=== PATIENT | male | born 1970 | race Caucasian/White ===

== ENCOUNTER → 2016-07-29 | Outpatient (CLI) | payer BC | LOC: M WUC 12:14 | PROVIDERS: ATTEND Nurse Practitioner Family | DX: E29.1 Testicular hypofunction (principal) ==

== ENCOUNTER → 2016-08-14 | Outpatient (REF) | payer BC ==
[2016-08-14 18:16] LABS: BASO % 0.5 % (0.0-1.0); EOS # 0.3 K/mm3 (0.0-0.50); EOS % 2.7 % (0.0-3.0); LARGE UNSTAINED CELL # 0.2 K/mm3 (0.0-0.4); LARGE UNSTAINED CELL % 2.5 % (0.0-4.0); LYMPH # 3.9 K/mm3 (1.5-4.5); LYMPH % 38.2 % (24.0-44.0); MEAN CORPUSCULAR HEMOGLOBIN 27.2 pg (27.0-33.0); MEAN CORPUSCULAR HGB CONC 32.1 g/dl (32.0-36.5); MEAN CORPUSCULAR VOLUME 84.8 fl (80.0-96.0); MONO # 0.8 K/mm3 (0.0-0.8); MONO % 8.1 % (0.0-5.0); NEUTROPHILS # 4.6 K/mm3 (1.8-7.7); PLATELET COUNT, AUTOMATED 218 k/mm3 (150-450); RED CELL DISTRIBUTION WIDTH 14.6 % (11.5-14.5); WHITE BLOOD COUNT 9.5 K/mm3 (4.0-10.0)
[2016-08-14 19:06] LABS: ALBUMIN 3.7 GM/DL (3.2-5.2); ALBUMIN/GLOBULIN RATIO 1.12 (1.00-1.93); ALKALINE PHOSPHATASE 46 U/L (45-117); ALT/SGPT 42 U/L (12-78); ANION GAP 11 MEQ/L (8-16); AST/SGOT 23 U/L (15-37); BILIRUBIN,TOTAL 0.6 MG/DL (0.2-1.0); BLOOD UREA NITROGEN 15 MG/DL (7-18); CALCIUM LEVEL 8.8 MG/DL (8.5-10.1); CARBON DIOXIDE LEVEL 25 MEQ/L (21-32); CHLORIDE LEVEL 105 MEQ/L (98-107); CHOLESTEROL LEVEL 134 MG/DL (<200); CREATININE FOR GFR 1.21 MG/DL (0.70-1.30); GLOMERULAR FILTRATION RATE > 60.0 (>60); GLUCOSE, FASTING 88 MG/DL (70-105); POTASSIUM SERUM 4.1 MEQ/L (3.5-5.1); SODIUM LEVEL 141 MEQ/L (136-145); TRIGLYCERIDES LEVEL 133 MG/DL (<150)
== END ==
LOC: M LABDRAW1 15:41
PROVIDERS: ATTEND Nurse Practitioner Family
DX: I10 Essential (primary) hypertension (principal); K21.9 Gastro-esophageal reflux disease without esophagitis; E55.9 Vitamin D deficiency, unspecified; E78.5 Hyperlipidemia, unspecified

== ENCOUNTER → 2016-08-26 | Outpatient (CLI) | payer BC ==
[2016-08-26 12:44] LABS: ANION GAP 6 MEQ/L (8-16); BLOOD UREA NITROGEN 12 MG/DL (7-18); CALCIUM LEVEL 8.7 MG/DL (8.5-10.1); CARBON DIOXIDE LEVEL 31 MEQ/L (21-32); CHLORIDE LEVEL 100 MEQ/L (98-107); CREATININE FOR GFR 1.35 MG/DL (0.70-1.30); GLOMERULAR FILTRATION RATE > 60.0 (>60); GLUCOSE, FASTING 94 MG/DL (70-105); POTASSIUM SERUM 4.2 MEQ/L (3.5-5.1); SODIUM LEVEL 137 MEQ/L (136-145)
== END ==
LOC: M LAB 11:25
PROVIDERS: ATTEND Nurse Practitioner Family
DX: R31.29 Other microscopic hematuria (principal); E29.1 Testicular hypofunction

== ENCOUNTER → 2017-01-27 | Outpatient (CLI) | payer BC ==
[~2017-01-27] MED LIST: ASPI1TAB PO; ASPI81CH PO; ATOR1TAB19 PO; CITA40TA4 PO; FISH100049 PO; LANS30CA PO; LISI-538 PO; MULT1TAB18 PO; TEST200I14 IM; VITA1CAP40 PO; VITMTA PO
== END ==
LOC: M ADAMS 14:48
PROVIDERS: ATTEND Nurse Practitioner Family
DX: E29.1 Testicular hypofunction (principal); N39.0 Urinary tract infection, site not specified

== ENCOUNTER → 2017-01-29 | Outpatient (REF) | payer BC | LOC: M LABDRWAD 20:26 | PROVIDERS: ATTEND Nurse Practitioner Family | DX: E29.1 Testicular hypofunction (principal) ==

== ENCOUNTER → 2017-02-17 | Outpatient (CLI) | payer BC | LOC: M ADAMS 15:09 | PROVIDERS: ATTEND Nurse Practitioner Family | DX: E29.1 Testicular hypofunction (principal); N39.0 Urinary tract infection, site not specified ==

== ENCOUNTER 2017-03-19 17:34 | Emergency (ER) | payer BC ==
[~2017-03-19] VITALS: Ht 198.1 cm; Wt 130.4 kg
[2017-03-19] MEDS ORDERED: FISH100049 PO (17:49)
[2017-03-19] MEDS ORDERED: MULT1TAB18 PO (17:49)
[2017-03-19] MEDS ORDERED: VITA1CAP40 PO (17:49)
[2017-03-19] MEDS ORDERED: ASPI81CH PO (17:49)
[2017-03-19] MEDS ORDERED: LANS30CA PO (17:49)
[2017-03-19] MEDS ORDERED: LISI-538 PO (17:49)
[2017-03-19] MEDS ORDERED: CITA40TA4 PO (17:49)
[2017-03-19] MEDS ORDERED: ATOR1TAB19 PO (17:49)
[2017-03-19] MEDS ORDERED: TEST200I14 IM (17:49)
[2017-03-19] MEDS ORDERED: NS 1,000 ML IV SCH (18:17)
[2017-03-19] MEDS ORDERED: ASPIRIN 325 MG TAB PO ONE (18:30)
[2017-03-19 18:49] LABS: BASO # 0.1 10^3/uL (0.0-0.2); BASO % 0.6 % (0.0-1.0); EOS # 0.2 10^3/uL (0.0-0.50); IMMATURE GRANULOCYTE % 0.6 % (0-0); LYMPH % 28.4 % (24.0-44.0); MEAN CORPUSCULAR HEMOGLOBIN 26.2 pg (27.0-33.0); MEAN CORPUSCULAR HGB CONC 32.4 g/dl (32.0-36.5); MEAN CORPUSCULAR VOLUME 80.8 fl (80.0-96.0); MONO # 1.2 10^3/uL (0.0-0.8); MONO % 11.1 % (0.0-5.0); NEUTROPHILS # 6.1 10^3/uL (1.8-7.7); NEUTROPHILS % 57.3 % (36.0-66.0); PLATELET COUNT, AUTOMATED 234 10^3/uL (150-450); RED CELL DISTRIBUTION WIDTH 16.8 % (11.5-14.5); WHITE BLOOD COUNT 10.7 10^3/uL (4.0-10.0)
--- NOTE | 2017-03-19 19:00 | REPUSA ---
CT of the head Clinical history: altered mental status. Comparison: 10/02/2005. Technique: Multiple axial CT images were obtained through the head without administration of contrast . Findings: The ventricles and sulci are symmetric bilaterally. There is no evidence of acute hemorrhag e or infarct. There is no midline shift, mass effect, or extra-axial fluid collection. The osseous st ructures are unremarkable. The visualized paranasal sinuses and mastoid air cells are clear. Impression: Negative study.
--- NOTE | 2017-03-19 19:12 | REP ---
CHEST, PA AND LATERAL: 03/19/2017. Clinical history: Altered mental status. Comparison: 12/20/2015, 07/06/2014. Findings: Two views show the lung jefferson well inflated and without infiltrate, effusion, atelectasis or mass. Heart, mediastinal and hilar contours are stable dating back to 2006. The aorta and airway intact. Bony thorax without acute finding. No free air. Impression: 1. No acute cardiopulmonary disease, stable chest. Signed by Deni Prescott MD 03/19/2017 08:04 P
[2017-03-19 19:15] LABS: ALBUMIN 3.9 GM/DL (3.2-5.2); ALKALINE PHOSPHATASE 53 U/L (45-117); ALT/SGPT 49 U/L (12-78); ANION GAP 4 MEQ/L (8-16); AST/SGOT 30 U/L (7-37); BILIRUBIN,DIRECT 0.2 MG/DL (0.0-0.2); BILIRUBIN,TOTAL 1.1 MG/DL (0.2-1.0); BLOOD UREA NITROGEN 11 MG/DL (7-18); CALCIUM LEVEL 9.5 MG/DL (8.5-10.1); CARBON DIOXIDE LEVEL 33 MEQ/L (21-32); CHLORIDE LEVEL 100 MEQ/L (98-107); CREATININE FOR GFR 1.32 MG/DL (0.70-1.30); GLOMERULAR FILTRATION RATE > 60.0 (>60); GLUCOSE, FASTING 80 MG/DL (70-105); SODIUM LEVEL 137 MEQ/L (136-145); TOTAL PROTEIN 7.8 GM/DL (6.4-8.2)
[2017-03-19] MEDS ORDERED: METOCLOPRAMIDE INJ 10MG/2ML VIAL (J2765) IV ONE (19:15)
[2017-03-19] MEDS ORDERED: ASPI1TAB PO (20:20)
[2017-03-19] MEDS ORDERED: VITMTA PO (20:20)
[2017-03-19 20:36] LABS: METHADONE URINE NEGATIVE (NEGATIVE)
[2017-03-19] MEDS ORDERED: CitaloPRAM (CeleXA) 20 MG TAB PO SCH (21:00)
[2017-03-19] MEDS ORDERED: LISINOPRIL 20 MG TAB PO SCH (21:00)
[2017-03-19] MEDS ORDERED: ATORVASTATIN 10 MG TAB PO SCH (21:00)
[2017-03-19 21:47] VITALS: BP 130/70
[2017-03-19] MEDS ORDERED: ONDANSETRON 4MG/2ML VIAL (J2405) IV PRN (22:30)
[2017-03-19] MEDS ORDERED: ACETAMINOPHEN TAB 650MG DOSE (2X325MG) PO PRN (22:30)
[2017-03-20] MEDS ORDERED: OMEGA-3 1050MG CAPSULE PO SCH (09:00)
[2017-03-20] MEDS ORDERED: MULTIVITAMINS/MINERALS THERAP 1 TAB PO SCH (09:00)
[2017-03-20] MEDS ORDERED: PANTOPRAZOLE 40MG TAB (PROTONIX) PO SCH (09:00)
[2017-03-20] MEDS ORDERED: ASPIRIN 81 MG ENTERIC TAB PO SCH (09:00)
--- NOTE | 2017-03-22 00:14 | ECGEPIP ---
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
== END 2017-03-19 22:05 | disposition left against medical advice (07) ==
LOC: M ED 17:34
DX: G45.9 Transient cerebral ischemic attack, unspecified (principal); I10 Essential (primary) hypertension; E78.4 Other hyperlipidemia
CPT/HCPCS: 70450; 71020; 80048; 80076; 80307; 81001; 82550; 82553; 83605; 84443; 85025; 93005; 93041; 94760; 96374; 99285; G0480; J2765

== ENCOUNTER → 2017-03-24 | Outpatient (CLI) | payer BC ==
[2017-03-24 16:33] LABS: BASO # 0.1 10^3/uL (0.0-0.2); BASO % 0.5 % (0.0-1.0); EOS # 0.1 10^3/uL (0.0-0.50); EOS % 1.1 % (0.0-3.0); IMMATURE GRANULOCYTE % 0.7 % (0-0); LYMPH # 2.8 10^3/uL (1.5-4.5); LYMPH % 29.8 % (24.0-44.0); MEAN CORPUSCULAR HEMOGLOBIN 25.9 pg (27.0-33.0); MEAN CORPUSCULAR HGB CONC 31.8 g/dl (32.0-36.5); MEAN CORPUSCULAR VOLUME 81.6 fl (80.0-96.0); MONO # 0.8 10^3/uL (0.0-0.8); MONO % 8.5 % (0.0-5.0); NEUTROPHILS # 5.5 10^3/uL (1.8-7.7); NEUTROPHILS % 59.4 % (36.0-66.0); PLATELET COUNT, AUTOMATED 259 10^3/uL (150-450); RED CELL DISTRIBUTION WIDTH 17.4 % (11.5-14.5); WHITE BLOOD COUNT 9.2 10^3/uL (4.0-10.0)
[2017-03-24 16:55] LABS: ALBUMIN 3.8 GM/DL (3.2-5.2); ALBUMIN/GLOBULIN RATIO 1.19 (1.00-1.93); ALKALINE PHOSPHATASE 52 U/L (45-117); ALT/SGPT 42 U/L (12-78); ANION GAP 6 MEQ/L (8-16); AST/SGOT 22 U/L (7-37); BILIRUBIN,TOTAL 1.1 MG/DL (0.2-1.0); BLOOD UREA NITROGEN 11 MG/DL (7-18); CALCIUM LEVEL 9.4 MG/DL (8.5-10.1); CARBON DIOXIDE LEVEL 30 MEQ/L (21-32); CHLORIDE LEVEL 103 MEQ/L (98-107); CHOLESTEROL LEVEL 136 MG/DL (<200); CREATININE FOR GFR 1.28 MG/DL (0.70-1.30); GLOMERULAR FILTRATION RATE > 60.0 (>60); GLUCOSE, FASTING 119 MG/DL (70-105); POTASSIUM SERUM 4.3 MEQ/L (3.5-5.1); SODIUM LEVEL 139 MEQ/L (136-145); TRIGLYCERIDES LEVEL 152 MG/DL (<150)
== END ==
LOC: M ADAMS 13:22
PROVIDERS: ATTEND Nurse Practitioner Family
DX: I10 Essential (primary) hypertension (principal); E55.9 Vitamin D deficiency, unspecified; E78.5 Hyperlipidemia, unspecified

== ENCOUNTER → 2017-05-13 | Outpatient (CLI) | payer BC ==
[2017-05-13 18:25] LABS: HEMATOCRIT 50.3 % (42.0-52.0)
[2017-05-14 08:36] LABS: TESTOSTERONE 97 NG/DL (241-827)
[2017-05-14 10:09] LABS: PROSTATIC SPECIFIC AG MONITOR 0.49 NG/ML (< 4.0)
== END ==
LOC: M ADAMS 10:40
DX: E29.1 Testicular hypofunction (principal)
CPT/HCPCS: 84403

== ENCOUNTER → 2017-06-01 | Outpatient (REF) | payer BC ==
[2017-06-01 20:14] LABS: PROSTATIC SPECIFIC AG MONITOR 0.64 NG/ML (< 4.0)
[2017-06-01 20:21] LABS: TESTOSTERONE 261 NG/DL (241-827)
== END ==
LOC: M LABDRWAD 19:12
DX: E29.1 Testicular hypofunction (principal)

== ENCOUNTER → 2017-06-01 | Outpatient (CLI) | payer BC | LOC: M ADAMS 17:35 | DX: R31.29 Other microscopic hematuria (principal); M41.26 Other idiopathic scoliosis, lumbar region | CPT/HCPCS: 74018 ==

== ENCOUNTER → 2017-08-28 | Outpatient (REF) | payer BC ==
[2017-08-28 20:35] LABS: BASO # 0.1 10^3/uL (0.0-0.2); BASO % 0.9 % (0.0-1.0); EOS # 0.2 10^3/uL (0.0-0.50); EOS % 2.6 % (0.0-3.0); HEMATOCRIT 48.8 % (42.0-52.0); HEMOGLOBIN 15.9 g/dl (13.5-17.5); IMMATURE GRANULOCYTE % 1.8 % (0-3.0); LYMPH # 3.4 10^3/uL (1.5-4.5); LYMPH % 37.4 % (24.0-44.0); MEAN CORPUSCULAR HEMOGLOBIN 28.9 pg (27.0-33.0); MEAN CORPUSCULAR HGB CONC 32.6 g/dl (32.0-36.5); MEAN CORPUSCULAR VOLUME 88.6 fl (80.0-96.0); MONO # 0.9 10^3/uL (0.0-0.8); MONO % 9.8 % (0.0-5.0); NEUTROPHILS # 4.3 10^3/uL (1.8-7.7); NEUTROPHILS % 47.5 % (36.0-66.0); PLATELET COUNT, AUTOMATED 186 10^3/uL (150-450); RED BLOOD COUNT 5.51 10^6/uL (4.30-6.10); RED CELL DISTRIBUTION WIDTH 17.9 % (11.5-14.5); WHITE BLOOD COUNT 9.1 10^3/uL (4.0-10.0)
[2017-08-28 20:56] LABS: ALBUMIN/GLOBULIN RATIO 1.14 (1.00-1.93); ALKALINE PHOSPHATASE 54 U/L (45-117); ALT/SGPT 90 U/L (12-78); AMYLASE 56 U/L (25-115); ANION GAP 4 MEQ/L (8-16); AST/SGOT 45 U/L (7-37); BILIRUBIN,TOTAL 0.9 MG/DL (0.2-1.0); BLOOD UREA NITROGEN 14 MG/DL (7-18); CALCIUM LEVEL 9.4 MG/DL (8.5-10.1); CARBON DIOXIDE LEVEL 31 MEQ/L (21-32); CHLORIDE LEVEL 104 MEQ/L (98-107); CREATININE FOR GFR 1.15 MG/DL (0.70-1.30); GLOMERULAR FILTRATION RATE > 60.0 (>60); GLUCOSE, FASTING 108 MG/DL (70-100); POTASSIUM SERUM 4.4 MEQ/L (3.5-5.1); SODIUM LEVEL 139 MEQ/L (136-145); TOTAL PROTEIN 7.5 GM/DL (6.4-8.2)
[2017-08-29 11:15] LABS: LIPASE 249 U/L (73-393)
== END ==
LOC: M ADAMS 10:41
DX: R10.9 Unspecified abdominal pain (principal)
CPT/HCPCS: 82150

== ENCOUNTER → 2017-10-08 | Outpatient (CLI) | payer BC ==
[2017-10-08 20:44] LABS: TESTOSTERONE 621 NG/DL (241-827)
== END ==
LOC: M ADAMS 11:34
DX: E34.9 Endocrine disorder, unspecified (principal)

== ENCOUNTER → 2017-10-15 | Outpatient (REF) | payer BC ==
[2017-10-15 21:53] LABS: TESTOSTERONE 923 NG/DL (241-827)
== END ==
LOC: M LAB REF 21:14 → M LABDRWAD 21:14
DX: E34.9 Endocrine disorder, unspecified (principal)
CPT/HCPCS: 84403

== ENCOUNTER 2018-02-02 16:16 | Emergency (ER) | payer OTHER, BC | END 2018-02-02 19:30 | disposition home or self-care (01) | LOC: M ED 16:16 | DX: S16.1XXA Strain of muscle, fascia and tendon at neck level, initial encounter (principal); S09.93XA Unspecified injury of face, initial encounter; S80.01XA Contusion of right knee, initial encounter; V43.52XA Car driver injured in collision with other type car in traffic accident, initial encounter; Y92.9 Unspecified place or not applicable; Y93.9 Activity, unspecified; Y99.9 Unspecified external cause status; M25.78 Osteophyte, vertebrae; M50.93 Cervical disc disorder, unspecified, cervicothoracic region; Z79.82 Long term (current) use of aspirin; Z79.899 Other long term (current) drug therapy | CPT/HCPCS: 71046 ==

== ENCOUNTER → 2018-03-10 | Outpatient (REF) | payer OTHER, BC ==
[2018-03-10 17:40] LABS: HEMATOCRIT 50.4 % (42.0-52.0)
[2018-03-10 17:44] LABS: PROSTATIC SPECIFIC AG MONITOR 0.57 NG/ML (< 4.0)
[2018-03-11 10:20] LABS: TESTOSTERONE 575 NG/DL (241-827)
== END ==
LOC: M LABDRWAD 17:06
DX: R79.89 Other specified abnormal findings of blood chemistry (principal)
CPT/HCPCS: 84403

== ENCOUNTER → 2018-03-24 | Outpatient (REF) | payer BC ==
[2018-03-24 17:08] LABS: BASO # 0.1 10^3/uL (0.0-0.2); EOS # 0.2 10^3/uL (0.0-0.50); EOS % 2.4 % (0.0-3.0); HEMATOCRIT 51.1 % (42.0-52.0); HEMOGLOBIN 16.6 g/dl (13.5-17.5); IMMATURE GRANULOCYTE % 1.9 % (0-3.0); LYMPH % 36.4 % (24.0-44.0); MEAN CORPUSCULAR HEMOGLOBIN 28.7 pg (27.0-33.0); MEAN CORPUSCULAR HGB CONC 32.5 g/dl (32.0-36.5); MEAN CORPUSCULAR VOLUME 88.4 fl (80.0-96.0); MONO # 0.7 10^3/uL (0.0-0.8); MONO % 8.8 % (0.0-5.0); NEUTROPHILS # 4.1 10^3/uL (1.8-7.7); NEUTROPHILS % 49.5 % (36.0-66.0); PLATELET COUNT, AUTOMATED 218 10^3/uL (150-450); RED BLOOD COUNT 5.78 10^6/uL (4.30-6.10); RED CELL DISTRIBUTION WIDTH 15.2 % (11.5-14.5); WHITE BLOOD COUNT 8.2 10^3/uL (4.0-10.0)
[2018-03-24 17:18] LABS: ALBUMIN 4.2 GM/DL (3.2-5.2); ALBUMIN/GLOBULIN RATIO 1.35 (1.00-1.93); ALKALINE PHOSPHATASE 61 U/L (45-117); ALT/SGPT 78 U/L (12-78); ANION GAP 7 MEQ/L (8-16); AST/SGOT 40 U/L (7-37); BLOOD UREA NITROGEN 12 MG/DL (7-18); CALCIUM LEVEL 9.1 MG/DL (8.5-10.1); CARBON DIOXIDE LEVEL 28 MEQ/L (21-32); CHLORIDE LEVEL 103 MEQ/L (98-107); CHOLESTEROL LEVEL 142 MG/DL (<200); CHOLESTEROL RISK RATIO 4.437 (<5); CREATININE FOR GFR 1.17 MG/DL (0.70-1.30); FREE T4 0.99 NG/DL (0.76-1.46); GLOMERULAR FILTRATION RATE > 60.0 (>60); GLUCOSE, FASTING 103 MG/DL (70-100); HDL CHOLESTEROL 32 MG/DL (>40); LDL CHOLESTEROL 82 MG/DL (<100); NON-HDL-C 110 MG/DL; POTASSIUM SERUM 4.3 MEQ/L (3.5-5.1); SODIUM LEVEL 138 MEQ/L (136-145); THYROID STIMULATING HORMONE 0.636 uIU/ML (0.358-3.740); TOTAL PROTEIN 7.3 GM/DL (6.4-8.2); TRIGLYCERIDES LEVEL 141 MG/DL (<150)
== END ==
LOC: M SFHCADAM 14:45
DX: I10 Essential (primary) hypertension (principal); E66.9 Obesity, unspecified; F41.9 Anxiety disorder, unspecified
CPT/HCPCS: 84443

== ENCOUNTER → 2018-03-24 | Outpatient (CLI) | payer BC | LOC: M ADAMS 14:50 | DX: F41.9 Anxiety disorder, unspecified (principal); I10 Essential (primary) hypertension; E66.9 Obesity, unspecified ==

== ENCOUNTER → 2018-03-24 | Outpatient (REF) | payer BC ==
[2018-03-25 11:34] LABS: TESTOSTERONE 362 NG/DL (241-827)
== END ==
LOC: M LABDRWAD 10:28
DX: R79.89 Other specified abnormal findings of blood chemistry (principal)
CPT/HCPCS: 84403

== ENCOUNTER → 2018-06-15 | Outpatient (CLI) | payer BC ==
[~2018-06-15] MED LIST changes: +ACET-683 PO; +CYCL10TA PO; +IBUP-1022 PO; -VITA1CAP40 PO; +VITA50005 PO
[2018-06-15 19:57] LABS: BASO # 0.1 10^3/uL (0.0-0.2); BASO % 0.9 % (0.0-1.0); EOS # 0.2 10^3/uL (0.0-0.50); EOS % 2.5 % (0.0-3.0); LYMPH # 3.8 10^3/uL (1.5-4.5); LYMPH % 41.5 % (24.0-44.0); MEAN CORPUSCULAR HGB CONC 32.7 g/dl (32.0-36.5); MEAN CORPUSCULAR VOLUME 88.6 fl (80.0-96.0); MONO # 1.1 10^3/uL (0.0-0.8); MONO % 11.6 % (0.0-5.0); NEUTROPHILS # 3.9 10^3/uL (1.8-7.7); NEUTROPHILS % 42.5 % (36.0-66.0); PLATELET COUNT, AUTOMATED 235 10^3/uL (150-450); RED BLOOD COUNT 5.87 10^6/uL (4.30-6.10); WHITE BLOOD COUNT 9.1 10^3/uL (4.0-10.0)
[2018-06-15 20:05] LABS: PROSTATIC SPECIFIC AG MONITOR 0.6 NG/ML (< 4.00)
[2018-06-15 20:07] LABS: ALBUMIN 4.2 GM/DL (3.2-5.2); ALT/SGPT 128 U/L (12-78); AMYLASE 60 U/L (25-115); BLOOD UREA NITROGEN 12 MG/DL (7-18); CALCIUM LEVEL 9.3 MG/DL (8.5-10.1); CARBON DIOXIDE LEVEL 30 MEQ/L (21-32); CHLORIDE LEVEL 103 MEQ/L (98-107); CREATININE FOR GFR 1.19 MG/DL (0.70-1.30); GLOMERULAR FILTRATION RATE > 60.0 (>60); GLUCOSE, FASTING 88 MG/DL (70-100); LIPASE 293 U/L (73-393); POTASSIUM SERUM 5.1 MEQ/L (3.5-5.1); SODIUM LEVEL 137 MEQ/L (136-145); TOTAL PROTEIN 7.5 GM/DL (6.4-8.2)
--- NOTE | 2018-06-16 09:45 | REP ---
KUB ABDOMEN AND PELVIS: Two KUB films of abdomen and pelvis performed. There is moderate fecal material scattered throughout the colon. No small bowel obstruction is seen. No abnormal calcifications are seen. There are moderate degenerative changes of the lower lumbar spine with mild curvature towards the left. There are mild degenerative changes of the hips. IMPRESSION: Moderate fecal retention with no evidence of bowel obstruction. Electronically Signed by Jourdan Banks MD 06/16/2018 06:55 P
== END ==
LOC: M ADAMS 12:26
PROVIDERS: ATTEND Urology
DX: R10.9 Unspecified abdominal pain (principal); K59.00 Constipation, unspecified; N20.0 Calculus of kidney; R31.29 Other microscopic hematuria

== ENCOUNTER → 2018-06-29 | Outpatient (CLI) | payer BC ==
[~2018-06-29] MED LIST changes: +MAGN100T PO
== END ==
LOC: M ADAMS 12:45
PROVIDERS: ATTEND Urology
DX: Z13.89 Encounter for screening for other disorder (principal)

== ENCOUNTER 2018-06-30 19:20 | Emergency (ER) | payer BC ==
[~2018-06-30] VITALS: Ht 195.6 cm; Wt 131.8 kg
[~2018-06-30 19:20] MED LIST changes: -MAGN100T PO
[2018-06-30] MEDS ORDERED: NS 1,000 ML IV ONE (19:45)
[2018-06-30] MEDS ORDERED: KETOROLAC 30 MG/ML VIAL (J1885) IV ONE (19:45)
[2018-06-30 20:32] LABS: BASO # 0.1 10^3/uL (0.0-0.2); BASO % 0.7 % (0.0-1.0); EOS # 0.3 10^3/uL (0.0-0.50); EOS % 2.8 % (0.0-3.0); HEMATOCRIT 51.1 % (42.0-52.0); HEMOGLOBIN 16.8 g/dl (13.5-17.5); LYMPH # 3.7 10^3/uL (1.5-4.5); MEAN CORPUSCULAR HEMOGLOBIN 29.2 pg (27.0-33.0); MEAN CORPUSCULAR HGB CONC 32.9 g/dl (32.0-36.5); MEAN CORPUSCULAR VOLUME 88.7 fl (80.0-96.0); MONO # 0.8 10^3/uL (0.0-0.8); MONO % 8.3 % (0.0-5.0); NEUTROPHILS # 4.3 10^3/uL (1.8-7.7); NEUTROPHILS % 47.3 % (36.0-66.0); PLATELET COUNT, AUTOMATED 187 10^3/uL (150-450); RED BLOOD COUNT 5.76 10^6/uL (4.30-6.10); WHITE BLOOD COUNT 9.2 10^3/uL (4.0-10.0)
[2018-06-30 20:42] LABS: INR 0.99; PROTHROMBIN TIME 13.2 SECONDS (12.1-14.4)
[2018-06-30 20:43] LABS: PARTIAL THROMBOPLASTIN TIME 26.1 SECONDS (25.4-37.6)
[2018-06-30 20:59] LABS: ALBUMIN 3.9 GM/DL (3.2-5.2); BILIRUBIN,DIRECT 0.2 MG/DL (0.0-0.2); BILIRUBIN,TOTAL 0.8 MG/DL (0.2-1.0); CALCIUM LEVEL 9.1 MG/DL (8.5-10.1); CREATININE FOR GFR 1.35 MG/DL (0.70-1.30); GLOMERULAR FILTRATION RATE 59.6 (>56); POTASSIUM SERUM 4.7 MEQ/L (3.5-5.1); TOTAL PROTEIN 7.4 GM/DL (6.4-8.2)
[2018-06-30] MEDS ORDERED: ISOVUE-370 76% 100ML VIAL (Q9967) As Ordered ONE (20:59)
--- NOTE | 2018-06-30 21:53 | REPVR ---
EXAM: CT Abdomen and Pelvis With Contrast EXAM DATE/TIME: 06/30/2018 9:08 PM CLINICAL HISTORY: 48 years old, male; Pain; Abdominal pain; Generalized; Additional info: Right abd pain x wks, radiate scrotum/leg, diff erections TECHNIQUE: Axial computed tomography images of the abdomen and pelvis with intravenous contrast. All CT scans at this facility use at least one of these dose optimization techniques: automated exposure control; mA and/or kV adjustment per patient size (includes targeted exams where dose is matched to clinical indication); or iterative reconstruction. Coronal and sagittal reformatted images were created and reviewed. CONTRAST: Contrast Material: 100 ml of ISOVUE 370; Contrast Route: IV COMPARISON: No relevant prior studies available. FINDINGS: Lower thorax: No acute findings. ABDOMEN: Liver: There is fatty infiltration of the liver. The liver at mid clavicular line measures 16.4. Gallbladder and bile ducts: The gallbladder is contracted with no stones. Pancreas: Normal. No ductal dilation. Spleen: Normal. No splenomegaly. Adrenals: Normal. No mass. Kidneys and ureters: Normal. No hydronephrosis. Stomach and bowel: Mild distention of the stomach with food material. Appendix: A normal appendix is seen. PELVIS: Bladder: The urinary bladder is decompressed but appears grossly normal. Reproductive: Unremarkable as visualized. ABDOMEN and PELVIS: Intraperitoneal space: Normal. No free air. No significant fluid collection. Bones/joints: Moderate degenerative changes of the lumbar spine. Soft tissues: Unremarkable. Vasculature: The internal iliac arteries are patent although there is atherosclerotic calcification. Lymph nodes: Normal. No enlarged lymph nodes. IMPRESSION: 1. Borderline hepatomegaly with fatty infiltration. 2. There is mild distention of the stomach with food material which in view of a contracted gallbladder likely reflects recent ingestion. 3. Degenerative disc changes and facet arthropathy of the lumbar spine. 4. Otherwise negative CT abdomen/pelvis. Electronically signed by: Filipe Fiore On 06/30/2018 21:52:39 PM
[2018-06-30 22:34] VITALS: BP 144/65
[2018-06-30] MEDS ORDERED: MAGN100T PO (22:41)
[2018-07-17] MEDS ORDERED: IBUP-1022 PO (23:15)
[2018-07-17] MEDS ORDERED: SOMA350T PO (23:15)
== END 2018-06-30 22:39 | disposition home or self-care (01) ==
LOC: M ED 19:20
DX: R10.9 Unspecified abdominal pain (principal); M51.36 Other intervertebral disc degeneration, lumbar region; I10 Essential (primary) hypertension; E78.5 Hyperlipidemia, unspecified; K21.9 Gastro-esophageal reflux disease without esophagitis; Z79.899 Other long term (current) drug therapy; Z79.82 Long term (current) use of aspirin
CPT/HCPCS: 74177; 80048; 80076; 83690; 85025; 85610; 85730; 96361; 96374; 99284; J1885; Q9967

== ENCOUNTER 2018-10-01 09:51 | Emergency (ER) | payer OTHER, BC ==
[~2018-10-01] VITALS: Ht 193 cm; Wt 135.4 kg
[~2018-10-01 09:51] MED LIST changes: -ASPI1TAB PO; -ASPI81CH PO; +ASPI81CH49 PO; +ASPI81TA26 PO; +MAGN100T PO; +SOMA350T PO
[2018-10-01 09:52] VITALS: BP 127/63
== END 2018-10-01 11:06 | disposition home or self-care (01) ==
LOC: M ED 09:51
DX: S39.012A Strain of muscle, fascia and tendon of lower back, initial encounter (principal); X58.XXXA Exposure to other specified factors, initial encounter; Y92.89 Other specified places as the place of occurrence of the external cause; I10 Essential (primary) hypertension; E78.5 Hyperlipidemia, unspecified; F41.9 Anxiety disorder, unspecified; K21.9 Gastro-esophageal reflux disease without esophagitis; Z79.899 Other long term (current) drug therapy; Z79.82 Long term (current) use of aspirin

== ENCOUNTER → 2018-11-02 | Outpatient (CLI) | payer BC ==
[2018-11-02 17:41] LABS: BILIRUBIN,TOTAL 1.1 MG/DL (0.2-1.0); CALCIUM LEVEL 9.6 MG/DL (8.5-10.1); CREATININE FOR GFR 1.4 MG/DL (0.70-1.30); GLOMERULAR FILTRATION RATE 57.1 (>56); POTASSIUM SERUM 4.6 MEQ/L (3.5-5.1); THYROID STIMULATING HORMONE 0.533 uIU/ML (0.358-3.740)
== END ==
LOC: M LABDRWAD 16:37
PROVIDERS: ATTEND Family Medicine
DX: R06.9 Unspecified abnormalities of breathing (principal)

== ENCOUNTER → 2019-02-22 | Outpatient (CLI) | payer BC | LOC: M ADAMS 14:35 | PROVIDERS: ATTEND Urology | DX: R79.89 Other specified abnormal findings of blood chemistry (principal) | CPT/HCPCS: 36415; 84403; 85014; G0103 ==

== ENCOUNTER → 2019-02-28 | Outpatient (REF) | payer BC | LOC: M LABDRWAD 12:55 | PROVIDERS: ATTEND Urology | DX: R79.89 Other specified abnormal findings of blood chemistry (principal) ==

== ENCOUNTER 2019-04-20 09:25 | Emergency (ER) | payer BC ==
[~2019-04-20] VITALS: Ht 195.6 cm; Wt 129.6 kg
[2019-04-20 09:56] LABS: BASO # 0.1 10^3/uL (0.0-0.2); EOS # 0.3 10^3/uL (0.0-0.5); EOS % 2.9 % (0.0-3.0); HEMOGLOBIN 16.7 g/dl (13.5-17.5); LYMPH # 4.2 10^3/uL (1.5-5.0); LYMPH % 41.2 % (24.0-44.0); MEAN CORPUSCULAR HEMOGLOBIN 28.3 pg (27.0-33.0); MEAN CORPUSCULAR HGB CONC 32.1 g/dl (32.0-36.5); MEAN CORPUSCULAR VOLUME 88.1 fl (80.0-96.0); MONO % 9.3 % (0.0-5.0); NEUTROPHILS # 4.5 10^3/uL (1.5-8.5); NEUTROPHILS % 44.3 % (36.0-66.0); PLATELET COUNT, AUTOMATED 228 10^3/uL (150-450); WHITE BLOOD COUNT 10.2 10^3/uL (4.0-10.0)
--- NOTE | 2019-04-20 09:58 | REP ---
Portable chest x-ray: Two views presented. History: Chest pain. Comparison study: February 02, 2018. Findings: The lungs are symmetrically aerated and clear. Pleural angles are sharp. Heart size is normal. Pulmonary vasculature is not increased. Impression: Unremarkable portable chest x-ray. No acute disease. Electronically Signed by Des Hsu MD 04/20/2019 09:50 A
[2019-04-20] MEDS ORDERED: NS 1,000 ML IV ONE (10:00)
[2019-04-20] MEDS ORDERED: ASPIRIN 81 MG CHEW TABLET PO ONE (10:00)
[2019-04-20 10:02] LABS: INR 1.02; PROTHROMBIN TIME 13.1 SECONDS (11.8-14.0)
[2019-04-20 10:03] LABS: PARTIAL THROMBOPLASTIN TIME 26.2 SECONDS (25.0-38.4)
[2019-04-20] MEDS ORDERED: ISOVUE-370 76% 100ML VIAL (Q9967) As Ordered ONE (10:31)
[2019-04-20 10:36] LABS: ALBUMIN 3.8 GM/DL (3.2-5.2); ALT/SGPT 82 U/L (12-78); BILIRUBIN,DIRECT 0.1 MG/DL (0.0-0.2); BLOOD UREA NITROGEN 18 MG/DL (7-18); CALCIUM LEVEL 8.8 MG/DL (8.5-10.1); CARBON DIOXIDE LEVEL 30 MEQ/L (21-32); CHLORIDE LEVEL 103 MEQ/L (98-107); CK-MB VALUE MASS 1.8 NG/ML (<3.6); CPK CREATINE PHOSPHOKINASE 156 U/L (39-308); CREATININE FOR GFR 1.49 MG/DL (0.70-1.30); GLOMERULAR FILTRATION RATE 53.1 (>56); GLUCOSE, FASTING 109 MG/DL (70-100); MB/CK RELATIVE INDEX 1.15 (< OR =4); SODIUM LEVEL 142 MEQ/L (136-145); TOTAL PROTEIN 7.2 GM/DL (6.4-8.2); TROPONIN I < 0.02 NG/ML (< 0.10)
--- NOTE | 2019-04-20 11:11 | REP ---
CT pulmonary angiogram: With IV contrast. History: Chest pain, right calf pain. Rule out pulmonary embolism. Comparison studies: No comparison study. Contrast dose: 75 ML of Isovue [address] technique: Helical scanning is acquired and overlapping 1.5 mm and contiguous 3 mm axial images are reformatted. In addition, maximum intensity projection and multiplanar re-formation images are generated in sagittal and coronal imaging projections. CT pulmonary angiographic findings: There is good opacification in the pulmonary arterial tree. There is no CT evidence of pulmonary embolism. Thoracic aorta enhances homogeneously and is normal in course and caliber. There is no evidence of aneurysm or dissection. No filling defect or vessel cutoff is seen on maximal intensity projection images in the pulmonary arterial tree. There is no evidence of pleural or pericardial effusion. No hilar or mediastinal mass or adenopathy is observed. No adrenal lesion is seen. The visualized upper abdominal structures are unremarkable. There is a calcified granuloma in the right lower lobe. There is another in the left lower lobe. There is mild bibasilar lower lobe plate-like atelectasis. No infiltrate is appreciated. There is an anatomic variant in the bronchial anatomy and at the apical segment right upper lobe bronchus takes origin directly from the right main bronchus. Impression: No CT evidence of pulmonary embolus. Mild bibasilar plate-like atelectasis. Otherwise no acute disease. Electronically Signed by Des Hsu MD 04/20/2019 11:02 A
[2019-04-20 15:42] LABS: CK-MB VALUE MASS 1.8 NG/ML (<3.6); CPK CREATINE PHOSPHOKINASE 145 U/L (39-308); MB/CK RELATIVE INDEX 1.24 (< OR =4); TROPONIN I < 0.02 NG/ML (< 0.10)
[2019-04-20 16:45] VITALS: BP 165/92
--- NOTE | 2019-04-20 19:47 | ECGEPIP ---
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
--- NOTE | 2019-04-21 00:56 | ECGEPIP ---
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
--- NOTE | 2019-04-21 17:06 | ECGEPIP ---
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
== END 2019-04-20 16:48 | disposition home or self-care (01) ==
LOC: M ED 09:25
DX: R07.9 Chest pain, unspecified (principal); R05 Cough; J98.11 Atelectasis; R94.31 Abnormal electrocardiogram [ECG] [EKG]; E11.9 Type 2 diabetes mellitus without complications; E78.5 Hyperlipidemia, unspecified; K21.9 Gastro-esophageal reflux disease without esophagitis; Z79.82 Long term (current) use of aspirin; Z79.84 Long term (current) use of oral hypoglycemic drugs; Z79.899 Other long term (current) drug therapy
CPT/HCPCS: 36415; 71045; 71275; 80047; 80048; 80076; 82550; 82553; 84484; 85025; 85610; 85730; 93005; 93041; 93971; 94760; 99284; Q9967

== ENCOUNTER → 2019-07-13 | Outpatient (CLI) | payer BC | LOC: M ADAMS 15:17 | PROVIDERS: ATTEND Urology | DX: R79.89 Other specified abnormal findings of blood chemistry (principal) ==

== ENCOUNTER 2019-10-12 13:53 | Emergency (ER) | payer BC ==
[~2019-10-12] VITALS: Ht 198.1 cm; Wt 134.1 kg
[~2019-10-12 13:53] MED LIST changes: +CYCL-707 PO; -CYCL10TA PO; -LISI-538 PO; +LISI20TA33 PO
[2019-10-12] MEDS ORDERED: MORPHINE 4 MG/ML 1ML VIAL/SYRINGE (J2270) IV PRN (14:15)
[2019-10-12] MEDS ORDERED: ISOVUE-370 76% 100ML VIAL As Ordered ONE (14:34)
[2019-10-12 14:46] LABS: BASO # 0.1 10^3/uL (0.0-0.2); BASO % 0.7 % (0.0-1.0); EOS # 0.2 10^3/uL (0.0-0.5); EOS % 2.2 % (0.0-3.0); HEMATOCRIT 51.6 % (42.0-52.0); HEMOGLOBIN 16.7 g/dl (13.5-17.5); LYMPH # 3.5 10^3/uL (1.5-5.0); LYMPH % 35.6 % (24.0-44.0); MEAN CORPUSCULAR HEMOGLOBIN 29.1 pg (27.0-33.0); MEAN CORPUSCULAR HGB CONC 32.4 g/dl (32.0-36.5); MEAN CORPUSCULAR VOLUME 90.1 fl (80.0-96.0); MONO % 10.6 % (0.0-5.0); NEUTROPHILS # 4.9 10^3/uL (1.5-8.5); NEUTROPHILS % 50.1 % (36.0-66.0); PLATELET COUNT, AUTOMATED 232 10^3/uL (150-450); RED BLOOD COUNT 5.73 10^6/uL (4.30-6.10); WHITE BLOOD COUNT 9.7 10^3/uL (4.0-10.0)
[2019-10-12 14:50] LABS: BILIRUBIN,DIRECT 0.2 MG/DL (0.0-0.2); BILIRUBIN,TOTAL 1.1 MG/DL (0.2-1.0); TOTAL PROTEIN 7.5 GM/DL (6.4-8.2)
--- NOTE | 2019-10-12 15:10 | REP ---
Clinical: Trauma . Comparison: 02/02/2018. Technique: Axial noncontrast images from the skull base to the vertex with coronal re-formations. Findings: The ventricles, sulci, and cisterns are normal in position and appearance. Banks-white differentiation is maintained. No acute intracranial hemorrhage, mass/mass effect, pathology or trauma/injury. No evidence for acute infarction. No extra-axial fluid collection. Calvarium is intact. Paranasal sinuses and mastoid air cells are clear. Impression: Normal noncontrast head CT. No evidence for acute intracranial pathology or trauma/injury. Electronically Signed by Brayan Mcneill MD 10/12/2019 03:02 P
--- NOTE | 2019-10-12 15:17 | REP ---
Clinical: Trauma . Technique: Axial noncontrast images from the skull base to the thoracic inlet with coronal and sagittal re-formations. Comparison: 02/02/2018 Findings: Advanced multilevel degenerative disc osteophyte complexes are appreciated along with straightening/mild reversal of normal lordosis. Findings are relatively stable as compared to 02/02/2018. The spinal canal is patent. The posterior elements and spinous processes are intact. No acute fracture / compression injury or subluxation identified. Paravertebral soft tissues are normal. Impression: Advanced multilevel degenerative spondylosis similar to 2018. No acute fracture / compression injury or subluxation appreciated. Electronically Signed by Brayan Mcneill MD 10/12/2019 03:09 P
--- NOTE | 2019-10-12 15:22 | REP ---
Clinical: Trauma. Technique: Axial noncontrast images through the thoracic spine with coronal and sagittal re-formations. Comparison: 02/02/2018 Findings: Moderate/scattered advanced multilevel degenerative changes include endplate sclerosis, minimal disc space narrowing, osteophytosis and mild straightening of normal kyphosis. No acute fracture / compression injury or subluxation. Spinal canal is patent. There are elements and spinous processes are intact. Paravertebral soft tissues are grossly normal. Impression: Moderate/scattered focal advanced multilevel degenerative spondylosis. No acute fracture / compression injury or subluxation. Electronically Signed by Brayan Mcneill MD 10/12/2019 03:14 P
--- NOTE | 2019-10-12 15:27 | REP ---
Clinical: Trauma. Technique: Axial contrast enhanced images from the thoracic inlet to the upper abdomen with coronal and sagittal re-formations (followed by CT of the abdomen and pelvis) using 100 ml Isovue 370 intravenous contrast material. Findings: Mediastinum demonstrates normal thoracic aorta, pulmonary vasculature, and heart/pericardium without evidence for mediastinal injury. Thoracic aorta without aneurysm or dissection. No cardiomegaly. No pericardial effusion. No adenopathy. Bilateral lung jefferson are well-aerated and clear. No consolidation/contusion, pleural effusion, or pneumothorax. Tracheobronchial tree is patent. No obvious nodule or mass lesion. Surrounding musculoskeletal structures appear intact without obvious acute injury. Impression: 1. No acute mediastinal or pleuroparenchymal process. 2. No evidence for intrathoracic injury. Electronically Signed by Brayan Mcneill MD 10/12/2019 03:18 P
--- NOTE | 2019-10-12 15:35 | REP ---
Clinical: Trauma. Technique: Axial contrast enhanced images from the lung bases to the pubic symphysis using 100 ml Isovue 370 intravenous contrast material with coronal and sagittal re-formations. Comparison: 06/30/2018. Findings: No evidence for solid organ injury. Liver, spleen, pancreas, gallbladder, bilateral adrenal glands and kidneys are essentially normal. Mild hepatic steatosis cannot be excluded. The enteric system is without obstruction or acute inflammatory process. Scattered colonic diverticula noted without acute diverticulitis. Pelvis demonstrates normal bladder and age appropriate prostate/seminal vesicles. The abdominal aorta and vasculature appear relatively normal and without aneurysm, dissection, or vascular injury. No ascites. No free air. No adenopathy. Musculoskeletal structures demonstrate chronic levoconvex scoliosis through the lumbar spine and advanced multilevel degenerative changes. No evidence for acute musculoskeletal trauma/injury. Impression: 1. No evidence for acute abdominopelvic trauma/injury. 2. Mild hepatic steatosis cannot be excluded. 3. No acute abdominopelvic pathology appreciated. 4. Scattered diverticula without acute diverticulitis. Electronically Signed by Brayan Mcneill MD 10/12/2019 03:27 P
[2019-10-12] MEDS ORDERED: ACETAMINOPHEN TAB 650MG DOSE (2X325MG) PO ONE (15:45)
--- NOTE | 2019-10-12 16:36 | REP ---
Clinical: Trauma. Technique: Frontal view of the pelvis with neutral and frog lateral views of the left hip. Findings: No acute fracture dislocation. Skeletal structures, joint spaces, and surrounding soft tissues appear normal. Impression: No acute fracture or dislocation. Electronically Signed by Brayan Mcneill MD 10/12/2019 04:27 P
--- NOTE | 2019-10-12 16:37 | REP ---
Clinical: Trauma. Technique: AP and lateral views of the left tibia / fibula. Findings: No acute fracture dislocation. Skeletal structures, joint spaces, and surrounding soft tissues are normal. Impression: No acute fracture or dislocation. Electronically Signed by Brayan Mcneill MD 10/12/2019 04:29 P
--- NOTE | 2019-10-12 16:39 | REP ---
Clinical: Trauma . Technique: AP, lateral, bilateral oblique views left ankle . Findings: No acute fracture or dislocation. Skeletal structures and joint spaces are intact and normal. Ankle mortise appears stable. No subcutaneous emphysema or radiodense foreign body. Impression: Normal left ankle radiograph series. No acute fracture or dislocation. Electronically Signed by Brayan Mcneill MD 10/12/2019 04:30 P
--- NOTE | 2019-10-12 16:40 | REP ---
Clinical: Trauma. Technique: AP, lateral, bilateral oblique views left foot . Findings: The osseous structures and joint spaces are intact and normal. There is no evidence for acute fracture or dislocation. Surrounding soft tissues are unremarkable. No subcutaneous emphysema or radiodense foreign body. Impression: Normal left foot series . No acute fracture or dislocation. Electronically Signed by Brayan Mcneill MD 10/12/2019 04:31 P
[2019-10-12 16:58] VITALS: BP 144/74
--- NOTE | 2019-10-16 06:43 | REP ---
Clinical: Trauma. Technique: Axial noncontrast images from mid T11 through mid sacrum with coronal and sagittal re-formations. Findings: Chronic levoconvex scoliosis along with chronic moderate to advanced multilevel degenerative disc osteophyte complexes are appreciated. There is no evidence for acute fracture / compression injury or subluxation. Findings include marked osteophytosis, bridging osteophytes, subchondral sclerosis/heterogeneity, hypertrophic facet changes and disc space narrowing primarily involving L3-4 through L5-S1. Elements of associated spinal canal stenosis cannot be excluded based on current examination. Paravertebral soft tissues are grossly normal. Impression: Chronic levoconvex scoliosis and advanced multilevel degenerative disc osteophyte complexes are appreciated. There is no evidence for acute fracture / compression injury or subluxation. Electronically Signed by Brayan Mcneill MD 10/16/2019 06:34 A
== END 2019-10-12 17:12 | disposition home or self-care (01) ==
LOC: M ED 13:53 → EDBD 13:53 → M ED 17:12
DX: S06.0X1A Concussion with loss of consciousness of 30 minutes or less, initial encounter (principal); S20.219A Contusion of unspecified front wall of thorax, initial encounter; S93.402A Sprain of unspecified ligament of left ankle, initial encounter; W17.2XXA Fall into hole, initial encounter; Y92.481 Parking lot as the place of occurrence of the external cause; I10 Essential (primary) hypertension; E78.9 Disorder of lipoprotein metabolism, unspecified; F32.9 Major depressive disorder, single episode, unspecified; F41.9 Anxiety disorder, unspecified; Z79.899 Other long term (current) drug therapy; Z79.82 Long term (current) use of aspirin
CPT/HCPCS: 70450; 71260; 72125; 72128; 72131; 73502; 73590; 73610; 73630; 74177; 80047; 80076; 85025; 93041; 94760; 99285; Q9967

== ENCOUNTER → 2019-10-27 | Outpatient (CLI) | payer BC ==
[~2019-10-27] MED LIST changes: +LISI-538 PO; -LISI20TA33 PO
--- NOTE | 2019-10-27 23:58 | REP ---
REASON: Elevated LFTs. COMPARISON: 02/22/2006, which showed fatty infiltration of the liver. Multiple ultrasonographic images of the liver again show diffuse increased echoes throughout without evidence of a mass or ductal dilatation. The common bile duct measures between 4 and 5 mm in its greatest transverse dimension. Evaluation of the gallbladder shows no abnormalities or significant changes from the prior exam. Imaged portions of the pancreas and right kidney are again seen to be within normal limits. IMPRESSION: Fatty infiltration of the liver.
== END ==
LOC: M WHC 08:44
PROVIDERS: ATTEND Family Medicine
DX: R79.89 Other specified abnormal findings of blood chemistry (principal); K76.0 Fatty (change of) liver, not elsewhere classified

== ENCOUNTER → 2019-11-03 | Outpatient (CLI) | payer BC | LOC: M LABSMTC 13:29 | PROVIDERS: ATTEND Family Medicine | DX: Z11.59 Encounter for screening for other viral diseases (principal) | CPT/HCPCS: C9803; U0003 ==

== ENCOUNTER → 2019-11-23 | Outpatient (CLI) | payer BC | LOC: M WUC 10:52 | PROVIDERS: ATTEND Urology | DX: R79.89 Other specified abnormal findings of blood chemistry (principal) ==

== ENCOUNTER → 2019-11-24 | Outpatient (REF) | payer BC | LOC: M LABDRWAD 17:00 | PROVIDERS: ATTEND Urology | DX: R79.89 Other specified abnormal findings of blood chemistry (principal) ==

== ENCOUNTER → 2019-12-20 | Outpatient (REF) | payer BC | LOC: M LAB REF 13:55 | PROVIDERS: ATTEND Physician Assistant | DX: R30.0 Dysuria (principal) ==

== ENCOUNTER → 2019-12-29 | Outpatient (REF) | payer BC | LOC: M LABDRWAD 17:09 | PROVIDERS: ATTEND Urology | DX: R79.89 Other specified abnormal findings of blood chemistry (principal) ==

== ENCOUNTER → 2020-01-19 | Outpatient (CLI) | payer BC ==
--- NOTE | 2020-01-19 10:27 | REPVR ---
PROCEDURE INFORMATION: Exam: MR Cervical Spine Without Contrast Exam date and time: 01/19/2020 10:04 AM Age: 49 years old Clinical indication: Pain; Cervicalgia; Additional info: Cervival disc degeneraton, left shoulder pain TECHNIQUE: Imaging protocol: Multiplanar magnetic resonance images of the cervical spine without contrast. COMPARISON: CT Spine,cervical w/o contrast 10/12/2019 2:36 PM FINDINGS: Limitations: Motion artifact does moderately limit the sensitivity of this examination particularly severe on the T2 sagittal series. Vertebrae: Unremarkable. Spinal cord: The spinal cord signal is normal. C2-C3: No significant disc disease. No significant spinal stenosis. C3-C4: The C3-C4 level shows no evidence of a significant posterior disc herniation. There is mild cord contact and flattening of the anterior convexity on axial image 23. There is no myelopathic signal. There is left-sided uncovertebral spurring as also seen on CT and moderate right facet arthropathy. There is moderate bilateral foraminal stenosis. C4-C5: There is chronic degenerative narrowing at C4-C5 with mild central herniation on axial image 12. There is flattening of the anterior cord surface with limited fluid surrounding the posterior cord. No myelopathic signal is observed. or foraminal compromise. C5-C6: The C5-C6 level demonstrates a small central posterior disc herniation. There is mild indentation of the cord contour on axial image 12 with adequate CSF surrounding the cord and no evidence of myelopathic signal. There is left uncovertebral spurring in the far lateral left foramen with mild foraminal stenosis distally on sagittal image 2 and axial image 13 . C6-C7: There is mild left subarticular bulging of the annulus at C6-C7 on axial image 8 and sagittal image 5. There is mild flattening of the anterior cord contour without myelopathic signal change. There is no foraminal compromise. C7-T1: No significant disc disease. No significant spinal stenosis. Vertebral arteries: Expected flow voids in the vertebral arteries. Soft tissues: Unremarkable. Other findings: The spine demonstrates moderate degenerative changes at multiple levels with extensive anterior disc osteophytic disease better seen on CT. IMPRESSION: 1. The C3-C4 level shows no evidence of a significant posterior disc herniation. There is mild cord contact and flattening of the anterior convexity on axial image 23. There is no myelopathic signal. There is left-sided uncovertebral spurring as also seen on CT and moderate right facet arthropathy. There is moderate bilateral foraminal stenosis. 2. There is chronic degenerative narrowing at C4-C5 with mild central herniation on axial image 12. There is flattening of the anterior cord surface with limited fluid surrounding the posterior cord. No myelopathic signal is observed. or foraminal compromise. 3. The C5-C6 level demonstrates a small central posterior disc herniation. There is mild indentation of the cord contour on axial image 12 with adequate CSF surrounding the cord and no evidence of myelopathic signal. There is left uncovertebral spurring in the far lateral left foramen with mild foraminal stenosis distally on sagittal image 2 and axial image 13 . 4. There is mild left subarticular bulging of the annulus at C6-C7 on axial image 8 and sagittal image 5. There is mild flattening of the anterior cord contour without myelopathic signal change. There is no foraminal compromise. Electronically signed by: Marco Antonio White On 01/19/2020 10:26:57 AM
--- NOTE | 2020-01-19 18:47 | REPVR ---
PROCEDURE INFORMATION: Exam: MR Left Upper Extremity Joint Without Contrast; Shoulder Exam date and time: 01/19/2020 9:25 AM Age: 49 years old Clinical indication: Pain; Shoulder; Left; Additional info: Cervival disc degeneraton, left shoulder pain TECHNIQUE: Imaging protocol: MR of the Left upper extremity without contrast. Exam focused on the shoulder. COMPARISON: No relevant prior studies available. FINDINGS: There is severe, diffuse rotator cuff tendinopathy. There is partial-thickness articular and bursal surface tearing and delamination along the distal supraspinatus, infraspinatus and subscapularis tendons. There is a small amount of loculated fluid and synovitis in the subacromial/subdeltoid bursa. There is severe tendinopathy and high-grade, partial-thickness longitudinal split tearing of the intra-articular biceps tendon, which is medially subluxed from the bicipital groove into the torn subscapularis tendon fibers. The biceps anchor is poorly seen. There is mild glenohumeral osteoarthrosis. Evaluation of the labrum is suboptimal without intra-articular contrast. Circumferential labral changes are most pronounced superiorly and likely chronic/degenerative in nature. There is a small chronic appearing impaction injury with subjacent marrow changes along the anteromedial aspect of the humeral head, which may be related to remote posterior shoulder dislocation. There is mild subcortical cystic change in the greater humeral tuberosity. Bone marrow signal is otherwise normal. There is no evidence of acute fracture or dislocation. Alignment is anatomic. There are mild degenerative changes of the acromioclavicular joint. No significant effusion is seen. IMPRESSION: 1. Severe, diffuse rotator cuff tendinopathy with partial thickness articular and bursal surface tearing and delamination along the distal supraspinatus, infraspinatus and subscapularis tendons. 2. Severe tendinopathy and high-grade, partial-thickness longitudinal split tearing of the intra-articular biceps tendon, which is medially subluxed from the bicipital groove into the torn subscapularis tendon fibers. 3. Circumferential labral changes and probable degenerative SLAP tear. 4. Additional findings, as above. Electronically signed by: Grant Bolton On 01/19/2020 18:47:26 PM
== END ==
LOC: M RAD 08:21
PROVIDERS: ATTEND Physician Assistant
DX: M50.321 Other cervical disc degeneration at C4-C5 level (principal); M50.222 Other cervical disc displacement at C5-C6 level; M50.223 Other cervical disc displacement at C6-C7 level; M75.32 Calcific tendinitis of left shoulder

== ENCOUNTER → 2020-03-08 | Outpatient (CLI) | payer BC ==
--- NOTE | 2020-03-08 14:41 | REP ---
INDICATION: DISC DEGENERATION FILE ROOOM. COMPARISON: Comparison MRI lumbar spine study April 26, 2019. TECHNIQUE: Sagittal and axial T1 and T2-weighted scans are acquired in the usual fashion with and without fat saturation. Sequences include spin echo, turbo spin-echo, and STIR imaging sequences. FINDINGS: There is straightening of the normal lumbar lordosis. Lumbar vertebral body heights are preserved. There is a levoconvex lumbar scoliotic curvature. Degenerative disc disease is seen diffusely, this is most pronounced at L4-5 and L3-4. The tip of the conus medullaris is normal in position and appearance at T12-L1. No extra vertebral abnormality is observed. There is minimal disc bulging at the T12-L1. Axial and sagittal images taken at L1-L2 demonstrate a small left foraminal disc protrusion. This appears to be unchanged from the comparison study of April 26, 2019. There is no visible nerve root compression. Mild diffuse bulging of the remainder of the disc margin is seen. No spinal stenosis. At L2-L3, there is degenerative disc narrowing. There is left foraminal disc bulging at L2 also unchanged from the comparison study. This may be partly due to the scoliotic curve. No nerve root compression is appreciated. There is degenerative disc narrowing. No spinal stenosis seen. At L3-L4, there is diffuse disc bulging. This flattens the ventral margin of the thecal sac. There is moderate right and mild left-sided neural foraminal narrowing due to disc bulging and facet hypertrophy. These findings are unchanged. Advanced degenerative disc changes are noted with reactive marrow changes on either side of the L3-4 disc. Canal size is borderline. At L4-L5, there is advanced degenerative disc disease. Diffuse disc bulging is present. Mild bilateral neural foraminal narrowing is seen. Left more so than right. This is principally due to disc bulging and associated spurring. Some contribution of facet hypertrophy. At L5-S1, there is facet hypertrophy bilaterally and mild central disc bulging. Mild left-sided foraminal narrowing is due to facet hypertrophy. Findings are unchanged. IMPRESSION: Advanced degenerative spondylosis. Scoliosis. Multilevel neural foraminal narrowing unchanged and most pronounced on the right at L3-4. <Electronically signed by Jefe Hsu > 03/08/20 [id number]
== END ==
LOC: M RAD 10:46
PROVIDERS: ATTEND Physician Assistant
DX: M51.36 Other intervertebral disc degeneration, lumbar region (principal)

== ENCOUNTER → 2020-03-08 | Outpatient (REF) | payer BC ==
[2020-03-08 17:26] LABS: BASO # 0.1 10^3/uL (0.0-0.2); BASO % 0.6 % (0.0-1.0); EOS # 0.2 10^3/uL (0.0-0.5); EOS % 1.8 % (0.0-3.0); HEMATOCRIT 47.6 % (42.0-52.0); HEMOGLOBIN 15.6 g/dl (13.5-17.5); LYMPH # 3.1 10^3/uL (1.5-5.0); LYMPH % 37.4 % (24.0-44.0); MEAN CORPUSCULAR HEMOGLOBIN 28.6 pg (27.0-33.0); MEAN CORPUSCULAR HGB CONC 32.8 g/dl (32.0-36.5); MEAN CORPUSCULAR VOLUME 87.3 fl (80.0-96.0); MONO # 0.7 10^3/uL (0.0-0.8); MONO % 8.2 % (0.0-5.0); NEUTROPHILS # 4.2 10^3/uL (1.5-8.5); NEUTROPHILS % 50.9 % (36.0-66.0); PLATELET COUNT, AUTOMATED 218 10^3/uL (150-450); RED BLOOD COUNT 5.45 10^6/uL (4.30-6.10); WHITE BLOOD COUNT 8.2 10^3/uL (4.0-10.0)
[2020-03-08 18:37] LABS: ERYTHROCYTE SEDIMENTATION RATE 4 mm/hr (0-20)
[2020-03-08 19:11] LABS: C REACTIVE PROTEIN QUANTITATIV < 0.30 MG/DL (0.00-0.30); RHEUMATOID FACTOR QUANT < 10.0 IU/ML (<15.0)
== END ==
LOC: M LABDRWAD 16:05
PROVIDERS: ATTEND Physician Assistant
DX: M50.30 Other cervical disc degeneration, unspecified cervical region (principal)

== ENCOUNTER → 2020-03-29 | Outpatient (REF) | payer BC | LOC: M LABDRWAD 16:22 | PROVIDERS: ATTEND Urology | DX: R79.89 Other specified abnormal findings of blood chemistry (principal) | CPT/HCPCS: 36415; 84403; 85014; G0103 ==

== ENCOUNTER → 2020-06-17 | Outpatient (REF) | payer BC ==
[~2020-06-17] MED LIST changes: -LISI-538 PO; +LISI20TA33 PO
[2020-06-17 13:16] LABS: BASO # 0.1 10^3/uL (0.0-0.2); BASO % 1.2 % (0.0-1.0); EOS # 0.3 10^3/uL (0.0-0.5); HEMATOCRIT 50.1 % (42.0-52.0); HEMOGLOBIN 16.2 g/dl (13.5-17.5); LYMPH # 3.1 10^3/uL (1.5-5.0); LYMPH % 36.9 % (24.0-44.0); MEAN CORPUSCULAR HGB CONC 32.3 g/dl (32.0-36.5); MEAN CORPUSCULAR VOLUME 89.8 fl (80.0-96.0); MONO % 11.4 % (0.0-5.0); NEUTROPHILS # 3.8 10^3/uL (1.5-8.5); NEUTROPHILS % 45.8 % (36.0-66.0); PLATELET COUNT, AUTOMATED 228 10^3/uL (150-450); RED BLOOD COUNT 5.58 10^6/uL (4.30-6.10); WHITE BLOOD COUNT 8.4 10^3/uL (4.0-10.0)
[2020-06-17 13:45] LABS: ALBUMIN 3.9 GM/DL (3.2-5.2); ALT/SGPT 201 U/L (12-78); BILIRUBIN,TOTAL 0.6 MG/DL (0.2-1.0); BLOOD UREA NITROGEN 13 MG/DL (7-18); CALCIUM LEVEL 9.4 MG/DL (8.5-10.1); CARBON DIOXIDE LEVEL 29 MEQ/L (21-32); CHLORIDE LEVEL 106 MEQ/L (98-107); CHOLESTEROL LEVEL 165 MG/DL (<200); CHOLESTEROL RISK RATIO 4.459 (<5); CPK CREATINE PHOSPHOKINASE 166 U/L (39-308); CREATININE FOR GFR 1.13 MG/DL (0.70-1.30); GLOMERULAR FILTRATION RATE > 60.0 (>56); GLUCOSE, FASTING 113 MG/DL (70-100); HDL CHOLESTEROL 37 MG/DL (>40); LDL CHOLESTEROL 105 MG/DL (<100); NON-HDL-C 128 MG/DL; POTASSIUM SERUM 4.8 MEQ/L (3.5-5.1); SODIUM LEVEL 141 MEQ/L (136-145); TOTAL PROTEIN 7.1 GM/DL (6.4-8.2); TRIGLYCERIDES LEVEL 114 MG/DL (<150)
== END ==
LOC: M SFHCADAM 10:23
PROVIDERS: ATTEND Family Medicine
DX: Z12.11 Encounter for screening for malignant neoplasm of colon (principal); I10 Essential (primary) hypertension; E78.5 Hyperlipidemia, unspecified; M79.10 Myalgia, unspecified site

== ENCOUNTER → 2020-06-17 | Outpatient (CLI) | payer BC ==
--- NOTE | 2020-06-18 01:47 | REP ---
INDICATION: CHEST PAIN, UNPECIFIED TYPE COMPARISON: 04/20/2019 TECHNIQUE: PA and lateral. FINDINGS: The mediastinum and cardiac silhouette are normal. The lung jefferson are clear and without acute consolidation, effusion, or pneumothorax. The skeletal structures are intact and normal. Presumed asymmetric nipple shadow identified overlying the left lung base as post to true pulmonary nodule. IMPRESSION: No acute cardiopulmonary process. Presumed asymmetric nipple shadow overlying the left lung base. Consider repeat examination with nipple markers. <Electronically signed by Brayan Mcneill > 06/18/20 0143
== END ==
LOC: M ADAMS 10:32
PROVIDERS: ATTEND Family Medicine
DX: R07.9 Chest pain, unspecified (principal)

== ENCOUNTER → 2020-06-21 | Outpatient (CLI) | payer BC ==
--- NOTE | 2020-06-21 18:57 | REP ---
INDICATION: ABNORMAL CXR COMPARISON: 06/17/2020 TECHNIQUE: PA and lateral. FINDINGS: The mediastinum and cardiac silhouette are normal. The lung jefferson are clear and without acute consolidation, effusion, or pneumothorax. The skeletal structures are intact and normal. Nipple markers identified the nipples bilaterally and confirm asymmetric nipple shadow on prior examination. No underlying pulmonary nodule appreciated. IMPRESSION: No acute cardiopulmonary process. <Electronically signed by Brayan Mcneill > 06/21/20 [id number]
== END ==
LOC: M ADAMS 16:13
PROVIDERS: ATTEND Family Medicine
DX: R93.89 Abnormal findings on diagnostic imaging of other specified body structures (principal)

== ENCOUNTER → 2020-06-28 | Outpatient (REF) | payer BC ==
[2020-06-28 12:54] LABS: ALBUMIN 3.7 GM/DL (3.2-5.2); ALT/SGPT 134 U/L (12-78); BILIRUBIN,TOTAL 0.5 MG/DL (0.2-1.0); BLOOD UREA NITROGEN 16 MG/DL (7-18); CALCIUM LEVEL 9.7 MG/DL (8.5-10.1); CARBON DIOXIDE LEVEL 29 MEQ/L (21-32); CHLORIDE LEVEL 102 MEQ/L (98-107); CREATININE FOR GFR 1.18 MG/DL (0.70-1.30); GLOMERULAR FILTRATION RATE > 60.0 (>56); GLUCOSE, FASTING 116 MG/DL (70-100); POTASSIUM SERUM 4.7 MEQ/L (3.5-5.1); SODIUM LEVEL 137 MEQ/L (136-145); TOTAL PROTEIN 7.2 GM/DL (6.4-8.2)
== END ==
LOC: M SFHCADAM 10:09
PROVIDERS: ATTEND Family Medicine
DX: R79.89 Other specified abnormal findings of blood chemistry (principal)

== ENCOUNTER 2020-07-24 20:53 | Emergency (ER) | payer BC ==
[~2020-07-24] VITALS: Ht 195.6 cm; Wt 134.9 kg
[2020-07-24 21:50] LABS: BASO # 0.1 10^3/uL (0.0-0.2); BASO % 0.7 % (0.0-1.0); EOS # 0.2 10^3/uL (0.0-0.5); EOS % 1.9 % (0.0-3.0); HEMATOCRIT 49.6 % (42.0-52.0); LYMPH # 3.3 10^3/uL (1.5-5.0); LYMPH % 34.4 % (24.0-44.0); MEAN CORPUSCULAR HEMOGLOBIN 28.4 pg (27.0-33.0); MEAN CORPUSCULAR HGB CONC 32.3 g/dl (32.0-36.5); MEAN CORPUSCULAR VOLUME 87.9 fl (80.0-96.0); MONO # 0.8 10^3/uL (0.0-0.8); MONO % 8.4 % (2.0-8.0); NEUTROPHILS # 5.2 10^3/uL (1.5-8.5); NEUTROPHILS % 53.9 % (36.0-66.0); PLATELET COUNT, AUTOMATED 231 10^3/uL (150-450); RED BLOOD COUNT 5.64 10^6/uL (4.30-6.10); WHITE BLOOD COUNT 9.6 10^3/uL (4.0-10.0)
[2020-07-24] MEDS ORDERED: ISOVUE-370 76% 100ML VIAL As Ordered ONE (22:06)
[2020-07-24 22:27] LABS: ALBUMIN 3.9 GM/DL (3.2-5.2); BILIRUBIN,DIRECT 0.2 MG/DL (0.0-0.2); BILIRUBIN,TOTAL 0.7 MG/DL (0.2-1.0); TOTAL PROTEIN 7.5 GM/DL (6.4-8.2)
--- NOTE | 2020-07-24 22:38 | REPVR ---
PROCEDURE INFORMATION: Exam: CT Abdomen And Pelvis With Contrast Exam date and time: 07/24/2020 10:06 PM Age: 50 years old Clinical indication: Abdominal pain; Additional info: Right sided abdominal pain; R/O diverticulitis TECHNIQUE: Imaging protocol: Computed tomography of the abdomen and pelvis with contrast. Radiation optimization: All CT scans at this facility use at least one of these dose optimization techniques: automated exposure control; mA and/or kV adjustment per patient size (includes targeted exams where dose is matched to clinical indication); or iterative reconstruction. Contrast material: ISOVUE 370; Contrast volume: 100 ml; Contrast route: INTRAVENOUS (IV); COMPARISON: CT ABD PELVIS WITH CONTRAST 10/12/2019 2:44 PM FINDINGS: Liver: The liver attenuation is 42 Hounsfield units and the spleen is 103 Hounsfield units. Gallbladder and bile ducts: Normal. No calcified stones. No ductal dilation. Pancreas: Normal. No ductal dilation. Spleen: Normal. No splenomegaly. Adrenal glands: Normal. No mass. Kidneys and ureters: There is a left renal cyst measuring up to 10 mm which is redemonstrated since the prior study with little change. Stomach and bowel: Slightly elongated sigmoid colon. Appendix: A normal appendix is seen. Intraperitoneal space: Unremarkable. No free air. No significant fluid collection. Vasculature: There is minimal calcification of the abdominal aorta with extension into the iliac arteries. Lymph nodes: Unremarkable. No enlarged lymph nodes. Urinary bladder: There is bladder wall thickening, however, the bladder is nondistended and is nonspecific. There is slight perivesicular induration and cystitis is not excluded. Reproductive: Unremarkable as visualized. Bones/joints: Slight anterior wedge configuration or decreased height of several lumbar segments which appear to be chronic. Soft tissues: Small fat filled umbilical hernia. IMPRESSION: 1. There has been little change from 10/12/2019. No acute interval process is identified. 2. Fatty infiltration of the liver. 3. There is bladder wall thickening, however, the bladder is nondistended and is nonspecific. There is slight perivesicular induration and cystitis is not excluded. Electronically signed by: Filipe Fiore On 07/24/2020 22:38:23 PM
[2020-07-24] MEDS ORDERED: MIRA3350 PO (22:48)
[2020-07-24 23:17] VITALS: BP 141/72
== END 2020-07-24 23:21 | disposition home or self-care (01) ==
LOC: M ED 20:53
DX: R10.9 Unspecified abdominal pain (principal); K76.0 Fatty (change of) liver, not elsewhere classified; I10 Essential (primary) hypertension; E78.5 Hyperlipidemia, unspecified; K21.9 Gastro-esophageal reflux disease without esophagitis; Z79.899 Other long term (current) drug therapy
CPT/HCPCS: 36415; 74177; 80047; 80076; 81001; 83690; 85025; 99284; Q9967

== ENCOUNTER → 2020-09-08 | Outpatient (REF) | payer BC ==
[~2020-09-08] MED LIST changes: +FISH1000 PO; +MIRA3350 PO
== END ==
LOC: M LABDRWAD 16:30
PROVIDERS: ATTEND Urology
DX: R79.89 Other specified abnormal findings of blood chemistry (principal)

== ENCOUNTER → 2020-09-10 | Outpatient (REF) | payer BC ==
[2020-09-10 18:18] LABS: PROSTATIC SPECIFIC AG MONITOR 0.66 NG/ML (< 4.00)
== END ==
LOC: M LABDRWAD 17:22
PROVIDERS: ATTEND Urology
DX: R79.89 Other specified abnormal findings of blood chemistry (principal)

== ENCOUNTER → 2020-09-14 | Outpatient (CLI) | payer BC | LOC: M LABSMTC 12:54 | PROVIDERS: ATTEND Family Medicine | DX: Z53.9 Procedure and treatment not carried out, unspecified reason (principal) ==

== ENCOUNTER → 2020-09-14 | Outpatient (REF) | payer BC ==
[2020-09-14 16:48] LABS: BASO # 0.1 10^3/uL (0.0-0.2); BASO % 1.1 % (0.0-1.0); EOS # 0.3 10^3/uL (0.0-0.5); EOS % 3.3 % (0.0-3.0); HEMATOCRIT 50.9 % (42.0-52.0); HEMOGLOBIN 16.4 g/dl (13.5-17.5); LYMPH # 3.4 10^3/uL (1.5-5.0); LYMPH % 40.6 % (24.0-44.0); MEAN CORPUSCULAR HEMOGLOBIN 27.6 pg (27.0-33.0); MEAN CORPUSCULAR HGB CONC 32.2 g/dl (32.0-36.5); MEAN CORPUSCULAR VOLUME 85.5 fl (80.0-96.0); MONO # 0.9 10^3/uL (0.0-0.8); MONO % 10.2 % (2.0-8.0); NEUTROPHILS # 3.6 10^3/uL (1.5-8.5); NEUTROPHILS % 42.9 % (36.0-66.0); PLATELET COUNT, AUTOMATED 210 10^3/uL (150-450); RED BLOOD COUNT 5.95 10^6/uL (4.30-6.10); WHITE BLOOD COUNT 8.4 10^3/uL (4.0-10.0)
[2020-09-14 17:18] LABS: ALBUMIN 3.8 GM/DL (3.2-5.2); ALT/SGPT 196 U/L (12-78); BILIRUBIN,TOTAL 0.5 MG/DL (0.2-1.0); BLOOD UREA NITROGEN 24 MG/DL (7-18); CALCIUM LEVEL 9.4 MG/DL (8.5-10.1); CARBON DIOXIDE LEVEL 29 MEQ/L (21-32); CHLORIDE LEVEL 103 MEQ/L (98-107); GLOMERULAR FILTRATION RATE > 60.0 (>56); GLUCOSE, FASTING 106 MG/DL (70-100); POTASSIUM SERUM 4.8 MEQ/L (3.5-5.1); SODIUM LEVEL 137 MEQ/L (136-145); TOTAL PROTEIN 7.4 GM/DL (6.4-8.2)
== END ==
LOC: M SFHCADAM 12:52
PROVIDERS: ATTEND Family Medicine
DX: U07.1 COVID-19 (principal); R06.00 Dyspnea, unspecified; R79.89 Other specified abnormal findings of blood chemistry

== ENCOUNTER → 2020-09-14 | Outpatient (CLI) | payer BC ==
--- NOTE | 2020-09-15 07:51 | REP ---
INDICATION: COVID-19 VIRUS INFECTION, DYSPNEA ON EXERTION COMPARISON: 06/21/2020 TECHNIQUE: PA and lateral. FINDINGS: The mediastinum and cardiac silhouette are normal. The lung jefferson are clear and without acute consolidation, effusion, or pneumothorax. The skeletal structures are intact and normal. IMPRESSION: No acute cardiopulmonary process. <Electronically signed by Brayan Mcneill > 09/15/20 0771
== END ==
LOC: M ADAMS 13:03
PROVIDERS: ATTEND Family Medicine
DX: U07.1 COVID-19 (principal); R06.00 Dyspnea, unspecified

== ENCOUNTER → 2020-09-27 | Outpatient (CLI) | payer BC | LOC: M CARPUL 14:47 | PROVIDERS: ATTEND Family Medicine | DX: U07.1 COVID-19 (principal); R06.00 Dyspnea, unspecified ==

== ENCOUNTER → 2020-10-13 | Outpatient (CLI) | payer BC ==
[~2020-10-13] MED LIST changes: +ISOVUE-370 76% 100ML VIAL As Ordered ONE
--- NOTE | 2020-10-14 06:00 | REP ---
INDICATION: COUGH, POST ACUTE SEQUELAE OF COVID 19 COMPARISON: 10/12/2019 TECHNIQUE: Axial contrast enhanced images from the thoracic inlet to the upper abdomen with coronal and sagittal reformations using 75 ml Isovue 370 intravenous contrast material. [address] CT examination was performed using the following dose reduction techniques: Automated exposure control, adjustment of mA and/or kv according to the patient's size, and use of iterative reconstruction technique. FINDINGS: Lung jefferson are well aerated and clear. No acute consolidation, pleural effusion, or pneumothorax. No significant nodule or mass lesion. Mediastinum demonstrates stable thoracic aorta, pulmonary vasculature, and heart/pericardium. Atherosclerotic changes are identified. No cardiomegaly or pericardial effusion. No adenopathy. Tracheobronchial tree is patent. Musculoskeletal structures demonstrate age-related changes. IMPRESSION: Essentially normal age-appropriate contrast-enhanced chest CT. No acute mediastinal or pleuroparenchymal process. <Electronically signed by Brayan Mcneill > 10/14/20 0556
== END ==
LOC: M RAD 11:01
PROVIDERS: ATTEND Family Medicine
DX: R05 Cough (principal); B94.8 Sequelae of other specified infectious and parasitic diseases
CPT/HCPCS: 71260; Q9967

== ENCOUNTER → 2020-12-16 | Outpatient (CLI) | payer BC ==
[~2020-12-16] MED LIST changes: +APPLCAP PO; +ERGO500029 PO; +GABA-282 PO; -ISOVUE-370 76% 100ML VIAL As Ordered ONE; +LANS30CA93 PO; +LISI30TA4 PO; +OMEP-221 PO; +VITA-199 PO
== END ==
LOC: M LABSMTC 12:32
PROVIDERS: ATTEND Anesthesiology
DX: Z01.812 Encounter for preprocedural laboratory examination (principal); Z20.822 Contact with and (suspected) exposure to COVID-19

== ENCOUNTER 2020-12-22 12:46 | Emergency (ER) | payer BC ==
[~2020-12-22] VITALS: Ht 195.6 cm; Wt 135.2 kg
[2020-12-22 12:46] VITALS: BP 141/89
[2020-12-22] MEDS ORDERED: GABA-282 (12:51)
[2020-12-22] MEDS ORDERED: KETO10TAB PO (15:00)
[2020-12-22] MEDS ORDERED: ULTR50TA8 PO (15:00)
== END 2020-12-22 15:17 | disposition home or self-care (01) ==
LOC: M ED 12:46
DX: S46.001A Unspecified injury of muscle(s) and tendon(s) of the rotator cuff of right shoulder, initial encounter (principal); Y92.9 Unspecified place or not applicable; Y99.9 Unspecified external cause status; Y93.9 Activity, unspecified

== ENCOUNTER → 2021-01-03 | Outpatient (REF) | payer BC ==
[~2021-01-03] MED LIST changes: +GABA-282; +KETO10TAB PO; +ULTR50TA8 PO
[2021-01-03 20:11] LABS: PROSTATIC SPECIFIC AG MONITOR 1.08 NG/ML (< 4.00)
== END ==
LOC: M LABDRWAD 18:50
PROVIDERS: ATTEND Urology
DX: R79.89 Other specified abnormal findings of blood chemistry (principal)

== ENCOUNTER 2021-02-28 09:27 | Emergency (ER) | payer BC, MEDICARE, OTHER ==
[~2021-02-28] VITALS: Ht 195.6 cm; Wt 134.3 kg
--- OUTSIDE RECORDS SUMMARY | 2021-02-28 09:33 | CCD ---
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 [employer] Name Role Phone Radha Leger Unavailable PROBLEMS Type Condition ICD9-CM Code [id number] Code Onset Dates Condition S tatus W/U Status Risk SNOMED Code Notes Problem Anxiety F41.9 Active confirmed 97620423 Problem Hyperlipidemia, unspecified hyperlipidemia type E7 8.5 Active confirmed 91318511 Problem Vitamin D deficiency E55.9 Active confirmed 95007325 Problem Paresthesias in left hand R20.2 Active confirmed 639459171 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 A ctive confirmed 8795903342 Problem Essential hypertension I10 Active confirmed 30380232 Problem Acute left-sided low back pain with left-sided sciatica M54.42 Active confirmed 138740450 Problem Obesity (BMI 30-39.9) E66.9 Active confirmed 183380298 Problem Gastroesophageal reflux dise ase, unspecified whether esophagitis present K21.9 Active confirmed 811179587 Problem Erectile dysfunction, unspecified erectile dysfunction typ e N52.9 Active confirmed 420277667 Problem STEVE (obstructive sleep apnea) G47.33 Active confirm ed 53396990 Problem Abnormal CXR R93.89 Active confirmed 0053849 02 ALLERGIES No Known Allergies ENCOUNTERS from 1968 to 2021-02-21 Encounter Location Date Provider Diagnosis [facility] [address] [place] [address] Feb, 2021 Radharadha Leger Abnormal sensation of thorax R09.89 and Essential hypertension I10 IMMUNIZATIONS Vaccine Route Administration Date Status TDAP 0.5mL (Boostrix) IM Intramuscular Jan 21, 2018 Administe red SOCIAL HISTORY Tobacco Use: Social History Observation Description Date Details (start date - stop date) Never Smoker Sex Assigned At : Social History Observation Description Sex Assigned At Unknown Education: Question Answer Notes Level of Education: High School Audit Question Answer Notes Total Score: 0 Interpretation: Alcohol Education Language: Question Answer Notes Languages spoken: Maori Judaism: Question Answer Notes Judaism 21 Sikhism Sexual Hx: Question Answer Notes Had sex in the last 12 months (vaginal, oral, or anal)? Yes Have you ever had an STD? No with Women only Drug and Alcohol Question Answer Notes Total Score: 0 Interpretation: No problems reported Alcohol Screening: Question Answer Notes Did you have a drink containing alcohol in the past year? No Points 0 Interpretation Negative BMI Care Goal Follow-Up Question Answer Notes Above Normal BMI Follow-Up Giving encouragement to exercise Tobacco Use: Question Answer Notes Are you a: never smoker REASON FOR REFERRAL No Information VITAL SIGNS Weight 299 lbs Feb, Weight-kg 135.63 kg Feb, Height 6'4" in Feb, BMI 36.39 kg/m2 Feb, Heart Rate 85 /min Feb, Respiratory Rate 18 /min Feb, Temperature 97.6 degrees Fahrenheit Feb, Oximetry 100 Feb, Blood pressure systolic 142 mm Hg Feb, Blood pressure diastolic 88 mm Hg Feb, MEDICATIONS Medication SIG (Take, Route, Frequency, Duration) Notes Start Da te End Date Status CPAP mask as directed _mask,tubing,supplies Daily for 90 day(s) Jul, Active Lisinopril 20 MG 1 tab Oral Daily for 90 Active Aspir-81 81 MG 1 tablet Orally Once a day Active Viagra 50 MG 1 tablet as needed Orally Once a day for 30 day(s) Feb, Active Multivitamin Adult - Orally Acti ve Gabapentin 300 MG (Prior Auth#:[id number]) Oral for 30 Active Vitamin D (Ergocalciferol) 29793 UNIT 1 cap Orally weekly for 28 Active Atorvastatin Calcium 10 MG 1 tab Oral Daily for 90 Active Lansoprazole 30 MG 1 cap Oral Daily for 90 days Active Fish Oil 1000 MG 1 capsule Orally Once a day Active Testosterone Cypionate 200 MG/ML (Schedule III Drug) (Prior Auth: Rx Ref#:[id number]) Intramuscular for 30 Not-Taking Citalopram Hydrobromide 40 MG 1 tablet Oral Once a day for 90 days Active Fiber 625 MG 2 tabs as needed Orally Daily Active CPAP Machine as directed portable machine Daily for 30 Days Jul, Active Lisinopril 30 MG 1 tablet Orally Once a day for 30 day(s) Nov, Active PROCEDURES No Information RESULTS No Results REASON FOR VISIT anxiety MEDICAL (GENERAL) HISTORY Type Description Date Medical History anxiety Medical History hypertension Medical History GERD Medical History enlarged prostate Medical History hematuria; he reports normal cystoscopy Medical History obstructive sleep apnea, on CPAP Medical History fatty liver seen on US (10/2019), f/u wit h GI Medical History echo with mild LVH, grade 1 diastolic dysfunction, mild aortic regurgitation (06/2019) Medical History echo with mild concentric LV H, grade 2 diastolic dysfunction (09/2020) Surgical History R wrist fusion Hospitalization History [facility] chest discomfort 07/22 Goals Section No Information Health Concerns No Information MEDICAL EQUIPMENT No Information MENTAL STATUS No Information FUNCTIONAL STATUS No Information ASSESSMENTS Encounter Date Diagnosis Assessment Notes Treatment Notes Treatm ent Clinical Notes Feb, Abnormal sensation of thorax (ICD-10 - R09.89) I think he needs to discuss this with urology (Dr. Goldberg), and if it recurs, should let cardiology know. Suspect a possible testosterone related side effect. I don't think this is anxiety. Feb, Essential hypertension (ICD-10 - I10) Elevated in the office today, recheck in 3-4 weeks. He will monitor at home. PLAN OF TREATMENT Treatment Notes Assessment Notes Clinical Notes Abnormal sensation of thorax I think he needs to discuss this with urology (Dr. Goldberg), and if it recurs, should let cardiology know. Suspect a possible testosterone related side effect. I don't think this is anxiety. Essential hypertension Elevated in the o ffice today, recheck in 3-4 weeks. He will monitor at home. Next Appt Details Provider Name:Radha Leger, 2021-03-10 11:00:00 AM, [address], , [place], [address], Insurance Providers Payer Name Payer Address Payer Phone Insured Name Patient Relati onship to Insured Coverage Start Date Coverage End Date BCBS KALA ESCOBEDO PPO [phone] [facility] [place] [id number] ALKA PARSON self
--- OUTSIDE RECORDS SUMMARY | 2021-02-28 09:34 | CCD | Continuity of Care Document ---
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 Name Role Phone Radha Moses DO AUTM [phone] Problems Active Problems Provider Date First degree atrioventricular block Wilder Raya MD Ons et: 02/21/2016 Essential hypertension Wilder Raya MD Onset: 6 Mixed hyperlipidemia Wilder Raya MD Onset: 02/21/2016 Obesity Wilder Raya MD Onset: 02/21/2016 Precordial pain Wilder Raya MD Onset: 02/21/2016 Chest pain Wilder Raya MD Onset: 05/05/2019 Electrocardiogram abnormal Wilder Raya MD Onset: 05/05 Dietary management surveillance Wilder Raya MD Onset: 05/05/2019 Aortic valve disorder Sarah Lerner PA-C Onset: 06/16/2020 Benign hypertensive heart disease without congestive h eart failure Sarah Lerner PA-C Onset: 06/16/2020 Obstructive sleep apnea syndrome Sarah Lerner PA-C Onset: 06/16/2020 Social History Type Date Description Comments Sex Unknown ETOH Use Does not consume alcohol Tobacco Use Start: Unknown Patient has never smoked Smoking Status Reviewed: 06/16/20 Patient has never smoked Exercise Type/Frequency Fully active: Ab le to carry on all performance without restriction Exercise Limitations Shortness Of Breath Allergies, Adverse Reactions, Alerts Description No Known Drug Allergies Medications Active Medications SIG Qnty Indications Ordering Provide r Date Atorvastatin Calcium 10mg Tablets take 1 tablet by mouth at bedtime 90tabs E78.2 Wilder Raya MD 02/21/2016 Lisinopril 40mg Tablets 1 by mouth every day 90tabs I10 Wilder Raya MD 02/21/[address] 1 by mouth every day Stepan Rao, [employer] 02/20/2016 Citalopram Hydrobromide 40mg Table ts 1 by mouth daily Stepan Rao, [employer] 02/20/2016 Aspirin Ec 81mg Tablets DR 1 by mouth every day Stepan Rao, [employer] 02/20/2016 Multivitamins Capsules 1 by mouth every day Stepan Rao, [facility] 02/20/2016 Immunizations Description No Information Available Vital Signs Date Vital Result Comment 06/16/2020 7:46am Weight 291.00 lb Height 76 inches 6'4" BMI (Body Mass Index) 35.4 kg/m2 Heart Rate 76 /min Regular Respiratory Rate 16 /min BP Systolic Right Arm 136 mmHg sitting, large cuf f BP Diastolic Right Arm 70 mmHg sitting, large cu ff BP Systolic Left Arm 136 mmHg sitting BP Diastolic Left Arm 76 mmHg sitting 05/05/2019 2:13pm Weight 283.00 lb Home Weight 289lb Height 76 inches 6'4" BMI (Body Mass Index) 34.4 kg/m2 Heart Rate 79 /min BP Systolic Sitting 143 mmHg CBL large adult cuff , LA BP Diastolic Sitting 85 mmHg CBL large adult cuf f, LA Results Test Acquired Date Facility Test Result H/L Range Note CMP 09/14/2020 [facility] (315)- - Albumin Serum/Plasma 3.8 Alt - SGPT 196 Calcium Ser/Plasma Mass/Vol 9.4 Carbon Dioxide Ser/Plasm 29 Chloride Serum/Plasma 103 Alkaline Phosphatase 60 Potassium 4.8 Protein Total 7.4 Sodium 137 Ast - Sgot 107 BUN - Urea Nitrogen 24 Glucose 106 High 70-100 Creatinine For GFR 1.20 CBC With Differential 06/17/2020 [facility] [phone] White Blood Count 8.4 10 Normal 4.0-10.0 Red Blood Count 5.58 10 Normal 4.30-6.10 Hemoglobin 16.2 g/dL Normal 13.5-17.5 Hematocrit 50.1 % Normal 42.0-52.0 Mean Corpuscular Volume 89.8 fl Normal 80.0-96.0 Mean Corpuscular Hemoglobin 29.0 pg Normal 27.0-33.0 Mean Corpuscular HGB Conc 32.3 g/dL Normal 32.0-36.5 Red Cell Distribution Width 14.1 % Normal 11.5-14.5 Platelet Count, Automated 228 10 Normal 150-450 Neutrophils % 45.8 % Normal 36.0-66.0 Lymph % 36.9 % Normal 24.0-44.0 [place] % 11.4 % High 0.0-5.0 Eos % 3.0 % Normal 0.0-3.0 Baso % 1.2 % High 0.0-1.0 Immature Granulocyte % 1.7 % Normal 0-3.0 Nucleated Red Blood Cell % 0.0 % Normal 0-0 Neutrophils # 3.8 10 Normal 1.5-8.5 Lymph # 3.1 10 Normal 1.5-5.0 [place] # 1.0 10 High 0.0-0.8 Eos # 0.3 10 Normal 0.0-0.5 Baso # 0.1 10 Normal 0.0-0.2 Comprehensive Metabolic Profil 06/17/2020 [facility] [phone] Glucose, Fasting 113 mg/dL High 70-100 Blood Urea Nitrogen 13 mg/dL Normal 7-18 Creatinine For GFR 1.13 mg/dL Normal 0.70-1.30 Glomerular Filtration Rate > 60.0 Normal >56 1 Sodium Level 141 mEq/L Normal 136-145 Potassium Serum 4.8 mEq/L Normal 3.5-5.1 Chloride Level 106 mEq/L Normal 98-107 Carbon Dioxide Level 29 mEq/L Normal 21-32 Anion Gap 6 mEq/L Low 8-16 Calcium Level 9.4 mg/dL Normal 8.5-10.1 Ast/Sgot 117 U/L High 7-37 Alt/SGPT 201 U/L High 12-78 Alkaline Phosphatase 58 U/L Normal 45-117 Bilirubin,Total 0.6 mg/dL Normal 0.2-1.0 Total Protein 7.1 GM/DL Normal 6.4-8.2 Albumin 3.9 GM/DL Normal 3.2-5.2 Albumin/Globulin Ratio 1.2 Normal Lipid Panel 06/17/2020 [facility] [phone] Triglycerides Level 114 mg/dL Normal <150 Cholesterol Level 165 mg/dL Normal <200 HDL Cholesterol 37 mg/dL Low >40 LDL Cholesterol 105 mg/dL High <100 Non-HDL-C 128 mg/dL Normal Cholesterol Risk Ratio 4.459 Normal <5 Laboratory test finding 06/17/2020 [facility] [phone] CPK Creatine Phosphokinase 166 U/L Normal 39-30 8 1 Units are mL/min/1.73 m2 Chronic Kidney Disease Staging per NKF: Stage I & II GFR >=60 Normal to Mildly Decreased Stage III GFR 30-59 Moderately Decreased Stage IV GFR 15-29 Severely Decreased Stage V GFR <15 Very Little GFR Left ESRD GFR <15 on FIRE CONTROL TECHNICIAN B Procedures Date Code Description Status 06/29/2020 74161 Treadmill/Pharmacological Monito ring Completed 06/29/2020 14499 Myocardial Perfusion Spect Multi ple Completed 06/16/2020 75577 Office/Outpatient Established Mo d MDM 30-39 Min Completed 06/16/2020 18110 ECG 12-Lead Completed Medical Devices Description No Information Available Encounters Type Date Location Provider Dx Diagnosis Office Visit 06/16/2020 7:45a Main Office Sarah Lerner PA-C R06.0 2 Shortness of breath R07.2 Precordial pain I11.9 Hypertensive heart disease w ithout heart failure R94.31 Abnormal electrocardiogram [ ECG] [EKG] I44.0 Atrioventricular block, firs t degree I35.1 Nonrheumatic aortic (valve) insufficiency E78.2 Mixed hyperlipidemia G47.33 Obstructive sleep apnea (naye lt) (pediatric) Z71.3 Dietary counseling and surve illance Assessments Date Code Description Provider 06/29/2020 R06.02 Shortness of breath Stress Nucle ar/Reg Treadmill 06/29/2020 R94.31 Abnormal electrocardiogram [ECG] [EKG] Stress Nuclear/Reg Treadmill 06/16/2020 R06.02 Shortness of breath NONA [facility] 06/16/2020 R07.2 Precordial pain NONA [facility] 06/16/2020 I11.9 Hypertensive heart disease witho ut heart failure NONA [facility] 06/16/2020 R94.31 Abnormal electrocardiogram [ECG] [EKG] NONA [facility] 06/16/2020 I44.0 Atrioventricular block, first de gree NONA [facility] 06/16/2020 I35.1 Nonrheumatic aortic (valve) insu fficiency Sarah Lerner PA-C 06/16/2020 E78.2 Mixed hyperlipidemia Sarah dixon PA-C 06/16/2020 G47.33 Obstructive sleep apnea (adult) (pediatric) Sarah Lerner PA-C 06/16/2020 Z71.3 Dietary counseling and surveilla nce Sarah Lerner PA-C Plan of Treatment Future Appointment(s):* 12/03/2020 10:15 am - Sarah Lerner PA-C at Main Office 06/16/2020 - Sarah Lerner PA-C* R06.02 Shortness of breath * R07.2 Precordial pain * I11.9 Hypertensive heart disease without heart failure* New Labs:* Comprehensive Metabolic Profil, Scheduled: 06/16/20 * R94.31 Abnormal electrocardiogram [ECG] [EKG] * I44.0 Atrioventricular block, first degree * I35.1 Nonrheumatic aortic (valve) insufficiency * E78.2 Mixed hyperlipidemia* New Labs:* Comprehensive Metabolic Profil, Scheduled: 06/16/20 * Lipid Panel, Scheduled: 06/16/20 * G47.33 Obstructive sleep apnea (adult) (pediatric) * Z71.3 Dietary counseling and surveillance* Recommendations:* Follow a low fat/low cholesterol diet and do as much aerobic exercise as you can tolerate. * All * Follow up:* 6 month follow up. Functional Status Functional Condition Comment Date Status Independent with all ADL's Activ e Mental Status Description No Information Available Referrals Refer to Reason for Referral Status Appt Date Wilder Raya MD [facility] AUTH EMR-[employer]ES 12/14/20. [place] Created [id number] [facility], [facility] [place] [id number] [phone]
--- OUTSIDE RECORDS SUMMARY | 2021-02-28 09:34 | CCD ---
Author Author [facility] [employer] [facility] [employer] Organization [facility] [employer] Address Unknown Phone Unavailable Care Team Providers Care Radiographer Mammographer Name Role Phone Radha Leger Unavailable PROBLEMS Type Condition ICD9-CM Code WVD64-TL Code Onset Dates Condition S tatus W/U Status Risk SNOMED Code Notes Problem Anxiety F41.9 Active confirmed 40382133 Problem Hyperlipidemia, unspecified hyperlipidemia type E7 8.5 Active confirmed 51416540 Problem Vitamin D deficiency E55.9 Active confirmed 48411302 Problem Paresthesias in left hand R20.2 Active confirmed 242227606 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 A ctive confirmed 3024549305 Problem Essential hypertension I10 Active confirmed 56834718 Problem Acute left-sided low back pain with left-sided sciatica M54.42 Active confirmed 910464887 Problem Obesity (BMI 30-39.9) E66.9 Active confirmed 733616815 Problem Gastroesophageal reflux dise ase, unspecified whether esophagitis present K21.9 Active confirmed 818177828 Problem Erectile dysfunction, unspecified erectile dysfunction typ e N52.9 Active confirmed 238428038 Problem STEVE (obstructive sleep apnea) G47.33 Active confirm ed 17734616 Problem Abnormal CXR R93.89 Active confirmed 4653692 02 ALLERGIES No Known Allergies ENCOUNTERS from 1970 to 2020-12-04 Encounter Location Date Provider Diagnosis [facility] [address] [place] [address] Nov, Radha Leger IMMUNIZATIONS Vaccine Route Administration Date Status TDAP [...] Education Language: Question Answer Notes Languages spoken: Macedonian Scientology: Question Answer Notes Scientology 21 Religious Sexual Hx: Question Answer Notes Had sex [...] REASON FOR REFERRAL No Information VITAL SIGNS No information MEDICATIONS Medication SIG (Take, Route, Frequency, Duration) Notes Start Da te End Date Status Fiber 625 MG 2 tabs as needed Orally Daily Active Atorvastatin Calcium 10 MG 1 tab Oral Daily for 90 Active Fish Oil 1000 MG 1 capsule Orally Once a day Active Testosterone Cypionate 200 MG/ML (Schedule III Drug) (Prior Auth: Rx Ref#:[id number]) Intramuscular for 30 Not-Taking Lisinopril 30 MG 1 tablet Orally Once a day for 30 day(s) Nov, Active Citalopram Hydrobromide 40 MG 1 tablet Oral Once a day for 90 days Active Gabapentin 300 MG (Prior Auth#:[id number]) Oral for 30 Active Vitamin D (Ergocalciferol) 18217 UNIT 1 cap Orally weekly for 28 Active CPAP mask as directed _mask,tubing,supplies Daily for 90 day(s) Jul, Active Multivitamin Adult - Orally Acti ve Lisinopril 20 MG 1 tab Oral Daily for 90 Active Viagra 50 MG 1 tablet as needed Orally Once a day for 30 day(s) Feb, Active Lansoprazole 30 MG 1 cap Oral Daily for 90 days Active CPAP Machine as directed portable machine Daily for 30 Days Jul, Active Aspir-81 81 MG 1 tablet Orally Once a day Active PROCEDURES No Information RESULTS No Results REASON FOR VISIT new comp. appt MEDICAL (GENERAL) HISTORY Type Description Date Medical [...] Surgical History R wrist fusion Hospitalization History [facility] chest discomfort 07/22 Goals Section No Information Health Concerns No Information MEDICAL EQUIPMENT No Information MENTAL STATUS No Information FUNCTIONAL STATUS No Information ASSESSMENTS No Information PLAN OF TREATMENT Medication Medication Name Sig Start Date Stop Date Lisinopril 30 MG 1 tablet Orally Once a day for 30 day(s) Nov Insurance Providers Payer Name Payer Address Payer Phone Insured Name Patient Relati onship to Insured Coverage Start Date Coverage End Date LAQUITA ESCOBEDO PPO [phone] [facility] [place] [address] [address] self
--- OUTSIDE RECORDS SUMMARY | 2021-02-28 09:34 | CCD | Continuity of Care Document ---
Author Author William SAVAGE PA-C Organization Unknown Address [address], [place] [address] Phone [phone] Care Team Providers Care Dietitian Assistant Name Role Phone Radha Moses DO AUTM [phone] Problems Active Problems Provider Date First degree [...] MD Onset: 05/05/2019 Aortic valve disorder Sarah Savage PA-C Onset: 06/16/2020 Benign hypertensive heart disease without congestive h eart failure Sarah Savage PA-C Onset: 06/16/2020 Obstructive sleep apnea syndrome Sarah Savage PA-C Onset: 06/16/2020 Social History Type Date Description Comments Sex Unknown ETOH Use Does not consume alcohol Tobacco Use Start: Unknown Patient has never smoked Smoking Status Reviewed: 12/03/20 Patient has never smoked Exercise Type/Frequency Fully active: Ab le to carry on all performance without restriction Exercise Type/Frequency Does yardwork sporadical ly Exercise Limitations Shortness Of Breath Allergies, Adverse Reactions, Alerts Description No Known Drug Allergies Medications Active Medications SIG Qnty Indications Ordering Provide r Date Lisinopril 40mg Tablets 1 by mouth every day 90tabs I10 Wilder Raya MD 02/21/[address] 1 by mouth every day Stepan Rao, [facility] 02/20/2016 Citalopram Hydrobromide 40mg Table ts 1 by mouth daily Stepan Rao, [facility] 02/20/2016 Aspirin Ec 81mg Tablets DR 1 by mouth every day Stepan Rao, [facility] 02/20/2016 Multivitamins Capsules 1 by mouth every day Stepan Rao, [facility] 02/20/2016 Immunizations Description No Information Available Vital Signs Date Vital Result Comment 12/03/2020 10:31am Weight 294.00 lb Height 76 inches 6'4" BMI (Body Mass Index) 35.8 kg/m2 Heart Rate 68 /min Regular Respiratory Rate 16 /min BP Systolic Right Arm 132 mmHg sitting, large cuf f BP Diastolic Right Arm 84 mmHg sitting, large cu ff BP Systolic Left Arm 128 mmHg sitting BP Diastolic Left Arm 82 mmHg sitting 06/16/2020 7:46am Weight 291.00 lb Height 76 inches 6'4" BMI (Body Mass Index) 35.4 kg/m2 Heart Rate 76 /min Regular Respiratory Rate 16 /min BP Systolic Right Arm 136 mmHg sitting, large cuf f BP Diastolic Right Arm 70 mmHg sitting, large cu ff BP Systolic Left Arm 136 mmHg sitting BP Diastolic Left Arm 76 mmHg sitting Results Test Acquired Date Facility Test Result [...] For GFR 1.20 CBC With Differential 06/17/2020 [facility] [phone] White Blood Count 8.4 10 Normal 4.0-10.0 [...] 36.0-66.0 Lymph % 36.9 % Normal 24.0-44.0 [place] % 11.4 % High 0.0-5.0 Eos % 3.0 % Normal 0.0-3.0 Baso % 1.2 % High 0.0-1.0 Immature Granulocyte % 1.7 % Normal 0-3.0 Nucleated Red Blood Cell % 0.0 % Normal 0-0 Neutrophils # 3.8 10 Normal 1.5-8.5 Lymph # 3.1 10 Normal 1.5-5.0 [place] # 1.0 10 High 0.0-0.8 Eos # 0.3 10 Normal 0.0-0.5 Baso # 0.1 10 Normal 0.0-0.2 Comprehensive Metabolic Profil 06/17/2020 [facility] [phone] Glucose, Fasting 113 mg/dL High 70-100 Blood [...] Albumin/Globulin Ratio 1.2 Normal Lipid Panel 06/17/2020 [facility] nter [phone] Triglycerides Level 114 mg/dL Normal <150 Cholesterol Level 165 mg/dL Normal <200 HDL Cholesterol 37 mg/dL Low >40 LDL Cholesterol 105 mg/dL High <100 Non-HDL-C 128 mg/dL Normal Cholesterol Risk Ratio 4.459 Normal <5 Laboratory test finding 06/17/2020 [facility] [phone] CPK Creatine Phosphokinase 166 U/L Normal 39-30 8 1 Units are mL/min/1.73 m2 Chronic Kidney Disease Staging per NKF: Stage I & II GFR >=60 Normal to Mildly Decreased Stage III GFR 30-59 Moderately Decreased Stage IV GFR 15-29 Severely Decreased Stage V GFR <15 Very Little GFR Left ESRD GFR <15 on [employer] Procedures Date Code Description Status 12/03/2020 07899 Office/Outpatient Established Mo d MDM 30-39 Min Completed 12/03/2020 34611 ECG 12-Lead Completed 06/29/2020 82189 Treadmill/Pharmacological Monito ring Completed 06/29/2020 64318 Myocardial Perfusion Spect Multi ple Completed 06/16/2020 56492 Office/Outpatient Established Mo d MDM 30-39 Min Completed 06/16/2020 54237 ECG 12-Lead Completed Medical Devices Description No Information Available Encounters Type Date Location Provider Dx Diagnosis Office Visit 12/03/2020 10:15a Main Office Sarah Savage PA-C I11.9 Hypertensive heart disease without heart failure R94.31 Abnormal electrocardiogram [ ECG] [EKG] I44.0 Atrioventricular block, firs t degree I35.1 Nonrheumatic aortic (valve) insufficiency E78.2 Mixed hyperlipidemia G47.33 Obstructive sleep apnea (naye lt) (pediatric) Z71.3 Dietary counseling and surve illance Office Visit 06/16/2020 7:45a Main Office Sarah Savage PA-C R06.0 2 Shortness of breath R07.2 Precordial pain I11.9 Hypertensive heart disease w ithout heart failure R94.31 Abnormal electrocardiogram [ ECG] [EKG] I44.0 Atrioventricular block, firs t degree I35.1 Nonrheumatic aortic (valve) insufficiency E78.2 Mixed hyperlipidemia G47.33 Obstructive sleep apnea (naye lt) (pediatric) Z71.3 Dietary counseling and surve illance Assessments Date Code Description Provider 12/03/2020 I11.9 Hypertensive heart disease witho ut heart failure Sarah Savage PA-C 12/03/2020 R94.31 Abnormal electrocardiogram [ECG] [EKG] Sarah Degrootw, PA-C 12/03/2020 I44.0 Atrioventricular block, first de gree Sarah Trent Symnicow, PA-C 12/03/2020 I35.1 Nonrheumatic aortic (valve) insu fficiency Sarah Newman Symnicow, PA-C 12/03/2020 E78.2 Mixed hyperlipidemia Sarah E Doug now, PA-C 12/03/2020 G47.33 Obstructive sleep apnea (adult) (pediatric) Sarah Savage, PA-C 12/03/2020 Z71.3 Dietary counseling and surveilla nctrent Savage, PA-C 06/29/2020 R06.02 Shortness of breath Stress Nucle ar/Reg Treadmill 06/29/2020 R94.31 Abnormal electrocardiogram [ECG] [EKG] Stress Nuclear/Reg Treadmill 06/16/2020 R06.02 Shortness of breath Sarah madrid, PA-C 06/16/2020 R07.2 Precordial pain Sarah Savage, PA-C 06/16/2020 I11.9 Hypertensive heart disease witho ut heart failure Sarah Savage, PA-C 06/16/2020 R94.31 Abnormal electrocardiogram [ECG] [EKG] Sarah Savage, PA-C 06/16/2020 I44.0 Atrioventricular block, first de wilfredo Sarah Degrootw, PA-C 06/16/2020 I35.1 Nonrheumatic aortic (valve) insu fficiency Sarah Degrootw, PA-C 06/16/2020 E78.2 Mixed hyperlipidemia Sarah dixon, PA-C 06/16/2020 G47.33 Obstructive sleep apnea (adult) (pediatric) Sarah Savage, PA-C 06/16/2020 Z71.3 Dietary counseling and surveilla nce Sarah Savage PA-C Plan of Treatment Future Appointment(s):* 06/08/2021 8:45 am - Sarah Savage PA-C at Main Office 12/03/2020 - Sarah Savage PA-C* I11.9 Hypertensive heart disease without heart failure * R94.31 Abnormal electrocardiogram [ECG] [EKG] * I44.0 Atrioventricular block, first degree * I35.1 Nonrheumatic aortic (valve) insufficiency * E78.2 Mixed hyperlipidemia * G47.33 Obstructive sleep apnea (adult) (pediatric) * Z71.3 Dietary counseling and surveillance * All * Follow up:* 6 month follow up. Functional Status Functional Condition Comment Date Status Independent with all ADL's Activ e Mental Status Description No Information Available Referrals Refer to Reason for Referral Status Appt Date Wilder Raya MD [facility] AUTH EMR-EXPIRES 12/14/20. [place] Created [id number] [address], [facility] [address] [phone]
--- OUTSIDE RECORDS SUMMARY | 2021-02-28 09:34 | CCD | Continuity of Care Document ---
Author Author William SAVAGE PA-C Organization Unknown Address [address], [place] [address] Phone [phone] Care Team Providers Care Public Message Service Supervisor Name Role Phone Radha Moses DO AUTM [phone] Problems Active Problems Provider Date First degree [...] 1 by mouth every day Stepan Rao, [facility] 02/20/2016 Citalopram Hydrobromide 40mg Table ts 1 by mouth daily Stepan Rao, [facility] 02/20/2016 Aspirin Ec 81mg Tablets DR 1 by mouth every day Stepan Rao, [facility] 02/20/2016 Multivitamins Capsules 1 by mouth every day Stepan Rao, [facility] 02/20/2016 Immunizations Description No Information Available Vital [...] For GFR 1.20 CBC With Differential 06/17/2020 [facility] [phone] White Blood Count 8.4 10 Normal 4.0-10.0 [...] 36.0-66.0 Lymph % 36.9 % Normal 24.0-44.0 [place] % 11.4 % High 0.0-5.0 Eos % 3.0 % Normal 0.0-3.0 Baso % 1.2 % High 0.0-1.0 Immature Granulocyte % 1.7 % Normal 0-3.0 Nucleated Red Blood Cell % 0.0 % Normal 0-0 Neutrophils # 3.8 10 Normal 1.5-8.5 Lymph # 3.1 10 Normal 1.5-5.0 [place] # 1.0 10 High 0.0-0.8 Eos # 0.3 10 Normal 0.0-0.5 Baso # 0.1 10 Normal 0.0-0.2 Comprehensive Metabolic Profil 06/17/2020 [facility] [phone] Glucose, Fasting 113 mg/dL High 70-100 Blood [...] Albumin/Globulin Ratio 1.2 Normal Lipid Panel 06/17/2020 [facility] nter [phone] Triglycerides Level 114 mg/dL Normal <150 Cholesterol Level 165 mg/dL Normal <200 HDL Cholesterol 37 mg/dL Low >40 LDL Cholesterol 105 mg/dL High <100 Non-HDL-C 128 mg/dL Normal Cholesterol Risk Ratio 4.459 Normal <5 Laboratory test finding 06/17/2020 [facility] [phone] CPK Creatine Phosphokinase 166 U/L Normal 39-30 8 1 Units are mL/min/1.73 m2 Chronic Kidney Disease Staging per NKF: Stage I & II GFR >=60 Normal to Mildly Decreased Stage III GFR 30-59 Moderately Decreased Stage IV GFR 15-29 Severely Decreased Stage V GFR <15 Very Little GFR Left ESRD GFR <15 on [employer] Procedures Date Code Description Status 12/03/2020 12795 Office/Outpatient Established Mo d MDM 30-39 Min Completed 12/03/2020 95915 ECG 12-Lead Completed 06/29/2020 25088 Treadmill/Pharmacological Monito ring Completed 06/29/2020 16179 Myocardial Perfusion Spect Multi ple Completed 06/16/2020 51388 Office/Outpatient Established Mo d MDM 30-39 Min Completed 06/16/2020 03527 ECG 12-Lead Completed Medical Devices Description No [...] Office Visit 06/16/2020 7:45a Main Office Sarah Svaage PA-C R06.0 2 Shortness of breath R07.2 [...] heart disease witho ut heart failure Sarah aSvage, PA-C 06/16/2020 R94.31 Abnormal electrocardiogram [ECG] [EKG] [...] a low fat/low cholesterol diet and do at least 30 minutes of sustained aerobic activity daily. * All * Follow up:* 6 month follow up. Functional Status Functional Condition Comment Date Status Independent with all ADL's Activ e Mental Status Description No Information Available Referrals Refer to Reason for Referral Status Appt Date Wilder Raya MD [facility] AUTH EMR-EXPIRES 12/14/20. [place] Created [address] [facility] [id number] [phone]
--- OUTSIDE RECORDS SUMMARY | 2021-02-28 09:35 | CCD ---
Author Author [facility] Organization [facility] Address Unknown Phone Unavailable Support Name Relationship Address Phone ARNOLD MOORE Next Of Kin [id number] [facility] [address] [place] [address] SNOW LEZAMA Next Of Kin [id number] [place] [address] [address] [place] [address] GHANSYHAM LEZAMA Next Of Kin [id number] [place] [address] [address] [place] [address] VERITO ESTES Next Of Kin [id number] [place] [address] [address] [place] [address] [facility] Next Of Kin [address] [place] [address] FEDEXG Next Of Kin [address] [place] [address] FED EX GROUND Next Of [facility] [address] [place] [address] VERITO MORRISSEY Next Of Kin [id number] [place] [address] [address] [place] [address] FEDEX Next Of Kin [address] [place] [address] KARTHIK FungosBANNER MD [facility] [place] [place] [address] Unavailable [place] [address] Unavailable DPAO Next Of Kin [address] [place] [address] ARNOLD ESTES Next Of Kin [address] [place] [address] ARNOLD MOORE ECON [id number] [facility] [address] [place] [address] Unavailable snow lezama ECON [id number] [facility] [address] [place] [address] Unavailable Verito Morrissey ECON Unknown Unavailable Care Team Providers Care Law Tutor Name Role Phone Rhett HYLTON MD Unavailable Unavailable Rhett HYLTON MD Unavailable Unavailable Rhett HYLTON MD Unavailable Unavailable Rhett HYLTON MD Unavailable Unavailable CONCETTA, Rhett Ocampo MD Unavailable Unavailable CONCETTA, Rhett Ocampo MD Unavailable Unavailable CONCETTA, Rhett Ocampo MD Unavailable Unavailable CONCETTA, Rhett Ocampo MD Unavailable Unavailable CONCETTA, Rhett Ocampo MD Unavailable Unavailable CONCETTA, Rhett Ocampo MD Unavailable Unavailable CONCETTA, Rhett Ocampo MD Unavailable Unavailable CONCETTA, Rhett Ocampo MD Unavailable Unavailable CONCETTA, Rhett Ocampo MD Unavailable Unavailable CONCETTA, Rhett Ocampo MD Unavailable Unavailable CONCETTA, Rhett Ocampo MD Unavailable Unavailable CONCETTA, Rhett Ocampo MD Unavailable Unavailable CONCETTA, Rhett Ocampo MD Unavailable Unavailable CONCETTA, Rhett Ocampo MD Unavailable Unavailable CONCETTA, Rhett Ocampo MD Unavailable Unavailable CONCETTA, Rhett Ocampo MD Unavailable Unavailable CONCETTA, Rhett Ocampo MD Unavailable Unavailable CONCETTA, Rhett Ocampo MD Unavailable Unavailable CONCETTA, Rhett Ocampo MD Unavailable Unavailable CONCETTA, Rhett Ocampo MD Unavailable Unavailable CONCETTA, Rhett Ocampo MD Unavailable Unavailable CONCETTA, Rhett Ocampo MD Unavailable Unavailable CONCETTA, Rhett Ocampo MD Unavailable Unavailable CONCETTA, Rhett Ocampo MD Unavailable Unavailable CONCETTA, Rhett Ocampo MD Unavailable Unavailable CONCETTA, Rhett Ocampo MD Unavailable Unavailable CONCETTA, Rhett Ocampo MD Unavailable Unavailable CONCETTA, Rhett Ocampo MD Unavailable Unavailable CONCETTA, Rhett Ocampo MD Unavailable Unavailable CONCETTA, Rhett Ocampo MD Unavailable Unavailable CONCETTA, Rhett Ocampo MD Unavailable Unavailable CONCETTA, Rhett Ocampo MD Unavailable Unavailable CONCETTA, Rhett Ocampo MD Unavailable Unavailable CONCETTA, Rhett Ocampo MD Unavailable Unavailable CONCETTA, Rhett Ocampo MD Unavailable Unavailable CONCETTA, Rhett Ocampo MD Unavailable Unavailable CONCETTA, Rhett Ocampo MD Unavailable Unavailable CONCETTA, Rhett Ocampo MD Unavailable Unavailable CONCETTA, Rhett Ocampo MD Unavailable Unavailable CONCETTA, Rhett Ocampo MD Unavailable Unavailable CONCETTA, Rhett Ocampo MD Unavailable Unavailable CONCETTA, Rhett Ocampo MD Unavailable Unavailable CONCETTA, Rhett Ocampo MD Unavailable Unavailable CONCETTA, Rhett Ocampo MD Unavailable Unavailable CONCETTA, Rhett Ocampo MD Unavailable Unavailable CONCETTA, Rhett Ocampo MD Unavailable Unavailable CONCETTA, Rhett Ocampo MD Unavailable Unavailable CONCETTA, Rhett Ocampo MD Unavailable Unavailable CONCETTA, Rhett Ocampo MD Unavailable Unavailable CONCETTA, Rhett Ocampo MD Unavailable Unavailable CONCETTA, Rhett Ocampo MD Unavailable Unavailable CONCETTA, Rhett Ocampo MD Unavailable Unavailable CONCETTA, Rhett Ocampo MD Unavailable Unavailable CONCETTA, Rhett Ocampo MD Unavailable Unavailable CONCETTA, Rhett Ocampo MD Unavailable Unavailable CONCETTA, Rhett Ocampo MD Unavailable Unavailable CONCETTARhett RODGERS MD Unavailable Unavailable SpektorSuleman MD Unavailable Unavailable SpektorSuleman MD Unavailable Unavailable SpektorSuleman MD Unavailable Unavailable SpektSuleman mina MD Unavailable Unavailable Venkata May MD Unavailable Unavailable Crissy Leary MD Unavailable Unavailable Crissy Leary MD Unavailable Unavailable Crissy Leary MD Unavailable Unavailable Crissy Leary MD Unavailable Unavailable Crissy Leary MD Unavailable Unavailable Crissy Leary MD Unavailable Unavailable Crissy Leary MD Unavailable Unavailable Crissy Leary MD Unavailable Unavailable Crissy Leary MD Unavailable Unavailable Crissy Leary MD Unavailable Unavailable Crissy Leary MD Unavailable Unavailable Crissy Leary MD Unavailable Unavailable Crissy Leary MD Unavailable Unavailable Crissy Leary MD Unavailable Unavailable Crissy Leary MD Unavailable Unavailable Crissy Leary MD Unavailable Unavailable Crissy Leary MD Unavailable Unavailable Crissy Laery MD Unavailable Unavailable Crissy Leary MD Unavailable Unavailable Crissy Leary MD Unavailable Unavailable Crissy Leary MD Unavailable Unavailable Crissy Leary MD Unavailable Unavailable Crissy Leary MD Unavailable Unavailable Crissy Leary MD Unavailable Unavailable Crissy Leary MD Unavailable Unavailable Crissy Leary MD Unavailable Unavailable Crissy Leary MD Unavailable Unavailable Crissy Leary MD Unavailable Unavailable Crissy Leary MD Unavailable Unavailable Crissy Leary MD Unavailable Unavailable Crissy Leary MD Unavailable Unavailable Crissy Leary MD Unavailable Unavailable Crissy Leary MD Unavailable Unavailable Crissy Leary MD Unavailable Unavailable Crissy Leary MD Unavailable Unavailable Crissy Leary MD Unavailable Unavailable Crissy Leary MD Unavailable Unavailable Crissy Leary MD Unavailable Unavailable Crissy Leary MD Unavailable Unavailable Crissy Leary MD Unavailable Unavailable Crissy Leary MD Unavailable Unavailable Crissy Leary MD Unavailable Unavailable Crissy Leary MD Unavailable Unavailable Crissy Leary MD Unavailable Unavailable Crissy Leary MD Unavailable Unavailable Crissy Leary MD Unavailable Unavailable Crissy Leary MD Unavailable Unavailable Crissy Leary MD Unavailable Unavailable Crissy Leary MD Unavailable Unavailable Crissy Leary MD Unavailable Unavailable Crissy Leary MD Unavailable Unavailable Crissy Leary MD Unavailable Unavailable Crissy Leary MD Unavailable Unavailable Crissy Leary MD Unavailable Unavailable Crissy Leary MD Unavailable Unavailable Crissy Leary MD Unavailable Unavailable Crissy Leary MD Unavailable Unavailable Crissy Leary MD Unavailable Unavailable Crissy Leary MD Unavailable Unavailable Crissy Leary MD Unavailable Unavailable Crissy Leary MD Unavailable Unavailable Crissy Leary MD Unavailable Unavailable Crissy Leary MD Unavailable Unavailable Crissy Leary MD Unavailable Unavailable Crissy Leary MD Unavailable Unavailable Crissy Leary MD Unavailable Unavailable Crissy Leary MD Unavailable Unavailable Crissy Leary MD Unavailable Unavailable Crissy eLary MD Unavailable Unavailable Crissy Leary MD Unavailable Unavailable Crissy Leary MD Unavailable Unavailable Crissy Leary MD Unavailable Unavailable Crissy Leary MD Unavailable Unavailable Crissy Leary MD Unavailable Unavailable Crissy Leary MD Unavailable Unavailable Crissy Leary MD Unavailable Unavailable Crissy Leary MD Unavailable Unavailable Crissy Leary MD Unavailable Unavailable Crissy Leary MD Unavailable Unavailable Crissy Leary MD Unavailable Unavailable Crissy Leary MD Unavailable Unavailable Crissy Leary MD Unavailable Unavailable Paul BENAVIDEZ MD Unavailable Unavailable Paul BENAVIDEZ MD Unavailable Unavailable Paul BENAVIDEZ MD Unavailable Unavailable Paul BENAVIDEZ MD Unavailable Unavailable Paul BENAVIDEZ MD Unavailable Unavailable Paul BENAVIDEZ MD Unavailable Unavailable Paul BENAVIDEZ MD Unavailable Unavailable Paul BENAVIDEZ MD Unavailable Unavailable Paul BENAVIDEZ MD Unavailable Unavailable Poiesz, J Ino Unavailable Unavailable Poiesz, J Ino Unavailable Unavailable Poiesz, J Ino Unavailable Unavailable Poiesz, J Ino Unavailable Unavailable Poiesz, J Ino Unavailable Unavailable Poiesz, J Ino Unavailable Unavailable Poiesz, J Ino Unavailable Unavailable Poiesz, J Ino Unavailable Unavailable Poiesz, J Ino Unavailable Unavailable Poiesz, J Ino Unavailable Unavailable Poiesz, J Ino Unavailable Unavailable Poiesz, J Ino Unavailable Unavailable Poiesz, J Ino Unavailable Unavailable Poiesz, J Ino Unavailable Unavailable Poiesz, J Ino Unavailable Unavailable Poiesz, J Ino Unavailable Unavailable Poiesz, J Ino Unavailable Unavailable Poiesz, J Ino Unavailable Unavailable Poiesz, J Ino Unavailable Unavailable Poiesz, J Ino Unavailable Unavailable Poiesz, J Ino Unavailable Unavailable Poiesz, J Ino Unavailable Unavailable Poiesz, J Ino Unavailable Unavailable Poiesz, J Ino Unavailable Unavailable Poiesz, J Ino Unavailable Unavailable Poiesz, J Ino Unavailable Unavailable Poiesz, J Ino Unavailable Unavailable Poiesz, J Ino Unavailable Unavailable Poiesz, J Ino Unavailable Unavailable Poiesz, J Ino Unavailable Unavailable Poiesz, J Ino Unavailable Unavailable Poiesz, J Ino Unavailable Unavailable Poiesz, J Ino Unavailable Unavailable Poiesz, J Ino Unavailable Unavailable Poiesz, J Ino Unavailable Unavailable Poiesz, J Ino Unavailable Unavailable Poiesz, J Ino Unavailable Unavailable Poiesz, J Ino Unavailable Unavailable Poiesz, J Ino Unavailable Unavailable Poiesz, J Ino Unavailable Unavailable Poiesz, J Ino Unavailable Unavailable Poiesz, J Ino Unavailable Unavailable Poiesz, J Ino Unavailable Unavailable Poiesz, J Ino Unavailable Unavailable Poiesz, J Ino Unavailable Unavailable Poiesz, J Ino Unavailable Unavailable Poiesz, J Ino Unavailable Unavailable Poiesz, J Ino Unavailable Unavailable Poiesz, J Ino Unavailable Unavailable Derrick STEVENS MD Unavailable Unavailable Derrick STEVENS MD Unavailable Unavailable Derrick STEVENS MD Unavailable Unavailable Derrick STEVENS MD Unavailable Unavailable Derrick STEVENS MD Unavailable Unavailable Derrick STEVENS MD Unavailable Unavailable Derrick STEVENS MD Unavailable Unavailable BERNICE, R BEAU Unavailable Unavailable Luis MELÉNDEZ MD Unavailable Unavailable Luis MELÉNDEZ MD Unavailable Unavailable Luis MELÉNDEZ MD Unavailable Unavailable Luis MELÉNDEZ MD Unavailable Unavailable Luis MELÉNDEZ MD Unavailable Unavailable Luis MELÉNDEZ MD Unavailable Unavailable Luis MELÉNDEZ MD Unavailable Unavailable Luis MELÉNDEZ MD Unavailable Unavailable Luis MELÉNDEZ MD Unavailable Unavailable Luis MELÉNDEZ MD Unavailable Unavailable Luis MELÉNDEZ MD Unavailable Unavailable Luis MELNÉDEZ MD Unavailable Unavailable Luis MELÉNDEZ MD Unavailable Unavailable Luis MELÉNDEZ MD Unavailable Unavailable Luis MELÉNDEZ MD Unavailable Unavailable Luis MELÉNDEZ MD Unavailable Unavailable Luis MELÉNDEZ MD Unavailable Unavailable Luis MELÉNDEZ MD Unavailable Unavailable Luis MELÉNDEZ MD Unavailable Unavailable Luis MELÉNDEZ MD Unavailable Unavailable Luis MELÉNDEZ MD Unavailable Unavailable Luis MELÉNDEZ MD Unavailable Unavailable Luis MELÉNDEZ MD Unavailable Unavailable Luis MELÉNDEZ MD Unavailable Unavailable Luis MELÉNDEZ MD Unavailable Unavailable Luis MELÉNDEZ MD Unavailable Unavailable Luis MELÉNDEZ MD Unavailable Unavailable Luis MELÉNDEZ MD Unavailable Unavailable Luis MELÉNDEZ MD Unavailable Unavailable Luis MELÉNDEZ MD Unavailable Unavailable Luis MELÉNDEZ MD Unavailable Unavailable Luis MELÉNDEZ MD Unavailable Unavailable Luis MELÉNDEZ MD Unavailable Unavailable Unknown, Physician Unavailable Unavailable ROBERTO LAGUNAS Unavailable Unavailable Symenow, Rosie Sarah PA Unavailable Unavailable Symenow, Rosie Sarah PA Unavailable Unavailable Symenow, Rosie Sarah PA Unavailable Unavailable Symenow, Rosie Sarah PA Unavailable Unavailable Symenow, Rosie Sarah PA Unavailable Unavailable Symenow, Rosie Sarah PA Unavailable Unavailable Symenow, Rosie Sarah PA Unavailable Unavailable Symenow, Rosie Sarah PA Unavailable Unavailable Symenow, Rosie Sarah PA Unavailable Unavailable Symenow, Rosie Sarah PA Unavailable Unavailable Symenow, Rosie Sarah PA Unavailable Unavailable Symenow, Rosie Sarah PA Unavailable Unavailable Symenow, Rosie Sarah PA Unavailable Unavailable Symenow, Rosie Sarah PA Unavailable Unavailable Symenow, Rosie Sarah PA Unavailable Unavailable Symenow, Rosie Sarah PA Unavailable Unavailable Symenow, Rosie Sarah PA Unavailable Unavailable Symenow, Rosie Sarah PA Unavailable Unavailable Symenow, Rosie Sarah PA Unavailable Unavailable Symenow, Rosie Sarah PA Unavailable Unavailable Symenow, Rosie Sarah PA Unavailable Unavailable Symenow, Rosie Sarah PA Unavailable Unavailable Symenow, Rosie Sarah PA Unavailable Unavailable Symenow, Rosie Sarah PA Unavailable Unavailable Symenow, Rosie Sarah PA Unavailable Unavailable Symenow, Rosie Sarah PA Unavailable Unavailable Symenow, Rosie Sarah PA Unavailable Unavailable Symenow, Rosie Sarah PA Unavailable Unavailable Symenow, Rosie Sarah PA Unavailable Unavailable Symenow, Rosie Sarah PA Unavailable Unavailable Symenow, Rosie Sarah PA Unavailable Unavailable Symenow, Rosie Sarah PA Unavailable Unavailable Symenow, Rosie Sarah PA Unavailable Unavailable Symenow, Rosie Sarah PA Unavailable Unavailable Rhett QUIÑONEZ MD Unavailable Unavailable Rhett QUIÑONEZ MD Unavailable Unavailable Rhett QUIÑONEZ MD Unavailable Unavailable Rhett QUIÑONEZ MD Unavailable Unavailable Rhett QUIÑONEZ MD Unavailable Unavailable Rhett QUIÑONEZ MD Unavailable Unavailable Rhett QUIÑONEZ MD Unavailable Unavailable Rhett QUIÑONEZ MD Unavailable Unavailable Rhett QUIÑONEZ MD Unavailable Unavailable Rhett QUIÑONEZ MD Unavailable Unavailable Rhett QUIÑONEZ MD Unavailable Unavailable Rhett QUIÑONEZ MD Unavailable Unavailable Rhett QUIÑONEZ MD Unavailable Unavailable Rhett QUIÑONEZ MD Unavailable Unavailable Rhett QUIÑONEZ MD Unavailable Unavailable Rhett QUIÑONEZ MD Unavailable Unavailable Rhett QUIÑONEZ MD Unavailable Unavailable Rhett QUIÑONEZ MD Unavailable Unavailable Rhett QUIÑONEZ MD Unavailable Unavailable Rhett QUIÑONEZ MD Unavailable Unavailable Rhett QUIÑONEZ MD Unavailable Unavailable Rhett QUIÑONEZ MD Unavailable Unavailable Rhett QUIÑONEZ MD Unavailable Unavailable Rhett QIUÑONEZ MD Unavailable Unavailable JAILYNLHERAN, VENKATA PA Unavailable Unavailable MCELHERAN, VENKATA PA Unavailable Unavailable MCELHERAN, VENKATA PA Unavailable Unavailable MCELHERAN, VENKATA PA Unavailable Unavailable MCELHERAN, VENKATA PA Unavailable Unavailable MCELHERAN, VENKATA PA Unavailable Unavailable MCELHERAN, VENKATA PA Unavailable Unavailable MCELHERAN, VENKATA PA Unavailable Unavailable MCELHERAN, VENKATA PA Unavailable Unavailable MCELHERAN, VENKATA PA Unavailable Unavailable MCELHERAN, VENKATA PA Unavailable Unavailable MCELHERAN, VENKATA PA Unavailable Unavailable MCELHERAN, VENKATA PA Unavailable Unavailable MCELHERAN, VENKATA PA Unavailable Unavailable MCELHERAN, VENKATA PA Unavailable Unavailable MCELHERAN, VENKATA PA Unavailable Unavailable MCELHERAN, VENKATA PA Unavailable Unavailable MCELHERAN, VENKATA PA Unavailable Unavailable MCELHERAN, VENKATA PA Unavailable Unavailable MCELHERAN, VENKATA PA Unavailable Unavailable MCELHERAN, VENKATA PA Unavailable Unavailable MCELHERSADIE, VENKATA PA Unavailable Unavailable MCELHERAN, VENKATA PA Unavailable Unavailable MCELHERSADIE, VENKATA PA Unavailable Unavailable MCELHERAN, VENKATA PA Unavailable Unavailable MCELHERAN, VENKATA PA Unavailable Unavailable MCELHERAN, VENKATA PA Unavailable Unavailable MCELHERAN, VENKATA PA Unavailable Unavailable MCELHERAN, VENKATA PA Unavailable Unavailable Feola, T Marjorie PA Unavailable Unavailable Feola, T Marjorie PA Unavailable Unavailable Feola, T Marjorie PA Unavailable Unavailable Feola, T Marjorie PA Unavailable Unavailable Feola, T Marjorie PA Unavailable Unavailable Feola, T Marjorie PA Unavailable Unavailable Feola, T Marjorie PA Unavailable Unavailable Feola, T Marjorie PA Unavailable Unavailable Feola, T Marjorie PA Unavailable Unavailable Feola, T Marjorie PA Unavailable Unavailable Feola, T Marjorie PA Unavailable Unavailable Feola, T Marjorie PA Unavailable Unavailable Feola, T Marjorie PA Unavailable Unavailable Feola, T Marjorie PA Unavailable Unavailable Feola, T Marjorie PA Unavailable Unavailable Feola, T Marjorie PA Unavailable Unavailable Feola, T Marjorie PA Unavailable Unavailable Feola, T Marjorie PA Unavailable Unavailable Feola, T Marjorie PA Unavailable Unavailable Feola, T Marjorie PA Unavailable Unavailable Feola, T Marjorie PA Unavailable Unavailable Feola, T Marjorie PA Unavailable Unavailable Feola, T Marjorie PA Unavailable Unavailable Feola, T Marjorie PA Unavailable Unavailable Feola, T Marjorie PA Unavailable Unavailable Feola, T Marjorie PA Unavailable Unavailable Feola, T Marjorie PA Unavailable Unavailable Feola, T Marjorie PA Unavailable Unavailable Feola, T Marjorie PA Unavailable Unavailable Feola, T Marjorie PA Unavailable Unavailable Feola, T Marjorie PA Unavailable Unavailable Feola, T Marjorie PA Unavailable Unavailable Feola, T Marjorie PA Unavailable Unavailable Feola, T Marjorie PA Unavailable Unavailable Feola, T Marjorie PA Unavailable Unavailable Feola, T Marjorie PA Unavailable Unavailable Feola, T Marjorie PA Unavailable Unavailable Feola, T Marjorie PA Unavailable Unavailable Feola, T Marjorie PA Unavailable Unavailable Feola, T Marjorie PA Unavailable Unavailable Feola, T Marjorie PA Unavailable Unavailable Florian, Hayley Ivett PA Unavailable Unavailable Florian, Hayley Ivett PA Unavailable Unavailable Florian, Hayley Ivett PA Unavailable Unavailable Florian, Hayley Ivett PA Unavailable Unavailable Florian, Hayley Ivett PA Unavailable Unavailable Florian, Hayley Ivett PA Unavailable Unavailable Florian, Hayley Ivett PA Unavailable Unavailable Florian, Hayley Ivett PA Unavailable Unavailable Florian, Hayley Ivett PA Unavailable Unavailable Florian, Hayley Ivett PA Unavailable Unavailable PHYSICIAN, PHYSICIAN ER Unavailable Unavailable KAIDEN, CHER KALEB CERTIFIED HEARING INSTRUMENT DISPENSER-C Unavailable Unavailable KAIDEN, CHER KALEB CERTIFIED HEARING INSTRUMENT DISPENSER-C Unavailable Unavailable KAIDEN, CHER KALEB CERTIFIED HEARING INSTRUMENT DISPENSER-C Unavailable Unavailable KAIDEN, CHER KALEB CERTIFIED HEARING INSTRUMENT DISPENSER-C Unavailable Unavailable KAIDEN, CHER KALEB CERTIFIED HEARING INSTRUMENT DISPENSER-C Unavailable Unavailable KAIDEN, CHER KALEB CERTIFIED HEARING INSTRUMENT DISPENSER-C Unavailable Unavailable KAIDEN, CHER KALEB CERTIFIED HEARING INSTRUMENT DISPENSER-C Unavailable Unavailable KAIDEN, CHER KALEB CERTIFIED HEARING INSTRUMENT DISPENSER-C Unavailable Unavailable KAIDEN, CHER KALEB CERTIFIED HEARING INSTRUMENT DISPENSER-C Unavailable Unavailable KAIDEN, CHER KALEB CERTIFIED HEARING INSTRUMENT DISPENSER-C Unavailable Unavailable KAIDEN, CHER KALEB CERTIFIED HEARING INSTRUMENT DISPENSER-C Unavailable Unavailable KAIDEN, CHER KALEB CERTIFIED HEARING INSTRUMENT DISPENSER-C Unavailable Unavailable KAIDEN, CHER KALEB CERTIFIED HEARING INSTRUMENT DISPENSER-C Unavailable Unavailable KAIDEN, CHER KALEB CERTIFIED HEARING INSTRUMENT DISPENSER-C Unavailable Unavailable KAIDEN, CHER KALEB CERTIFIED HEARING INSTRUMENT DISPENSER-C Unavailable Unavailable KAIDEN, CHER KALEB CERTIFIED HEARING INSTRUMENT DISPENSER-C Unavailable Unavailable KAIDEN, CHER KALEB CERTIFIED HEARING INSTRUMENT DISPENSER-C Unavailable Unavailable Gerhard Maya Unavailable [phone] Gerhard Maya Unavailable [phone] Gerhard Maya Unavailable [phone] Gerhard Maya Unavailable [phone] Gerhard Maya Unavailable [phone] Gerhard Maya Unavailable [phone] Rhett Beaver MD Unavailable Unavailable Rhett Beaver MD Unavailable Unavailable Rhett Beaver MD Unavailable Unavailable Rhett Beaver MD Unavailable Unavailable Rhett Beaver MD Unavailable Unavailable Rhett Beaver MD Unavailable Unavailable Rhett Beaver MD Unavailable Unavailable Rhett Beaver MD Unavailable Unavailable Rhett Beaver MD Unavailable Unavailable Rhett Beaver MD Unavailable Unavailable Rhett Beaver MD Unavailable Unavailable Rhett Beaver MD Unavailable Unavailable Rhett Beaver MD Unavailable Unavailable Rhett Beaver MD Unavailable Unavailable Rhett Beaver MD Unavailable Unavailable Rhett Beaver MD Unavailable Unavailable Rhett Beaver MD Unavailable Unavailable Rhett Beaver MD Unavailable Unavailable Rhett Beaver MD Unavailable Unavailable Rhett Beaver MD Unavailable Unavailable Rhett Beaver MD Unavailable Unavailable Rhett Beaver MD Unavailable Unavailable Rhett Beaver MD Unavailable Unavailable Rhett Beaver MD Unavailable Unavailable Rhett Beaver MD Unavailable Unavailable PHYSICIAN, ER Unavailable Unavailable Rhett Chan MD Unavailable Unavailable Rhett Chan MD Unavailable Unavailable Rhett Chan MD Unavailable Unavailable Rhett Chan MD Unavailable Unavailable Rhett Chan MD Unavailable Unavailable Rhett Chan MD Unavailable Unavailable Rhett Chan MD Unavailable Unavailable Rhett Chan MD Unavailable Unavailable Rhett Chan MD Unavailable Unavailable Rhett Chan MD Unavailable Unavailable Rhett Chan MD Unavailable Unavailable Rhett Chan MD Unavailable Unavailable Rhett Chan MD Unavailable Unavailable Rhett Chan MD Unavailable Unavailable Rhett Chan MD Unavailable Unavailable Rhett Chan MD Unavailable Unavailable Rhett Chan MD Unavailable Unavailable Rhett Chan MD Unavailable Unavailable Rhett Chan MD Unavailable Unavailable Rhett Chan MD Unavailable Unavailable Rhett Chan MD Unavailable Unavailable Rhett Chan MD Unavailable Unavailable Rhett Chan MD Unavailable Unavailable Rhett Chan MD Unavailable Unavailable Rhett Chan MD Unavailable Unavailable Rhett Chan MD Unavailable Unavailable Rhett Chan MD Unavailable Unavailable Rhett Chan MD Unavailable Unavailable Dustin, C Hawa MD Unavailable Unavailable Dustin, C Hawa MD Unavailable Unavailable Dustin, C Hawa MD Unavailable Unavailable Dustin, C Hawa MD Unavailable Unavailable Dustin, C Hawa MD Unavailable Unavailable Dustin, C Hawa MD Unavailable Unavailable Dustin, C Hawa MD Unavailable Unavailable Dustin, C Hawa MD Unavailable Unavailable Dustin, C Hawa MD Unavailable Unavailable Dustin, C Hawa MD Unavailable Unavailable Dustin, C Hawa MD Unavailable Unavailable Dustin, C Hawa MD Unavailable Unavailable Dustin, C Hawa MD Unavailable Unavailable Dustin, C Hawa MD Unavailable Unavailable Dustin, C Hawa MD Unavailable Unavailable Dustin, C Hawa MD Unavailable Unavailable Dustin, C Hawa MD Unavailable Unavailable Dustin, C Hawa MD Unavailable Unavailable Dustin, C Hawa MD Unavailable Unavailable Dustin, C Hawa MD Unavailable Unavailable Dustin, C Hawa MD Unavailable Unavailable Dustin, C Hawa MD Unavailable Unavailable Dustin, C Hawa MD Unavailable Unavailable Dustin, C Hawa MD Unavailable Unavailable Dustin, C Hawa MD Unavailable Unavailable Dustin, C Hawa MD Unavailable Unavailable Dustin, C Hawa MD Unavailable Unavailable Dustin, C Hawa MD Unavailable Unavailable Dustin, C Hawa MD Unavailable Unavailable Dustin, C Hawa MD Unavailable Unavailable Dustin, C Hawa MD Unavailable Unavailable DE LA CRUZ, J DICK Unavailable Unavailable Re-disclosure Warning The records that you are about to access may contain information from federally-assisted alcohol or drug abuse programs. If such information is present, then the following federally mandated warning applies: This information has been disclosed to you from records protected by federal confidentiality rules (42 CFR part 2). The federal rules prohibit you from making any further disclosure of this information unless further disclosure is expressly permitted by the written consent of the person to whom it pertains or as otherwise permitted by 42 CFR part 2. A general authorization for the release of medical or other information is NOT sufficient for this purpose. The Federal rules restrict any use of the information to criminally investigate or prosecute any alcohol or drug abuse patient.The records that you are about to access may contain highly sensitive health information, the redisclosure of which is protected by Article 27-F of the [place] State Public Health law. If you continue you may have access to information: Regarding HIV / AIDS; Provided by facilities licensed or operated by the [facility] Office of Mental Health; or Provided by the [facility] Office for People With Developmental Disabilities. If such information is present, then the following [facility] mandated warning applies: This information has been disclosed to you from confidential records which are protected by state law. State law prohibits you from making any further disclosure of this information without the specific written consent of the person to whom it pertains, or as otherwise permitted by law. Any unauthorized further disclosure in violation of state law may result in a fine or [place] [facility] sentence or both. A general authorization for the release of medical or other information is NOT sufficient authorization for further disc losure. Allergies and Adverse Reactions Type Description Substance Reaction Status Data Source(s ) Propensity to adverse reactions NO KNOWN ALLERGIES NO KNOWN ALLERGIES [facility] Drug allergy No Known Drug Allergies No Known Drug Allergies [facility] Family History Family Member Name Family Member Gender Family Member Status Date o f Status Description Data Source(s) Unknown Male Problem MEDENT ([facility]) Encounters Encounter Providers Location Date Indications Data Source(s ) Out[place] [address] [facility] [place] [address] 02/11/2021 12:00:00 AM EDT eCW1 ([facility]) Outpatient Attender: Terrence HYLTON MD [id number] 01/17/2021 12:00:00 A M [facility] Outpatient Attender: Gerhard Maya 12/28 07:38:34 PM EDT - 12/28/2020 07:56:29 PM EDT [facility] ([facility] ) Outpatient Attender: Sarah LANCE Main Office 12/03/2020 10:15:00 AM EDT MEDENT ([facility]) Unknown [address] [facility] [facility] [place] [address] 11/11/2020 12:00:00 AM EDT eCW1 ([facility]) Outpatient [address] [facility] [place] [address] 11/11/2020 12:00:00 AM EDT eCW1 ([facility]) [place] [address] [facility] [place] [address] 11/10/2020 12:00:00 AM EDT [facility] Outpatient Attender: YESICA Puentes/Russell/Filemon king/Kelly 11/05/2020 08:30:00 AM EDT MEDENT ([facility] ) Outpatient Attender: KALEB Puentes/Russell/Jose Juan/Paul cheatham 10/15/2020 02:15:00 PM EDT [facility] ([facility] ) [place] [address] [facility] [address] [place] [address] 10/14/2020 12:00:00 AM EDT eCW1 ([facility]) Outpatient [address] [facility] [place] [address] 10/14/2020 12:00:00 AM EDT eCW1 ([facility]) Outpatient Attender: Marjorie LANCE 021 03:05:45 PM EDT - 10/07/2020 03:14:50 PM EDT [facility] ([facility] ) [place] [address] [facility] [place] [address] 09/24/2020 12:00:00 AM EDT eCW1 ([facility]) [place]patient [address] [facility] [place] [address] 09/20/2020 12:00:00 AM EDT eCW1 ([facility]) [place] [address] [facility] [place] [address] 09/15/2020 12:00:00 AM EDT eCW1 ([facility]) [place] [address] [facility] [place] [address] 09/13/2020 12:00:00 AM EDT eCW1 ([facility]) Emergency Attender: Venkata Mackitter: Physician Gamal nknostefanie 08/31/2020 09:27:00 PM EDT - 09/01/2020 01:56:00 AM EDT NECK AND BACK PAIN [facility] NECK AND BACK PAIN Patient discharged. Outpatient Attender: Terrence HYLTON MD 08/30/2020 12:00:00 AM EDT [facility] OFFICE OUTPATIENT VISIT 15 MINUTES Attender: VENKATA LANCE Physical Therapy 08/16/2020 09:15:00 AM EDT MEDENT ([facility]) Outpatient Attender: ANA QUIÑONEZ MD 08/13 05:59:56 PM EDT - 08/13/2020 07:16:07 PM EDT [facility] ([facility] ) [place] [address] [facility] [place] [address] 08/13/2020 12:00:00 AM EDT eCW1 ([facility]) Unknown [address] [facility] [address] [place] [address] 08/09/2020 12:00:00 AM EDT eCW1 ([facility]) Unknown [address] [facility] [place] [address] 08/09/2020 12:00:00 AM EDT eCW1 ([facility]) Outpatient Attender: Crissy Leary MD [facility] Internal Med at [facility] 07/21/2020 02:00:00 PM EDT MED[facility] ([facility]) Emergency Attender: ER PHYSICIAN 07/09/2020 07:04:42 PM E [facility] Emergency Attender: ROBERTO Myersender: ER PHYSICIAN 07/09/2020 05:27:00 PM EST - 07/09/2020 08:12:00 PM EST RIGHT SIDED ABDOMINAL PAIN SEVERE [facility] RIGHT SIDED ABDOMINAL PAIN SEVERE Patient discharged. Emergency Attender: ER PHYSICIAN 07/09/2020 05:27:00 PM [facility] Outpatient Attender: VENKATA LANCE Physical Therapy 07/05/2020 09:15:00 AM EST [facility] ([facility]) [place] [address] [facility] [place] [address] 07/05/2020 12:00:00 AM EST eCW1 ([facility]) Outpatient [address] [facility] [place] [address] 06/28/2020 12:00:00 AM EST eCW1 ([facility]) [place] [address] [facility] [place] [address] 06/18/2020 12:00:00 AM EST eCW1 ([facility]) Outpatient Attender: KALEB REISP-C Dhaval/Russell/Jose Juan/Paul cheatham 06/17/2020 07:15:00 AM EST [facility] ([facility] [place] [address] [facility] [place] [address] 06/17/2020 12:00:00 AM EST eCW1 ([facility]) Outpatient Attender: Sarah LANCE Main Office 06/16/2020 06:45:00 AM EST [facility] ([facility]) Unknown [address] [facility] [place] [address] 06/16/2020 12:00:00 AM EST eCW1 ([facility]) Outpatient Attender: Sari Beaver MD 0 05/30/2020 12:50:31 PM EST - 05/30/2020 01:47:37 PM EST [facility] ([facility]) Unknown [address] [facility] [place] [address] 05/18/2020 12:00:00 AM EST eCW1 ([facility]) Outpatient Attender: CARLINE STEVENS MDReferrer: CARLINE Daigle MD 04/03/2020 12:00:00 AM [facility] Emergency Attender: LEXX BENAVIDEZ MDA ttender: CARLINE STEVENS MDReferrer: SARTHAK QUEEN 07A-ERMADULT 04/02/2020 12:00:00 AM EST - 04/03/2020 02:24:00 AM EST Other chest pain [facility] Other chest pain Patient discharged. Outpatient Attender: VENKATA LANCE Physical Therapy 03/29/2020 02:45:00 PM EST MED[facility] ([facility]) Outpatient Attender: Ivett lewy 03/20/2020 04:00:00 PM EST MED[facility] ([facility] Outpatient Attender: Ino LockettReferrer: Terrence HYLTON MD 02/23/2020 12:00:00 AM [facility] Outpatient Attender: Solange Willis MDReferrer: Terrence HYLTON MD 02/09/2020 12:00:00 AM [facility] Outpatient [address] [facility] [place] [address] 02/09/2020 12:00:00 AM EDT eCW1 ([facility]) Outpatient Attender: Hawa Dustin MDReferrer: Terrence HYLTON MD 02/02/2020 12:00:00 AM [facility] Outpatient Attender: VENKATA LANCE Physical Therapy 01/26/2020 01:45:00 PM EDT MED[facility] ([facility] ) Outpatient Referrer: Terrence HYLTON MD 01/26/2020 12:00:00 AM [facility] Outpatient Attender: Terrence HYLTON MD [id number] 01/05/20 12:00:00 AM EDT - 01/05/2020 02:49:16 PM [facility] Outpatient Attender: Terrence HYLTON MD 01/05/2020 12:00:00 AM [facility] Outpatient Attender: DICK DE LA CRUZ 12/29/19 12:00:00 AM EDT - 12/30/2019 12:00:00 AM EDT Frequency of micturition [facility] Frequency of micturition Medications Medication Brand Name Start Date Product Form Dose Route Admi nistrative Instructions Pharmacy Instructions Status Indications Reaction Description Data Source(s) 200 mg/mL 01/18/2021 12:00:00 AM EDT oil 3 INJECT 1ML INTRAMUSCULARLY EVERY 10 DAYS, MAX OF 1ML PER 10 DAYS INJECT 1ML INTRAMUSCULARLY EVERY 10 DAYS , MAX OF 1ML PER 10 DAYS SOLD: 01/24/2021 [facility] 10 mg 12/22/2020 12:00:00 AM EDT tablet 20 TAKE ONE TABLET BY MOUTH EVERY 6 HOURS NEEDED FOR PAIN TAKE ONE TABLET BY MOUTH EVERY 6 HOURS A S NEEDED FOR PAIN SOLD: 12/22/2020 [facility] 50 mg 12/22/2020 12:00:00 AM EDT tablet 10 TAKE ONE TABLET BY MOUTH TWICE A DAY NEEDED FOR PAIN * MAXIMUM DAILY DOSE = 4 TAKE ONE TABLET BY MOUTH TWICE A DAY NEEDED FOR PAIN * MAXIMUM DAILY DOSE = 4 SOLD: 12/22/2020 [facility] Sutab Sutab 11/22/2020 12:00:00 AM EDT active MEDENT ([facility], ) POLYETHYLENE GLYCOL 3350 105 MG/ML / Pot assium Chloride 0.60011 MEQ/ML / Sodium Bicarbonate 0.017 MEQ/ML / Sodium Chloride 0.0479 MEQ/ML Oral Solution [GaviLyte-N] Gavilyte-N With Flavor Pack 11/22/2020 12:00:00 AM EDT active MEDENT ([facility], ) Bisacodyl 5 MG Delayed Release Oral Tablet [Dulcolax] Dulcol ax 11/22/2020 12:00:00 AM EDT active M EDENT ([facility], ) Clenpiq Clenpiq 11/18/2020 12:00:00 AM EDT active MEDENT ([facility], ) 300 mg 11/17/2020 12:00:00 AM EDT capsule 90 TAKE ONE CAPSULE BY MOUTH THREE TIMES A DAY TAKE ONE CAPSULE BY MOUTH THREE TIMES A DAY SOLD: 11/19/2020 [facility] 300 mg 11/17/2020 12:00:00 AM EDT capsule 90 TAKE ONE CAPSULE BY MOUTH THREE TIMES A DAY TAKE ONE CAPSULE BY MOUTH THREE TIMES A DAY SOLD: 01/06/2021 [facility] 300 mg 11/17/2020 12:00:00 AM EDT capsule 90 TAKE ONE CAPSULE BY MOUTH THREE TIMES A DAY TAKE ONE CAPSULE BY MOUTH THREE TIMES A DAY SOLD: 02/07/2021 [facility] 30 mg 11/12/2020 12:00:00 AM EDT tablet 30 TAKE ONE TABLET BY MOUTH EVERY DAY TAKE ONE TABLET BY MOUTH EVERY DAY SOLD: 01/14/2021 [facility] 30 mg 11/12/2020 12:00:00 AM EDT tablet 30 TAKE ONE TABLET BY MOUTH EVERY DAY TAKE ONE TABLET BY MOUTH EVERY DAY SOLD: 11/19/2020 [facility] Lisinopril 30 MG Oral Tablet Lisinopril 30 MG 11/11/2020 12:00:00 A M EDT 1.0 {tablet} active Lisinopril 30 MG eCW1 ( [facility]) Lisinopril 30 MG Oral Tablet Lisinopril 30 MG 11/11/2020 12:00:00 A M EDT 1.0 {tablet} active Lisinopril 30 MG eCW1 ( [facility]) Lisinopril 30 MG Oral Tablet Lisinopril 30 MG 11/11/2020 12:00:00 A M EDT 1.0 {tablet} active Lisinopril 30 MG eCW1 ( [facility]) Lisinopril 30 MG Oral Tablet Lisinopril 30 MG 11/11/2020 12:00:00 A M EDT 1.0 {tablet} active Lisinopril 30 MG eCW1 ( [facility]) 200 mg/mL 11/02/2020 12:00:00 AM EDT oil 3 INJECT 1ML INTRAMUSCULARLY EVERY 10 DAYS * MAXIMUM DAILY DOSE = 1ML / 10 DAYS INJECT 1ML INTRAMUSCULARLY EVERY 10 DAYS * MAXIMUM DAILY DOSE = 1ML / 10 DAYS SOLD: 11/08/2020 [facility] 300 mg 09/27/2020 12:00:00 AM EDT capsule 90 TAKE ONE CAPSULE BY MOUTH THREE TIMES A DAY TAKE ONE CAPSULE BY MOUTH THREE TIMES A DAY SOLD: 12/15/2020 [facility] 300 mg 09/27/2020 12:00:00 AM EDT capsule 90 TAKE ONE CAPSULE BY MOUTH THREE TIMES A DAY TAKE ONE CAPSULE BY MOUTH THREE TIMES A DAY SOLD: 10/03/2020 [facility] 200 mg/mL 09/12/2020 12:00:00 AM EDT oil 3 INJECT 1 ML INTRAMUSCULARLY EVERY 10 DAYS, MAX OF 1ML PER 10 DAYS INJECT 1 ML INTRAMUSCULARLY EVERY 10 DAY S, MAX OF 1ML PER 10 DAYS SOLD: 09/16/2020 [facility] 3 mL 22 gauge x 1" 09/12/2020 12:00:00 AM EDT syringe 9 USE ONCE WEEKLY WITH INJECTION DIRECTED USE ONCE WEEKLY WITH INJECTION DIRECTED SOLD: 09/16/2020 [facility] Aspirin 81 MG Delayed Release Oral Table t Aspirin* (Aspirin (81 Mg) Enteric Coated Tablet*) 81 MG Enteric Coated Tablet Aspirin* (Aspirin (81 Mg) Enteric Coated Tablet*) 81 MG Enteric Coated Tablet 08/31/2020 09:44:46 PM EDT 81 MG ORAL active [facility] Lisinopril 40 MG Oral Tablet Lisinopril 08/31/2020 09:44:46 PM EDT 40 MG ORAL active [facility] Lisinopril 40 MG Oral Tablet Lisinopril 08/31/2020 09:44:46 PM EDT 40 MG ORAL active [facility] Aspirin 81 MG Delayed Release Oral Table t Aspirin* (Aspirin (81 Mg) Enteric Coated Tablet*) 81 MG Enteric Coated Tablet Aspirin* (Aspirin (81 Mg) Enteric Coated Tablet*) 81 MG Enteric Coated Tablet 08/31/2020 09:44:46 PM EDT 81 MG ORAL active [facility] Sertraline 25 MG Oral Tablet [Zoloft] Sertraline Hcl ( Zoloft*) 25 MG Tablet Sertraline Hcl (Zoloft*) 25 MG Tablet 08/31/2020 09:44:46 PM EDT 25 M G ORAL active [facility] Aspirin 81 MG Delayed Release Oral Table t Aspirin* (Aspirin (81 Mg) Enteric Coated Tablet*) 81 MG Enteric Coated Tablet Aspirin* (Aspirin (81 Mg) Enteric Coated Tablet*) 81 MG Enteric Coated Tablet 08/31/2020 09:44:46 PM EDT 81 MG ORAL active [facility] Aspirin 81 MG Delayed Release Oral Table t Aspirin* (Aspirin (81 Mg) Enteric Coated Tablet*) 81 MG Enteric Coated Tablet Aspirin* (Aspirin (81 Mg) Enteric Coated Tablet*) 81 MG Enteric Coated Tablet 08/31/2020 09:44:46 PM EDT 81 MG ORAL active [facility] Sertraline 25 MG Oral Tablet [Zoloft] Sertraline Hcl ( Zoloft*) 25 MG Tablet Sertraline Hcl (Zoloft*) 25 MG Tablet 08/31/2020 09:44:46 PM EDT 25 M G ORAL active [facility] Lisinopril 40 MG Oral Tablet Lisinopril 08/31/2020 09:44:46 PM EDT 40 MG ORAL active [facility] Sertraline 25 MG Oral Tablet [Zoloft] Sertraline Hcl ( Zoloft*) 25 MG Tablet Sertraline Hcl (Zoloft*) 25 MG Tablet 08/31/2020 09:44:46 PM EDT 25 M G ORAL active [facility] lansoprazole 30 MG Delayed Release Oral Capsule [Prevacid] Lansoprazole (Prevacid) 30 MG Capsule. Lansoprazole (Prevacid) 30 MG Capsule. 08/31/2020 09:44:46 PM EDT 30 MG ORAL active [facility] Lisinopril 40 MG Oral Tablet Lisinopril 08/31/2020 09:44:46 PM EDT 40 MG ORAL active [facility] lansoprazole 30 MG Delayed Release Oral Capsule [Prevacid] Lansoprazole (Prevacid) 30 MG Capsule. Lansoprazole (Prevacid) 30 MG Capsule. 08/31/2020 09:44:46 PM EDT 30 MG ORAL active [facility] lansoprazole 30 MG Delayed Release Oral Capsule [Prevacid] Lansoprazole (Prevacid) 30 MG Capsule. Lansoprazole (Prevacid) 30 MG Capsule. 08/31/2020 09:44:46 PM EDT 30 MG ORAL active [facility] Sertraline 25 MG Oral Tablet [Zoloft] Sertraline Hcl ( Zoloft*) 25 MG Tablet Sertraline Hcl (Zoloft*) 25 MG Tablet 08/31/2020 09:44:46 PM EDT 25 M G ORAL active [facility] lansoprazole 30 MG Delayed Release Oral Capsule [Prevacid] Lansoprazole (Prevacid) 30 MG Capsule. Lansoprazole (Prevacid) 30 MG Capsule. 08/31/2020 09:44:46 PM EDT 30 MG ORAL active [facility] Sertraline 25 MG Oral Tablet [Zoloft] Sertraline Hcl ( Zoloft*) 25 MG Tablet Sertraline Hcl (Zoloft*) 25 MG Tablet 08/31/2020 09:44:46 PM EDT 25 M G ORAL active [facility] Lisinopril 40 MG Oral Tablet Lisinopril 08/31/2020 09:44:46 PM EDT 40 MG ORAL active [facility] Aspirin 81 MG Delayed Release Oral Table t Aspirin* (Aspirin (81 Mg) Enteric Coated Tablet*) 81 MG Enteric Coated Tablet Aspirin* (Aspirin (81 Mg) Enteric Coated Tablet*) 81 MG Enteric Coated Tablet 08/31/2020 09:44:46 PM EDT 81 MG ORAL active [facility] lansoprazole 30 MG Delayed Release Oral Capsule [Prevacid] Lansoprazole (Prevacid) 30 MG Capsule. Lansoprazole (Prevacid) 30 MG Capsule. 08/31/2020 09:44:46 PM EDT 30 MG ORAL active [facility] 17.5-3.13-1.6 gram 08/11/2020 12:00:00 AM EDT recon soln 354 TAKE PER DOCTORS BOWEL PREP INSTRUCTIONS TAKE PER DOCTORS BOWEL PREP INSTRUCTIONS SOLD: 08/14/2020 [facility] Suprep Bowel Prep Kit Suprep Bowel Prep Kit 08/11/2020 12:00:00 AM EDT completed MEDENT ([facility], ) Citalopram 40 MG Oral Tablet CITALOPRAM HYDROBROMIDE 08/10/2020 12:00:00 AM EDT tablet 90 TAKE ONE TABLET BY MOUTH EVERY D AY TAKE ONE TABLET BY MOUTH EVERY DAY SOLD: 08/14/2020 [facility] Citalopram 40 MG Oral Tablet CITALOPRAM HYDROBROMIDE 08/10/2020 12:00:00 AM EDT tablet 90 TAKE ONE TABLET BY MOUTH EVERY D AY TAKE ONE TABLET BY MOUTH EVERY DAY SOLD: 11/27/2020 [facility] 17 gram/dose 07/26/2020 12:00:00 AM EDT powder 238 MIX 17 GM IN 8 OZ OF WATER OR JUICE AND DRINK DAILY NEEDED CONSTIPATION MIX 17 GM IN 8 OZ OF WATER OR JUICE AND DRINK DAILY NEEDED CONSTIPATION SOLD: 07/29/2020 [facility] 20 mg 07/22/2020 12:00:00 AM EDT tablet 90 TAKE ONE TABLET BY MOUTH ONCE DAILY TAKE ONE TABLET BY MOUTH ONCE DAILY SOLD: 07/22/2020 [facility] 20 mg 07/22/2020 12:00:00 AM EDT tablet 90 TAKE ONE TABLET BY MOUTH ONCE DAILY TAKE ONE TABLET BY MOUTH ONCE DAILY SOLD: 10/25/2020 [facility] CPAP 07/19/2020 12:00:00 AM EDT active MEDENT ([facility], ) 4 mg 07/10/2020 12:00:00 AM EST tablet 14 TAKE ONE TABLET BY MOUTH EVERY 6 HOURS NEEDED FOR NAUSEA OR VOMITING TAKE ONE TABLET BY MOUTH EVERY 6 HOURS A S NEEDED FOR NAUSEA OR VOMITING SOLD: 07/13/2020 [facility] 200 mg/mL 07/08/2020 12:00:00 AM EST oil 3 INJECT 1ML INTRAMUSCULARLY EVERY 10 DAYS * MAX DOSE 1ML EVERY 10 DAYS INJECT 1ML INTRAMUSCULARLY EVERY 10 DAYS * MAX DOSE 1ML EVERY 10 DAYS SOLD: 07/13/2020 [facility] 300 mg 07/06/2020 12:00:00 AM EST capsule 90 TAKE ONE CAPSULE BY MOUTH THREE TIMES A DAY TAKE ONE CAPSULE BY MOUTH THREE TIMES A DAY SOLD: 07/13/2020 [facility] 300 mg 07/06/2020 12:00:00 AM EST capsule 90 TAKE ONE CAPSULE BY MOUTH THREE TIMES A DAY TAKE ONE CAPSULE BY MOUTH THREE TIMES A DAY SOLD: 08/14/2020 [facility] 3 mL 23 x 1" 06/01/2020 12:00:00 AM EST syringe 12 USE WITH WEEKLY INJECTION USE WITH WEEKLY INJECTION SOLD: 06/01/2020 [facility] 18 gauge x 1 1/2" 06/01/2020 12:00:00 AM EST needle 12 USE WEEKLY WITH INJECTION DIRECTED USE WEEKLY WITH INJECTION DIRECTED SOLD: 09/16/2020 [facility] 18 gauge x 1 1/2" 06/01/2020 12:00:00 AM EST needle 12 USE WEEKLY WITH INJECTION DIRECTED USE WEEKLY WITH INJECTION DIRECTED SOLD: 06/01/2020 [facility] 200 mg/mL 05/31/2020 12:00:00 AM EST oil 3 INJECT 1 ML INTRAMUSCULARLY EVERY 10 DAYS MAXIMUM DAILY DOSE = 1 ML EVERY 10 DAYS INJECT 1 ML INTRAMUSCULARLY EVERY 10 DAYS MAXIMUM DAILY DOSE = 1 ML EVERY 10 DAYS SOLD: 06/01/2020 [facility] 20 mg 05/30/2020 12:00:00 AM EST tablet 10 TAKE ONE TABLET BY MOUTH TWO TIMES A DAY FOR 5 DAYS TAKE ONE TABLET BY MOUTH TWO TIMES A DAY FOR 5 DAYS SO LD: 05/31/2020 [facility] 250 mg 05/30/2020 12:00:00 AM EST tablet 6 TAKE TWO TABLETS BY MOUTH AT ONCE ON THE FIRST DAY THEN TAKE ONE DAILY THEREAFTER TAKE TWO TABLETS BY MOUTH AT ONCE ON THE FIRST DAY THEN TAKE ONE DAILY THEREAFTER SOLD: 05/31/2020 [facility] 90 mcg/actuation 05/30/2020 12:00:00 AM EST HFA aerosol inha ler 8 INHALE 1-2 PUFFS BY MOUTH EVERY 4 HOURS NEEDED FOR WHEEZING INHALE 1-2 PUFFS BY MOUTH EVERY 4 HOURS NEEDED FOR WHEEZING SOLD: 05/31/2020 [facility] 200 mg/mL 04/08/2020 12:00:00 AM EST oil 3 INJECT 200 MG INTRAMUSCULARLY EVERY 10 DAYS MAXIMUM DAILY DOSE = 200 MG EVERY 10 DAYS INJECT 200 MG INTRAMUSCULARLY EVERY 10 DAYS MAXIMUM DAILY DOSE = 200 MG EVERY 10 DAYS SOLD: 04/11/2020 [facility] 30 mg 04/04/2020 12:00:00 AM EST capsule,delayed release (DR/EC) 90 TAKE ONE CAPSULE BY MOUTH EVERY DAY TAKE ONE CAPSULE BY MOUTH EVERY DAY SOLD: 04/06/2020 [facility] 30 mg 04/04/2020 12:00:00 AM EST capsule,delayed release (DR/EC) 30 TAKE ONE CAPSULE BY MOUTH EVERY DAY TAKE ONE CAPSULE BY MOUTH EVERY DAY SOLD: 02/07/2021 [facility] 30 mg 04/04/2020 12:00:00 AM EST capsule,delayed release (DR/EC) 90 TAKE ONE CAPSULE BY MOUTH EVERY DAY TAKE ONE CAPSULE BY MOUTH EVERY DAY SOLD: 06/24/2020 [facility] 30 mg 04/04/2020 12:00:00 AM EST capsule,delayed release (DR/EC) 30 TAKE ONE CAPSULE BY MOUTH EVERY DAY TAKE ONE CAPSULE BY MOUTH EVERY DAY SOLD: 01/14/2021 [facility] 30 mg 04/04/2020 12:00:00 AM EST capsule,delayed release (DR/EC) 90 TAKE ONE CAPSULE BY MOUTH EVERY DAY TAKE ONE CAPSULE BY MOUTH EVERY DAY SOLD: 10/03/2020 [facility] doxycycline hyclate 100 MG Oral Capsule DOXYCYCLINE HYCLATE 03/21/2020 12:00:00 AM EST capsule 14 TAKE ONE CAPSULE BY MOUTH TWO TIMES A DAY FOR 7 DAYS * TAKE WITH FOOD* TAKE ONE CAPSULE BY MOUTH TWO TIMES A DA Y FOR 7 DAYS * TAKE WITH FOOD* SOLD: 03/21/2020 [facility] doxycycline hyclate 100 MG Oral Capsule Doxycycline Hyclate 03/20/2020 12:00:00 AM EST active MEDENT ([facility]) sildenafil 50 MG Oral Tablet [Viagra] Viagra 50 MG Viagra 50 MG 02/09/2020 12:00:00 AM EDT 1.0 {tablet_as_needed} active Viagra 50 MG eCW1 ([facility]) sildenafil 50 MG Oral Tablet [Viagra] Viagra 50 MG Viagra 50 MG 02/09/2020 12:00:00 AM EDT 1.0 {tablet_as_needed} active Viagra 50 MG eCW1 ([facility]) sildenafil 50 MG Oral Tablet [Viagra] Viagra 50 MG Viagra 50 MG 02/09/2020 12:00:00 AM EDT 1.0 {tablet_as_needed} active Viagra 50 MG eCW1 ([facility]) sildenafil 50 MG Oral Tablet [Viagra] Viagra 50 MG Viagra 50 MG 02/09/2020 12:00:00 AM EDT 1.0 {tablet_as_needed} active Viagra 50 MG eCW1 ([facility]) sildenafil 50 MG Oral Tablet [Viagra] Viagra 50 MG Viagra 50 MG 02/09/2020 12:00:00 AM EDT 1.0 {tablet_as_needed} active Viagra 50 MG eCW1 ([facility]) sildenafil 50 MG Oral Tablet [Viagra] Viagra 50 MG Viagra 50 MG 02/09/2020 12:00:00 AM EDT 1.0 {tablet_as_needed} active Viagra 50 MG eCW1 ([facility]) sildenafil 50 MG Oral Tablet [Viagra] Viagra 50 MG Viagra 50 MG 02/09/2020 12:00:00 AM EDT 1.0 {tablet_as_needed} active Viagra 50 MG eCW1 ([facility]) sildenafil 50 MG Oral Tablet [Viagra] Viagra 50 MG Viagra 50 MG 02/09/2020 12:00:00 AM EDT 1.0 {tablet_as_needed} active Viagra 50 MG eCW1 ([facility]) sildenafil 50 MG Oral Tablet [Viagra] Viagra 50 MG Viagra 50 MG 02/09/2020 12:00:00 AM EDT 1.0 {tablet_as_needed} active Viagra 50 MG eCW1 ([facility]) sildenafil 50 MG Oral Tablet [Viagra] Viagra 50 MG Viagra 50 MG 02/09/2020 12:00:00 AM EDT 1.0 {tablet_as_needed} active Viagra 50 MG eCW1 ([facility]) sildenafil 50 MG Oral Tablet [Viagra] Viagra 50 MG Viagra 50 MG 02/09/2020 12:00:00 AM EDT 1.0 {tablet_as_needed} active Viagra 50 MG eCW1 ([facility]) sildenafil 50 MG Oral Tablet [Viagra] Viagra 50 MG Viagra 50 MG 02/09/2020 12:00:00 AM EDT 1.0 {tablet_as_needed} active Viagra 50 MG eCW1 ([facility]) sildenafil 50 MG Oral Tablet [Viagra] Viagra 50 MG Viagra 50 MG 02/09/2020 12:00:00 AM EDT 1.0 {tablet_as_needed} active Viagra 50 MG eCW1 ([facility]) sildenafil 50 MG Oral Tablet [Viagra] Viagra 50 MG Viagra 50 MG 02/09/2020 12:00:00 AM EDT 1.0 {tablet_as_needed} active Viagra 50 MG eCW1 ([facility]) sildenafil 50 MG Oral Tablet [Viagra] Viagra 50 MG Viagra 50 MG 02/09/2020 12:00:00 AM EDT 1.0 {tablet_as_needed} active Viagra 50 MG eCW1 ([facility]) sildenafil 50 MG Oral Tablet [Viagra] Viagra 50 MG Viagra 50 MG 02/09/2020 12:00:00 AM EDT 1.0 {tablet_as_needed} active Viagra 50 MG eCW1 ([facility]) sildenafil 50 MG Oral Tablet [Viagra] Viagra 50 MG Viagra 50 MG 02/09/2020 12:00:00 AM EDT 1.0 {tablet_as_needed} active Viagra 50 MG eCW1 ([facility]) sildenafil 50 MG Oral Tablet [Viagra] Viagra 50 MG Viagra 50 MG 02/09/2020 12:00:00 AM EDT 1.0 {tablet_as_needed} active Viagra 50 MG eCW1 ([facility]) sildenafil 50 MG Oral Tablet [Viagra] Viagra 50 MG Viagra 50 MG 02/09/2020 12:00:00 AM EDT 1.0 {tablet_as_needed} active Viagra 50 MG eCW1 ([facility]) sildenafil 50 MG Oral Tablet [Viagra] Viagra 50 MG Viagra 50 MG 02/09/2020 12:00:00 AM EDT 1.0 {tablet_as_needed} active Viagra 50 MG eCW1 ([facility]) 40 mg 01/09/2020 12:00:00 AM EDT tablet 90 TAKE ONE TABLET BY MOUTH ONCE DAILY TAKE ONE TABLET BY MOUTH ONCE DAILY SOLD: 01/11/2020 [facility] Citalopram 40 MG Oral Tablet CITALOPRAM HYDROBROMIDE 01/09/2020 12:00:00 AM EDT tablet 90 TAKE ONE TABLET BY MOUTH ONCE DA LALIT TAKE ONE TABLET BY MOUTH ONCE DAILY SOLD: 05/08/2020 [facility] 25 mcg (1,000 unit) 01/07/2020 12:00:00 AM EDT tablet 90 TAKE ONE TABLET BY MOUTH ONCE DAILY TAKE ONE TABLET BY MOUTH ONCE DAILY SOLD: 01/11/2020 [facility] atorvastatin 10 MG Oral Tablet ATORVASTATIN CALCIUM 01/07/2020 1 2:00:00 AM EDT tablet 90 TAKE ONE TABLET BY MOUTH ONCE DA LALIT TAKE ONE TABLET BY MOUTH ONCE DAILY SOLD: 04/25/2020 [facility] atorvastatin 10 MG Oral Tablet ATORVASTATIN CALCIUM 01/07/2020 1 2:00:00 AM EDT tablet 90 TAKE ONE TABLET BY MOUTH ONCE DA LALIT TAKE ONE TABLET BY MOUTH ONCE DAILY SOLD: 01/11/2020 [facility] 0.4 mg 01/06/2020 12:00:00 AM EDT capsule 60 TAKE TWO CAPSULES BY MOUTH EVERY DAY TAKE TWO CAPSULES BY MOUTH EVERY DAY SOLD: 01/11/2020 [facility] Tamsulosin hydrochloride 0.4 MG Oral Cap oma Tamsulosin HCl 0.4 MG Oral Capsule (Flomax) Tamsulosin HCl 0.4 MG Oral Capsule (Flomax) 01/05/2020 12:00 :00 AM EDT 0.8 mg Oral active Take 2 capsules by mouth daily [facility] 300 mg 12/30/2019 12:00:00 AM EDT capsule 60 TAKE ONE CAPSULE BY MOUTH TWICE A DAY TAKE ONE CAPSULE BY MOUTH TWICE A DAY SOLD: 02/26/2020 [facility] 300 mg 12/30/2019 12:00:00 AM EDT capsule 60 TAKE ONE CAPSULE BY MOUTH TWICE A DAY TAKE ONE CAPSULE BY MOUTH TWICE A DAY SOLD: 04/06/2020 [facility] 300 mg 12/30/2019 12:00:00 AM EDT capsule 60 TAKE ONE CAPSULE BY MOUTH TWICE A DAY TAKE ONE CAPSULE BY MOUTH TWICE A DAY SOLD: 01/02/2020 [facility] 300 mg 11/17/2019 12:00:00 AM EDT capsule 90 TAKE ONE CAPSULE BY MOUTH AT BEDTIME FOR 1 WEEK THEN 1 TWO TIMES A DAY FOR 1 WEEK THEN 1 THREE TIMES A DAY TAKE ONE CAPSULE BY MOUTH AT BEDTIME FOR 1 WEEK THEN 1 TWO TIMES A DAY FOR 1 WEEK THEN 1 THREE TIMES A DAY SOLD: 05/08/2020 [facility] Syringe Luer Lock 23G X 1" 3 GP [id number] 10/17/2019 12:00:00 AM EDT 1 {each} Does not apply active Low testosterone 1 each by Does not apply route once a week for 20 dosesTo use weekly with injection [facility] Low testosterone 20 mg 10/06/2019 12:00:00 AM EDT tablet 90 TAKE ONE TABLET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 00:33 Disposition: HOME/SELF ROUTINE Clinical Impression: Neck pain Fall Qualifiers: Encounter type: initial encounter Qualified Code(s): W19.XXXA - Unspecified fall, initial encounter Left shoulder pain Qualifiers: Chronicity: acute Qualified Code(s): M25.512 - Pain in left shoulder Back pain Qualifiers: Back pain location: back pain in unspecified location Chronicity: acute Back pain laterality: bilateral Qualified Code(s): M54.9 - Dorsalgia, unspecified Condition: STABLE Instructions: How to Prevent Falls, DI for Back Pain With Sciatica, DI for Shoulder Pain, DI for Thoracic Back Pain Referrals: Unknown,Physician [Primary Care Provider] - Forms: Work/School Release Form Additional Instructions: Use Tylenol and either ibuprofen or Aleve consistently for the next 1-2 weeks. Follow up with a Primary Care Physician This document may have been dictated using voice recognition software. Although each note is reviewed to minimize errors, unintended translation errors can occur. Please call your doctor/provider office if you have any questions about the content of this note. Thank you. Name Value Range Interpretation Code Description Data Jenise rce(s) Supporting Document(s) ID Date Data Source [id number] 08/18/2020 10:38:00 AM EDT [facility] Name Value Range Interpretation Code Description Data Jenise rce(s) Supporting Document(s) COVID-19 RT-PCR NASAL SWAB Detected Not Detected [facility] A detected test result is interpreted as a positive test result forCOVID-19. This indicates that RNA from SARS-CoV-2 was detected, andthe patient is infected with the virus and presumed to be contagious.Laboratory test results should always be considered in the context ofclinical observations and epidemiological data in making a finaldiagnosis and patient management decisions. Results will be reportedto government agencies as required.This test has received Emergency Use Authorization (EUA). We will continue to follow federal and state requirements for COVID-19 reporting. This test has been authorized only for the detection of RNAfrom SARS-CoV-2 virus and diagnosis of SARS-CoV-2 virus infection, notfor any other viruses or pathogens. This test is only authorized for the duration of the declaration that circumstances exist justifying the authorization of the emergency use of in vitro diagnostic tests for detection of SARS-CoV-2 virus and/or diagnosis of SARS-CoV-2 virusinfection under section 564 (b)(1) of the Act, 21 U.S.C. section 360bbb-3(b)(1), unless the authorization is terminated or revoked sooner. We will continue to follow federal and state requirements for both notification of results and any confirmatory testing that is required by another agency. This test was developed and its performance characteristics determined by [email or web address] and verified at [facility]. It has not been cleared or approved by the U.S. Food and Drug Administration for diagnostic use. This test has been authorized by FDA under an EUA for use by authorized laboratories. Results should be used in conjunction with clinical findings, and should not form the sole basis for a diagnosis or treatment decision. Methods: SARS-CoV-2 Multiplex RT-PCR Assay ID Date Data Source [id number] 08/13/2020 06:15:00 PM EDT [facility] Name Value Range Interpretation Code Description Data Jenise rce(s) Supporting Document(s) SARS-CoV-2 (COVID-19) N gene [Presence] in Respiratory specimen by MICHELLE with probe detection POSITIVE [facility] This lab was ordered by Noel Adam and reported by [employer]. ID Date Data Source [id number] 08/13/2020 12:00:00 AM EDT [facility] Name Value Range Interpretation Code Description Data Jenise rce(s) Supporting Document(s) Carestart Rapid COVID Antigen Test Positive [facility] This lab was reported by Noel webb. ID Date Data Source [id number] 07/21/2020 02:50:00 PM EDT [facility] Name Value Range Interpretation Code Description Data Jenise rce(s) Supporting Document(s) Lipase [Enzymatic activity/volume] in Serum or Plasma 64.0 U/L 5.6-51.3 Above high normal [facility] ([facility]) ALT, AST, & Lipase all trending down [facility] labs. Venipuncture Laboratory test result MED[facility] NT ([facility]) ALT, AST, & Lipase all trending down [facility]. ID Date Data Source [id number] 07/21/2020 02:50:00 PM EDT [facility] ([facility]) Name Value Range Interpretation Code Description Data Jenise rce(s) Supporting Document(s) Glucose [Mass/volume] in Serum or Plasma 106 mg/dL 74-106 [facility] ([facility]) ALT, AST, & Lipase all trending down [facility]. Urea nitrogen [Moles/volume] in Serum or Plasma 17 mg/dL 6-20 [facility] ([facility]) ALT, AST, & Lipase all trending down [facility]. Creatinine [Mass/volume] in Serum or Plasma 1.2 mg/dL 0.5-1.3 [facility] ([facility]) ALT, AST, & Lipase all trending down [facility]. Sodium [Moles/volume] in Serum or Plasma 140 mmol/L 136-145 [facility] ([facility]) ALT, AST, & Lipase all trending down [facility]. Chloride [Moles/volume] in Serum or Plasma 102 mmol/L 98-107 [facility] ([facility]) ALT, AST, & Lipase all trending down [facility]. Potassium [Moles/volume] in Serum or Plasma 4.7 mmol/L 3.5-5.3 [facility] ([facility]) ALT, AST, & Lipase all trending down [facility]. Carbon dioxide, total [Moles/volume] in Serum or Plasma 30 meq/L 20 -31 [facility] ([facility]) ALT, AST, & Lipase all trending down [facility]. eGFR-male 64 mL/m/1.73m [facility] ALT, AST, & Lipase all trending down [facility]. Anion Gap 8 mmol/L 7-16 [facility] ALT, AST, & Lipase all trending down [facility]. Alkaline phosphatase [Enzymatic activity/volume] in Serum or Plasma 63 U/L 46-116 [facility] ([facility]) ALT, AST, & Lipase all trending down [facility] eGFR-Aa male 77 mL/m/1.73m [facility] ([facility]) ALT, AST, & Lipase all trending down [facility]. Alanine aminotransferase [Enzymatic activity/volume] in Seru m or Plasma 144 U/L 4-36 Above high normal [facility] ([facility]) ALT, AST, & Lipase all trending down [facility]. Bilirubin.total [Mass/volume] in Serum or Plasma 0.7 mg/dL 0.3-1.2 [facility] ([facility]) ALT, AST, & Lipase all trending down [facility]. Aspartate aminotransferase [Enzymatic activity/volume] in Serum or Plasma 79 U/L 8-33 Above high normal [facility] ([facility]) ALT, AST, & Lipase all trending down [facility]. Protein [Mass/volume] in Serum or Plasma 6.7 g/dL 6.4-8.3 [facility] ([facility]) ALT, AST, & Lipase all trending down [facility]. Albumin/Globulin [Mass Ratio] in Serum or Plasma 1.9 Ratio 1.0-2.0 [facility] ([facility]) ALT, AST, & Lipase all trending down [facility] labs. Albumin [Mass/volume] in Serum or Plasma 4.4 g/dL 3.6-5.1 [facility] ([facility]) ALT, AST, & Lipase all trending down [facility] labs. Globulin [Mass/volume] in Serum by calculation 2.3 g/dL 1.9-3.7 [facility]) ALT, AST, & Lipase all trending down [facility] labs. Calcium [Mass/volume] in Serum or Plasma 10.0 mg/dL 8.9-10.5 [facility] ([facility]) ALT, AST, & Lipase all trending down [facility] labs. ID Date Data Source [id number] 07/09/2020 07:14:00 PM [facility] DATE OF EXAM: 07/09/2020US Abdomen Ltd G B CLINICAL HISTORY: PAIN. PRIOR STUDIES:None Hepatic echogenicity is diffusely increased consistent with hepatic steatosis.. Liver length is 20-21 cm.No focal hepatic lesion is seen. The common bile duct is within normal limits, measuring approximately 5.0 mm in AP dimension. The gallbladder is visualized and is unremarkable with no evidence of gallstones, gallbladder wall thickening or ludwig-cholecystic fluid collection. Sludge noted within the dependent portion of the gallbladder. The visualized portion of the pancreas is unremarkable. No pancreatic duct dilatation. There is no evidence of ascites. The right kidney measures 12.1 cm in length. Renal cortical thickness is within normal limits. The right renal contour and parenchymal pattern of echogenicity are within normal limits. There is no evidence of hydronephrosis or renal calculi.No renal cortical lesion. IMPRESSION: Gallbladder sludge, no cholelithiasis. Hepatomegaly. Hepatic steatosis. No biliary dilatation. Professional interpretation performed at [facility] .End of diagnostic report for accession: [id number] Interpreted: Wilder Velasco MDTranscribed: 07/09/2020 07:13 PMSigned: 07/09/2020 07:14 PM Wilder Velasco MD [facility] # [id number] [facility] # [id number] Name Value Range Interpretation Code Description Data [facility](s) Supporting Document(s) ID Date Data Source [id number] 07/09/2020 07:32:12 PM EST [facility] Name Value Range Interpretation Code Description Data [facility](s) Supporting Document(s) SODIUM 140 mmol/L (136-145) [facility] POTASSIUM 4.4 mmol/L (3.6-5.2) [facility] CHLORIDE 108 mmol/L (100-108) [facility] CO2 26 mmol/L (22-31) [facility] ANION GAP 6 mmol/L (7-16) L [facility] UREA NITROGEN 20 mg/dL (7-24) [facility] CREATININE 1.12 mg/dL (0.80-1.30) [facility] BUN/CREAT RATIO 17.9 RATIO (10.0-20.0) [facility] GLUCOSE 92 mg/dL (70-99) [facility] CALCIUM 9.6 mg/dL (8.4-10.2) [facility] GFR >60 ml/min/1.73m2 (>59) [facility] GFR ( AMER) >60 ml/min/1.73m2 (>59) [facility] GFR INTERPRETATION [facility] --NORMAL KIDNEY FUNCTION OR MILD DISEASE - GFR >OR= 60CHRONIC KIDNEY DISEASE - GFR 15 - 59RENAL FAILURE - GFR <15 Est. GFR calculation based on the MDRDstudy equation, which assumes a steadystate for creatinine. Est. GFR should notbe used for medication dosing. ID Date Data Source [id number] 07/09/2020 07:32:12 PM EST [facility] Name Value Range Interpretation Code Description Data Jenise rce(s) Supporting Document(s) TOTAL PROTEIN 7.6 g/dL (6.4-8.2) [facility] ALBUMIN 3.8 g/dL (3.5-4.6) [facility] GLOBULIN 3.8 g/dL (2.7-4.3) [facility] ALB/GLOB RATIO 1.0 RATIO [facility] BILIRUBIN,TOTAL 0.6 mg/dL (0.0-1.0) [facility] PLEASE NOTE:Total bilirubin results may be falselyelevated in patients taking Eltrombopag. BILIRUBIN,CONJUGATED 0.1 mg/dL (0.0-0.3) [facility] BILIRUBIN,UNCONJ. 0.5 mg/dL (0.0-0.7) [facility] ALKALINE PHOSPHATASE 65 U/L (45-117) [facility] AST (SGOT) 102 U/L (11-39) H [facility] ALT (SGPT) 189 U/L (12-78) H [facility] ID Date Data Source [id number] 07/09/2020 07:32:12 PM EST [facility] Name Value Range Interpretation Code Description Data Jenise rce(s) Supporting Document(s) LIPASE 273 U/L (65-230) H [facility] ID Date Data Source [id number] 07/09/2020 07:04:42 PM EST [facility] Name Value Range Interpretation Code Description Data Jenise rce(s) Supporting Document(s) WBC 8.5 10*3/uL (4.1-11.0) [facility] RBC 5.57 10*6/uL (4.60-6.10) [facility] HGB 15.7 g/dL (13.5-18.0) [facility] HCT 48.5 % (41.0-53.0) [facility] MCV 87.0 fL (80.0-95.0) [facility] MCH 28.2 pg (27.0-32.0) [facility] MCHC 32.4 g/dL (32.0-36.0) [facility] RDW 14.8 % (10.5-14.5) H [facility] PLT 229 10*3/uL (150-450) [facility] MPV 8.7 fL (7.1-10.7) [facility] NEUT % 48.0 % (35.0-75.0) [facility] LYMPH % 39.0 % (16.0-52.0) [facility] MONO % 11.0 % (0.0-8.0) H [facility] EOS % 1.6 % (0.0-5.0) [facility] BASO % 0.4 % (0.0-4.0) [facility] NEUT # 4.1 10*3/uL (1.8-7.7) [facility] LYMPH # 3.3 10*3/uL (1.2-4.8) [facility] MONO # 0.9 10*3/uL (0.0-0.8) H [facility] Eosinophils [#/volume] in Blood by Automated count 0.1 10*3/uL (0.0-0 .5) [facility] BASO # 0.0 10*3/uL (0.0-0.2) [facility] ID Date Data Source Comprehensive Metabolic Profile (CMP) 06/28/2020 12:00:00 AM EST eCW1 ([facility]) Name Value Range Interpretation Code Description Data Jenise rce(s) Supporting Document(s) 16 7-18 BLOOD UREA NITROGEN eCW1 ([facility]) 116 70-100 GLUCOSE, FASTING eCW1 ([facility]) 1.18 0.70-1.30 CREATININE FOR GFR eCW1 ([facility]) > 60.0 >56 GLOMERULAR FILTRATION RATE eCW 1 ([facility]) 4.7 3.5-5.1 POTASSIUM SERUM eCW1 ([facility]) 137 136-145 SODIUM LEVEL eCW1 ([facility]) 102 98-107 CHLORIDE LEVEL eCW1 ([facility]) 29 21-32 CARBON DIOXIDE LEVEL eCW1 ([facility]) 9.7 8.5-10.1 CALCIUM LEVEL eCW1 ([facility]) 66 7-37 AST/SGOT eCW1 ([facility]) 134 12-78 ALT/SGPT eCW1 ([facility]) 62 45-117 ALKALINE PHOSPHATASE eCW1 ([facility]) 0.5 0.2-1.0 BILIRUBIN,TOTAL eCW1 ([facility]) 7.2 6.4-8.2 TOTAL PROTEIN eCW1 ([facility]) 3.7 3.2-5.2 ALBUMIN eCW1 ([facility]) 1.1 ALBUMIN/GLOBULIN RATIO eCW1 ([facility]) ID Date Data Source [id number] 06/17/2020 10:40:00 AM EST [facility] Name Value Range Interpretation Code Description Data Jenise rce(s) Supporting Document(s) Creatine kinase [Enzymatic activity/volume] in Serum or Plasma 166 U/L 39-308 [facility] ([facility]) ID Date Data Source [id number] 06/17/2020 10:40:00 AM EST [facility] ([facility]) Name Value Range Interpretation Code Description Data Jenise rce(s) Supporting Document(s) Triglycerides Level 114 mg/dL [facility] ([facility]) Cholesterol Level 165 mg/dL [facility] ([facility]) LDL Cholesterol 105 mg/dL [facility] ([facility]) HDL Cholesterol 37 mg/dL [facility] ([facility]) Non-HDL-C 128 mg/dL [facility] Cholesterol Risk Ratio 4.459 [facility] ([facility]) ID Date Data Source [id number] 06/17/2020 10:40:00 AM EST [facility] ([facility] Name Value Range Interpretation Code Description Data Jenise rce(s) Supporting Document(s) Glucose, Fasting 113 mg/dL 70-100 [facility] ([facility]) Blood Urea Nitrogen 13 mg/dL 7-18 [facility] ([facility]) Creatinine For GFR 1.13 mg/dL 0.70-1.30 [facility] ([facility]) Glomerular Filtration Rate Laboratory test result [facility] ([facility]) <content>Units are mL/min/1.73 m2</content>
<content></content>
<content>Chronic Kidney Disease Staging per NKF:</content>
<content></content>
<content>Stage I & II GFR >=60 Normal to Mildly Decreased</content>
<content>Stage III GFR 30-59 Moderately Decreased</content>
<content>Stage IV GFR 15-29 Severely Decreased</content>
<content>Stage V GFR <15 Very Little GFR Left</content>
<content>ESRD GFR <15 on WINE BOTTLE INSPECTOR</content>
<content></content> Sodium Level 141 meq/L 136-145 [facility] ([facility]) Potassium Serum 4.8 meq/L 3.5-5.1 [facility] ([facility]) Chloride Level 106 meq/L 98-107 [facility] ([facility]) Carbon Dioxide Level 29 meq/L 21-32 [facility] ([facility]) Anion Gap 6 meq/L 8-16 [facility] ([facility]) Calcium Level 9.4 mg/dL 8.5-10.1 [facility] ([facility]) Ast/Sgot 117 U/L 7-37 [facility]) Alt/SGPT 201 U/L 12-78 [facility] ([facility]) Alkaline Phosphatase 58 U/L 45-117 [facility] ([facility]) Bilirubin,Total 0.6 mg/dL 0.2-1.0 [facility] ([facility]) Albumin/Globulin Ratio 1.2 [facility] ([facility]) Albumin 3.9 GM/DL 3.2-5.2 [facility] Total Protein 7.1 GM/DL 6.4-8.2 [facility]) ID Date Data Source [id number] 06/17/2020 10:40:00 AM EST [facility] Name Value Range Interpretation Code Description Data Jenise rce(s) Supporting Document(s) Red Blood Count 5.58 10 4.30-6.10 [facility] Hemoglobin 16.2 g/dL 13.5-17.5 [facility] ([facility]) White Blood Count 8.4 10 4.0-10.0 [facility]) Mean Corpuscular Volume 89.8 fl 80.0-96.0 M [facility] ([facility]) Hematocrit 50.1 % 42.0-52.0 [facility] ([facility]) Mean Corpuscular HGB Conc 32.3 g/dL 32.0-36.5 [facility] ([facility]) Mean Corpuscular Hemoglobin 29.0 pg 27.0-33.0 [facility] ([facility]) Red Cell Distribution Width 14.1 % 11.5-14.5 [facility] ([facility]) Platelet Count, Automated 228 10 150-450 [facility] ([facility]) Neutrophils % 45.8 % 36.0-66.0 [facility] Lymph % 36.9 % 24.0-44.0 [facility] [place] % 11.4 % 0.0-5.0 [facility] Eos % 3.0 % 0.0-3.0 [facility] Baso % 1.2 % 0.0-1.0 [facility] Immature Granulocyte % 1.7 % 0-3.0 [facility] ([facility]) Nucleated Red Blood Cell % 0.0 % 0-0 [facility] ([facility]) Neutrophils # 3.8 10 1.5-8.5 [facility]) [place] # 1.0 10 0.0-0.8 [facility] Lymph # 3.1 10 1.5-5.0 [facility] Eos # 0.3 10 0.0-0.5 [facility] Baso # 0.1 10 0.0-0.2 [facility] ID Date Data Source LIPID PANEL (CARDIAC RISK) 06/17/2020 12:00:00 AM EST eCW1 ( [facility]) Name Value Range Interpretation Code Description Data Jenise rce(s) Supporting Document(s) Cholesterol [Moles/volume] in Serum or Plasma 165 <200 CHOLESTEROL LEVEL eCW1 ([facility]) Triglyceride [Mass/volume] in Serum or Plasma by calculation 114 <150 TRIGLYCERIDES LEVEL eCW1 ([facility]) Cholesterol in HDL [Moles/volume] in Serum or Plasma 37 >40 HDL CHOLESTEROL eCW1 ([facility]) 128 NON-HDL-C eCW1 ([facility]) 4.459 <5 CHOLESTEROL RISK RATIO eCW1 ([facility]) Cholesterol in LDL [Mass/volume] in Serum or Plasma by calculation 105 <100 LDL CHOLESTEROL eCW1 ([facility]) ID Date Data Source [id number] CREATINE PHOSPHOKINASE 06/17/2020 12:00:00 AM EST [facility] ( [facility] [facility] Name Value Range Interpretation Code Description Data Jenise rce(s) Supporting Document(s) [phone] CPK CREATINE PHOSPHOKINASE eCW 1 ([facility]) ID Date Data Source CBC with Differential 06/17/2020 12:00:00 AM EST eCW1 ([facility]) Name Value Range Interpretation Code Description Data Jenise rce(s) Supporting Document(s) 8.4 4.0-10.0 WHITE BLOOD COUNT eCW1 ([facility]) 5.58 4.30-6.10 RED BLOOD COUNT eCW1 ([facility]) 50.1 42.0-52.0 HEMATOCRIT eCW1 ([facility]) 89.8 80.0-96.0 MEAN CORPUSCULAR VOLUME e CW1 ([facility]) 16.2 13.5-17.5 HEMOGLOBIN eCW1 ([facility]) [phone] PLATELET COUNT, AUTOMATED eCW1 ([facility]) 32.3 32.0-36.5 MEAN CORPUSCULAR HGB CONC eCW1 ([facility]) 29.0 27.0-33.0 MEAN CORPUSCULAR HEMOGLOB IN eCW1 ([facility]) 14.1 11.5-14.5 RED CELL DISTRIBUTION WID TH eCW1 ([facility]) 36.9 24.0-44.0 LYMPH % eCW1 ([facility]) 3.0 0.0-3.0 EOS % eCW1 ([facility]) 11.4 0.0-5.0 MONO % eCW1 ([facility]) 45.8 36.0-66.0 NEUTROPHILS % eCW1 ([facility]) 1.2 0.0-1.0 BASO % eCW1 ([facility]) 3.1 1.5-5.0 LYMPH # eCW1 ([facility]) 1.0 0.0-0.8 MONO # eCW1 ([facility]) 3.8 1.5-8.5 NEUTROPHILS # eCW1 ([facility]) 0.1 0.0-0.2 BASO # eCW1 ([facility]) 0.3 0.0-0.5 EOS # eCW1 ([facility]) ID Date Data Source [id number] 05/30/2020 12:00:00 AM EST [facility] Name Value Range Interpretation Code Description Data Jenise rce(s) Supporting Document(s) SARS coronavirus 2 RNA [Presence] in Res piratory specimen by MICHELLE with probe detection NEGATIVE [facility]. ID Date Data Source [id number] 05/30/2020 12:00:00 AM EST [facility] Name Value Range Interpretation Code Description Data Jenise rce(s) Supporting Document(s) Carestart Rapid COVID Antigen Test Negative [facility] This lab was reported by Noel webb. ID Date Data Source [id number] 04/08/2020 06:51:[address] [facility] Name Value Range Interpretation Code Description Data Jenise rce(s) Supporting Document(s) ED Provider Note [facility] HMKKRe2fVkUEAxBx80/MKIjuIEOcr7PyZJpbZGw6QWgcTKCjS3GeVRM6xB4eIAU4QWcSLePiUrVgYhWd lbm [file] naZDYBUyG0JdkgUPabNZMQYq4S ID Date Data Source [id number] 04/08/2020 08:27:43 AM EST [facility] Name Value Range Interpretation Code Description Data Jenise rce(s) Supporting Document(s) Progress Note [facility] KEMGPe7gEaNMAiUs88/TTBqaBTOzk6BoKSazIBu7VLnyJGDpG3YzPKD1jL8zCOH2VQeFOqIyOcAlPhNw lbm KfMttBNlLaSEAuRxiVFhXdHKskDtuhbVPeGI6BmSL0MSHgD93eNKMgCKQdR3FvWYJ4QNA+Jb1TNBWnsL MpOD4VMowB4G60z4nEOk+/QL/IZlMu4XAuiaeeh+rC6LMT1pGxo6VAFqEDK1XBteOHXJ4buhYK0SbppL fkmdA/f6cd6bEOFi6XdxbFo5N8PiVNQ1+baTkhAS6z /65+jRKjzq/Vn/+t2nk3FrAh+kf5U2fRpSRDNF3rm/r68wd+5Nmo821UqNusQTusPsLvHZ7KM5F1iuAQ 71TvndK+q85BaboMBRxB9QDoNgyS6grpGFiDQPPf6jKvSzjbdFftxXLYB8AVaqRsKmfWyMqEMMpVozTn 2ENsSeDGHM7sY/TPMtXFDaAMMS2IfCiETBMhjluxRz 7ghfhsWp120ExO8F/6q7unGOhn7V2E0s5Xa5ltbkxs5NLdTZqMiAyL9cb4wMHlr6DmpkYZGF3hBG5wrf 5N1YVb+KdzUbVxaubVT03aDtAte/eS2GM/Lurc1zL8Ac+k23b2fx0GPhh9x6pf+cydZEwSBWtcjkS+s2 SauX4Av8bNSbnlPQNZUMczm710OZBar/G/TY/bmWz8 XNFIIsaj9Ex8FwfUevR85X4mdxbdtpimnjmJatmfJ0sFPBWOWfA5Kb/qxDl4G+ycI9pP9+FYQOQ4jWA/ ILojF9yqvVUu4baTSNxbp7/JDB1VtTQzNpf9h+1nfqwjN2w1fvO97P/R8jAKHcR1kHzcNzlIE2ajeO30 uoZ4hAOcF93mYZ3hyGbhx74+ubnlZmOKPdrKruyT2N d+amxpgyIvNzaaOwSzmrWK7I7/LZ3k0hs8ZYgvUhZo4zY8ylzf/osGiCFxuTPqq+sBIdCd0Ad/TEbjAo lpfsSQVTrbK0o3BWYhJxKFUzNHKiBpB2TGHfYQf1/xbysZg+3eMQsmlY3B2x5Iv+g+YfCDKEcR7/p613 oXS6zt8LAnN44u8CIZTE8B6h8J1eB12W1n88U7Ni8l QqLDB4KO4pQkgDO2zemroVPkR55hPrhju9oYRGjVaslIlGtf1sG3DM1jB40SeiD3ycRYeAi8XzoTq3am KDF3u0Tcf1figeBTD6WZNBgbAKTAMv0zcek+RICeokK/y2iqdPifM2aoFcBPNnPayqTfNA7T+oV9I4lO 9EIPJm1t0x4mMqLVEwcR7RWT9A7xRbx7ALVZnszVao R1siRShulr66uMhiowFsF+Tv26ar47pW4GsO6N421ZGyoUJojxcQOa+n33Ij4q1BKbkeM1Fl2EVUh3OB mtGJBgADdg9keaI101Ji49B9P48Z1/YqNDrhuq9+lrtllgwmEMCbrl1ypI4MvLm7JR7oL4o/EiIJ6dMx 9Fv1whfJDOYfwjo5y75q7Ucc3Cw60W3PdnT+PzyWI8 R0xspG43zSSi53PCS6LOhqm8JndIsAlQEaJXxWgYHKxOUs7+RNLKF4ovqDenOPhBPindfn4vsJh6/JfU fbVNYiqXuajNWiosM+gzR8S/2dDzGXIj3tUgeyukuaG8AKbRupz7PvSw++6MOLwcgLgmfPAvmjP6H6QF JN6wg1URAQvCIx6Jn34aKhsHCsAor+sUFlKLIn9Yu1 da7B1Tiv4uBtiNzh+ATIe8aME7X/PyEjTadVYYyuELkxuGHog7Fvbf6verVejCVIBdQ3FiZXhWN0GjhC waBE4GHKDUAlJCkLV4eDFU4BZuITfROgvOFDLzMgFOVQRNvkYw4s09ErPtByEh3YEU5MxdBsAbXwG9DT TjdJbMZh3afVxnycaOb6fEpoCyeKkVydev7UZVJTyI ECfwKD3OCFfRQkiWiLSjptB5dMsToyy5ypXXQLfIPCFxfjpcGZWXqFiGPrWN7NefPYcAOz9AVx2uZa+g qNZLmLLyYpnoC3A/uV3DJgESZKGdelI5DkkuQk5hr9+NxNlYUcdfZM5ziCdZXpu/BMXP9fZZUIoPkIc7 D21sdcusmnD3CxifzuVNFtELttqZFfifgh2sI3kSxJ [file] MDAwMDAyMTczOSAwMDAwMCBuDQowMDAwMDIzMTgzID RfGBXzEZ4WZnJsGXLaQdAfTNTaAQPtVAVhrc3URNDzQHPdHiKgLCHmCOOcWOGfHCo2qbSusGJzFCg5TR 7DD8OcutBlKtMVQl8Dg217QWNtDCJpUo3TI1ugQn1zRSPeMBFGXp8SVMf5TLT5BrDbLyVxE2Q9VpVqYA V6VeTqZaKkEGB2JPT1QSP+OFicKPEkPAT6GRC1PTAd TLPlVNB9NJE1S8D1VpruSps3UV4uWYDCJp2+TBoinDIpnXtoCNKXIeKxWnA4HYqdFVWHDe1I ID Date Data Source [id number] 04/06/2020 03:28:[address] [facility] Name Value Range Interpretation Code Description Data Jenise rce(s) Supporting Document(s) ED Provider Note [facility] TUUEQe8qUiLHZoZl86/DEXofEFUnq1CxMLzqVLg8KIacJDYrG2MrBLO2zV9fNNQ8MDtTTmWzJwZtZsYl lbm YoYmqUUdXiEYUwFcnSVsCdDAfiPzbdeMEyHM5ChWI0QKKgS24wDXAbZLZbS4VgCDX5ZEw+Hq1YDRPkwU PvAR2ZRrjS8D9ai6u7Qs+/mfsOfLmZdiaxCYB/AL+2blnq7Q2b90b8nnUiJXmhtBSlO0JC46l2o0jZGV vlYb8JZKK03aV4WNYXjpq8TyoQSVQ09/fqP15ZRWiM /z3+WN5LlwnZT/8SrIcp+Ths/ZMNIg/IUIepfSD/qcSXD/xwGez/EZL4tPIfD859SzwlEm4gKWsbQ71a fB9c/vbHDrE5udMIRwZEAbrPF1vec0a18oY8fmnrXUr4cbMKuLUvq8RhYpDEY5cZaRXoEHtIniZVOcXZ O3/8dcI9oiNxRK5GdIIeX9RmOhbwuZuaOYHwz31B9u nDlAsdBsvtz3GOyyY6JxgbS1fHUAaqYKAIQSV+TPdlKMNeGEWFcU+JEtxiv1tDRRVMfuYh7QEsMt74hz lvVl4YeyliG71aW+BUFBrznkjLPzIzPVQ0d82uTeqpNmkRZC4sm25lVYzpEaGj1iLMBYkwLmGeZraUAv uLQNXCVH6EpHuC9BSVVYgGXwRDDZBXNgRuPGcb/ITI [file] 4mIOoyTC1Cl3ALF4Km77aAlecc8XdBcqqgEazAfW1aO1dFgfKhKusr2/398Nc7+ErqLBdumGpv0sG+Blue Leather Setter [file] ICAgICAgICAgICAgICAgICAgICAgICAgICAgICAgIC AgICAgICAgICAgICAgICAgDQogICAgICAgICAgICAgICAgICAgICAgICAgICAgICAgICAgICAgICAgIC AgICAgICAgICAgICAgICAgICAgICAgICAgICAgICAgICAgICAgICAgICAgICAgICAgICAgICAgICAgDQ ogICAgICAgICAgICAgICAgICAgICAgICAgICAgICAg ICAgICAgICAgICAgICAgICAgICAgICAgICAgICAgICAgICAgICAgICAgICAgICAgICAgICAgICAgICAg ICAgICAgICAgDQogICAgICAgICAgICAgICAgICAgICAgICAgICAgICAgICAgICAgICAgICAgICAgICAg ICAgICAgICAgICAgICAgICAgICAgICAgICAgICAgIC AgICAgICAgICAgICAgICAgICAgDQogICAgICAgICAgICAgICAgICAgICAgICAgICAgICAgICAgICAgIC AgICAgICAgICAgICAgICAgICAgICAgICAgICAgICAgICAgICAgICAgICAgICAgICAgICAgICAgICAgIC AgDQogICAgICAgICAgICAgICAgICAgICAgICAgICAg ICAgICAgICAgICAgICAgICAgICAgICAgICAgICAgICAgICAgICAgICAgICAgICAgICAgICAgICAgICAg ICAgICAgICAgICAgDQogICAgICAgICAgICAgICAgICAgICAgICAgICAgICAgICAgICAgICAgICAgICAg ICAgICAgICAgICAgICAgICAgICAgICAgICAgICAgIC AgICAgICAgICAgICAgICAgICAgICAgDQogICAgICAgICAgICAgICAgICAgICAgICAgICAgICAgICAgIC AgICAgICAgICAgICAgICAgICAgICAgICAgICAgICAgICAgICAgICAgICAgICAgICAgICAgICAgICAgIC AgICAgDQogICAgICAgICAgICAgICAgICAgICAgICAg ICAgICAgICAgICAgICAgICAgICAgICAgICAgICAgICAgICAgICAgICAgICAgICAgICAgICAgICAgICAg ICAgICAgICAgICAgICAgDQogICAgICAgICAgICAgICAgICAgICAgICAgICAgICAgICAgICAgICAgICAg ICAgICAgICAgICAgICAgICAgICAgICAgICAgICAgIC BdROCyNULmTCTaIIQkUUXsZHNvXCYbGSPtIWl9W9dyYBZrXTHlFJ6xLUd4Ux2+YPiOIrZgZEG1qiIucW 8RME6pc8SnAWqaNZVff1EjHVr0EB5JEFMlISkvKN5XXFhhws0FMGUpPLQqyPCOr5frQhFwKWB7KCVhCt dgOZ1IKTGjB9brupPaQSBbJUTWRIumKLGJPOghHGIN MSFbIYVdZxLoArKyNVJyFYAqKWEUSSN4DLErHcGkTJpfYS6Jd3NcnYI7HGh+Pz0IPI9rg2VeVPxmXcIb SI0krp7HVWpVMfVfE4WgabV1EEY0YUUoUm2DFDPxOYLjxIJ6KjMpRSXUMwBxU3CnqE49TWYCJz0+DQpl shWkDrbOQtE4TACzk4DaELb1OS8SKSDsVBa7jSAlIM MtTLAsftbpMANnPs96MPQbRjknYVP4pewrdcSTFZXiI70ywljqNKQjSUEgSUImRdvuHcNyOCJfJsnhAU RYALvEMnYkG3Ghc8LcFlS0ZORwDuNdBLseREUtXcJlBD95gVevKV8ZEWQdVUJiLN46AYC1OUPeRq5IJH WrRpqya6CqTkguTISNXFepDE8MWUH0SFV8TUXfTl1R WSHfT401enNxKTIEKwYhT99ffXIpXSWbKKSKLWb+Zg2LJL5kr9ClMMrcEOZqLT2yai0SUTzQNnArP1Hh kCpcQPWfuiHhn51eDZmMKkMaN1Hvg4KfMdI8ITIrEdMoXByiKRXpIaW9VZ55ePgtMQ6FGRXtLGGzUD06 RCD6TCRkCs6CBs7QVmLvZQ7pda9WKZGjMUUrImcPFh f6LKglUH2CdGXzATqKNFYRzs38jXMcnlJSm4XrcvUlhCBDEOViwRXzKTHfWDZhq8XvGHBJUETvaTVvZT 5vRT7rGOLgKQElUdS5HWHJGT6FATBqKUNylOLbELzkICCKEL0BUBoqRIX9KRZnfiMtaUKaWDsoKB5TJM ZqytMdUrruDKGOZDwwIG6QkaF8BCH4SYLpJt2FWKIl MvV3tVX1ASBeSWSXUq8+CEkkapNvGwhTXqQiMCTke8LrVSh3FR1QRTCtHEp6bTDgVNPsOc95PUObKvps PF1fVRYEVUYiRSMzdSKjIXMCRtStlOTlFQ3cOS7bXEGjGCPmTbHxUAWAQT9BMQGnRGPbiMLmGXFcXXZq StMeAEonFRFeRkq3AB30eMkdQY4WQGQzUFRnBL59ZG L0NEQjPv8TSOXhAISfkbQ7PLSmNSDFFpFpJ98orYAtRZLhBMAGNRg+Vp2SJG3sd1WmKIo7GiRrQS9zxg 9LHVsILnBpJ6UqsEfhPZFVBZXiy6DaQHOsCD6rwBIoDDZ6CMFiPHUbNsVTaXOugJ8cLMWeLWNNEOGlqH DfND6fHu4wKSHqQOWvAqP5SSJTBC2KSIHzTCZdwXSu PRFhSSXqHvVjRCnwJWMaHQj0EF65qHlcJP2SOTYhPXKyKT17OZU8ITElWe1GNRThYXVogvD9WOYsWBDM XbSyT38bcEDjBERcBYFRVOg+Zp2JYY4en4BaYPa3LlKoWQ2sqf5ZOMkKAlEeP3SdyJuxXJQPIVZzvIFi QAWGz9AujpVxgPQJBJbxhkHgRxNypDJbFTshAj3eEE BcWWCgDfvpHgDmZWYnIGs0KcIEWNdZMpWvD9Mdo1NpZkLxMnXlKJAhO7aOSiXrTTC2MNVdkYrtVL2VEw DtY0OsdeYokRAfBdBaLSSBKzPdG1TdPYEgHKWlCHBCJKx+Hz7FUA0dl3UpHIm8GKFwUO8twi1PWOzIZc HuR2Z6jVGxC5T7DYdjAg7IMEFoJNMfSpJmDRHPLYmf MU1GGC7thoK4TB4InSFmRBEuKEWsoIOoFGo6V45xeCHzITsaJI8CLYE+Mukul+Cf7IKPHiHWOcYEYkHlCo QSTTMkPgW7DfA5IEo3VcX2TzFO20eXxcvvBvUHfyID5UUA7sPLJoSQUHRV3LaGCzjM9qmhZaNzAmZKWM RxDcP79tfUFsLHObPVG5KVPhHw3PTZSaF0TirgKaxR mwykZgEJHdQWXNJB5ISQoagsJuqHCphShtYT36wQziZB5LCj1AFqMfAO0yad6GnLAdKc0VPBO5KW4UCD BkAMClEYUzUJS2XJEzAdUyLKgxSUXeOFAiSBR5WJBdXARdTH8CGtRdWLDcIbk5FnifJWYrUAEaxn3RME UeDLK0DEAcSIRiIOHdPCSpSPlqIXSkAJIuVGV3YFKr NZWfYJ4QRcInRIWoUZG5PSdhRDEeDEJxer5TNUZrGWQyFvs2OQPyTHWkEZIqIKklWNZfAQG3PmCeRJCp TMGuWU7RHaVtWNQyTDw3CcDjMNKxSZViwv4IOCIqBQJwWYY0XIVyJMRmHWYrKIlfJQXtENCvTEH8PYIi SZUbFG9BDsSiSFGvPKM5VBndYDYuTBCzrm4KSXVcIK ZhRrclHOWfAXUwTGFxBAepXTLiWOW4YdO4RCRjKEPyEN3YVsDrVYLiRJH3UoZeQJViXSSitn8WGLWgYB NqHTI0ZHGzBNIuZTGfOUqzCACxNOT3MoF3BEAmKTZdRR3IHaPeSTRqJeV0HQInYADjLBGtig1LPUYtWE AyMjAyMCAwMDAwMCBuDQowMDAwMDIyOTgwIDAwMDAw TG9VZqVoVLLtOhGxIpkkJAKpSJMyff7JJQTnTXZoEoJ9ANRdAHXfISXmLMpcHIBnBAP6GeG2ZXNzDOFk OB7JLzPxQSUjCpJ5NdCpHHThGZRohm9DVNUsEYUoKUqrPXTsGKHiIDAmOXgcFPAfVQI2QqH2DICjNIQz NU3PGsMoMIPaAnH3QuJwSLSbBEDgpt1KFUDmYGRhTg D9VZFwVDFfWWXrCAkrKJLhSIV5VGJ4FEZoOMWfIH7QDbFuXYQsGyv3EIXhJUSlYKKezs3KNQEvDQPlEj n7KRKbQDQdGFSgPJsoQRTeOJM4KfNiCTMaDBFtNJ0KTgXeIIOgSznlLGMpYZOvRDSxbn7JQEEyACElSJ K6NLKoPJNdSNPaCKqfIAMdJUX4KBc8VNRjFWLrLO6J CjJmRWGtMzi1SGJkBPEzUIVgbn5GXVIvPCD0IFT1MNUoNDHgUHClHJshPZTjBMXfRTE5YGDqPVHkAR1C WyYeGZBvYKB6XcdzEYOwAHCwir2ZYEPvZHC5YQy0OJIbRSIgAWJpMFuwFRGxISFeXTC8TRPcAOWaQB4H TuRoLQQtJELkPWOvBONbVMLrrb8ISNCtDWW2DtHrWM VuSIEePTMnLUxyIOKtENEmROA7LNEqYVYtRO8WKkUcWZYnTIP2ZmkwIGFlUVFfap9SxNCcbHapgp1PTH eYQt8AwZpvECS0MYjaSl1miGU9RQWyTMWIIq4FmkGjCDAoWMVPYMcnLOYaQJCnVhKaLURzJWDnTpDqGQ NnIfH7RHKdKKgyBTDkATMkFwB7WaCgLGC5RaN4OjOw WfQlZWSnAMn1BxEqEbNvUnBxC5D+RY7mLQv+Tp7Eg6AsxbT6soFfGXn3QrcwTZ5FWHWXX9QTYk== ID Date Data Source [id number] 04/03/2020 11:24:23 AM [facility] Name Value Range Interpretation Code Description Data Jenise rce(s) Supporting Document(s) [facility] EPSVNa4qEbVOSdSki8NhLgXbUQBsQZ9dqlj6K9Z4gVYxN3QqyUDvi1sfD3IqT7ZxPBDbWGRFJU2NwOSb jb2 [file] yz03NeBsTN533Kk71v/n7PB7/JR72ID8h087lKB8JY ulYXK342n1+eAD/6jnNCLPjVTZ/8OHN+4D0t6UyuR/r2yJ/Lt3e4idyOVZ4irCI7c46Ffp/l7zwB/tF3 jzwn/tcZ99fXF+2o//PzZru9Qw/K8+uHXy3/ngr/A9x55PI/w2M5f039e+fHqSfa+ov8OVGb0pdSb8AV h1+tOBJ5+NVt6+r2ku6I2rkkooS64I9+HNsMfnXTJ/ 88c/zZcPFdGXwD4zcJ+Et/5/sbWbkd5qt1un/n+Dx8wqjD5TrysqvrK58HfIfF2zH+Ej2si71K00aOpe BfkK/Eu18lwp/vaHs6LSG/kG+xz9IP5JbBBh0+lfY//OqbtvfMwvML+Rv5+9Vz+FX+6gttyK7vhjTHL2 /xvD7/Ofwq/oIph9eseP/IN+Rr9h64Z3eq8E5WLns9 +FWmN/L3yw9+ddNvvAe/umnkK/IV+Vcea6x2N1/Xt8JIX6/KtCHfkO/IP/rGKVfH+A1+KaGA1ZtQL3Ht PXybKeVhLIanb0jL0xO2kz2demf47apLocGymu+R39/8dvhVzkWHX+TiEwvs4V7ShYyr3qmZu9yO57sj 5fx5+OB0dzsPddKY3clK/qY38s/2fYkOOeQ52z/8WL 0Qk1llYl9+xtQA3gNPQY7dDOy79xaQ/kD+NQ5y76W/9N1R/9E34jKIVfp/kL+Qv5F/9I0+C24SWs2+lT Y5/LqelVzF9kuhe09k+o1om6kc0oO085btN/xcVw3Xr+JZryE26Ai7/OTwq/Sfw6/SJw+/Sl89/Cp9+P Le0H3Dh7W/e8ypNWvo6WEQeSAhLcgtYXai6/Scu35p 5Hc8/6jqKDP8iTMyvvG+4XlH/W++Ekyxpz12h02/6ZrogvDX9/RG/sxbueegb5r+IF+Se1rU5Vvhx+SP 1//Zv2Xhb81500d77JvmD+hIs41CzNC7IiHU5IzQG3OdWl/N6hz8NqpO/chronic care nurse+Q3OC2O6AZ/0KyDQ0UnO O6Xp7FlvEp8B/kL+/mX9DtfiuGu38P8fH05vTdf7/L 4dv2/H79vx+wa/umnkG/IN+Y58+HOfyJ/Ix+/n7aiCj5n+79f/9Nw3uDf6eeT+XQ4t6DNateD/vtGDX+ Qj1NrZ5zO8G/Ap0QiL4vG7R2Sa6YqvXg16rkWhLm6LyzKEjux5XCm5yyye3/U8Mo2Rwwd18NHoOo+KeT Y13Bc3z0lPv/e+7XKv4HIfH4/xqv6gSp6+lfUffSPt mJ+SR1UzjE/IV+Trl//81Kt2aUjQt3inct3YN5Q55RB3ZYT6jDu7GB9Oi7kps3pq+T295koRA81elA/C HyJ+Ff55+NVNw5+f7nkNnFujPJ+d8SqKh19k2+iqh8Tfp166U8p/4LU3ufnG/Pe+xV20jgRbMtgSmMA+ Ih/gd1O0ipAXDe4mD/oujN+F3bfmivjig8D0anE+Wh i/C+N34/kjFD6t76la/M4Z060qqoP+T28qut249/fd+W386W4Sg2VdUp0aKJ9n5Kmk84d+++d97iA7zX I8Os8jW5UeoK/+PPr1eLeziU/If++DI/fXpZgDjoGX9g2ZjPzyofNz+thtK63Dr+lDMH5d1yr9OY+LETICIA 37vh+N4Fd5/pbOZ3mou5hepvTNQ34c0qWoX+JXeS46 5dFM1RX/PO/AMnSxJIc73pciCGbx0sEghbB/f0Y2Wx7aG7685OEnqR0+HsGvdqTly+qRzN9FQZv20rqh GHK+w5bEiLbKuv0qy0HzvWLdOh9ZogV7dR+OiF/p9/trhuDp10s1DgJP+ga/ioNg+ubnoW9+Hrqh1/6u FyP5VY/7zud10Vv+cWlrf0y+58Tr2kmlu9q1pdq7Jq 9ufTy9+jcBzrZA85Xs/fn13vGcowWGH6Ikzj+xFus98O/Pwa8G+NUAvxpDkC/If/x5BL+K+qtRX67Smb /G8gP3DahO/OqmX/+DO195xzYJ3Q/Dp9UMmdkS/n75ht/F8Dvyfr/oQ6Gl3AtuTj2O/uMbI/hV9D/4Vf xGwa/itwt+FX5i+V9YJ3W4Zg9rhqP/PB1rg18y6G+e u17AU981/CrHkb/48zk3/NLPbw+/+qaRD3/8H127N6yj+V51oopHK+G6pf8UFj3t1YdD+YihyCRBHr90 x3jSDAs92u4/vnjOmC+eM+fY79mJI0V2N/HlAzcQ8j86M716iDodl7tqW43164o23SmqBxE05i/63rS9 Gup0UbK/4/ntf6X50Dj/NjdxJisT4eknkJAcfScfwk OKfEV+R34/+FSCaDqjlxV24FqtW6nL/kT+RP/F6uqqE6Jvg98XZ045Qi6OzaYkFaViPcpjN1+J+FX4Vc SvwvcifhX+QdUy1HuWu94hp9aU+OQFf185yz/vKWNjPdoYv/u5W14N2QbwJRx+XZBGhlgTRcqc29zI4B qb27lu8i5V3m93yZ3MF0o282TkO/mGfEO+I9+RP5E/ kb+Qv5C/kf/uZ2G6R6wmz9nZZuvMIBR30dmR7/13eybbNrcNI8eG4RtzUstAmHb+RP5E/kL+Qv5G/uOT ltwFGB9usJ1X7xxeRo7idwt+94eci5CPuj7WI5A+Cn0V+rx7OkgT59Xo7Cfus1Bs/viGdfy+Rg3p5qqS +GXhmeC6yR4Lk7+PrL/bE2BK6r91vrhE/vteZsGvNP Dp0tLjQ/kLz7/3X+udn4iB6c8Sro4bRr3/Eb+fJY4D7C8NI/XeVuC0G/mGfEM+fl/RxnlfPnp2xQY/kwong OP5g3XigOhqgpbT73FhmH8/naFO9Awhn9hqiUTkjAJcfweD4HHdrM15NITojYcgw47qtsmdfF/In+hno I3O278c/JI4suQST/IF+QL8jE/O+Us12ocbX/IH8h/ 7Syy750D1I5O2A2YRq4C+RJMY258w1/CVQO90illn2b137A/G68b40GsiXM6spyL/O7zfd+3+qru0Wso u22+7/qD8vyjRy5q89O/Uc9E/QvtLuS//XU23/46W29/bQT7RqQt0cY/jvjVTSO/I02hloY/IN+Qb8h3 8XrqPK7sbKjC69MesQ88Shuo7ii4iwR5Ehkhtg/vu1 +5jurOy9iAeUQiI72FbiF/zrIZxov7aqlCs9lacgH/IR/v58u5dA476qsxp8a97NlyTjhPwC5fy8Au1Q TyB/IH8t/v6+35swe/baRooa1y6xrouhfOYq7Zi6/9Kt7e/mfH/iuXt7/LN91mcsq145yq/1XP9Cc/Ts fE/qsWx1A/+w6nfP2178+K/mhfm4hGd/L9PQSb+6xc 9u9rT6084YNPld9eN4ca+X8vk2c3OHZ2i+d77L+K+drywall sprayer/IJgRzm2Bho334IC+tSP/vC+8Y6/l3FvqrpFa tnOYsdk3HMwbiK+4Cl73jf4WNW/00EbecC7bg87cs92miyG3GqduW95xwnene6Zai/L+dy8Jp8k8/Lm/ 3qg9x44D+h/n3Q9Qi0qk0J7jMBj+vZYW5R92U+H5je cfn/Tx+LOPhnxBviD/fU9xfB/0/D4Y+f21G/zcylRVmoIttZsjd2H47H+J/GI5fJz73uWab/h97a2/rocky [file] yntzyntzyntzyntzynkd+HhnspB8cnvz18MCw+2aJf jrpNhbh4uxir0oaZkfBpqj847kBwWQQmQSq5bA4eh28yML/bwdgvA/pmx2gf3ashGZ5IzYNYkb5HorXU 82BMZ8H6hWKJ8v4yiXCoob8+9eKW6hxyY4kDjD5T4aIJV2yB0WU08glUH3XMW9NFYT6bUYpW0pGN84J+ CUciXn3oDj+nx+V48JnD3ZK2yL9tBwlEnRCQKqzgz3 9VDN/VQczhVUlS93I3eyJm5hhEtBR7dP6yXBsVglKiuUXNJRdmrhOX+ZW4Dnqpy/Kg5xmc2B3zMoeKFk ECs99iwUgilgvqNZvMK2+VIdczbb5IdRkuCYFjdUMhK42LA53jUOtJVlwheEGQ+zpjgi67nQWrrkX+kN /F2ER+F+MW+l9cZHGyinLZ+n4xSMowIQ4xwSMl85vk Hji/Z8PAOqc6EgCX5TvC4wb9OU0lQPeF/I2USMvM5t5V4i4O8i7B6d7L0+L3C+kvyO+iLyG/+6xi+Gb5 xRWsOQ12VH5QprbwAdG13KkGA+25kwk7qL8dE2dq8go0FoXn4RkYEk82uoDZHyFLPMtnnpiuJYydU220 GaL2qI4zSDy/1Jx5IL/lukmgAih24gwiq7SxolmrgL zoWVsDOegXnwNjiw2J96L363ZJiDGl3RS4nTtnNu8+y/g6kd+9vcrdb9+2+ASPZ1l1HFbvuuids5/2Fr aJzdaaWHQPs/AxvepZckl1uVqPal+q7MnikezuCWFBmpeyuPNk/sD76QqRzgDIdfyl5Y9o/LP0rge+ef xS/0vkZ/1Y/Y+[employer]+v4pVbf/gol9t7wEU4ihu0X49MM [file] kk729Za//bm7f588fyzJl6/9/X15eHRhTAHvu716n6 6J20q37Qb14nh8cu//xZef//xlnS8/vH36y4+//MW7t99+/PXbz7/65svP/ps9b4/o8kESD4//73/4y5 +++/3bv/3X22/+8Mc/sxnYs0g78U//4e2zb7//w3d/fPvXvyvrX//+7c/fv/b8ma2f+M8a5DHnX32s6V Mv/qoVClPRp3R/059+9leeeL+xsblM62Q/9Bvwev+L v8e5vdh/Ic4Q1NX3D68/nKCeJCcPbV//dh298LuqKn3xCy1O4bwoVw0oSttXv1P6C7l/3b9/9zLPbauP 3t4+effxN2+ffPP+o6057n9+e/f+F9XaD7nutvaKaXXHHs0XPR14kadIM29DN/vCKQkn6+DDH2MraVr9 f/zj21++/Y/qtsA54zxcLjuy7Bl6lUiBqugX7HnII/ DX79/+8P1/fPeX//03F6/DH4P+6FF17ihrzh2x/bB/fv/12+//83Xtf/jz9z8+rZ8p78NI4hPE++cPP/ bbF39El07cLPwG+9im4kfP4xn7zM/bFBj72fP/hLS0hx0X5GtxSB6177++/+mHt2//z3d//pkr8izwGj 7683ef/UJikys11NLv6q1/+de//4SZ9g882i4iu7K/ 9w/op9/+5+++/esfvv3+R/sfS8/5h+9/timber sizer/zsOzrj//2t/s+Jnz/5z//2zJe3AYQF/24om60nqf7xWrL S0c2g1j/+5/f/+H4q4k89E5ai/9oO0/hoe3++h+uryt2l27+6pO/OWj5PA3Dq8730x0QX97j6Enyhe// WunUuy1W5FS//e3/+K2irN0654/2QY23jlGQyU44j1 9z6+3dZx8+Aig1viyuS+7vFvBK4E2Zvgdn9+4eFf31zbYelD/H/nXVlg/t/bKWANOgIpKhFEB5xgWnqR xyrdEcZafVKKobRNQpFft5DC7DjRYlAPQnA0P4CKWtab0iRIIdLGTijMKsZtHvOAHNSJ0ItUNwZW3OTS b8VWRsYFKfLiYuQWDlvkA4ZSIwDUZyMSFaS6JnfpAw dCAyIDAgUj4+MP3mv6ZtZpVtCQLmTfm3DX7AzGKbRE5RiPYtbB8bkdJuR012tuNtYXOkPpder9ZiPRdx MVBJFY3SFLA5SXW6HPSwHv4+JP1un0QhZzEiLEZxTxb7XE4LfLQly7UbZA6VK9BfDIVuTJSLLWG6t2Zg TGEdnqecewzyN7WdMIJ7yJ1fWCW4PUGcAHyaPOZsPZ DqUUEnGmWtLVbuUMGyYQMiNNBjSHGtYGf4dSMtVX0LL8BrRLOsACTORVPagtJwCw7qWGCBLVYALOWJE3 EQGyAkGLW1VWm7MZsxV4J1ZfeyO5XvHL7IU8JiPNVjUETBZELkpbBdIA2YfuDtsY9nMSxSRIWUKBzPAD geHnV5t57oflGEOPQuKZQmEBpsFZRyQDDhUFCfLCKd TMEqQWVtZYAhEF5UE7TnMMAiQZTFKMN7m3VaTVWyphzzdoffZv3zqdYkWtp+OxmyEJEdu2IbRRqnI2A3 fSHrE1CeJ6GdQZ8EyHQfXUdnBIGqHDMaPCUyX551cbWiTE8+MN4ti2CdOrzpEPOMUMBsPTJbUSNbCDG8 YoDjGVUjAYKpDNJiMdK0WdSrGiVTSLYcAGH4PIc2DD SgPFCaFMKiRTjsLLRuHXX1BMI5YJMqGPIuKV0zXaYzNZVsMuN7CcVwNDLbJDDpnvINGJPbMFIiPQQhQZ P9VMKcUURzESxbKBYjQZBtPAL6DTPeJRQgJA2tTiUeBQFoPTXxUcwnGZEpBRAkehKKSVSrFULxNMN7Ci BnMFAtFVRyHXbgIPQnBDIjVeh3GYPrWUIsFJ4yTsQs LSTbLPJ6ZPkxDUNpWRLqeiMWDTTfBXTsLOFvEtYlARUsDZXvOLxtLGHuOIClZkRwJVRmYWZxIX1qXrGr IFInRXX0GYGkNRQjKURuoeEXBQOpMFCgFXa5JONnBKFyUDCyYFmuTVKiHGYfVXO1QGRfCHJxDV5vKhVi WJHgBHBhCBCvQEBwWBYzzgFPZBVhLWEjULU2TPCjXO MiNBDaJWryNEDkBLKjYaz3IUKvMZBkSA9dQbPkSKLcIOF8FZLaIXRqAEVomhBIEKIaJPM4AOF6KGYiBH QuFUIoSLfhUEBqXARaPbM3YOZwNNUrRU5lOzYpDABpHZR6SxTtRUCtAXVoufDMMHWrXFYaPJM3FjJhVT YwFAEeKYdpLIYxWIPlRGBlBNK1NCV7EXPzOgExQLcf ZBZWPKnGB7BsilQzWuVNP6gwJt9lIjYmURPTB9Nip7AiEVLeCGPQKf1+FbQ6KMI6lJExYgx3XNp3CKdb JUVPRg== ID Date Data Source [id number] 04/03/2020 09:06:[address] [facility] [address] HEAD WITHOUT CONTRAST [id number] RESU LTInterpreted by:Brady Joshi MBBSCLINICAL INDICATION: 49-year-old male, rule out ruptured aneurysm in a patient with hypertension.TECHNIQUE: Multiaxial CT images of the brain were obtained from the base of the skull through the vertex. No intravenous contrast was administered. Automated dose lowering techniques and/or adjustment according to patient size were utilized for this exam.COMPARISON: CT head dated 09/20/2019.FINDINGS: There is no acute intracranial hemorrhage or CT evidence of an acute territorial infarct. No extra-axial collections or shifting of midline structures is identified. The ventricles and sulci are normal in size and configuration for the patient's age. The basal cisterns are patent. Minimal mucosal thickening in the dependent portions of the frontal and maxillary sinuses. The paranasal sinuses and mastoid air cells are otherwise unremarkable. There are no acute, depressed calvarial fractures. IMPRESSION: No acute intracranial hemorrhage, CT evidence of an acute territorial infarct, or other acute intracranial pathology. This document has been electronically signed by Emelina Callejas MD on 04/03/2020 9:04 AM Name Value Range Interpretation Code Description Data Jenise rce(s) Supporting Document(s) ID Date Data Source [id number] 04/03/2020 04:57:27 PM [facility] Name Value Range Interpretation Code Description Data Jenise rce(s) Supporting Document(s) Specimen source [Identifier] of Unspecified specimen [facility] SARS-CoV-2 RNA 2019 nCoV Real-Time RT-PCR: NOT DETECTED [facility] Assay Performed [facility] Patients first test for [facility] Patient employed in healthcare setting [facility] Patient has symptoms related to [facility] When did you start to experience these symptoms [Date and time] [PhenX] [id number] [facility] Patient was hospitalized because of this condition [facility] patient was admitted to ICU for [facility] Patient resides in a congregate care setting [facility] status [facility] ID Date Data Source [id number] 04/03/2020 01:03:00 AM [facility] Name Value Range Interpretation Code Description Data Jenise rce(s) Supporting Document(s) SARS-CoV-[address] [facility] This lab was ordered by [facility] and reported by [facility]. ID Date Data Source [id number] 04/03/2020 03:46:44 AM [facility] Service Cmnt XXX-Imp : NoneRespiratory P CR Panel : PCR ResultsMicroorganism XXX Cult : This assay does not detect novel Coronaviruses.HAdV DNA QI MICHELLE+non-probe : Not DetectedHCoV [id number] Nph QI MICHELLE+non-probe : Not DetectedHCoV VCN4VCM Nph QI MICHELLE+non-probe : Not [id number] RNA Nph QI MICHELLE+non-probe : Not RmnmvuuwTKjNLY88 RNA Upper resp QI MICHELLE+probe : Not DetectedhMPV RNA Nph QINAA+non-probe : Not DetectedRV+EV RNA Nph QI MICHELLE+non-probe : Not DetectedFLUAV RNA Nph QI MICHELLE+ non-probe : Not DetectedFLUBV RNA Nph QI MICHELLE+non-probe : Not DetectedHPIV1 RNA NphQINAA+non-probe : Not DetectedHPIV2 RNA Nph QINAA+non-probe : Not DetectedHPVI3 RNA Nph MICHELLE+non-probe : Not DetectedHPIV4 RNA Nph Q MICHELLE+non-probe : Not DetectedRSV RNA Nph Q MICHELLE+non-probe : Not DetectedB pert.PT PrmtNph Q MICHELLE+non-probe : Not DetectedC pneum DNA Nph Q MICHELLE+non-probe : Not DetectedM pneum DNA Nph Q MICHELLE+non-probe : Not Detected Name Value Range Interpretation Code Description Data Jenise rce(s) Supporting Document(s) ID Date Data Source [id number] 04/03/2020 12:35:25 AM [facility] XR CHEST FRONTAL ONLY [id number] RESULTI nterpreted by:JUSTIN KabaROCEDURE INFORMATION: Exam: XR Chest, 1 View Exam date and time: 04/02/2020 11:55 PM Age: 49 years old Clinical indication: Other: Dyspnea TECHNIQUE: Imaging protocol: XR of the chest Views: 1 view. COMPARISON: CR XR CHEST FRONTAL AND LATERAL [id number] 09/20/2019 8:27 PM FINDINGS: Lungs: Unremarkable. No consolidation. Pleural space: No pleural effusion. No pneumothorax. Heart/Mediastinum: Unremarkable. No cardiomegaly. Bones/joints: Unremarkable. IMPRESSION: No acute lung pathology. THIS DOCUMENT HAS BEEN ELECTRONICALLY ANDERSON D BY JESSICA GARZON MDThis document has been electronically signed by Jessica Garzon MD on 04/03/2020 12:35 AM Name Value Range Interpretation Code Description Data Jenise rce(s) Supporting Document(s) ID Date Data Source [id number] 04/03/2020 12:28:26 AM EST [facility] Name Value Range Interpretation Code Description Data Jenise rce(s) Supporting Document(s) Albumin [Mass/volume] in Serum or Plasma by Bromocresol green (BCG) dye binding method 4.4 g/dL 3.5[facility]5.2 [facility] Bil[facility].total [Mass/volume] in Serum or Plasma 0.6 mg/dL <1.2 [facility] Calcium [Mass/volume] in Serum or Plasma 9.5 mg/dL 8.6-10.0 [facility] Chloride [Moles/volume] in Serum or Plasma 104 mmol/L 98-107 [facility] Creatinine [Mass/volume] in Serum or Plasma 1.41 mg/dL 0.70-1.20 H [facility] Glucose [Mass/volume] in Serum or Plasma 79 mg/dL 70-140 [facility] Alkaline phosphatase [Enzymatic activity/volume] in Serum or Plasma 61 U/L 40-129 [facility] Hemolyzed Potassium [Moles/volume] in Serum or Plasma 4.5 mmol/L 3.4-5.1 [facility] Hemolyzed Protein [Mass/volume] in Serum or Plasma 7.5 g/dL 6.4-8.3 [facility] Sodium [Moles/volume] in Serum or Plasma 140 mmol/L 136-145 [facility] Aspartate aminotransferase [Enzymatic activity/volume] in Serum or Plasma 71 U/L <40 H [facility] Hemolyzed Urea nitrogen [Mass/volume] in Serum or Plasma 23 mg/dL 6-20 H [facility] Osmolality of Serum or Plasma by calculation 292 mosm/kg 275-300 [facility] Creatinine/Urea nitrogen [Mass Ratio] in Serum or Plasma 16 [facility] Bicarbonate [Moles/volume] in Serum 25 mmol/L 22-29 [facility] Alanine aminotransferase [Enzymatic activity/volume] in Seru m or Plasma 97 U/L <41 H [facility] Hemolyzed Anion gap 3 in Serum or Plasma 11 mmol/L 8-15 [facility] Glomerular filtration rate/1.73 sq M pre dicted among non-blacks [Volume Rate/Area] in Serum or Plasma by Creatinine-based formula (MDRD) 56 mL/min/1.73m2 >60 L [facility] Glomerular filtration rate/1.73 sq M pre dicted among blacks [Volume Rate/Area] in Serum or Plasma by Creatinine-based formula (MDRD) 65 mL/min/1.73m2 >60 [facility] ID Date Data Source [id number] 04/03/2020 12:56:36 AM [facility] Name Value Range Interpretation Code Description Data Jenise rce(s) Supporting Document(s) Troponin T.cardiac [Mass/volume] in Serum or Plasma <0.01 [facility] ID Date Data Source [id number] 04/03/2020 02:45:58 AM [facility] Name Value Range Interpretation Code Description Data Jenise rce(s) Supporting Document(s) Leukocytes [#/volume] in Blood by Automated count 10.3 10*3/uL 4-10 H [facility] Erythrocytes [#/volume] in Blood by Automated count 4.89 10*6/uL 4.6- 6.1 [facility] Hemoglobin [Mass/volume] in Blood 14.6 g/dL 13.5-18 [facility] Hematocrit [Volume Fraction] of Blood by Automated count 43.0 % 4 1-53 [facility] Erythrocyte mean corpuscular volume [Entitic volume] by Auto mated count 87.8 fL 80-96 [facility] Erythrocyte mean corpuscular hemoglobin [Entitic mass] by Automated count 29.8 pg 27-33 [facility] Erythrocyte mean corpuscular hemoglobin concentration [Mass/volume] by Automated count 34.0 g/dL 32.0[facility] distribution width [Ratio] by Automated count 16.3 % 11.5-14.5 H [facility] Platelets [#/volume] in Blood by Automated count 239 10*3/uL 150-400 [facility] Differential cell count method - Blood [facility] Neutrophils/100 leukocytes in Blood by Automated count 45 % [facility] Lymphocytes/100 leukocytes in Blood by Automated count 45 % [facility] Monocytes/100 leukocytes in Blood by Automated count 5 % [facility] Eosinophils/100 leukocytes in Blood by Automated count 1 % [facility] Neutrophils [#/volume] in Blood by Automated count 4.66 10*3/uL 1.8-7 .0 [facility] Lymphocytes [#/volume] in Blood by Automated count 4.66 10*3/uL 1.2-4 .0 H [facility] Monocytes [#/volume] in Blood by Automated count 0.49 10*3/uL 0-0.8 [facility] Eosinophils [#/volume] in Blood by Automated count 0.10 10*3/uL 0-0.5 [facility] Myelocytes/100 leukocytes in Blood by Manual count 2 % [facility] Metamyelocytes/100 leukocytes in Blood by Manual count 2 % [facility] Myelocytes [#/volume] in Blood by Manual count 0.20 10*3/uL 0-0 H [facility] Metamyelocytes [#/volume] in Blood by Manual count 0.20 10*3/uL 0-0 H [facility] Macrocytes [Presence] in Blood by Light microscopy [facility] Anisocytosis [Presence] in Blood by Light microscopy [facility] Poikilocytosis [Presence] in Blood by Light microscopy [facility] ID Date Data Source [id number] 04/02/2020 02:22:00 PM EST [facility] ([facility] Name Value Range Interpretation Code Description Data Jenise rce(s) Supporting Document(s) Troponin Laboratory test result [facility]) ID Date Data Source [id number] 04/02/2020 02:22:00 PM EST [facility] ([facility]) Name Value Range Interpretation Code Description Data Jenise rce(s) Supporting Document(s) Alanine aminotransferase [Enzymatic activity/volume] in Serum or Pl asma 97 [facility] ([facility]) Albumin [Mass/volume] in Serum or Plasma 4.4 [facility] ([facility]) Carbon dioxide, total [Moles/volume] in Serum or Plasma 25 [facility] ([facility]) Chloride [Moles/volume] in Serum or Plasma 104 [facility] ([facility]) Calcium [Mass/volume] in Serum or Plasma 9.5 [facility] ([facility]) Potassium [Moles/volume] in Serum or Plasma 4.5 [facility] ([facility]) Protein [Mass/volume] in Serum or Plasma 7.5 [facility] ([facility]) Alkaline phosphatase [Enzymatic activity/volume] in Serum or Plasma 6 1 [facility] ([facility]) Glucose 79 70-140 [facility] ([facility]) Aspartate aminotransferase [Enzymatic activity/volume] in Serum or Plasma 71 [facility] ([facility]) Urea nitrogen [Mass/volume] in Serum or Plasma 23 [facility] ([facility]) Sodium 140 [facility] Creatinine For GFR 16 [facility] ([facility]) ID Date Data Source [id number] 03/20/2020 12:00:00 AM EST [facility] Name Value Range Interpretation Code Description Data Jenise rce(s) Supporting Document(s) SARS-CoV2 Rapid Antigen [facility] ID Date Data Source [id number] 03/08/2020 02:14:00 PM EST [facility] ([facility]) Name Value Range Interpretation Code Description Data Jenise rce(s) Supporting Document(s) White Blood Count 8.2 4.0-10.0 [facility] ([facility]) Red Blood Count 5.45 4.30-6.10 [facility] ([facility]) Platelets 218 150-450 [facility] Hemoglobin 15.6 13.5-17.5 [facility] ([facility]) Hematocrit 47.6 42.0-52.0 [facility] ([facility]) ID Date Data Source [id number] 03/08/2020 01:15:00 PM EST [facility] ([facility]) Name Value Range Interpretation Code Description Data Jenise rce(s) Supporting Document(s) Lyme Disease IgM Ab Quantitati Laboratory test result 0.00-0.79 [facility] ([facility]) <content>Negative <0.80</content >
<content>Equivocal 0.80 - 1.19</content>
<content>Positive >1.19</content>
<content>.</content>
<content>IgM levels may peak at 3-6 weeks post infection, then</content>
<content>gradually decline.</content>
<content></content> Lyme Disease IgG/IgM Antibodie Laboratory test result 0.00-0.90 [facility] ([facility]) <content>Negative <0.91</content >
<content>Equivocal 0.91 - 1.09</content>
<content>Positive >1.09</content>
<content></content> ID Date Data Source [id number] 03/08/2020 01:15:00 PM EST [facility] ([facility]) Name Value Range Interpretation Code Description Data Jenise rce(s) Supporting Document(s) Erythrocyte sedimentation rate by Westergren method 4 mm/hr 0-20 [facility] ([facility]) HLA-B27 related Ag [Presence] Laboratory test [facility]) HLA-B*27 Negative B27 allele interpretation for all loci based on IMGT/HLA database version 3.38 This test was developed and its performance characteristics determined by [employer] It has not been cleared or approved by the Food and Drug Administration. [facility] CLIA ID Number [id number] . This test was performed using PCR (Polymerase Chain Reaction)/SSOP (Sequence Specific Oligonucleotide Probes) technique. SBT (Sequence Based Typing) and/or SSP (Sequence Specific Primers) may be used as supplemental methods when necessary. Please contact [facility] Customer Service at if you have any questions. . Director of [facility] Dr Louis Lyle, PhD C reactive protein [Mass/volume] in Serum or Plasma by High sensitivity method Laboratory test result 0.00-0.30 [facility] ([facility]) ID Date Data Source [id number] 03/08/2020 01:15:00 PM EST [facility] ([facility]) Name Value Range Interpretation Code Description Data Jenise rce(s) Supporting Document(s) Antinuclear Antibodies Direct Laboratory test result [facility] ([facility]) Performed at: - [address] [id number] Geophysical Operator: Consuelo Calvert MD, Phone: [phone] Performed at: [facility] [address] [id number] Geophysical Operator: Louis Lyle PhD, Phone: [phone] ID Date Data Source [id number] 03/08/2020 01:15:00 PM EST [facility] ([facility]) Name Value Range Interpretation Code Description Data Jenise rce(s) Supporting Document(s) Rheumatoid factor [Units/volume] in Serum or Plasma Laboratory test result [facility] ([facility]) ID Date Data Source [id number] 03/08/2020 01:15:00 PM EST [facility] ([facility]) Name Value Range Interpretation Code Description Data Jenise rce(s) Supporting Document(s) White Blood Count 8.2 10 4.0-10.0 [facility] ([facility]) Red Blood Count 5.45 10 4.30-6.10 [facility] ([facility]) Hematocrit 47.6 % 42.0-52.0 [facility] ([facility]) Hemoglobin 15.6 g/dL 13.5-17.5 [facility] ([facility]) Mean Corpuscular Hemoglobin 28.6 pg 27.0-33.0 [facility] ([facility] ) Mean Corpuscular Volume 87.3 fl 80.0-96.0 M [facility] ([facility] ) Red Cell Distribution Width 16.1 % 11.5-14.5 [facility] ([facility] ) Mean Corpuscular HGB Conc 32.8 g/dL 32.0-36.5 [facility] ([facility] ) Neutrophils % 50.9 % 36.0-66.0 [facility] ([facility] Platelet Count, Automated 218 10 150-450 [facility] ([facility] ) Lymph % 37.4 % 24.0-44.0 [facility] ([facility]) [place] % 8.2 % 0.0-5.0 [facility] ([facility]) Baso % 0.6 % 0.0-1.0 [facility] ([facility]) Eos % 1.8 % 0.0-3.0 [facility] ([facility]) Immature Granulocyte % 1.1 % 0-3.0 [facility] ([facility]) Neutrophils # 4.2 10 1.5-8.5 [facility] ([facility] Nucleated Red Blood Cell % 0.0 % 0-0 [facility] ([facility]) Lymph # 3.1 10 1.5-5.0 [facility] ([facility]) [place] # 0.7 10 0.0-0.8 [facility] ([facility]) Eos # 0.2 10 0.0-0.5 [facility] ([facility] Baso # 0.1 10 0.0-0.2 [facility] ([facility] ID Date Data Source [id number] 01/07/2020 07:36:[address] [facility] Service Cmnt XXX-Imp : NoneMicroorganism XXX Cult : No growth 1 day Name Value Range Interpretation Code Description Data Jenise rce(s) Supporting Document(s) Procedure Social History Code Duration Value Status Description Data Source(s ) Smoking 02/11/2021 12:00:00 AM EDT Never Smoker completed Never S moker eCW1 ([facility]) Smoking 12/03/2020 12:00:00 AM EDT Patient has never smoked co mpleted Patient has never smoked [facility] ([facility]) Smoking 11/11/2020 12:00:00 AM EDT Never Smoker completed Never S moker eCW1 ([facility]) Smoking 11/11/2020 12:00:00 AM EDT Never Smoker completed Never S moker eCW1 ([facility]) Smoking 11/11/2020 12:00:00 AM EDT Never Smoker completed Never S moker eCW1 ([facility]) Smoking 10/15/2020 12:00:00 AM EDT Patient has never smoked co mpleted Patient has never smoked [facility] ([facility]) Smoking 10/14/2020 12:00:00 AM EDT Never Smoker completed Never S moker eCW1 ([facility]) Smoking 10/14/2020 12:00:00 AM EDT Never Smoker completed Never S moker eCW1 ([facility]) Smoking 09/20/2020 12:00:00 AM EDT Never Smoker completed Never S moker eCW1 ([facility]) Smoking 09/20/2020 12:00:00 AM EDT Never Smoker completed Never S moker eCW1 ([facility]) Smoking 09/20/2020 12:00:00 AM EDT Never Smoker completed Never S moker eCW1 ([facility]) Smoking 09/13/2020 12:00:00 AM EDT Never Smoker completed Never S moker eCW1 ([facility]) Smoking 08/31/2020 09:48:00 PM EDT Unknown if ever smoked comp leted Unknown if ever smoked [facility] Smoking 08/31/2020 09:48:00 PM EDT Unknown if ever smoked comp leted Unknown if ever smoked [facility] Smoking 08/31/2020 09:48:00 PM EDT Unknown if ever smoked comp leted Unknown if ever smoked [facility] Smoking 08/31/2020 09:48:00 PM EDT Unknown if ever smoked comp leted Unknown if ever smoked [facility] Smoking 08/31/2020 09:48:00 PM EDT Unknown if ever smoked comp leted Unknown if ever smoked [facility] Smoking 07/23/2020 12:00:00 AM EDT Never Smoker completed Never S moker eCW1 ([facility]) Smoking 07/23/2020 12:00:00 AM EDT Never Smoker completed Never S moker eCW1 ([facility]) Smoking 07/23/2020 12:00:00 AM EDT Never Smoker completed Never S moker eCW1 ([facility]) Smoking 07/23/2020 12:00:00 AM EDT Never Smoker completed Never S moker eCW1 ([facility]) Smoking 07/21/2020 12:00:00 AM EDT Patient has n ever smoked (pipe, cigarette, cigar) completed Patient has never smoked (pipe, cigarett e, cigar) [facility] ([facility]) Smoking 07/09/2020 04:50:00 PM EST Denies Ever Smoked complete d Denies Ever Smoked [facility] Smoking 06/28/2020 12:00:00 AM EST Never Smoker completed Never S moker eCW1 ([facility]) Smoking 06/28/2020 12:00:00 AM EST Never Smoker completed Never S moker eCW1 ([facility]) Smoking 06/17/2020 12:00:00 AM EST Never Smoker completed Never S moker eCW1 ([facility]) Smoking 06/17/2020 12:00:00 AM EST Never Smoker completed Never S moker eCW1 ([facility]) Alcohol intake 04/02/2020 12:00:00 AM EST Current non-d noreen of alcohol (finding) completed Current non-drinker of alcohol (finding) [facility] Tobacco use and exposure 04/02/2020 12:00:00 AM EST Never used co mpleted Never used [facility] Smoking 04/02/2020 12:00:00 AM EST Former smoker completed Former smoker [facility] Smoking 03/29/2020 12:00:00 AM EST Never Smoker completed Never S moker eCW1 ([facility]) Smoking 03/20/2020 12:00:00 AM EST Never Smoked Cigarettes com pleted Never Smoked Cigarettes [facility] ([facility]) Smoking 02/09/2020 12:00:00 AM EDT Never Smoker completed Never S moker eCW1 ([facility]) Alcohol intake 01/05/2020 12:00:00 AM EDT Current non-d noreen of alcohol (finding) completed Current non-drinker of alcohol (finding) [facility] Vital Signs ID Date Data Source UNK Name Value Range Interpretation Code Description Data Source(s) Body weight 299 [lb_av] 299 [lb_av] eCW1 ([facility]) Body weight 135.63 kg 135.63 kg eCW1 ([facility]) Body height [in_i] W1 ([facility]) Body mass index (BMI) [Ratio] 36.39 kg/m2 36.39 kg/m2 eCW1 ([facility]) Heart rate 85 /min 85 /min eCW1 ([facility]) Respiratory rate 18 /min 18 /min eCW1 ([facility]) Body temperature 97.6 [degF] 97.6 [degF] eCW1 ( [facility]) Systolic blood pressure 142 mm[Hg] 142 mm[Hg] e CW1 ([facility]) Diastolic blood pressure 88 mm[Hg] 88 mm[Hg] eCW1 ([facility]) Systolic blood pressure 132 mm[Hg] 132 mm[Hg] M [facility] ([facility]) sitting, large cuff Diastolic blood pressure 84 mm[Hg] 84 mm[Hg] [facility] ([facility]) sitting, large cuff Systolic blood pressure 128 mm[Hg] 128 mm[Hg] M [facility] ([facility]) sitting Diastolic blood pressure 82 mm[Hg] 82 mm[Hg] [facility] ([facility]) sitting Body weight 294.00 [lb_av] 294.00 [lb_av] [facility] T ([facility]) Body height 76 [in_i] 76 [in_i] [facility] ([facility]) 6'4" Body mass index (BMI) [Ratio] 35.8 kg/m2 35.8 k g/m2 [facility] ([facility]) Heart rate 68 /min 68 /min [facility] ([facility]) Regular Respiratory rate 16 /min 16 /min [facility] ( [facility]) Body mass index (BMI) [Ratio] 36.03 kg/m2 36.03 kg/m2 eCW1 ([facility]) Heart rate 94 /min 94 /min eCW1 ([facility]) Body height [in_i] eCW1 ([facility]) Body weight 296 [lb_av] 296 [lb_av] eCW1 ([facility]) Respiratory rate 18 /min 18 /min eCW1 ([facility]) Body temperature 97.5 [degF] 97.5 [degF] eCW1 ( [facility]) Systolic blood pressure 142 mm[Hg] 142 mm[Hg] e CW1 ([facility]) Diastolic blood pressure 78 mm[Hg] 78 mm[Hg] eCW1 ([facility]) Body height 78 [in_i] 78 [in_i] [facility] ([facility], ) 6'6" Body weight 298.00 [lb_av] 298.00 [lb_av] MEDEN T ([facility], ) Body mass index (BMI) [Ratio] 34.4 kg/m2 34.4 k g/m2 [facility] ([facility], ) [place] body weight 214 [lb_av] 214 [lb_av] [facility] T ([facility], ) Body weight 135.173 kg 135.173 kg [facility] ([facility]) Body surface area Derived from formula 2.67 m2 2.67 m2 [facility] ([facility]) Diastolic blood pressure 78 mm[Hg] 78 mm[Hg] [facility] ([facility]) Systolic blood pressure 136 mm[Hg] 136 mm[Hg] [facility] Body height 78 [in_i] 78 [in_i] [facility] ([facility]) 6'6" Body weight 298.00 [lb_av] 298.00 [lb_av] [facility] T ([facility]) Body mass index (BMI) [Ratio] 34.4 kg/m2 34.4 k g/m2 [facility] ([facility]) [place] body weight 214 [lb_av] 214 [lb_av] [facility] T ([facility]) Body weight 135.173 kg 135.173 kg [facility] ([facility]) Body surface area Derived from formula 2.67 m2 2.67 m2 [facility] ([facility]) Systolic blood pressure 130 mm[Hg] 130 mm[Hg] [facility] ([facility]) Oxygen saturation in Arterial blood by Pulse oximetry 95 % 95 % [facility] ([facility]) Body temperature 97.8 [degF] 97.8 [degF] [facility] ([facility]) Body height 78 [in_i] 78 [in_i] [facility] ([facility]) 6'6" Body weight 294.00 [lb_av] 294.00 [lb_av] [facility] T ([facility]) Body mass index (BMI) [Ratio] 34.0 kg/m2 34.0 k g/m2 [facility] ([facility]) [place] body weight 214 [lb_av] 214 [lb_av] [facility] T ([facility]) Body weight 133.358 kg 133.358 kg [facility] ([facility]) Body surface area Derived from formula 2.66 m2 2.66 m2 [facility] ([facility]) Diastolic blood pressure 70 mm[Hg] 70 mm[Hg] [facility] ([facility]) Heart rate 75 /min 75 /min [facility] ([facility]) Oxygen saturation in Arterial blood by Pulse oximetry 95 % 95 % [facility] ([facility]) Body temperature 97.8 [degF] 97.8 [degF] [facility] ([facility]) Body height 78 [in_i] 78 [in_i] [facility] ([facility]) 6'6" Body weight 294.00 [lb_av] 294.00 [lb_av] [facility] T ([facility]) Body mass index (BMI) [Ratio] 34.0 kg/m2 34.0 k g/m2 [facility] ([facility]) [place] body weight 214 [lb_av] 214 [facility]lb_av] [facility] Body weight 133.358 kg 133.358 kg [facility] ([facility]) Body surface area Derived from formula 2.66 m2 2.66 m2 [facility] ([facility]) Body weight 294.0 [lb_av] 294.0 [lb_av] eCW1 ([facility] Body height [in_i] eCW1 ([facility]) Body mass index (BMI) [Ratio] 35.78 kg/m2 35.78 kg/m2 eCW1 ([facility]) Heart rate 83 /min 83 /min eCW1 ([facility]) Respiratory rate 18 /min 18 /min eCW1 ([facility]) Body temperature 98.0 [degF] 98.0 [degF] eCW1 ( [facility]) Systolic blood pressure 122 mm[Hg] 122 mm[Hg] e CW1 ([facility]) Diastolic blood pressure 78 mm[Hg] 78 mm[Hg] eCW1 ([facility]) Body weight 293.8 [lb_av] 293.8 [lb_av] eCW1 ([facility] Body height [in_i] eCW1 ([facility]) Body mass index (BMI) [Ratio] 35.76 kg/m2 35.76 kg/m2 eCW1 ([facility]) Heart rate 87 /min 87 /min eCW1 ([facility]) Respiratory rate 18 /min 18 /min eCW1 ([facility]) Body temperature 97.5 [degF] 97.5 [degF] eCW1 ( [facility]) Systolic blood pressure 142 mm[Hg] 142 mm[Hg] e CW1 ([facility]) Diastolic blood pressure 86 mm[Hg] 86 mm[Hg] eCW1 ([facility]) Body weight 292.2 [lb_av] 292.2 [lb_av] eCW1 ([facility] Body height [in_i] eCW1 ([facility]) Body mass index (BMI) [Ratio] 35.56 kg/m2 35.56 kg/m2 eCW1 ([facility]) Heart rate 95 /min 95 /min eCW1 ([facility]) Respiratory rate 18 /min 18 /min eCW1 ([facility]) Body temperature 97.9 [degF] 97.9 [degF] eCW1 ( [facility]) Systolic blood pressure 148 mm[Hg] 148 mm[Hg] e CW1 ([facility]) Diastolic blood pressure 86 mm[Hg] 86 mm[Hg] eCW1 ([facility]) Body height 77.00 [in_i] 77.00 [in_i] [facility] ([facility] 6'5" Body weight 295.12 [lb_av] 295.12 [lb_av] MED[facility] T ([facility]) Body mass index (BMI) [Ratio] 35.0 kg/m2 35.0 k g/m2 [facility] ([facility]) Systolic blood pressure 169 mm[Hg] 169 mm[Hg] M [facility] ([facility]) Diastolic blood pressure 85 mm[Hg] 85 mm[Hg] [facility] ([facility]) Heart rate 88 /min 88 /min [facility] ([facility]) Body temperature 97.0 [degF] 97.0 [degF] [facility] ([facility]) Oxygen saturation in Arterial blood by Pulse oximetry 98 % 98 % [facility] ([facility]) Body temperature 36.1 Latasha 36.1 Latasha MEDENT ( [facility]) Body mass index (BMI) [Ratio] 34.9 kg/m2 No rmal (applies to non-numeric results) 34.9 kg/m2 [facility] Systolic blood pressure 138 mm[Hg] Normal (applies t o non-numeric results) 138 mm[Hg] [facility] Diastolic blood pressure 77 mm[Hg] Normal (applies to non-numeric results) 77 mm[Hg] [facility] Heart rate 76 min Normal (applies to non-numeric resul ts) [address] [facility] Body height 195.072 cm Normal (applies to non-numeric resu lts) 195.[address] [facility] Deprecated Oxygen saturation in Capillary blood by Oximetry 93 % Normal (applies to non-numeric results) 93 % [facility] Respiratory rate 18 min Normal (applies to non-numeric results) [address] [facility] Body temperature 36.7 latasha Normal (applies to non-numeric results) 36.[address] [facility] Body weight Measured 295 [lb_av] Normal (applies to n on-numeric results) 295 [lb_av] [facility] Body weight 298.8 [lb_av] 298.8 [lb_av] eCW1 ([facility] Body height [in_i] eCW1 ([facility]) Body mass index (BMI) [Ratio] 36.37 kg/m2 36.37 kg/m2 eCW1 ([facility]) Heart rate 94 /min 94 /min eCW1 ([facility]) Respiratory rate 18 /min 18 /min eCW1 ([facility]) Body temperature 97.2 [degF] 97.2 [degF] eCW1 ( [facility]) Systolic blood pressure 142 mm[Hg] 142 mm[Hg] e CW1 ([facility]) Diastolic blood pressure 78 mm[Hg] 78 mm[Hg] eCW1 ([facility]) Body weight 296.6 [lb_av] 296.6 [lb_av] eCW1 ([facility]) Body height [in_i] eCW1 ([facility]) Body mass index (BMI) [Ratio] 36.10 kg/m2 36.10 kg/m2 eCW1 ([facility]) Heart rate 85 /min 85 /min eCW1 ([facility]) Respiratory rate 18 /min 18 /min eCW1 ([facility]) Body temperature 98 [degF] 98 [degF] eCW1 ([facility]) Systolic blood pressure 140 mm[Hg] 140 mm[Hg] e CW1 ([facility]) Diastolic blood pressure 90 mm[Hg] 90 mm[Hg] eCW1 ([facility]) Systolic blood pressure 130 mm[Hg] 130 mm[Hg] M EDENT ([facility], ) Diastolic blood pressure 90 mm[Hg] 90 mm[Hg] MEDENT ([facility], ) Heart rate 80 /min 80 /min [facility], [facility] Oxygen saturation in Arterial blood by Pulse oximetry 94 % 94 % [facility] ([facility], ) Room Air Body temperature 96.7 [degF] 96.7 [degF] [facility], ) Body height 78 [in_i] 78 [in_i] MEDENT ([facility]) 6'6" Body weight 291.00 [lb_av] 291.00 [lb_av] MEDEN T ([facility], ) Body mass index (BMI) [Ratio] 33.6 kg/m2 33.6 k g/m2 [facility] ([facility]) [place] body weight 214 [lb_av] 214 [lb_av] MEDEN T ([facility], ) Body weight 131.998 kg 131.998 kg [facility] Body surface area Derived from formula 2.65 m2 2.65 m2 [facility] ([facility], ) Body mass index (BMI) [Ratio] 35.4 kg/m2 35.4 k g/m2 MEDENT ([facility]) Diastolic blood pressure 70 mm[Hg] 70 mm[Hg] MEDENT ([facility]) sitting, large cuff Systolic blood pressure 136 mm[Hg] 136 mm[Hg] M EDENT ([facility]) sitting Diastolic blood pressure 76 mm[Hg] 76 mm[Hg] MEDENT ([facility]) sitting Body weight 291.00 [lb_av] 291.00 [lb_av] MEDEN T ([facility]) Body height 76 [in_i] 76 [in_i] MEDENT ([facility]) 6'4" Heart rate 76 /min 76 /min MEDENT ([facility] Regular Respiratory rate 16 /min 16 /min MEDENT ( [facility]) Systolic blood pressure 136 mm[Hg] 136 mm[Hg] M EDENT ([facility]) sitting, large cuff Systolic blood pressure 135 mm[Hg] 135 mm[Hg] M [facility] ([facility]) Diastolic blood pressure 68 mm[Hg] 68 mm[Hg] [facility] ([facility]) Body height 78 [in_i] 78 [in_i] [facility] ([facility]) 6'6" Body weight 295.25 [lb_av] 295.25 [lb_av] [facility] Body mass index (BMI) [Ratio] 34.1 kg/m2 34.1 k g/m2 [facility] ([facility]) [place] body weight 214 [lb_av] 214 [lb_av] [facility] Body weight 133.925 kg 133.925 kg [facility] ([facility]) Body surface area Derived from formula 2.66 m2 2.66 m2 [facility] ([facility]) Systolic blood pressure 133 mm[Hg] 133 mm[Hg] [facility]) Diastolic blood pressure 79 mm[Hg] 79 mm[Hg] [facility], [facility]) Heart rate 78 /min 78 /min MEDENT ([facility], [facility]) Respiratory rate 14 /min 14 /min [facility], [facility]) Oxygen saturation in Arterial blood by Pulse oximetry 96 % 96 % MEDENT ([facility]) Body temperature 100.1 [degF] 100.1 [degF] MEDE NT ([facility]) Body weight 289.00 [lb_av] 289.00 [lb_av] MEDEN T ([facility]) Body height 77 [in_i] 77 [in_i] MEDYOLANDA ([facility] 6'5" Body mass index (BMI) [Ratio] 34.3 kg/m2 34.3 k g/m2 MEDENT ([facility]) Body weight 281.0 [lb_av] 281.0 [lb_av] eCW1 ([facility]) Body height [in_i] eCW1 ([facility]) Body mass index (BMI) [Ratio] 34.20 kg/m2 34.20 kg/m2 W1 ([facility]) Heart rate 110 /min 110 /min eCW1 ([facility]) Respiratory rate 18 /min 18 /min eCW1 ([facility]) Body temperature 97.2 [degF] 97.2 [degF] eCW1 ( [facility]) Systolic blood pressure 130 mm[Hg] 130 mm[Hg] e CW1 ([facility]) Diastolic blood pressure 80 mm[Hg] 80 mm[Hg] eCW1 ([facility]) ID Date Data Source [id number] 09/15/2020 12:11:00 PM EDT [facility] Name Value Range Interpretation Code Description Data Source(s) HEIGHT 195.58 cm 195.58 cm [facility] WEIGHT RECORDED 133.245582 kg 133.915287 kg [facility] ID Date Data Source [id number] 04/08/2020 06:51:12 PM [facility] Name Value Range Interpretation Code Description Data Source(s) WEIGHT RECORDED 290 lb 290 lb [facility] Body height Measured 77 in 77 in [facility] WEIGHT RECORDED 290 lb 290 lb [facility] Body height Measured 77 in 77 in [facility] ID Date Data Source [id number] 04/08/2020 08:27:43 AM [facility] Name Value Range Interpretation Code Description Data Source(s) WEIGHT RECORDED 277 lb 277 lb [facility] Body height Measured 77.99 in 77.99 in [facility] ID Date Data Source [id number] 12/30/2019 12:47:[address] [facility] Name Value Range Interpretation Code Description Data Source(s) WEIGHT RECORDED 278 lb 278 lb [facility] Patient Treatment Plan of Care Planned Activity Planned Date Details Description Data Source (s) Lisinopril 30 MG Oral Tablet 11/11/2020 12:00:00 AM EDT eC ([facility]) Lisinopril 30 MG Oral Tablet 11/11/2020 12:00:00 AM EDT eCW ([facility]) Lisinopril 30 MG Oral Tablet 11/11/2020 12:00:00 AM EDT eC1 ([facility]) sildenafil 50 MG Oral Tablet [Viagra] 02/09/2020 12:00:00 AM EDT eCW1 ([facility]) Tamsulosin hydrochloride 0.4 MG Oral Capsule 01/05/2020 12:00:00 AM [facility] Syringe Luer Lock 23G X 1" 3 ML 10/17/2019 12:00:00 AM [facility] 24 HR Oxybutynin chloride 5 MG Extended Release Oral T ablet 03/13/2019 12:00:00 AM [facility]
--- NOTE | 2021-02-28 09:58 | REP ---
INDICATION: CHEST PAIN. COMPARISON: 09/14/2020. TECHNIQUE: Single portable AP view of the chest was performed. FINDINGS: There is no acute infiltrate or pulmonary edema. Lungs are clear. The heart is not significantly enlarged. The mediastinal silhouette is unremarkable. The visualized osseous structures are intact. IMPRESSION: No acute pulmonary disease. <Electronically signed by Jourdan Banks > 02/28/21 [id number]
--- OUTSIDE RECORDS SUMMARY | 2021-02-28 10:24 | CCD ---
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 ([facility]) K21.9 [id number] Gastroesophageal ref lux disease, unspecified whether esophagitis present Problem 03/29/2020 12:00:00 AM EST eCW1 ([facility]) N52.9 [id number] Erectile dysfunction, unspecifie d erectile dysfunction type Problem 02/09/2020 12:00:00 AM EDT eCW1 ([facility]) Surgeries/Procedures Procedure Description Date Indications Data Source(s) ECG ROUTINE ECG W/LEAST 12 LDS W/I&R 12/03/2020 12:00: 00 AM EDT MED[facility] ([facility]) OFFICE OUTPATIENT VISIT 25 MINUTES 12/03/2020 12:00:00 AM EDT [facility] ([facility]) OFFICE OUTPATIENT NEW 45 MINUTES 11/05/2020 12:00:00 A M EDT MED[facility] ([facility], ) OFFICE OUTPATIENT VISIT 15 MINUTES 10/15/2020 12:00:00 AM EDT [facility] ([facility], ) XR SHOULDER 2+V LEFT 08/31/2020 10:14:00 PM EDT [facility] CT T SPINE 08/31/2020 10:14:00 PM EDT [facility] Computed tomography of lumbar spine (procedure) 2020 10:14:00 PM EDT [facility] Computed tomography of cervical spine (procedure) 08/31/2020 10:14:00 PM EDT [facility] XR SHOULDER 2+V LEFT 08/31/2020 10:14:00 PM EDT [facility] CT T SPINE 08/31/2020 10:14:00 PM EDT [facility] Computed tomography of lumbar spine (procedure) 2020 10:14:00 PM EDT [facility] Computed tomography of cervical spine (procedure) 08/31/2020 10:14:00 PM EDT [facility] XR SHOULDER 2+V LEFT 08/31/2020 10:14:00 PM EDT [facility] CT T SPINE 08/31/2020 10:14:00 PM EDT [facility] Computed tomography of lumbar spine (procedure) 2020 10:14:00 PM EDT [facility] Computed tomography of cervical spine (procedure) 08/31/2020 10:14:00 PM EDT [facility] XR SHOULDER 2+V LEFT 08/31/2020 10:14:00 PM EDT [facility] CT T SPINE 08/31/2020 10:14:00 PM EDT [facility] Computed tomography of lumbar spine (procedure) 2020 10:14:00 PM EDT [facility] Computed tomography of cervical spine (procedure) 08/31/2020 10:14:00 PM EDT [facility] XR SHOULDER 2+V LEFT 08/31/2020 10:14:00 PM EDT [facility] CT T SPINE 08/31/2020 10:14:00 PM EDT [facility] Computed tomography of lumbar spine (procedure) 2020 10:14:00 PM EDT [facility] Computed tomography of cervical spine (procedure) 08/31/2020 10:14:00 PM EDT [facility] Measure Blood Oxygen Level Continuous Overnight Monitor 07/19/2020 12:00:00 AM EDT [facility] ([facility]) ARTHROCENTESIS ASPIR&/INJECTION MAJOR JT/BURSA 021 12:00:00 AM EST [facility] ([facility] ) MYOCARDIAL SPECT MULTIPLE STUDIES 06/29/2020 12:00:00 AM EST [facility] ([facility]) CV STRS TST XERS&/OR RX CONT ECG PHYS SI&R 06/29/2020 12:00:00 AM EST [facility] ([facility]) OFFICE OUTPATIENT NEW 30 MINUTES 06/17/2020 12:00:00 A M EST MED[facility] ([facility], ) ECG ROUTINE ECG W/LEAST 12 LDS W/I&R 06/16/2020 12:00: 00 AM EST [facility] ([facility]) OFFICE OUTPATIENT VISIT 25 MINUTES 06/16/2020 12:00:00 AM EST [facility] ([facility]) CT HEAD/BRAIN W/O CONTRAST MATERIAL <td>CT HEAD WITHOU T CONTRAST [id number]</td><td>STAT</td><td>04/03/2020 12:20 AM EST</td><td></td><td></td> 04/03/2020 12:20:00 AM [facility] EKG 12-LEAD - CMAXX REPORT <td>EKG 12-LEAD - CMAXX REPORT</td><td></td><td>04/03/2020 12:14 AM EST</td><td></td><td></td> 04/03/2020 12:14:26 AM [facility] EKG 12-LEAD <td>EKG 12-LEAD</td><td>STAT </td><td>04/03/2020 12:14 AM EST</td><td></td><td></td> 04/03/2020 12:14:[address] [facility] XR CHEST FRONTAL ONLY [id number] <td>XR CHEST FRONTAL ONLY 97459</td><td>STAT</td><td>04/03/2020 12:02 AM EST</td><td></td><td> </td> 04/03/2020 12:02:00 AM [facility] METABOLIC PANEL, COMPREHENSIVE <td>METABOLIC PANEL, COMPREHENSIVE</td><td>Routine</td><td>04/02/2020 10:13 PM EST</td><td></td><td> </td> 04/02/2020 10:13:00 PM [facility] BLOOD COUNT COMPLETE AUTO&AUTO DIFRNTL WBC COUNT <td>C BC AND DIFFERENTIAL</td><td>Routine</td><td>04/02/2020 10:13 PM EST</td><td></td><td> </td> 04/02/2020 10:13:00 PM [facility] TROPONIN QUANTITATIVE <td>TROPONIN T</td><td>Routi ne</td><td>04/02/2020 10:13 PM EST</td><td></td><td> </td> 04/02/2020 10:13:00 PM [facility] X-Ray Spine Lumbosacral Complete Inc Bending Views Min Of 6 01/26/2020 12:00:00 AM EDT [facility] ([facility]) Results ID Date Data Source [id number] 01/17/2021 01:05:02 PM EDT [facility] Name Value Range Interpretation Code Description Data Jenise rce(s) Supporting Document(s) Progress Note [facility] YSUBCb8jDtNWZiZn30/OQFhzBXHjf5LkKOoeNAz7XWajYXXbT2QtWKS7sF2gCEQ5DCuWMmXhCsXoRDBc lbm [file] Dominik+7TJij3BX65lLpLNo0B1gY5wqeG3VeZsjFRy7DvVJ7HVP6VEVon2cPEuzzsQBXcXjYwIa/twzCtFZ wZ+pPWiF6dRcHgq1QYBjSANQ2DRjg/fxYELUm1D5VLoI2AUs3jHKCroKLmfS/ZRQLtSh44mLE1LXEhJG 0E+v88uHwkCHdyluinKO1iEQIaKRo80lclntUKby+Q AMRNTUQC2A48qORL9pOxI8nOZxKxCNdfwwDcIiTALAGBvwLCrDuhnmhonWBVy+zLXcS7QQjGL3+iFl/g im/QurAYQVH+BDhnO4H/CDryyyXTEIIaMA0z87JtFcY1Ili0CvEowAWGfBO2kIwB5EI9P5NRwC8sViKC eT7HIRv3fL62FmVEv5VuEpt50bHsIYWEzPpZMvQxB+ r1eKkZrnINL5rE4gJyC9wy5TXm0UZRmgsZRlZFpMhrsCDslJCUznFWpVCDu3WHyWou92tMlQSJwg0MPH +xpbExMkecWrgAJAs85warOYUkKEo2N8n99wcAQj4jquUbAoPz34QCVFnNbxkOsp5lYSWFwEV7uILV9w MjX726RL4AJNKfz3hTo7p1Pg4HMCrAc59vROjrEHKl 0Kh/5KNiPKsb3qNvSp0XECbROInsDjQq3+UJ9q/9BHB4AY5HlLFRxbjSEhfzPB0zU6c62L7MNyJ/qLSw hhmCdO1pl4z+EiexMF+doi4uBWYVCNNnNJJHFzfeC3PYhi54xBIT/g3RVYpEO6yrczH/SBTogqnErQQU m3audE5QDXo9t/FOukgmG9CjIvEIIc043VWwMLk/rG Dw8A8eUfThThesYp+I9GptcyN0HfnTJV2VZ7EjfWu1xwwCPTahobWvR+j8rXkOXJ12+ynYn+DtbehIGf vp corporate partnerships/SNo06oWGHTMdjfZEFQPAbp/Owec5m/2DYNGlGHzmyBQodz7/BfVmKd1IanhuIOeAXmDDSWjG2FxZ4 [file] Cj4+FVocjAKgkVazGMJACrQxGut6VXnoEEYSCv0F ID Date Data Source [id number] 09/14/2020 03:41:00 PM EDT [facility] ([facility]) Name Value Range Interpretation Code Description Data Jenise rce(s) Supporting Document(s) Albumin [Mass/volume] in Serum or Plasma 3.8 [facility] ([facility]) Calcium [Mass/volume] in Serum or Plasma 9.4 [facility] ([facility]) Alanine aminotransferase [Enzymatic activity/volume] in Serum or Plasma 196 [facility] ([facility]) Chloride [Moles/volume] in Serum or Plasma 103 [facility] ([facility]) Carbon dioxide, total [Moles/volume] in Serum or Plasma 29 [facility] ([facility]) Alkaline phosphatase [Enzymatic activity/volume] in Serum or Plasma 6 0 [facility] ([facility]) Potassium [Moles/volume] in Serum or Plasma 4.8 [facility] ([facility]) Protein [Mass/volume] in Serum or Plasma 7.4 [facility] ([facility]) Sodium 137 [facility] Aspartate aminotransferase [Enzymatic activity/volume] in Se rum or Plasma 107 [facility] ([facility]) Urea nitrogen [Mass/volume] in Serum or Plasma 24 [facility] ([facility]) Glucose 106 70-100 [facility] Creatinine For GFR 1.20 [facility] ([facility]) ID Date Data Source [id number] 09/01/2020 06:47:00 AM EDT [facility] NAME: ALKA PARSON 1970 50 MRUN: [id number] LOC: ED ACCT: [id number] SRV: O.V.#: RPT#: [id number] XR SHOULDER 2+V LEFT [id number] Date/Time:08/31/202213 Dx: pain after fall out of [...] JOSE LUIS 1 0820 PACS IMAGE LINK ([facility] USE ONLY) [email or web address] Name Value Range Interpretation Code Description Data Jenise rce(s) Supporting Document(s) ID Date Data Source [id number] 09/01/2020 12:29:00 AM EDT [facility] NAME: ALKA PARSON 1970 50 MRUN: [id number] LOC: ED ACCT: [id number] SRV: O.V.#: RPT#: [id number] CT T SPINE [id number] Date/Time:08/31/202213 Dx: pain after fall out of [...] Transcribed By: ZQNHMiguel 0029 PACS IMAGE LINK ([facility] USE ONLY) [email or web address] Name Value Range Interpretation Code Description Data Jenise rce(s) Supporting Document(s) ID Date Data Source [id number] 09/01/2020 12:09:00 AM EDT [facility] NAME: ALKA PARSON 1970 50 MRUN: [id number] LOC: ED ACCT: [id number] SRV: O.V.#: RPT#: [id number] CT L SPINE [id number] Date/Time:08/31/202213 Dx: pain after fall out of [...] By: Transcribed By: 8 PACS IMAGE LINK ([facility] USE ONLY) [email or web address] Name Value Range Interpretation Code Description Data Jenise rce(s) Supporting Document(s) ID Date Data Source [id number] 08/31/2020 11:53:00 PM EDT [facility] NAME: ALKA PARSON 1970 50 MRUN: [id number] LOC: ED ACCT: [id number] SRV: O.V.#: RPT#: [id number] CT C SPINE [id number] Date/Time:08/31/202213 Dx: pain after fall out of [...] MD 08/31/202352 Electronically Co-Signed By: Transcribed By: 916 PACS IMAGE LINK ([facility] USE ONLY) [email or web address] Name Value Range Interpretation Code Description Data Jenise rce(s) Supporting Document(s) ID Date Data Source [id number] 08/31/2020 10:17:00 PM EDT [facility] Hx of Present Ill.-Trauma Chief Com plaint: [...] no invol guarding, 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 [place] [place] A detected test result is interpreted as [...] developed and its performance characteristics determined by fluid Operations and verified at [facility]. It has not been cleared or [...] Multiplex RT-PCR Assay ID Date Data Source [id number] 08/13/2020 06:15:00 PM EDT [facility] Name Value Range Interpretation Code Description Data Jenise rce(s) Supporting Document(s) SARS-CoV-2 (COVID-19) N gene [Presence] in Respiratory specimen by MICHELLE with probe detection POSITIVE [facility] This lab was ordered by Noel Adam and reported by [employer]. ID Date Data Source [id number] 08/13/2020 12:00:00 AM EDT [facility] Name Value Range Interpretation Code Description Data Jenise rce(s) Supporting Document(s) Carestart Rapid COVID Antigen Test Positive [facility] This lab was reported by Noel webb. ID Date Data Source [id number] 07/21/2020 02:50:00 PM EDT [facility] Name Value Range Interpretation Code Description Data Jenise rce(s) Supporting Document(s) Lipase [Enzymatic activity/volume] in Serum or Plasma 64.0 U/L 5.6-51.3 Above high normal MED[facility] ([facility]) ALT, AST, & Lipase all trending down [facility] labs. Venipuncture Laboratory test result MEDE NT ([facility]) ALT, AST, & Lipase all trending down [facility]. ID Date Data Source [id number] 07/21/2020 02:50:00 PM EDT [facility] ([facility]) Name Value Range Interpretation Code Description Data Jenise rce(s) Supporting Document(s) Glucose [Mass/volume] in Serum or Plasma 106 mg/dL 74-106 [facility] ([facility]) ALT, AST, & Lipase all trending down [facility]. Urea nitrogen [Moles/volume] in Serum or Plasma 17 mg/dL 6-20 [facility] ([facility]) ALT, AST, & Lipase all trending down [facility]. Creatinine [Mass/volume] in Serum or Plasma 1.2 mg/dL 0.5-1.3 [facility] ([facility]) ALT, AST, & Lipase all trending down [facility]. Sodium [Moles/volume] in Serum or Plasma 140 mmol/L 136-145 [facility] ([facility]) ALT, AST, & Lipase all trending down [facility] labs. Chloride [Moles/volume] in Serum or Plasma 102 mmol/L 98-107 [facility] ([facility]) ALT, AST, & Lipase all trending down [facility] labs. Potassium [Moles/volume] in Serum or Plasma 4.7 mmol/L 3.5-5.3 [facility] ([facility]) ALT, AST, & Lipase all trending down [facility]. Carbon dioxide, total [Moles/volume] in Serum or Plasma 30 meq/L 20 -31 [facility] ([facility]) ALT, AST, & Lipase all trending down [facility] labs. eGFR-male 64 mL/m/1.73m [facility]) ALT, AST, & Lipase all trending down [facility]. Anion Gap 8 mmol/L 7-16 [facility]) ALT, AST, & Lipase all trending down [facility]. Alkaline phosphatase [Enzymatic activity/volume] in Serum or Plasma 63 U/L 46-116 [facility] ([facility]) ALT, AST, & Lipase all trending down [facility] labs. eGFR-Aa male 77 mL/m/1.73m [facility]) ALT, AST, & Lipase all trending down [facility] hospital labs. Alanine aminotransferase [Enzymatic activity/volume] in Seru m or Plasma 144 U/L 4-36 Above high normal [facility] ([facility]) ALT, AST, & Lipase all trending down [facility] hospital labs. Bilirubin.total [Mass/volume] in Serum or Plasma 0.7 mg/dL 0.3-1.2 [facility] ([facility]) ALT, AST, & Lipase all trending down [facility] hospital labs. Aspartate aminotransferase [Enzymatic activity/volume] in Serum or Plasma 79 U/L 8-33 Above high normal [facility] ([facility]) ALT, AST, & Lipase all trending down [facility] labs. Protein [Mass/volume] in Serum or Plasma 6.7 g/dL 6.4-8.3 [facility] ([facility]) ALT, AST, & Lipase all trending down [facility] hospital labs. Albumin/Globulin [Mass Ratio] in Serum or Plasma 1.9 Ratio 1.0-2.0 [facility] ([facility]) ALT, AST, & Lipase all trending down [facility] labs. Albumin [Mass/volume] in Serum or Plasma 4.4 g/dL 3.6-5.1 [facility] ([facility]) ALT, AST, & Lipase all trending down [facility] labs. Globulin [Mass/volume] in Serum by calculation 2.3 g/dL 1.9-3.7 [facility] ([facility]) ALT, AST, & Lipase all trending down [facility] labs. Calcium [Mass/volume] in Serum or Plasma 10.0 mg/dL 8.9-10.5 [facility] ([facility]) ALT, AST, & Lipase all trending down [facility] labs. ID Date Data Source [id number] 07/09/2020 07:14:00 PM [facility] DATE OF EXAM: 07/09/2020US Abdomen Ltd G [...] No biliary dilatation. Professional interpretation performed at [facility] .End of diagnostic report for accession: [id number] Interpreted: Wilder Velasco MDTranscribed: 07/09/2020 07:13 PMSigned: 07/09/2020 07:14 PM Wilder Velasco MD [facility] # [id number] [facility] # [id number] Name Value Range Interpretation Code Description Data [facility](s) Supporting Document(s) ID Date Data Source [id number] 07/09/2020 07:32:12 PM EST [facility] Name Value Range Interpretation Code Description Data [facility](s) Supporting Document(s) SODIUM 140 mmol/L (136-145) [facility] POTASSIUM 4.4 mmol/L (3.6-5.2) [facility] CHLORIDE 108 mmol/L (100-108) [facility] CO2 26 mmol/L (22-31) [facility] ANION GAP 6 mmol/L (7-16) L [facility] UREA NITROGEN 20 mg/dL (7-24) [facility] CREATININE 1.12 mg/dL (0.80-1.30) [facility] BUN/CREAT RATIO 17.9 RATIO (10.0-20.0) [facility] GLUCOSE 92 mg/dL (70-99) [facility] CALCIUM 9.6 mg/dL (8.4-10.2) [facility] GFR >60 ml/min/1.73m2 (>59) [facility] GFR ( AMER) >60 ml/min/1.73m2 (>59) [facility] GFR INTERPRETATION [facility] --NORMAL KIDNEY FUNCTION OR MILD DISEASE - GFR >OR= 60CHRONIC KIDNEY DISEASE - GFR 15 - 59RENAL FAILURE - GFR <15 Est. GFR calculation based on the MDRDstudy equation, which assumes a steadystate for creatinine. Est. GFR should notbe used for medication dosing. ID Date Data Source [id number] 07/09/2020 07:32:12 PM EST [facility] Name Value Range Interpretation Code Description Data Jenise rce(s) Supporting Document(s) TOTAL PROTEIN 7.6 g/dL (6.4-8.2) [facility] ALBUMIN 3.8 g/dL (3.5-4.6) [facility] GLOBULIN 3.8 g/dL (2.7-4.3) [facility] ALB/GLOB RATIO 1.0 RATIO [facility] BILIRUBIN,TOTAL 0.6 mg/dL (0.0-1.0) [facility] PLEASE NOTE:Total bilirubin results may be falselyelevated in patients taking Eltrombopag. BILIRUBIN,CONJUGATED 0.1 mg/dL (0.0-0.3) [facility] BILIRUBIN,UNCONJ. 0.5 mg/dL (0.0-0.7) [facility] ALKALINE PHOSPHATASE 65 U/L (45-117) [facility] AST (SGOT) 102 U/L (11-39) H [facility] ALT (SGPT) 189 U/L (12-78) H [facility] ID Date Data Source [id number] 07/09/2020 07:32:12 PM EST [facility] Name Value Range Interpretation Code Description Data Jenise rce(s) Supporting Document(s) LIPASE 273 U/L (65-230) H [facility] ID Date Data Source [id number] 07/09/2020 07:04:42 PM EST [facility] Name Value Range Interpretation Code Description Data Jenise rce(s) Supporting Document(s) WBC 8.5 10*3/uL (4.1-11.0) [facility] RBC 5.57 10*6/uL (4.60-6.10) [facility] HGB 15.7 g/dL (13.5-18.0) [facility] HCT 48.5 % (41.0-53.0) [facility] MCV 87.0 fL (80.0-95.0) [facility] MCH 28.2 pg (27.0-32.0) [facility] MCHC 32.4 g/dL (32.0-36.0) [facility] RDW 14.8 % (10.5-14.5) H [facility] PLT 229 10*3/uL (150-450) [facility] MPV 8.7 fL (7.1-10.7) [facility] NEUT % 48.0 % (35.0-75.0) [facility] LYMPH % 39.0 % (16.0-52.0) [facility] MONO % 11.0 % (0.0-8.0) H [facility] EOS % 1.6 % (0.0-5.0) [facility] BASO % 0.4 % (0.0-4.0) [facility] NEUT # 4.1 10*3/uL (1.8-7.7) [facility] LYMPH # 3.3 10*3/uL (1.2-4.8) [facility] MONO # 0.9 10*3/uL (0.0-0.8) H [facility] Eosinophils [#/volume] in Blood by Automated count 0.1 10*3/uL (0.0-0 .5) [facility] BASO # 0.0 10*3/uL (0.0-0.2) [facility] ID Date Data Source Comprehensive Metabolic Profile (CMP) 06/28/2020 12:00:00 AM EST eCW1 ([facility]) Name Value Range Interpretation Code Description Data Jenise rce(s) Supporting Document(s) 16 7-18 BLOOD UREA NITROGEN eCW1 ([facility]) 116 70-100 GLUCOSE, FASTING eCW1 ([facility]) 1.18 0.70-1.30 CREATININE FOR GFR eCW1 ([facility]) > 60.0 >56 GLOMERULAR FILTRATION RATE eCW 1 ([facility]) 4.7 3.5-5.1 POTASSIUM SERUM eCW1 ([facility]) 137 136-145 SODIUM LEVEL eCW1 ([facility]) 102 98-107 CHLORIDE LEVEL eCW1 ([facility]) 29 21-32 CARBON DIOXIDE LEVEL eCW1 ([facility]) 9.7 8.5-10.1 CALCIUM LEVEL eCW1 ([facility]) 66 7-37 AST/SGOT eCW1 ([facility]) 134 12-78 ALT/SGPT eCW1 ([facility]) 62 45-117 ALKALINE PHOSPHATASE eCW1 ([facility]) 0.5 0.2-1.0 BILIRUBIN,TOTAL eCW1 ([facility]) 7.2 6.4-8.2 TOTAL PROTEIN eCW1 ([facility]) 3.7 3.2-5.2 ALBUMIN eCW1 ([facility]) 1.1 ALBUMIN/GLOBULIN RATIO eCW1 ([facility]) ID Date Data Source [id number] 06/17/2020 10:40:00 AM EST [facility] ([facility] Name Value Range Interpretation Code Description Data Jenise rce(s) Supporting Document(s) Creatine kinase [Enzymatic activity/volume] in Serum or Plasma 166 U/L 39-308 [facility] ([facility]) ID Date Data Source [id number] 06/17/2020 10:40:00 AM EST [facility] ([facility] Name Value Range Interpretation Code Description Data Jenise rce(s) Supporting Document(s) Triglycerides Level 114 mg/dL [facility] ([facility]) Cholesterol Level 165 mg/dL [facility] ([facility]) LDL Cholesterol 105 mg/dL [facility] ([facility]) HDL Cholesterol 37 mg/dL [facility] ([facility]) Non-HDL-C 128 mg/dL [facility] [facility] Cholesterol Risk Ratio 4.459 [facility] ([facility]) ID Date Data Source [id number] 06/17/2020 10:40:00 AM EST MED[facility] ([facility]) Name Value Range Interpretation Code Description Data Jenise rce(s) Supporting Document(s) Glucose, Fasting 113 mg/dL 70-100 [facility] ([facility]) Blood Urea Nitrogen 13 mg/dL 7-18 [facility] ([facility]) Creatinine For GFR 1.13 mg/dL 0.70-1.30 [facility] ([facility]) Glomerular Filtration Rate Laboratory test result [facility] ([facility]) <content>Units are mL/min/1.73 m2</content>
<content></content>
<content>Chronic Kidney Disease Staging per NKF:</content>
<content></content>
<content>Stage I & II GFR >=60 Normal to Mildly Decreased</content>
<content>Stage III GFR 30-59 Moderately Decreased</content>
<content>Stage IV GFR 15-29 Severely Decreased</content>
<content>Stage V GFR <15 Very Little GFR Left</content>
<content>ESRD GFR <15 on [employer]</content>
<content></content> Sodium Level 141 meq/L 136-145 [facility] ([facility]) Potassium Serum 4.8 meq/L 3.5-5.1 [facility] ([facility]) Chloride Level 106 meq/L 98-107 [facility] ([facility]) Carbon Dioxide Level 29 meq/L 21-32 [facility] ([facility]) Anion Gap 6 meq/L 8-16 [facility] ([facility] Calcium Level 9.4 mg/dL 8.5-10.1 [facility] ([facility]) Ast/Sgot 117 U/L 7-37 [facility] Alt/SGPT 201 U/L 12-78 [facility] Alkaline Phosphatase 58 U/L 45-117 [facility] ([facility]) Bilirubin,Total 0.6 mg/dL 0.2-1.0 [facility] ([facility]) Albumin/Globulin Ratio 1.2 [facility] ([facility]) Albumin 3.9 GM/DL 3.2-5.2 [facility] ([facility] Total Protein 7.1 GM/DL 6.4-8.2 [facility] ([facility]) ID Date Data Source [id number] 06/17/2020 10:40:00 AM EST MEDENT (Cardi ology [...] 24.0-44.0 [facility] ([facility] [place] % 11.4 % 0.0-5.0 MED[facility] (Cardiology A [...] 1.5-8.5 [facility] ([facility]) [place] # 1.0 10 0.0-0.8 [facility] Lymph # 3.1 10 1.5-5.0 [facility] ([facility] Eos # 0.3 10 0.0-0.5 [facility] ([facility] Baso # 0.1 10 0.0-0.2 [facility] ([facility] ID Date Data Source LIPID PANEL (CARDIAC RISK) 06/17/2020 12:00:00 AM EST eCW1 ( [facility]) Name Value Range Interpretation Code Description Data Jenise rce(s) Supporting Document(s) Cholesterol [Moles/volume] in Serum or Plasma 165 <200 CHOLESTEROL LEVEL eCW1 ([facility]) Triglyceride [Mass/volume] in Serum or Plasma by calculation 114 <150 TRIGLYCERIDES LEVEL eCW1 ([facility]) Cholesterol in HDL [Moles/volume] in Serum or Plasma 37 >40 HDL CHOLESTEROL eCW1 ([facility]) 128 NON-HDL-C eCW1 ([facility]) 4.459 <5 CHOLESTEROL RISK RATIO eCW1 ([facility]) Cholesterol in LDL [Mass/volume] in Serum or Plasma by calculation 105 <100 LDL CHOLESTEROL eCW1 ([facility]) ID Date Data Source CPK CREATINE PHOSPHOKINASE 06/17/2020 12:00:00 AM EST eCW1 ( [facility]) Name Value Range Interpretation Code Description Data Jenise rce(s) Supporting Document(s) 166 39-308 CPK CREATINE PHOSPHOKINASE eCW 1 ([facility]) ID Date Data Source CBC with Differential 06/17/2020 12:00:00 AM EST eCW1 ([facility]) Name Value Range Interpretation Code Description Data Jenise rce(s) Supporting Document(s) 8.4 4.0-10.0 WHITE BLOOD COUNT eCW1 ([facility]) 5.58 4.30-6.10 RED BLOOD COUNT eCW1 ([facility]) 50.1 42.0-52.0 HEMATOCRIT eCW1 ([facility]) 89.8 80.0-96.0 MEAN CORPUSCULAR VOLUME e CW1 ([facility]) 16.2 13.5-17.5 HEMOGLOBIN eCW1 ([facility]) 228 150-450 PLATELET COUNT, AUTOMATED eCW1 ([facility]) 32.3 32.0-36.5 MEAN CORPUSCULAR HGB CONC eCW1 ([facility]) 29.0 27.0-33.0 MEAN CORPUSCULAR HEMOGLOB IN eCW1 ([facility]) 14.1 11.5-14.5 RED CELL DISTRIBUTION WID TH eCW1 ([facility]) 36.9 24.0-44.0 LYMPH % eCW1 ([facility]) 3.0 0.0-3.0 EOS % eCW1 ([facility]) 11.4 0.0-5.0 MONO % eCW1 ([facility]) 45.8 36.0-66.0 NEUTROPHILS % eCW1 ([facility]) 1.2 0.0-1.0 BASO % eCW1 ([facility]) 3.1 1.5-5.0 LYMPH # eCW1 ([facility]) 1.0 0.0-0.8 MONO # eCW1 ([facility]) 3.8 1.5-8.5 NEUTROPHILS # eCW1 ([facility]) 0.1 0.0-0.2 BASO # eCW1 ([facility]) 0.3 0.0-0.5 EOS # eCW1 ([facility]) ID Date Data Source [id number] 05/30/2020 12:00:00 AM EST [facility] Name Value Range Interpretation Code Description Data Jenise rce(s) Supporting Document(s) SARS coronavirus 2 RNA [Presence] in Res piratory specimen by MICHELLE with probe detection NEGATIVE [facility] reported by [facility]. ID Date Data Source [id number] 05/30/2020 12:00:00 AM EST [facility] Name Value Range Interpretation Code Description Data Jenise rce(s) Supporting Document(s) Carestart Rapid COVID Antigen Test Negative [facility] This lab was reported by Noel webb. ID Date Data Source [id number] 04/08/2020 06:51:[address] [facility] Name Value Range Interpretation Code Description Data Jenise rce(s) Supporting Document(s) ED Provider Note [facility] IQYUZa9tBrKHHfGp77/YRXvnMOEnm0OaRSuxDXg2UBawFKGsT1BqHPM0pB4xVGQ7RRuUMlCrYpGgBoTu lbm [file] rzJZYQQpA6XbiyCGqgQFPMEs2K ID Date Data Source [id number] 04/08/2020 08:27:43 AM EST [facility] Name Value Range Interpretation Code Description Data Jenise rce(s) Supporting Document(s) Progress Note [facility] LZBMVf4hQyJUYyQc16/DMInaRNTtm4ZtVAhnYHy0ZHqhUMNgS1NkTKT3cN6iVGL6HWjVJbLrVvAjNvAw lbm EeZofCEgKdNJFeUsjWHrGdTRpyDmeipTMpQK1OxDB5FFRoF56rIALxCBPbM6ArUMK7BPT+Dr3JIKItlK ZiGM5QGkcD1Y60g1aRWr+/QL/BBtOn4PFynzcht+eT2JSW8gRzd9JEVzAPQ9QHeoEARJ2lwzDR3HudoO fkmdA/c9qp8iSBGe7ZiuvFg9Y7DtTEV8+bjAszHX2v /65+jRKjzq/Vn/+k2zv7YkUo+br2Z6gMpQZWUO5zq/r68wd+5Fam075GtBqhNBgbJtAuOI3VT2L6ueAW 71TvndK+d66VrvrZXOaJ8LHqBctS5xycXTnSJOCz4rEaTbdsmDbakUBQE5BOoqBiFziYpJiWJWnLehLp 4SVpPxXSUO7aQ/MNCjGIRnHDAX5RgJeCPZOjjukkIj 6uuuigAi968RvT5J/2d8owDMtm5Y0B6a6En6pusrix7YUaPOjZqZdN0gv6nEYfm1FwuqTGTL3iAQ0zmw 5N1YVb+QkwXoAubseKQ71iWsLdm/eS2GM/Bajq5jL9Fm+g19j0xe9BCoy8o1el+cydZEwSBWtcjkS+s2 FuoB7Nu0qIRwklPYVNHTugv102DODfn/G/TY/bmWz8 OFONItpr9Aj7YvrVyhD37I6ydyywawqaqdbDovsiI8bOBTSLEtI1Qi/qxDl4G+lzW1vJ2+UKXWN4qFC/ PDfwT8ifaVDe1muUPWlgg6/UZG8SbIJhFxs4f+2ivqnnN6i6cbE15O/M3wTQSsZ1fOykGsiKC4yqlD72 siE5vWUuV31zQQ8efGvhk76+opelSfODZwuJbfsW3W d+psposrSnRfodGnOhnaZF9H2/IZ6l7iz4IFazUdQc8nR9wxqp/osGiCFxuTPqq+dLLuFo6Ki/TEbjAo fftiPSFEsrR1l7OBOlEyMLXbIYInFbN2YQRrHQa9/xbysZg+3cBBokjI9C5r2Zp+g+YfCDKEcR7/p613 vXD2ti8RJkL07m7VUGYG3M9s0U8vO01J7d97Z2Lw9a NyLQU7IE5rQbqJT7ybghrDYsT96hAdsbf2uXOShZqxbBhVsi8sK6MR3vC50LznL8htBQpOe5SikHn9ot CFI3s8Vuh5wibaVXH2GMEKcoFURORl9khgc+RICeokK/w4skmAujW1ayYzIHAwHhgbNqSP4L+yC3E3lT 4WGOAg0n9u1uVpQGVupM6ZMF3M3fSer4CYXRtyyKjr I4luEJlqtw35fLovnrZhQ+Au29rj03uG7WtN8G194NWcjJEguwrTMq+w42Yp1q9TGnsgO6Oy4HMLo2GH kuCBEhGWmq9yeiB514Fk03D8V28U3/YqNDrhuq9+mypkqxdiBVDmlf0agJ6RbZx0FT4xC9c/XxRJ9zIh 9Ah2dpmKGERtjhu8h56p4Jjk9Xi76J6IenU+PzyWI8 M2sbxH04gSAu82LYH5AIstg0TyzPtFtWCaACuLiASXeDRr2+EKZXM5kamIbfRJzBBasdgp3elZo7/JfU fbVNYiqXuajNWiosM+gzR8S/5iIsTOYc0nHpksjdugW6DAeAtlc0KpVy++7RPHavgMycuTInljI2P0GF DZ6yi7EHLMaPBe4Hq49qSuxUVlIly+lZIrOQJz6Rv9 ev3L3Qqy3uYwvBed+QQZi3bUP5B/QxTaLlyPTLaxMMpgbYEdq4Rudd6ikgAuiIXKZgM0YwVZsZG5PenQ ppHU8PSATTZwACnTN3sJDL4GOpRKjOFstYNVKeXmMWUXXAffEb9m58VdXqRfLr5BKG2YhoFeOgFsA7RO HczTyCUh4hdQtcpvkDc1dJzaMlmCmHxzft4DTVVPaQ YCgoHS5YRXtPHuhHhSOwtuN7aQwAunj0lzFQPSiJGMBroouqAKTLaLfDPrST6OujICxMNd3FWm4iFi+g iGALtRUfRdspG0G/iG6WPqWWLVIzvlO1KxdcLv4jl2+KuSuCZvwdUP6obLjFCom/KLSH3pMDAXySfAf8 V48izhaszdG9CtsbkrEDGwYVdbkLFsttcu4aJ7vUnY [file] MDAwMDAyMTczOSAwMDAwMCBuDQowMDAwMDIzMTgzID XhGTWrXC8OZmYcRZQeFsGpGYNfVZIgWNPkeh2WBXPqZZIwEuJhNONhRZVyFLRgZDd1enTwvLZvUMr3MD 5SA1WsooIyMzCLWb7Wv205MFLiRQCgZc4HZ8awHz5pFMNnYBURWe8MVTw9PQL6GvUdQbNxV5V5GqEsQA L5ZhXaSxQyQNT3QKO2MDQ+LUkaSZTjSLZ6LKL8ZHFr PRSiDBD4VBC1Z0K4XsgoPtx7TS4vHATKLz1+BDblbTNgdXtmREJGGbHhRhJ7QOrpKRHZQm6R ID Date Data Source [id number] 04/06/2020 03:28:[address] [facility] Name Value Range Interpretation Code Description Data Jenise rce(s) Supporting Document(s) ED Provider Note [facility] DCWOYa7iGgLHEhCr94/HXMqjSUZlh9PsOBldFCu8QKrfPCQaQ3NzZIN4zM2iNHS9UKqDVuEaSgMbVmQy lbm TqOcfIByWxESJaPmfSCvZdTXfnSxevcCTiJB9NpWD2SKUeC84fRIWbFOJyR1EkTCS6TBt+Dm9QYUFgeD MgBY3KSgyL6J8fy3n2Ft+/mfsOfLmZdiaxCYB/AL+2ygsp3M0b36c3huFlZCgjdCHyS6ZZ34c0d2tTRU jbXf0LZUR31zI8YUWPqlp4CfuFKQZ48/zbN25REMwG /z3+QZ5BsgeJN/8SrIcp+Ths/ZMNIg/IUIepfSD/qcSXD/xwGez/AHO0sKBsS870OmupUz1nHSgkH82r fB9c/dqSSlM2gnCXDzRFLyiMD1vhz6d33nQ9aqrdWRp7yiYNuKXfg4BjAhMAF2hRwBXsOPsIvmEEWxRQ O3/1iuU1egPpKP4TqQTrX2MtJluovNyeRSSad51N1k pVdEfpYghgu2OKulH0BbkmA0iXDVfwHAHYVEM+TPdlKMNeGEWFcU+VQpsxz8dBGAZRkgMa0CIyLh89jt xaFe3OrdzlL22vD+CJUTcldssOTzPbVJA7j18hEfujNhhWRK0et80uQBqbZwOx5kAHMZazKdYtSgnJOm qEAYAAUG2VlNnQ9EHWVMqACzILQASEIwDmSPuz/ITI [file] 7jIWjdET3Tt4SVA8Ye55hLczps8TvQyfcqBdaAyG8qG5cEztPkGvqq4/398Nc7+LuzPGukkCrc2uG+[employer] [file] ICAgICAgICAgICAgICAgICAgICAgICAgICAgICAgIC AgICAgICAgICAgICAgICAgDQogICAgICAgICAgICAgICAgICAgICAgICAgICAgICAgICAgICAgICAgIC AgICAgICAgICAgICAgICAgICAgICAgICAgICAgICAgICAgICAgICAgICAgICAgICAgICAgICAgICAgDQ ogICAgICAgICAgICAgICAgICAgICAgICAgICAgICAg ICAgICAgICAgICAgICAgICAgICAgICAgICAgICAgICAgICAgICAgICAgICAgICAgICAgICAgICAgICAg ICAgICAgICAgDQogICAgICAgICAgICAgICAgICAgICAgICAgICAgICAgICAgICAgICAgICAgICAgICAg ICAgICAgICAgICAgICAgICAgICAgICAgICAgICAgIC AgICAgICAgICAgICAgICAgICAgDQogICAgICAgICAgICAgICAgICAgICAgICAgICAgICAgICAgICAgIC AgICAgICAgICAgICAgICAgICAgICAgICAgICAgICAgICAgICAgICAgICAgICAgICAgICAgICAgICAgIC AgDQogICAgICAgICAgICAgICAgICAgICAgICAgICAg ICAgICAgICAgICAgICAgICAgICAgICAgICAgICAgICAgICAgICAgICAgICAgICAgICAgICAgICAgICAg ICAgICAgICAgICAgDQogICAgICAgICAgICAgICAgICAgICAgICAgICAgICAgICAgICAgICAgICAgICAg ICAgICAgICAgICAgICAgICAgICAgICAgICAgICAgIC AgICAgICAgICAgICAgICAgICAgICAgDQogICAgICAgICAgICAgICAgICAgICAgICAgICAgICAgICAgIC AgICAgICAgICAgICAgICAgICAgICAgICAgICAgICAgICAgICAgICAgICAgICAgICAgICAgICAgICAgIC AgICAgDQogICAgICAgICAgICAgICAgICAgICAgICAg ICAgICAgICAgICAgICAgICAgICAgICAgICAgICAgICAgICAgICAgICAgICAgICAgICAgICAgICAgICAg ICAgICAgICAgICAgICAgDQogICAgICAgICAgICAgICAgICAgICAgICAgICAgICAgICAgICAgICAgICAg ICAgICAgICAgICAgICAgICAgICAgICAgICAgICAgIC FqGKDdARVnLNCsHIEkSDJhLPCaRFSnTHUpCRm0M8fwAXHaYJTjOX4dQNm8Jw0+JCzFEpAhQYG3onRglA 7PCW7ae6WxOSgrUCHep3HeFGr6XK6KBUEdAVwfDR2LHCohjb6OSWZaADAjsLRQh2xwJqGcYAT2HQNcPd bbBP6ISVSmD4mmucEjFABlCVKTEZqqDMFLMHajCRDO QQPzSYAlPgIpGhDxCGEiBBYcKITYDFC6EIXrRgMoUEezZI2Rl3QhoOD0NOt+Ck1RSJ9pz3CuUJzsKxBi TY9acp4LJBgRZmSgF5BcgoS7IRX7USBnVm2EEVBkHISopYK5ByCnXJTGXiZqP4SnlT37TAYROn9+DQpl sdHkRfiWWhX7OBOgm4RnTWr1DF0OUWPfENi1mFZfLU WyVTUzzpdiYXJuZi32ZBKmEdxwMVP6ulmigvGGBHOzV40cblfmQHOzVJIcEKHgLgmoMqIqGJTzAtjjXZ KMPUeISbZyQ3Ula4MfWrV9GSToHyPbBUjjOLFyUnXuPA90zEitES5NRLCgLLWnOU62AWN1RGKwAj0NWM QsKhfkw5SzLlzcOIHMISbsJM9TVJB6EEI1YJMrRh4G FRPtS461rkHqKSDCZyFpT63buYIbCHDbWOEDVPb+Xg0LTL3wh5TxUAeeDKBwCB3edi6QZJpIPrYqR0Ww zZhpSJUkwtBnz72sMWeXWvTvH0Oyd0TjGbA1UVYjPvStPLwoCJOyZoS8AG10jFypOX5WWWApUUNpJO36 NBC5PRTdAn7DBh1NXvLsHS3woj4WAGTnIBZhThxXJt x3LYrlNK7VuIZfCVxJHVXFpj34nCBgwjXMd6IsnvHuiFKTZFXkyIBsDBIeRHJlq7CjTNRNNZMykRLyAY 1tQC2aNKJpNVEwFsF7DGLIMT6EUYEyZNTfsYAiEZvbUCXBPU7DGFenPSW5UFJukqJugJYmLHaeRO6BGT GnioPiGellWPFFCOkkKP2UdhD1JCK9RXQjGi8FRDGh YiS9mPE6ILAtHSMTZm0+CNqktzZqYlvMDtBhROSoc6WoDXd1XP6MZXKeIUp2iLQkPIGxFd05XSJhVflu TF6yVGRJXMYjQVYfvQLySWLZEsSoiIVjLC8dZB2kCTNnNTFrUuPcDACSOZ8OLQTfNCRlkDSpYSFcIYWp SxHoGRqxLBMsYij0BL99lNyuUT8ILABcWQXbEL60MN Z7UFNrMe6SLAYyPYRpagE8RKSfEVRVSoCfU69goRLgVRPvQHSBLYx+Gp6ZXK8de4JtBDc0RhJyUC3rzj 1MEDuFCxLyW4RsxEwdWAWAEIAdu0VzQLDhJT1owEEpTMY5FYBeRTIfQyREqJUvbI5vVPCnIASUZNQyqB ZqWX1zEr9oRKXrHEMiQgT2EZKURY1BBTSiESSpbTJu YWIbSBCxGjJdFGhiKSKbHGz0WT98mDfxNU6YZHNyKWOiDY87QCM1MAIhLy9DINUiWXNhngM5BIKnDMWZ SnKvC31vnIYgTHStQUVKHVt+Gn7YSO5gv8GrLZy0JhVkRQ4rre7ETJzGPrYqX0EuwNduXKTMUTJesUDw AAYXd7BsjyUugTGDQYzrmjFyLsThqFAfIOjqWh1zHB YeKMXpZsdzGvUoFZEeXAu2JiALYOzFMlYnE0Byk6VeTpIaScFfSHLgH6hQXhSsOPO4CLOqtTqvDG9KSa DiI4RvheEqnHBmMnOvXLYTGnCsS0AoMSSxXZGsBCVYSAy+Al5QPV2pq9ZiBIf2UCIrQW2tur4LDXwZOy RhB7Y2gWMzX3E4JYioMg3NDMRuSWKyPwFpTOIOUNkz QE7PFL7jjyS3HB7CxRRdPHWhEIExmMOxQTb4X37wyCGbTEogRB7MMGU+Mukul+Db0LITMxBZVwXYVcBpFc ESLPWaBpM1CwP2IAv8YhI1AaBO66xFxxqvVfUPqvYG0MSK3rERAeMUSHLH3WlVRykV6lukVdTeMmSALQ FcLdK33fwIOkWHPeUNF2OOYqAt2ODNYqE7VmueKkjI wjdgSgIHIwQJVTMY8CAVhlvpZsvSUwtHcvSS93uXfjOF0TCb0PGmCbWS1iwf6EyGQzIv0AEOT0JJ9OXT UlBJCkTRKgMUV0YCNaVwMiZKkrVREuHNJsDLN2LCHnQUMsXL3DYpRkIKWjQwh5JetlPVVjJPMvld8EXT HbRDU7VXHfVQYbLMTlXXZlKIsyKTDcRARsYXT5QYCw OYRcLL2SPtZdYYZoDUD5CZgnDCTsOYXwsf1QWRQrHAWwSdp3FJDeFKTuZQWsHFgnMBAkKCJ8EgUpOGXd DNKkJV6WXmMwKHZnKPr8NkNvATHiJUVytj0VKFSiQPIjWVP0SHYbSNJfTTKcDCsgOBNmTTJmUBM6HWSn ODOsHB0VGpOmSHMoLIC5IXphVQCwKMMowl4CEFQmLW OeZzknUCUxKIEdHQFsZCuyEASoPOX0JkM2DYKqXWNwWJ9MNcPdWBJbFBW5DeIfVZHlAXQyni3WKKZqJT OrDCU3MQQnELFgLQKxILyfGUPoULJ8JoA3ADNzGWCxIZ7SKwGaSRClKhM4FNBsFUWlFFLdis3WWUChLK AyMjAyMCAwMDAwMCBuDQowMDAwMDIyOTgwIDAwMDAw JT3WZlSsRRCgBjYmOgzyUYOuGBPkue5RJKKzHFGnUoS0EEVuLUPpARFyMDrfXONnZZP9CtF9VHOtRIYa NM8MYdCbKABrZrG4BkAeVCKfGADbfk6FEIItFNDyRVemZHEqKDJsEGVaNWntOLFuZPT5VxV8TIMbVGSv NZ0FTkJvVXNsScD1YjCnWJAaSKXnnc9APENlGCTmCk N3CCTkIYWqRPSxNScqXGPbFNE5HCK6FSAwVQMgOZ0EQvWtMBXoJva1KFNeDOHvWKKoyh3IJPFuJRDkDb g7NSSjEDKbVZZaXWmxCHYdEDS5YqMcABYhUKDrUM5DOmKnNTSiJahtXIScHSOgBFGhga3IHBEcFXRrFW U8OYYaFKXjJCXmDXbyREWwWXL2VLa7JSWlTPDuHO4Y UtGdLOCbWwk1XZGlTRPyZEKsrg3CIYBqKCP5BZW1LIWdRVPcISPaZYbbWYVvCHMmAVO7OLSoWLXkRY2E PvMfDLMfQYE9QfboIGFqJXRzen7WZTNmTFA8HOr6QYDtRABfPWMcJQzsKZBdNPQuSOO8GNYzPUXpXM9R KgYbNOOkYVNiOOYeFEMuGJEvvd8ZRWPqAYZ1OwDbXM DgPLDoZWBvWGwsHARkVVTuPMF5JFLeZOOqWT1LUzMkJWMcTSH0AmfyMBFyPHLvrn9MiBRrlLgzbj2TUF vSSv1YhPdnOQH1ZKagRw8ptXQ2LWWnYVPQXb8CdtDgKYIbKEHGHXnrXQTlGAPxDhHmROQyVIUeMqAvMS UfReV4HFCrIVmeZEHiIAMvHxG6HcDgFPD9NxB7DsXn NzEqBRJaVHn1IxQhBcYvYiTzH5X+EM4jLXz+Oz0Iz5CjvpC9ehVqMCq5OkelCN7USJGNB0YKFn== ID Date Data Source [id number] 04/03/2020 11:24:23 AM [facility] Name Value Range Interpretation Code Description Data Jenise rce(s) Supporting Document(s) [facility] KGBLUp7xEzPDFvTvk0HkNwMtQIZrGY5ylfg7R2L9nZHhT5PbcEItd9kaM0YcQ3OjIYBrUOJMLK5PjURb jb2 [file] oc92RvYgRD554Tl05r/n7PB7/GJ46BN0z396kTQ0UN njMVQ238u4+eAD/6jnNCLPjVTZ/8OHN+7I9j3HemF/r2yJ/Ba7o7ifdJYC7gpNO0y73Svm/l7zwB/tF3 jzwn/gkS32jSG+2o//NwLgb8Lg/K8+uHXy3/ngr/X2e31JV/x0Z1h109m+fHqSfa+je3QQHg2joXd1HP h1+tOBJ5+NVt6+b8ux5M1eayvgH97Z8+HNsMfnXTJ/ 88c/fDaNWpBIuK3owO+Et/5/saMlvs3zx7cp/n+Vi9fxkA0AuaptirW62QbSbN7rK+Hs9zv80M60tYll BfkK/Ko76dkp/lyQn9IMS/kG+hg9VW6UjEVh0+lfY//OqbtvfMwvML+Rv5+9Vz+FX+0hrveM4wyqIFQ7 /xvD7/Ofwq/dAhp6vzlE/IN+Fk9y47E4tz9E9AMfg9 +FWmN/L3yw9+ddNvvAe/umnkK/IV+Gnev2g0U1/Io7MDB6/KtCHfkO/IP/rGKVfH+A1+WiIN8OiAL3Yi VRwnCrQlHAxft6uP9zT6hs6mzjd94upPpoDlzn+R39/8dvhVzkWHX+YuIkah9X6YhOun9wtJx6fH00bs 5fx5+LP9anvClqNO5onG/qY38s/4zLbAQwJ77i/8WL 4Xj0qcAh7+kbHE1kHNQB3qULm28clM/kD+GS2z06F/9N1R/4S78oFGBkv/kL+Qv5F/9I0+C17XYa2+lT Y5/LdihXgO8vmhh73p+n8ne5ti6fR648umW/ssDx9Aq+ERkcO06Nj4/OTwq/Sfw6/SJw+/Sl89/Cp9+P Zk7C5Vm2Q/f6pgXUvq4ZEBwRYhBjhnHXho4/Scu35p 5Hc8/2gkAPB0mKXtxpV+4XlH/W++Saztzr32m55/0WnxfjUY1/RG/ltllknqh9s+IF+Wp6xP1Fkuk+SP 1//Mh2Dmd16933y46QchT+gNh91KrQP6ScVS9WoMF4DhJs/Z8ex7TslR/variety lathe operator+O8XC5V3GP/4OyPJ5XyV G1Hl4YdqPx1Z/kL+/gQ6UmmzcVm40N2dN25iSsk5/L 4dv2/H79vx+wa/umnkG/IN+Y58+HOfyJ/Ix+/d3ggLz2z+79f/7Mp5jKj2pnO+KT6o2WRnaiC/vtGDX+ Mf4RkE5bA2G/Wq6RsV9lZ5I0Gp0UcaYc45dlLtKk3ObaUNwyz4TPe3gcus6/I4Cp0Eukn46RZbVl+KeT X33Ni8a3lJe/e+5UFu3NUmJ7/ehj2gXf9+lfUffSPt mJ+ZZ6YifA/IV+Trl//52Vr0yWlSd8yxwv7HZ5Z90PQ8BTR5lDe2XG7Hw7cmc4au+D603bwFX12qwF/C HyJ+Ff55+NVNw5+j8ekNdObvVE+c7KxKu56d8+jqr2Zix297K4h/6AH9nzyO/Pe+bT50luIjEqeRlJN+ Ih/gn9B8kqQEVe3jH/oujN+I6zpambhod0H1nsI+Wh i/C+N34/qkGJ6g17xr/A9F959ztcD+S40tec640/fd+C496T4Uj3VlAk3dNR8d3Upr34k+++r75yF4wA Z7Hj5uL7MviY/+GUn9tZqsqQ/If++DI/kTyZpBtbWO1r5RrUwjkyBa+ktzP19Tv+kUPA1t7ph0NK+LETICIA 37vh+N4Fd5/juGG6vpv2zvylZLT39f8kRxR+JXeS46 2xPP4RQ/PO/DCgFeZHe78ivgZSma3eVfxcO/y6C0It4iV9590SUrqC3+HsGvdqTly+dUcF7DSMm64xrl GHK+i9qPkYdYmm4us7KgiARmAh3QutX6lS+OiF/p9/slimGk15u8GwJQ+ga/ioNg+ubnoW9+Hrqh1/6u FyP5VY/6heo33Dp+tDffb4x+75My5orkc0l2blx4Nb 9ufTy9+yhDfkDM80Dz/kb63jWdxrRDX4Cijw+nIse83A/Pwa8G+NUAvxpDkC/If/x5BL+K+ugWT00Lek /Y3oQ4EopO/OqmX/+KK963hcSN0X/Mh0EReyjJ/n75ht/I4Pmdur/pK2Jg1GfxHj0U/uMbI/hV9D/4Vf xGwa/itwt+FX5i+K7OX3Z2Uu3fefF/IZ4wa51p7H+e r13GN746/CrHkb/48zk3/NLPbw+/+qaRD3/8L335N2rz+O84cfaSJ+M1fe1DBv4q2AnO+VzxpGZFQl75 x2yMXBe36o5/vnjOmC+eM+oQ00oHZ3W0H/QsFdmE7t60X629aEgpr3pwQ49622y12JdwJbE01n/63rS9 Gxu3MtC/4/rbn0Y13Fk/YzrzYxoK6icytTPnfPbbde OKfEV+R34/+APBpVkkpcX96YfwE7kJ/kT+RP/U0xqzN6Zwy05AF736Ct7HrdCuAxZgUfojW1+J+FX4Vc SvwvcifhX+WnZz2ByMx03gm4gT+QTUa130oa/vKWNjPdoYv/g6K42G5YrqTRy+LBJYleiFDfww43uJ4B le68np1k8K7n69qK7VX1e792KuD/mGfEO+I9+RP5E/ kb+Qv5C/kf/iG7N4T6ijb4oGHddFCCH91vaJ9/04supgIadVV4xP1BobYyaOwOr+RP5E/kL+Qv5G/uOT qrtTEM5nzH3B1jypGn1xqtc+50vsp4RCkv3KK1C+Cn0V+zx8UxdR96An9Uuwd8Fy/viGdfy+Da4d6ehG +FQyqnV1wC8Mf2+PrL/iE8RJ5v22dhaU/vteZsGvNP Ju1dWtY/kLz7/3X+yxb1oW4i0Cfn7nFh9/Eb+oHW3W8Z1PI/QbVcV0R/mGfEM+fl/VtmcsNir8vJW/kwong PE5y5BykVzigstH54SwaV5/lkMI1Ccyz8yqlKXqtYTpgsmY2WOzaA26JQCycMzuh20foxuooC/In+hno D8P263o/OS1jrOMB/IF+QL8jE/O+Jz55sspL/IH8h/ 0Ytp193X9Y4C8H3GUu2E+EECF644d5/UNBS83zfmo3n067X/U67b09HtmSG8uxgG/O7zfd+3+pys4Are u22+7/uG7iubBj1o34V/Uc9E/QvtLuS//XU23/46W29/dLR7RbOh9tN/jvjVTSO/D86avwS/IN+Qb8h3 7IsmNH1whLvN30QfeZ48Jrcp2yb2qoG0Dmreod/vu1 +7ypbHk6zMnDWmX55OldR/cdSKffv6vtpHi8vdzgK/IR/h94h9rA807ruga5g43AurJswEzR1xm8Qh8M TyB/IH8t/v6+35swe/drGwzy4a5fxsbhhYPp2Vi2/9Kt7e/mfH/iuXt7/DT07wcnq588xk/1XP9Cc/Ts fE/qsWx1A/+u2wiN0488+K/pfpo0xHp/L9PQSb+6xc 1a2kJ9150IYMbg2jD0zz+F2jo5w7FSX0s+d77L+K+associate financial analyst/VPiTgl4Nnq330EZ+tSP/vC+8Y6/i2KggzvRo etRTgbo7EPsdqZ+8Fl64no1NBB/48XluhR2fy74nq13tyfI8UnbuZ85mvufpr6Vfh/L+zo8Yx6g0/Lm/ 0hq2w72O+h/p7M0Gt3do2E0bIPl+zLXL9F98S+H5je cfn/Tx+LOPhnxBviD/fU9xfB/0/D4Y+f21G/pxdnCFsdVzfNfpz9P94H+J/RC0rDo52xFcx/h97a2/rocky [file] yntzyntzyntzyntzynkd+BwvnmX7xvqu04IZq+2aJf ouvVesr5vxud1zfYdaTszk042pTcUHFmOLh4eL7an23hLZ/bwdgvA/cpg3du6nrnUP2WoKQZbb8PyeHY 13IUM0Z2gJBU7q1ebXMtsf0+0vDN4bxmF0tVnX4Q9zFLG2xH3ZB91whNY9MXF2IIRE8sGAyX9eZH20E+ UBgwDd1sGh+nx+C23HfX2VE8zD2sRcbYjALBGpvvm6 9VDN/NXlmvYIjQ56H5gwGi2kyHqHZ1oN5eINrBrrZykNFAYYyeqkAT+VA5Ubnai/Lj8jwh2R0ySfeFCl EZx66loDztykbsCFdLA1+TSiibbl0CzOluQVWbrJGwI28XZ85gPMzJZcxylEZJ+vkywq54gTYkepI+kN /F2ER+F+MW+z2wHRXepyLL+h5sYOrrNF1gvYVr62bx Hji/Y7ATJfc8BfWI1TdM2fo8NV9mWIyW/X5DMUlY1f2W7f4C1g5R4m1I9+L3C+kvyO+iLyG/+6xi+Gb5 rTReZI64JP8ZwoqpIsI02PnSR+87stj9yG4oD6ub4zb2ObPs2PsSTe58ftIXZlPSKVxsydenFWkvB597 SvD7nX8bWGh/1Jx5IL/dltwfLzs70clba1NhofmziD rwGYdBEavWqqPgae9O74C241MVsFTk0EL1nUljNl3+y/g6kd+2xlbfy2+2+KYUH9w5RXxstyinp6/2Fr aJzdaaWHQPs/KvwrfJuiw3uIzVct+n4FmynntnYXJWeqqlnWUd/fU79WoSjgBLcuui2B7w/LP0rge+ef xS/0vkZ/1Y/Y+HEEL SHAVER+v4pVbf/uzg0i5nSO5etu1V98JE [file] JUVPRg== ID Date Data Source [id number] 04/03/2020 09:06:19 AM [facility] CT HEAD WITHOUT CONTRAST [id number] RESU LTInterpreted by:Brady Joshi MBBSCLINICAL INDICATION: 49-year-old [...] rce(s) Supporting Document(s) ID Date Data Source [id number] 04/03/2020 04:57:27 PM [facility] Name Value Range Interpretation Code Description Data Jenise rce(s) Supporting Document(s) Specimen source [Identifier] of Unspecified specimen [facility] SARS-CoV-2 RNA 2019 nCoV Real-Time RT-PCR: NOT DETECTED [facility] Assay Performed [facility] Patients first test for [facility] Patient employed in healthcare setting [facility] Patient has symptoms related to [facility] When did you start to experience these symptoms [Date and time] [PhenX] [id number] [facility] Patient was hospitalized because of this condition [facility] patient was admitted to ICU for [facility] Patient resides in a congregate care setting [facility] status [facility] ID Date Data Source [id number] 04/03/2020 01:03:00 AM [facility] Name Value Range Interpretation Code Description Data Jenise rce(s) Supporting Document(s) SARS-CoV-2 RNA [facility] This lab was ordered by [facility] and reported by [facility]. ID Date Data Source [id number] 04/03/2020 03:46:44 AM [facility] Service Cmnt XXX-Imp : NoneRespiratory P CR Panel : PCR ResultsMicroorganism XXX Cult : This assay does not detect novel Coronaviruses.HAdV DNA QI MICHELLE+non-probe : Not DetectedHCoV [id number] Nph QI MICHELLE+non-probe : Not DetectedHCoV [id number] Nph QI MICHELLE+non-probe : Not [id number] RNA Nph QI MICHELLE+non-probe : Not [id number] RNA Upper resp QI MICHELLE+probe : Not [...] rce(s) Supporting Document(s) ID Date Data Source [id number] 04/03/2020 12:35:25 AM [facility] XR CHEST FRONTAL ONLY [id number] RESULTI nterpreted by:JUSTIN KabaROCEDURE INFORMATION: Exam: XR Chest, 1 View Exam date and time: 04/02/2020 11:55 PM Age: 49 years old Clinical indication: Other: Dyspnea TECHNIQUE: Imaging protocol: XR of the chest Views: 1 view. COMPARISON: CR XR CHEST FRONTAL AND LATERAL [id number] 09/20/2019 8:27 PM FINDINGS: Lungs: Unremarkable. No [...] rce(s) Supporting Document(s) ID Date Data Source [id number] 04/03/2020 12:28:26 AM EST [facility] Name Value Range Interpretation Code Description Data Jenise rce(s) Supporting Document(s) Albumin [Mass/volume] in Serum or Plasma by Bromocresol green (BCG) dye binding method 4.4 g/dL 3.5[facility]2 [facility] Bilirubin.total [Mass/volume] in Serum or Plasma 0.6 mg/dL <1.2 [facility] Calcium [Mass/volume] in Serum or Plasma 9.5 mg/dL 8.6-10.0 [facility] Chloride [Moles/volume] in Serum or Plasma 104 mmol/L 98-107 [facility] Creatinine [Mass/volume] in Serum or Plasma 1.41 mg/dL 0.70-1.20 H [facility] Glucose [Mass/volume] in Serum or Plasma 79 mg/dL 70-140 [facility] Alkaline phosphatase [Enzymatic activity/volume] in Serum or Plasma 61 U/L 40-129 [facility] Hemolyzed Potassium [Moles/volume] in Serum or Plasma 4.5 mmol/L 3.4-5.1 [facility] Hemolyzed Protein [Mass/volume] in Serum or Plasma 7.5 g/dL 6.4-8.3 [facility] Sodium [Moles/volume] in Serum or Plasma 140 mmol/L 136-145 [facility] Aspartate aminotransferase [Enzymatic activity/volume] in Serum or Plasma 71 U/L <40 H [facility] Urea nitrogen [Mass/volume] in Serum or Plasma 23 mg/dL 6-20 H [facility] Osmolality of Serum or Plasma by calculation 292 mosm/kg 275-300 [facility] Creatinine/Urea nitrogen [Mass Ratio] in Serum or Plasma 16 [facility] Bicarbonate [Moles/volume] in Serum 25 mmol/L 22-29 [facility] Alanine aminotransferase [Enzymatic activity/volume] in Seru m or Plasma 97 U/L <41 H [facility] Anion gap 3 in Serum or Plasma 11 mmol/L 8-15 [facility] Glomerular filtration rate/1.73 sq M pre dicted among non-blacks [Volume Rate/Area] in Serum or Plasma by Creatinine-based formula (MDRD) 56 mL/min/1.73m2 >60 L [facility] Glomerular filtration rate/1.73 sq M pre dicted among blacks [Volume Rate/Area] in Serum or Plasma by Creatinine-based formula (MDRD) 65 mL/min/1.73m2 >60 [facility] ID Date Data Source [id number] 04/03/2020 12:56:36 AM [facility] Name Value Range Interpretation Code Description Data Jenise rce(s) Supporting Document(s) Troponin T.cardiac [Mass/volume] in Serum or Plasma <0.01 [facility] Hospital ID Date Data Source [id number] 04/03/2020 02:45:58 AM [facility] Name Value Range Interpretation Code Description Data Jenise rce(s) Supporting Document(s) Leukocytes [#/volume] in Blood by Automated count 10.3 10*3/uL 4-10 [facility] Erythrocytes [#/volume] in Blood by Automated count 4.89 10*6/uL 4.6- 6.1 [facility] Hemoglobin [Mass/volume] in Blood 14.6 g/dL 13.5-18 [facility] Hematocrit [Volume Fraction] of Blood by Automated count 43.0 % 4 1-53 [facility] Erythrocyte mean corpuscular volume [Entitic volume] by Auto mated count 87.8 fL 80-96 [facility] Erythrocyte mean corpuscular hemoglobin [Entitic mass] by Automated count 29.8 pg 27-33 [facility] Erythrocyte mean corpuscular hemoglobin concentration [Mass/volume] by Automated count 34.0 g/dL 32.0-36.0 [facility] distribution width [Ratio] by Automated count 16.3 % 11.5-14.5 [facility] Platelets [#/volume] in Blood by Automated count 239 10*3/uL 150-400 [facility] Differential cell count method - Blood [facility] Neutrophils/100 leukocytes in Blood by Automated count 45 % [facility] Lymphocytes/100 leukocytes in Blood by Automated count 45 % [facility] Monocytes/100 leukocytes in Blood by Automated count 5 % [facility] Eosinophils/100 leukocytes in Blood by Automated count 1 % [facility] Neutrophils [#/volume] in Blood by Automated count 4.66 10*3/uL 1.8-7 .0 [facility] Lymphocytes [#/volume] in Blood by Automated count 4.66 10*3/uL 1.2-4 .0 [facility] Monocytes [#/volume] in Blood by Automated count 0.49 10*3/uL 0-0.8 [facility] Eosinophils [#/volume] in Blood by Automated count 0.10 10*3/uL 0-0.5 [facility] Myelocytes/100 leukocytes in Blood by Manual count 2 % [facility] Metamyelocytes/100 leukocytes in Blood by Manual count 2 % [facility] Myelocytes [#/volume] in Blood by Manual count 0.20 10*3/uL 0-0 [facility] Metamyelocytes [#/volume] in Blood by Manual count 0.20 10*3/uL 0-0 [facility] Macrocytes [Presence] in Blood by Light microscopy [facility] Anisocytosis [Presence] in Blood by Light microscopy [facility] Poikilocytosis [Presence] in Blood by Light microscopy [facility] ID Date Data Source [id number] 04/02/2020 02:22:00 PM EST [facility] ([facility]) Name Value Range Interpretation Code Description Data Jenise rce(s) Supporting Document(s) Troponin Laboratory test result [facility] ([facility]) ID Date Data Source [id number] 04/02/2020 02:22:00 PM EST [facility] ([facility]) Name Value Range Interpretation Code Description Data Jenise rce(s) Supporting Document(s) Alanine aminotransferase [Enzymatic activity/volume] in Serum or Pl asma 97 [facility] ([facility]) Albumin [Mass/volume] in Serum or Plasma 4.4 [facility] ([facility]) Carbon dioxide, total [Moles/volume] in Serum or Plasma 25 [facility] ([facility]) Chloride [Moles/volume] in Serum or Plasma 104 [facility] ([facility]) Calcium [Mass/volume] in Serum or Plasma 9.5 [facility] ([facility]) Potassium [Moles/volume] in Serum or Plasma 4.5 [facility] ([facility]) Protein [Mass/volume] in Serum or Plasma 7.5 [facility] ([facility]) Alkaline phosphatase [Enzymatic activity/volume] in Serum or Plasma 6 1 [facility] ([facility]) Glucose 79 70-140 [facility] ([facility]) Aspartate aminotransferase [Enzymatic activity/volume] in Serum or Plasma 71 [facility] ([facility]) Urea nitrogen [Mass/volume] in Serum or Plasma 23 [facility] ([facility]) Sodium 140 [facility] Creatinine For GFR 16 [facility] ([facility]) ID Date Data Source [id number] 03/20/2020 12:00:00 AM EST [facility] Name Value Range Interpretation Code Description Data Jenise rce(s) Supporting Document(s) SARS-CoV2 Rapid Antigen [facility] This lab was reported by [facility] ID Date Data Source [id number] 03/08/2020 02:14:00 PM EST [facility] ([facility]) Name Value Range Interpretation Code Description Data Jenise rce(s) Supporting Document(s) White Blood Count 8.2 4.0-10.0 [facility] ([facility]) Red Blood Count 5.45 4.30-6.10 [facility] ([facility]) Platelets 218 150-450 [facility] Hemoglobin 15.6 13.5-17.5 [facility] ([facility]) Hematocrit 47.6 42.0-52.0 [facility] ([facility]) ID Date Data Source [id number] 03/08/2020 01:15:00 PM EST [facility] ([facility]) Name Value Range Interpretation Code Description Data Jenise rce(s) Supporting Document(s) Lyme Disease IgM Ab Quantitati Laboratory test result 0.00-0.79 [facility] ([facility]) <content>Negative <0.80</content >
<content>Equivocal 0.80 - 1.19</content>
<content>Positive >1.19</content>
<content>.</content>
<content>IgM levels may peak at 3-6 weeks post infection, then</content>
<content>gradually decline.</content>
<content></content> Lyme Disease IgG/IgM Antibodie Laboratory test result 0.00-0.90 [facility] ([facility]) <content>Negative <0.91</content >
<content>Equivocal 0.91 - 1.09</content>
<content>Positive >1.09</content>
<content></content> ID Date Data Source [id number] 03/08/2020 01:15:00 PM EST [facility] ([facility]) Name Value Range Interpretation Code Description Data Jenise rce(s) Supporting Document(s) Erythrocyte sedimentation rate by Westergren method 4 mm/hr 0-20 [facility] ([facility]) HLA-B27 related Ag [Presence] Laboratory test result [facility] ([facility]) HLA-B*27 Negative B27 allele interpretation for all loci based on IMGT/HLA database version 3.38 This test was developed and its performance characteristics determined by [employer]. It has not been cleared or approved by the Food and Drug Administration. HLA Lab CLIA ID Number [id number] . This test was performed using PCR [...] High sensitivity method Laboratory test result 0.00-0.30 [facility] ([facility]) ID Date Data Source [id number] 03/08/2020 01:15:00 PM EST [facility] ([facility]) Name Value Range Interpretation Code Description Data Jenise rce(s) Supporting Document(s) Antinuclear Antibodies Direct Laboratory test result [facility] ([facility]) Performed at: - [address] [id number] [employer]: Consuelo Calvert MD, Phone: [phone] Performed at: [facility] [address] [id number] [employer]: Louis Lyle PhD, Phone: [phone] ID Date Data Source [id number] 03/08/2020 01:15:00 PM EST [facility] ([facility]) Name Value Range Interpretation Code Description Data Jenise rce(s) Supporting Document(s) Rheumatoid factor [Units/volume] in Serum or Plasma Laboratory test result [facility] ([facility]) ID Date Data Source [id number] 03/08/2020 01:15:00 PM EST [facility] ([facility]) Name Value Range Interpretation Code Description Data Jenise rce(s) Supporting Document(s) White Blood Count 8.2 10 4.0-10.0 [facility] ([facility]) Red Blood Count 5.45 10 4.30-6.10 [facility] ([facility]) Hematocrit 47.6 % 42.0-52.0 [facility] ([facility]) Hemoglobin 15.6 g/dL 13.5-17.5 [facility] ([facility]) Mean Corpuscular Hemoglobin 28.6 pg 27.0-33.0 [facility] ([facility] Mean Corpuscular Volume 87.3 fl 80.0-96.0 M [facility] ([facility] Red Cell Distribution Width 16.1 % 11.5-14.5 [facility] ([facility] ) Mean Corpuscular HGB Conc 32.8 g/dL 32.0-36.5 [facility] ([facility] ) Neutrophils % 50.9 % 36.0-66.0 [facility] ([facility] ) Platelet Count, Automated 218 10 150-450 [facility] ([facility] ) Lymph % 37.4 % 24.0-44.0 [facility] ([facility]) [place] % 8.2 % 0.0-5.0 [facility] ([facility] Baso % 0.6 % 0.0-1.0 [facility] ([facility]) Eos % 1.8 % 0.0-3.0 [facility] ([facility]) Immature Granulocyte % 1.1 % 0-3.0 [facility] ([facility]) Neutrophils # 4.2 10 1.5-8.5 [facility] ([facility]) Nucleated Red Blood Cell % 0.0 % 0-0 [facility] ([facility]) Lymph # 3.1 10 1.5-5.0 [facility] ([facility]) [place] # 0.7 10 0.0-0.8 [facility] ([facility]) Eos # 0.2 10 0.0-0.5 [facility] ([facility] Baso # 0.1 10 0.0-0.2 [facility] ([facility] ID Date Data Source [id number] 01/07/2020 07:36:[address] [facility] C[facility]nt XXX-Imp : NoneMicroorganism XXX Cult : No growth 1 day Name Value Range Interpretation Code Description Data Jenise rce(s) Supporting Document(s) Procedure Social History Code Duration Value Status Description Data Source(s ) Smoking 02/11/2021 12:00:00 AM EDT Never Smoker completed Never S moker eCW1 ([facility]) Smoking 12/03/2020 12:00:00 AM EDT Patient has never smoked co mpleted Patient has never smoked [facility] ([facility] Smoking 11/11/2020 12:00:00 AM EDT Never Smoker completed Never S moker eCW1 ([facility]) Smoking 11/11/2020 12:00:00 AM EDT Never Smoker completed Never S moker eCW1 ([facility]) Smoking 11/11/2020 12:00:00 AM EDT Never Smoker completed Never S moker eCW1 ([facility]) Smoking 10/15/2020 12:00:00 AM EDT Patient has never smoked co mpleted Patient has never smoked [facility] ([facility]) Smoking 10/14/2020 12:00:00 AM EDT Never Smoker completed Never S moker eCW1 ([facility]) Smoking 10/14/2020 12:00:00 AM EDT Never Smoker completed Never S moker eCW1 ([facility]) Smoking 09/20/2020 12:00:00 AM EDT Never Smoker completed Never S moker eCW1 ([facility]) Smoking 09/20/2020 12:00:00 AM EDT Never Smoker completed Never S moker eCW1 ([facility]) Smoking 09/20/2020 12:00:00 AM EDT Never Smoker completed Never S moker eCW1 ([facility]) Smoking 09/13/2020 12:00:00 AM EDT Never Smoker completed Never S moker eCW1 ([facility]) Smoking 08/31/2020 09:48:00 PM EDT Unknown if ever smoked comp leted Unknown if ever smoked [facility] Smoking 08/31/2020 09:48:00 PM EDT Unknown if ever smoked comp leted Unknown if ever smoked [facility] Smoking 08/31/2020 09:48:00 PM EDT Unknown if ever smoked comp leted Unknown if ever smoked [facility] Smoking 08/31/2020 09:48:00 PM EDT Unknown if ever smoked comp leted Unknown if ever smoked [facility] Smoking 08/31/2020 09:48:00 PM EDT Unknown if ever smoked comp leted Unknown if ever smoked [facility] Smoking 07/23/2020 12:00:00 AM EDT Never Smoker completed Never S moker eCW1 ([facility]) Smoking 07/23/2020 12:00:00 AM EDT Never Smoker completed Never S moker eCW1 ([facility]) Smoking 07/23/2020 12:00:00 AM EDT Never Smoker completed Never S moker eCW1 ([facility]) Smoking 07/23/2020 12:00:00 AM EDT Never Smoker completed Never S moker eCW1 ([facility]) Smoking 07/21/2020 12:00:00 AM EDT Patient has n ever smoked (pipe, cigarette, cigar) completed Patient has never smoked (pipe, cigarett e, cigar) [facility] ([facility]) Smoking 07/09/2020 04:50:00 PM EST Denies Ever Smoked complete d Denies Ever Smoked [facility] Smoking 06/28/2020 12:00:00 AM EST Never Smoker completed Never S moker eCW1 ([facility]) Smoking 06/28/2020 12:00:00 AM EST Never Smoker completed Never S moker eCW1 ([facility]) Smoking 06/17/2020 12:00:00 AM EST Never Smoker completed Never S moker eCW1 ([facility]) Smoking 06/17/2020 12:00:00 AM EST Never Smoker completed Never S moker eCW1 ([facility]) Alcohol intake 04/02/2020 12:00:00 AM EST Current non-d noreen of alcohol (finding) completed Current non-drinker of alcohol (finding) [facility] Tobacco use and exposure 04/02/2020 12:00:00 AM EST Never used co mpleted Never used [facility] Smoking 04/02/2020 12:00:00 AM EST Former smoker completed Former smoker [facility] Smoking 03/29/2020 12:00:00 AM EST Never Smoker completed Never S moker eCW1 ([facility]) Smoking 03/20/2020 12:00:00 AM EST Never Smoked Cigarettes com pleted Never Smoked Cigarettes [facility] ([facility]) Smoking 02/09/2020 12:00:00 AM EDT Never Smoker completed Never S moker eCW1 ([facility]) Alcohol intake 01/05/2020 12:00:00 AM EDT Current non-d noreen of alcohol (finding) completed Current non-drinker of alcohol (finding) [facility] Vital Signs ID Date Data Source UNK Name Value Range Interpretation Code Description Data Source(s) Body weight 299 [lb_av] 299 [lb_av] eCW1 ([facility]) Body weight 135.63 kg 135.63 kg eCW1 ([facility]) Body height [in_i] W1 ([facility]) Body mass index (BMI) [Ratio] 36.39 kg/m2 36.39 kg/m2 eCW1 ([facility]) Heart rate 85 /min 85 /min eCW1 ([facility]) Respiratory rate 18 /min 18 /min eCW1 ([facility]) Body temperature 97.6 [degF] 97.6 [degF] eCW1 ( [facility]) Systolic blood pressure 142 mm[Hg] 142 mm[Hg] e CW1 ([facility]) Diastolic blood pressure 88 mm[Hg] 88 mm[Hg] eCW1 ([facility]) Diastolic blood pressure 84 mm[Hg] 84 mm[Hg] [facility] ([facility]) sitting, large cuff Systolic blood pressure 132 mm[Hg] 132 mm[Hg] M [facility] ([facility]) sitting, large cuff Body weight 294.00 [lb_av] 294.00 [lb_av] [facility] T ([facility]) Body height 76 [in_i] 76 [in_i] [facility] ([facility]) 6'4" Body mass index (BMI) [Ratio] 35.8 kg/m2 35.8 k g/m2 [facility] ([facility]) Heart rate 68 /min 68 /min [facility] ([facility]) Regular Respiratory rate 16 /min 16 /min [facility] ( [facility]) Systolic blood pressure 128 mm[Hg] 128 mm[Hg] M [facility] ([facility]) sitting Diastolic blood pressure 82 mm[Hg] 82 mm[Hg] [facility] ([facility]) sitting Heart rate 94 /min 94 /min eCW1 ([facility]) Body mass index (BMI) [Ratio] 36.03 kg/m2 36.03 kg/m2 eCW1 ([facility]) Body height [in_i] eCW1 ([facility]) Body weight 296 [lb_av] 296 [lb_av] eCW1 ([facility]) Respiratory rate 18 /min 18 /min eCW1 ([facility]) Systolic blood pressure 142 mm[Hg] 142 mm[Hg] e CW1 ([facility]) Body temperature 97.5 [degF] 97.5 [degF] eCW1 ( [facility]) Diastolic blood pressure 78 mm[Hg] 78 mm[Hg] eCW1 ([facility]) Body height 78 [in_i] 78 [in_i] [facility] ([facility], ) 6'6" Body weight 298.00 [lb_av] 298.00 [lb_av] MED[facility] T ([facility], ) Body mass index (BMI) [Ratio] 34.4 kg/m2 34.4 k g/m2 [facility] ([facility], ) [place] body weight 214 [lb_av] 214 [lb_av] [facility] T ([facility], ) Body weight 135.173 kg 135.173 kg [facility] ([facility]) Body surface area Derived from formula 2.67 m2 2.67 m2 [facility] ([facility]) Diastolic blood pressure 78 mm[Hg] 78 mm[Hg] [facility] ([facility]) Systolic blood pressure 136 mm[Hg] 136 mm[Hg] [facility] ([facility]) Body height 78 [in_i] 78 [in_i] [facility] ([facility]) 6'6" Body weight 298.00 [lb_av] 298.00 [lb_av] [facility] T ([facility]) Body mass index (BMI) [Ratio] 34.4 kg/m2 34.4 k g/m2 [facility] ([facility]) [place] body weight 214 [lb_av] 214 [lb_av] [facility] T ([facility]) Body weight 135.173 kg 135.173 kg [facility] ([facility]) Body surface area Derived from formula 2.67 m2 2.67 m2 [facility] ([facility]) Oxygen saturation in Arterial blood by Pulse oximetry 95 % 95 % [facility] ([facility]) Body temperature 97.8 [degF] 97.8 [degF] [facility] ([facility]) Body height 78 [in_i] 78 [in_i] [facility] ([facility]) 6'6" Body weight 294.00 [lb_av] 294.00 [lb_av] [facility] T ([facility]) Body mass index (BMI) [Ratio] 34.0 kg/m2 34.0 k g/m2 [facility] ([facility]) [place] body weight 214 [lb_av] 214 [lb_av] [facility] T ([facility]) Body weight 133.358 kg 133.358 kg [facility] ([facility]) Body surface area Derived from formula 2.66 m2 2.66 m2 [facility] ([facility]) Systolic blood pressure 130 mm[Hg] 130 mm[Hg] [facility] ([facility]) Diastolic blood pressure 70 mm[Hg] 70 mm[Hg] [facility] ([facility]) Heart rate 75 /min 75 /min [facility] ([facility]) Oxygen saturation in Arterial blood by Pulse oximetry 95 % 95 % [facility] ([facility]) Body temperature 97.8 [degF] 97.8 [degF] [facility] ([facility]) Body height 78 [in_i] 78 [in_i] [facility] ([facility]) 6'6" Body weight 294.00 [lb_av] 294.00 [lb_av] [facility] T ([facility]) Body mass index (BMI) [Ratio] 34.0 kg/m2 34.0 k g/m2 [facility] ([facility]) [place] body weight 214 [lb_av] 214 [lb_av] [facility] Body weight 133.358 kg 133.358 kg [facility] ([facility]) Body surface area Derived from formula 2.66 m2 2.66 m2 [facility] ([facility]) Body weight 294.0 [lb_av] 294.0 [lb_av] eCW1 ([facility]) Body height [in_i] eCW1 ([facility]) Diastolic blood pressure 78 mm[Hg] 78 mm[Hg] eCW1 ([facility]) Body mass index (BMI) [Ratio] 35.78 kg/m2 35.78 kg/m2 eCW1 ([facility]) Heart rate 83 /min 83 /min eCW1 ([facility]) Respiratory rate 18 /min 18 /min eCW1 ([facility]) Body temperature 98.0 [degF] 98.0 [degF] eCW1 ( [facility]) Systolic blood pressure 122 mm[Hg] 122 mm[Hg] e CW1 ([facility]) Body height [in_i] eCW1 ([facility]) Body weight 293.8 [lb_av] 293.8 [lb_av] eCW1 ([facility]) Diastolic blood pressure 86 mm[Hg] 86 mm[Hg] eCW1 ([facility]) Body mass index (BMI) [Ratio] 35.76 kg/m2 35.76 kg/m2 eCW1 ([facility]) Heart rate 87 /min 87 /min eCW1 ([facility]) Respiratory rate 18 /min 18 /min eCW1 ([facility]) Body temperature 97.5 [degF] 97.5 [degF] eCW1 ( [facility]) Systolic blood pressure 142 mm[Hg] 142 mm[Hg] e CW1 ([facility]) Body weight 292.2 [lb_av] 292.2 [lb_av] eCW1 ([facility]) Body height [in_i] eCW1 ([facility]) Respiratory rate 18 /min 18 /min eCW1 ([facility]) Body temperature 97.9 [degF] 97.9 [degF] eCW1 ( [facility]) Systolic blood pressure 148 mm[Hg] 148 mm[Hg] e CW1 ([facility]) Diastolic blood pressure 86 mm[Hg] 86 mm[Hg] eCW1 ([facility]) Body mass index (BMI) [Ratio] 35.56 kg/m2 35.56 kg/m2 eCW1 ([facility]) Heart rate 95 /min 95 /min eCW1 ([facility]) Body temperature 97.0 [degF] 97.0 [degF] [facility] ([facility]) Body height 77.00 [in_i] 77.00 [in_i] [facility] ([facility] 6'5" Body weight 295.12 [lb_av] 295.12 [lb_av] MED[facility] T ([facility]) Body mass index (BMI) [Ratio] 35.0 kg/m2 35.0 k g/m2 [facility] ([facility]) Systolic blood pressure 169 mm[Hg] 169 mm[Hg] M [facility] ([facility]) Diastolic blood pressure 85 mm[Hg] 85 mm[Hg] [facility] ([facility]) Oxygen saturation in Arterial blood by Pulse oximetry 98 % 98 % [facility] ([facility]) Body temperature 36.1 Latasha 36.1 Latasha [facility] ( [facility]) Heart rate 88 /min 88 /min [facility] ([facility]) Body mass index (BMI) [Ratio] 34.9 kg/m2 No rmal (applies to non-numeric results) 34.9 kg/m2 [facility] Heart rate 76 min Normal (applies to non-numeric resul ts) 76 min [facility] Body height 195.072 cm Normal (applies to non-numeric resu lts) 195.072 cm [facility] Deprecated Oxygen saturation in Capillary blood by Oximetry 93 % Normal (applies to non-numeric results) 93 % [facility] Respiratory rate 18 min Normal (applies to non-numeric results) 18 min [facility] Body temperature 36.7 latasha Normal (applies to non-numeric results) 36.7 latasha [facility] Body weight Measured 295 [lb_av] Normal (applies to n on-numeric results) 295 [lb_av] [facility] Systolic blood pressure 138 mm[Hg] Normal (applies t o non-numeric results) 138 mm[Hg] [facility] Diastolic blood pressure 77 mm[Hg] Normal (applies to non-numeric results) 77 mm[Hg] [facility] Body weight 298.8 [lb_av] 298.8 [lb_av] eCW1 ([facility]) Body height [in_i] eCW1 ([facility]) Body mass index (BMI) [Ratio] 36.37 kg/m2 36.37 kg/m2 eCW1 ([facility]) Heart rate 94 /min 94 /min eCW1 ([facility]) Respiratory rate 18 /min 18 /min eCW1 ([facility]) Body temperature 97.2 [degF] 97.2 [degF] eCW1 ( [facility]) Systolic blood pressure 142 mm[Hg] 142 mm[Hg] e CW1 ([facility]) Diastolic blood pressure 78 mm[Hg] 78 mm[Hg] eCW1 ([facility]) Body weight 296.6 [lb_av] 296.6 [lb_av] eCW1 ([facility]) Body height [in_i] eCW1 ([facility]) Body mass index (BMI) [Ratio] 36.10 kg/m2 36.10 kg/m2 eCW1 ([facility]) Heart rate 85 /min 85 /min eCW1 ([facility]) Respiratory rate 18 /min 18 /min eCW1 ([facility]) Body temperature 98 [degF] 98 [degF] eCW1 ([facility]) Systolic blood pressure 140 mm[Hg] 140 mm[Hg] e CW1 ([facility]) Diastolic blood pressure 90 mm[Hg] 90 mm[Hg] eCW1 ([facility]) Systolic blood pressure 130 mm[Hg] 130 mm[Hg] M EDENT ([facility], ) Diastolic blood pressure 90 mm[Hg] 90 mm[Hg] MEDENT ([facility], ) Heart rate 80 /min 80 /min [facility] ([facility], ) Oxygen saturation in Arterial blood by Pulse oximetry 94 % 94 % [facility] ([facility], ) Room Air Body temperature 96.7 [degF] 96.7 [degF] [facility] ([facility], ) Body height 78 [in_i] 78 [in_i] MEDENT ([facility], ) 6'6" Body weight 291.00 [lb_av] 291.00 [lb_av] MEDEN T ([facility], ) Body mass index (BMI) [Ratio] 33.6 kg/m2 33.6 k g/m2 [facility] ([facility], ) [place] body weight 214 [lb_av] 214 [lb_av] MEDEN T ([facility], ) Body weight 131.998 kg 131.998 kg [facility] ([facility]) Body surface area Derived from formula 2.65 m2 2.65 m2 [facility] ([facility], ) Diastolic blood pressure 70 mm[Hg] 70 mm[Hg] MEDENT ([facility]) sitting, large cuff Body mass index (BMI) [Ratio] 35.4 kg/m2 35.4 k g/m2 MEDENT ([facility]) Systolic blood pressure 136 mm[Hg] 136 mm[Hg] M EDENT ([facility]) sitting Diastolic blood pressure 76 mm[Hg] 76 mm[Hg] MEDENT ([facility]) sitting Body weight 291.00 [lb_av] 291.00 [lb_av] MEDEN T ([facility]) Heart rate 76 /min 76 /min MED[facility] ([facility]) Regular Respiratory rate 16 /min 16 /min MEDENT ( [facility]) Systolic blood pressure 136 mm[Hg] 136 mm[Hg] M EDENT ([facility]) sitting, large cuff Body height 76 [in_i] 76 [in_i] MEDENT [facility]) 6'4" Systolic blood pressure 135 mm[Hg] 135 mm[facility]Hg] [facility] Diastolic blood pressure 68 mm[Hg] 68 mm[Hg] [facility] ([facility]) Body height 78 [in_i] 78 [in_i] [facility] ([facility]) 6'6" Body weight 295.25 [lb_av] 295.25 [lb_av] MEDEN T ([facility]) Body mass index (BMI) [Ratio] 34.1 kg/m2 34.1 k g/m2 [facility] ([facility]) [place] body weight 214 [lb_av] 214 [lb_av] MEDEN T ([facility]) Body weight 133.925 kg 133.925 kg [facility] ([facility]) Body surface area Derived from formula 2.66 m2 2.66 m2 [facility] ([facility]) Systolic blood pressure 133 mm[Hg] 133 mm[Hg] M EDENT ([facility]) Diastolic blood pressure 79 mm[Hg] 79 mm[Hg] [facility] ([facility], [facility]) Heart rate 78 /min 78 /min MEDENT ([facility], [facility]) Respiratory rate 14 /min 14 /min [facility] ( [facility], [facility]) Oxygen saturation in Arterial blood by Pulse oximetry 96 % 96 % MEDENT ([facility]) Body temperature 100.1 [degF] 100.1 [degF] MEDE NT ([facility]) Body weight 289.00 [lb_av] 289.00 [lb_av] MEDEN T ([facility]) Body height 77 [in_i] 77 [in_i] MEDENT ([facility]) 6'5" Body mass index (BMI) [Ratio] 34.3 kg/m2 34.3 k g/m2 [facility] ([facility]) Body height [in_i] W1 ([facility]) Body mass index (BMI) [Ratio] 34.20 kg/m2 34.20 kg/m2 [facility] ([facility]) Body weight 281.0 [lb_av] 281.0 [lb_av] eCW1 ([facility]) Heart rate 110 /min 110 /min W1 ([facility]) Respiratory rate 18 /min 18 /min W1 ([facility]) Body temperature 97.2 [degF] 97.2 [degF] eCW1 ( [facility]) Systolic blood pressure 130 mm[Hg] 130 mm[Hg] e CW1 ([facility]) Diastolic blood pressure 80 mm[Hg] 80 mm[Hg] eCW1 ([facility]) ID Date Data Source [id number] 09/15/2020 12:11:00 PM EDT [facility] Name Value Range Interpretation Code Description Data Source(s) HEIGHT 195.58 cm 195.58 cm [facility] WEIGHT RECORDED 133.544251 kg 133.817086 kg [facility] ID Date Data Source [id number] 04/08/2020 06:51:12 PM [facility] Name Value Range Interpretation Code Description Data Source(s) WEIGHT RECORDED 290 lb 290 lb [facility] Body height Measured 77 in 77 in [facility] WEIGHT RECORDED 290 lb 290 lb [facility] Body height Measured 77 in 77 in [facility] ID Date Data Source [id number] 04/08/2020 08:27:43 AM [facility] Name Value Range Interpretation Code Description Data Source(s) WEIGHT RECORDED 277 lb 277 lb [facility] Body height Measured 77.99 in 77.99 in [facility] ID Date Data Source [id number] 12/30/2019 12:47:[address] [facility] Name Value Range Interpretation Code Description Data Source(s) WEIGHT RECORDED 278 lb 278 lb [facility] Patient Treatment Plan of Care Planned Activity Planned Date Details Description Data Source (s) Lisinopril 30 MG Oral Tablet 11/11/2020 12:00:00 AM EDT eC ([facility]) Lisinopril 30 MG Oral Tablet 11/11/2020 12:00:00 AM EDT eCW ([facility]) Lisinopril 30 MG Oral Tablet 11/11/2020 12:00:00 AM EDT eC1 ([facility]) sildenafil 50 MG Oral Tablet [Viagra] 02/09/2020 12:00:00 AM EDT eCW1 ([facility]) Tamsulosin hydrochloride 0.4 MG Oral Capsule 01/05/2020 12:00:00 AM [facility] Syringe Luer Lock 23G X 1" 3 ML 10/17/2019 12:00:00 AM [facility] 24 HR Oxybutynin chloride 5 MG Extended Release Oral T ablet 03/13/2019 12:00:00 AM [facility]
[2021-02-28 10:25] LABS: BASO # 0.1 10^3/uL (0.0-0.2); BASO % 1.1 % (0.0-1.0); EOS # 0.3 10^3/uL (0.0-0.5); EOS % 3.5 % (0.0-3.0); HEMATOCRIT 48.6 % (42.0-52.0); HEMOGLOBIN 15.4 g/dl (13.5-17.5); LYMPH # 3.2 10^3/uL (1.5-5.0); LYMPH % 40.4 % (24.0-44.0); MEAN CORPUSCULAR HEMOGLOBIN 26.9 pg (27.0-33.0); MEAN CORPUSCULAR HGB CONC 31.7 g/dl (32.0-36.5); MONO # 0.9 10^3/uL (0.0-0.8); MONO % 11.1 % (2.0-8.0); NEUTROPHILS # 3.4 10^3/uL (1.5-8.5); PLATELET COUNT, AUTOMATED 228 10^3/uL (150-450); RED BLOOD COUNT 5.72 10^6/uL (4.30-6.10); WHITE BLOOD COUNT 7.9 10^3/uL (4.0-10.0)
--- NOTE | 2021-02-28 10:47 | REP ---
INDICATION: pain COMPARISON: 04/20/2019. TECHNIQUE: Real time compression and duplex Doppler interrogation of the right lower extremity deep venous system is performed, including the left common femoral vein.Compression of the right peroneal and posterior tibial veins is performed. FINDINGS: The right common femoral, superficial femoral and popliteal veins are fully compressible with transducer pressure and demonstrate normal spontaneous and phasic flow, without evidence of deep venous thrombosis.The left common femoral vein demonstrates no thrombus.The visualized right posterior tibial veins demonstrate no thrombus. The peroneal veins could not be visualized. IMPRESSION: No evidence of deep venous thrombosis of the right lower extremity femoral popliteal venous system.The visualized right posterior tibial veins demonstrate no thrombus. <Electronically signed by Jourdan Banks > 02/28/21 [id number]
[2021-02-28 11:11] LABS: ALBUMIN 3.2 GM/DL (3.2-5.2); ALT/SGPT 113 U/L (12-78); BILIRUBIN,DIRECT 0.1 MG/DL (0.0-0.2); BILIRUBIN,TOTAL 0.7 MG/DL (0.2-1.0); BLOOD UREA NITROGEN 12 MG/DL (7-18); CALCIUM LEVEL 9.1 MG/DL (8.5-10.1); CARBON DIOXIDE LEVEL 29 MEQ/L (21-32); CHLORIDE LEVEL 107 MEQ/L (98-107); CREATININE FOR GFR 1.24 MG/DL (0.70-1.30); GLOMERULAR FILTRATION RATE > 60.0 (>56); GLUCOSE, FASTING 114 MG/DL (70-100); LIPASE 249 U/L (73-393); NT-PRO BNP 15 PG/ML (<125); POTASSIUM SERUM 4.5 MEQ/L (3.5-5.1); SODIUM LEVEL 139 MEQ/L (136-145); THYROID STIMULATING HORMONE 0.812 uIU/ML (0.358-3.740); TOTAL PROTEIN 7.1 GM/DL (6.4-8.2)
[2021-02-28] MEDS ORDERED: ISOVUE-370 76% 100ML VIAL As Ordered ONE (12:27)
--- NOTE | 2021-02-28 12:54 | REP ---
INDICATION: CP COMPARISON: Multiple the latest 10/13/2020 a standard contrast-enhanced chest CT TECHNIQUE: CT angiography of the chest after the intravenous administration of 75 cc Isovue 370 attention pulmonary arteries. FINDINGS: There is excellent visualization of the pulmonary arterial vasculature. No focal filling defects are present that would be considered consistent with acute pulmonary emboli. There are no pleural or pericardial effusions. There is no mediastinal or hilar adenopathy. The imaged upper abdomen and imaged osseous structures are within normal limits. Chronic spinal degenerative changes are noted status quo. Evaluation of the lung jefferson shows no new abnormal nodules, masses, or opacities. IMPRESSION: There is no evidence of acute disease or significant change compared to the prior exam. Findings as described above. <Electronically signed by Neal Rucker > 02/28/21 [id number]
[2021-02-28 16:30] VITALS: BP 139/72
--- NOTE | 2021-02-28 18:24 | ECGEPIP ---
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
--- NOTE | 2021-02-28 18:31 | ECGEPIP ---
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
== END 2021-02-28 18:01 | disposition home or self-care (01) ==
LOC: M ED 09:27
DX: R07.9 Chest pain, unspecified (principal); I11.9 Hypertensive heart disease without heart failure; I44.0 Atrioventricular block, first degree; F41.9 Anxiety disorder, unspecified; R94.5 Abnormal results of liver function studies; Z79.890 Hormone replacement therapy; Z79.82 Long term (current) use of aspirin; Z79.899 Other long term (current) drug therapy; Z82.49 Family history of ischemic heart disease and other diseases of the circulatory system
CPT/HCPCS: 71045; 71275; 80048; 80076; 83690; 83880; 84443; 84484; 85025; 93005; 93041; 93971; 94760; 99285; Q9967

== ENCOUNTER 2021-04-08 13:48 | Emergency (ER) | payer BC, OTHER ==
[~2021-04-08] VITALS: Ht 195.6 cm; Wt 135.4 kg
--- OUTSIDE RECORDS SUMMARY | 2021-04-08 13:56 | CCD | Summary of Care ---
Author Author [facility] Organization [facility] Address Unknown Phone Unavailable Care Team Providers Care Security And Privacy Consultant Name Role Phone JosuéRadha Armas DO PCP [phone] Reason for Visit * Reason Comments Fall Encounter Details Care Team Description Date Type Department Kodak Middleton MD [address] [place] [address] [email or web address] Fall, initial encounter (Primary Dx) 03/30[facility]2021 [facility] [address] [place] [address] Allergies No known active allergiesdocumented as of this encounter (statuses as of 03/30/2021) Medications End Date Status Medication Sig Dispensed Refills Start Date Active lisinopril Take 20 mg by 0 (PRINIVIL,ZESTRIL) 20 MG mouth daily tablet Active aspirin 81 MG tablet Take 81 mg by 0 mouth daily Active atorvastatin (LIPITOR) 10 Take 10 mg by 0 MG tablet mouth every evening Active citalopram (CELEXA) 40 MG Take 40 mg by 0 tablet mouth daily Active vitamin D TAKE 1 1 (ERGOCALCIFEROL) 38201 CAPSULE BY 8 units capsule MOUTH WEEKLY Active lansoprazole (PREVACID) Take 30 mg by 1 30 MG capsule mouth daily 8 Active Tamsulosin HCl 0.4 MG Take 2 60 capsule 11 12/07 Oral Capsule (Flomax) capsules by 0 mouth daily Additional Information Patient not taking. Reported on 01/17/2021 Active Syringe Luer Lock 23G X 1 each by 20 each 5 1" 3 MLIndications: Low Does not 1 testosterone apply route once a week for 20 dosesTo use weekly with injection Active Needle (Disp) 18G X Use as 20 each 5 1-05/08"Indications: Low directed. To 1 testosterone use weekly with injection Active Testosterone Cypionate Inject 1 mL 5 mL 0 200 MG/ML Injection into the 1 Solution (DEPOTESTOTERONE muscle every CYPIONATE) 10 (ten) days , Max Daily Dose: 200 mg 04/09/2021 Active Cyclobenzaprine HCl 10 MG Take 1 tablet 12 tablet 0 Oral Tablet (FLEXERIL) by mouth 1 Three times daily as needed for Muscle spasms for up to 10 days 03/30/2021 Discontinued cyclobenzaprine TAKE 1 TABLET 0 (FLEXERIL) 10 MG tablet BY MOUTH AT 8 BEDTIME NEEDED FOR MUSCLE SPASMS documented as of this encounter (statuses as of 03/30/2021) Active Problems Problem Noted Date Electrocardiogram abnormal 05/05/2019 Chest pain 05/05/2019 Hypertension 06/30/2017 Chest pain 06/29/2017 First degree atrioventricular block 02/21/2016 Obesity 02/21/2016 Precordial pain 02/21/2016 Mixed hyperlipidemia 02/21/2016 Essential hypertension 02/21/2016 Microhematuria Low testosterone High cholesterol Depression documented as of this encounter (statuses as of 03/30/2021) Social History Date Tobacco Use Types Packs/Day Years Used Former Smoker Smokeless Tobacco: Never Used Comments Alcohol Use Standard Drinks/Week No 0 (1 standard drink = 0.6 o z pure alcohol) Sex Assigned at Date Recorded Not on file Date Recorded COVID-19 Exposure Response 03/30/2021 5:32 AM EST In the last month, have you been in contact with No / Unsure someone who was confirmed or suspected to have Coronavirus / COVID-19? documented as of this encounter Last Filed Vital Signs Reading Time Taken Comments Vital Sign 166/93 03/30/2021 3:21 AM EST Blood Pressure 72 03/30/2021 3:21 AM EST Pulse 36.7 C (98.1 F) 03/30/2021 3:21 AM EST Temperature 16 03/30/2021 3:21 AM EST Respiratory Rate 95% 03/30/2021 3:21 AM EST Oxygen Saturation - - Inhaled Oxygen Concentration 133.8 kg (295 lb) 03/30/2021 3:21 AM EST Weight 195.6 cm (6' 5") 03/30/2021 3:21 AM EST Height 34.98 03/30/2021 3:21 AM EST Body Mass Index documented in this encounter Discharge Instructions * Attachments The following attachments cannot be sent through Care Everywhere.* Myalgias (Uzbek) documented in this encounter ED Notes * Josiah Au MD - 03/30/2021 3:48 AM EST History No Known Allergies No chief complaint on file. There is no immunization history on file for this patient. Are patient immunizations up to date?: Yes HPI 50-year-old male presents the emergency department after he slipped on the ice a nd fell. Around 3 AM, the patient was walking back to his vehicle to leave work when he slipped on the ice and fell onto his back. While attempting to get up into the EMS stretcher, the patient states he fell again, hitting the right side of his forehead. He did not lose consciousness either time. At the present ti me, he reports right forehead pain, neck pain, bilateral trapezius pain, thoraci c back pain, and left/anterior chest pain. He also reports a sensation of tingl ing in digits 1 through 4 on his left hand. Denies any focal weakness, saddle r adiculopathy, incontinence, or vision changes. Past Medical History: Diagnosis Date Depression High cholesterol Hypertension Low testosterone Microhematuria Past Surgical History: Procedure Laterality Date CARDIAC CATHETERIZATION HERNIA REPAIR WRIST FUSION Right Family History Problem Relation Age of Onset Other Father car accident Diabetes Mother Other Mother chf Social History Tobacco Use Smoking status: Former Smoker Smokeless tobacco: Never Used Vaping Use Vaping Use: Never used Substance Use Topics Alcohol use: No Drug use: No E-Cigarette Use: Never User Social Screening Review of Systems Constitutional: Negative for chills, fatigue and fever. HENT: Negative for rhinorrhea and sore throat. Eyes: Negative for visual disturbance. Respiratory: Negative for cough and shortness of breath. Cardiovascular: Positive for chest pain. Negative for leg swelling. Gastrointestinal: Negative for abdominal pain, diarrhea, nausea and vomiting. Genitourinary: Negative for dysuria and flank pain. Musculoskeletal: Positive for back pain and neck pain. Skin: Negative for rash and wound. Neurological: Positive for headaches. Negative for weakness and numbness. Physical Exam Visit Vitals BP 166/93 (BP Location: Left arm, Patient Position: Lying, Cuff size: Regular) Pulse 72 Temp 36.7 C (Oral) Resp 16 Ht 1.956 m Wt 133.8 kg SpO2 95% BMI 34.98 kg/m Physical Exam Vitals and nursing note reviewed. Constitutional: General: He is not in acute distress. HENT: Head: Normocephalic. Comments: Tenderness over the right frontal bone. No other facial bone tende rness. No facial bone deformity. Right Ear: External ear normal. Left Ear: External ear normal. Mouth/Throat: Mouth: Mucous membranes are moist. Eyes: General: No scleral icterus. Right eye: No discharge. Left eye: No discharge. Neck: Comments: There is midline and paracervical tenderness to palpation on my exa m. The patient was put in a c-collar immediately. Cardiovascular: Rate and Rhythm: Normal rate and regular rhythm. Pulmonary: Effort: No respiratory distress. Breath sounds: No wheezing, rhonchi or rales. Abdominal: General: There is no distension. Palpations: Abdomen is soft. Tenderness: There is no abdominal tenderness. There is no guarding or rebound . Musculoskeletal: Cervical back: Neck supple. Right lower leg: No edema. Left lower leg: No edema. Comments: There is mid thoracic vertebral tenderness to palpation as well as parathoracic tenderness. No lumbar tenderness. The trapezius muscles bilaterally are quite tender to palpation. The left anterior and lateral chest woodard are tender to palpation but there is n o crepitus or palpable deformities. Pelvis is stable to rock. The bilateral upper and lower extremities have good range of motion with no tend erness to palpation or restrictions in range of motion. Skin: General: Skin is warm and dry. Neurological: General: No focal deficit present. Mental Status: He is alert and oriented to person, place, and time. Psychiatric: Mood and Affect: Mood normal. Behavior: Behavior normal. ED Course (Entries in this section may reflect care that occurred after patient hand-off a nd are the responsibility of that provider as indicated by their initials.) Procedures MDM Impression: 50-year-old male presents to the emergency department after multiple falls with a headache, neck pain, thoracic spine pain, and left chest pain. Vi tanner signs are stable. Physical exam shows cervical and thoracic spinal tenderne ss, parathoracic and paracervical muscular tenderness, trapezius tenderness, lef t chest wall tenderness, and frontal bone tenderness Plan: For symptomatic relief, will provide Toradol, Tylenol, and cyclobenzaprine . Will obtain CT scan of the head, cervical spine, thoracic spine, and thorax. ED Course: CT scans negative. Patient feels moderately improved with medications above. He is ambulatory and steady on his feet. Discussed results and plan for discharge, and patient is agreeable. Work note was given. Advised frequent stret mich[place], Tylenol, Motrin, and prescription for Flexeril was also given. Return pre cautions discussed and patient expresses understanding. Vitals: 03/30/21 0320 03/30/21 032 BP: 166/93 Pulse: 72 Resp: 16 Temp: 36.7 C SpO2: 97% 95% Clinical Impression(s): 1. Fall, initial encounter Disposition: Discharge Condition: Stable Josiah Au MD Resident 03/30/21 0700 Associated attestation - Kodak Middleton MD - 03/30/2021 7:42 AM EST I saw and evaluated the patient. Discussed with the resident and agree with the resident's findings and plans as written, along with any supplemental dictated a nd/or attending documentation in the patient record by myself. * Scarlett Farias RN - 03/30/2021 3:21 AM EST Walking to his vehicle from work and slipped on ice. Fell and hit the right for ehead. Complaining of back pain, neck pain, and right elbow pain. No LOC documented in this encounter Plan of Treatment Date/Time Name Type Priority Associated Diag noses 03/30/2021 5:[address] Head without Contrast Imaging STAT 03/30/2021 5:[address] Cervical Spine without Imaging STAT Contrast 03/30/2021 5:[address] Thoracic Spine without Imaging STAT Contrast Health Maintenance Due Date Last Done Comments MMR Vaccines (1 of 1 - 1969 Standard series) Varicella Vaccines (1 of 1969 2 - 2-dose childhood series) COVID-19 Vaccine (1) 1980 HIV Screening 1981 DTaP,Tdap,and Td Vaccines 02/18/2018 01/21/2018 (2 - Td or Tdap) Colon Cancer Screening 10 2018 yrs Zoster Vaccines (1 of 2) 2018 Influenza Vaccine 02/04/2021 HIB Vaccines Aged Out No longer eligible based on patient's age to complete this topic Hepatitis A Vaccines Aged Out No longer eligibl e based on patient's age to complete this topic Hepatitis B Vaccines Aged Out No longer eligibl e based on patient's age to complete this topic IPV Vaccines Aged Out No longer eligible based on patient's age to complete this topic Pneumococcal Vaccine: Aged Out No longer eligib le based on patient's age to Pediatrics (0 to 5 Years) complete this topic and At-Risk Patients (6 to 64 Years) documented as of this encounter Procedures Comments Procedure Name Priority Date/Time Associated Diag nosis CT THORAX WITH CONTRAST STAT 03/30/2021 17101 5:[address] THORACIC SPINE WITHOUT STAT 03/30/2021 CONTRAST [id number] 5:18 AM EST Procedure Note - Jordan Patterson MD / Chapin Patricia DO - 03/30/2021 5:18 AM ESTThis note is in progress. F ormatting of this note might be different from the original. INDICATION : Trauma. TECHNIQUE : Axial images of the cervical and thoracic spine were obtained. Coronal and sagittal reformatte d images were then obtained using the axial source data. Automated dose lowering techniques and/or adjustment according to patient size were utilized for this exam. COMPARISO N: CT cervical spine dated 09/20/2019. FINDINGS: CERVICAL: Multilevel degenerati ve changes are present within the cervical spine including osteophyto sis, degenerati ve disc disease and facet arthrosis. There is slight reversal of the cervical lordosis. Disc space narrowing is most prominent at C4-C5 and C5-C6. There is no acute fracture or traumatic listhesis. The visualized paraspinal soft tissues appear unremarkab le. THORACIC: Multilevel degenerati ve changes are present within the thoracic spine including degenerati ve disc disease and osteophyto sis. There is straighten ing of the thoracic kyphosis. No acute fracture or traumatic listhesis. Prominent Schmorl nodes are present at the superior endplate of T9, L2 and L3. Vacuum disc phenomenon is present at T10-11 and T11-T12. Visualized paraspinal soft tissues are unremarkab le. IMPRESSION : 1. No acute fracture or traumatic listhesis. 2. Multilevel degenerati ve changes as described above. CT CERVICAL SPINE WITHOUT STAT 03/30/2021 CONTRAST [id number] 5:14 AM EST Procedure Note - Jordan Patterson MD / Chapin Patricia, - 03/30/2021 5:14 AM ESTThis note is in progress. F ormatting of this note might be different from the original. INDICATION : Trauma. TECHNIQUE : Axial images of the cervical and thoracic spine were obtained. Coronal and sagittal reformatte d images were then obtained using the axial source data. Automated dose lowering techniques and/or adjustment according to patient size were utilized for this exam. COMPARISO N: CT cervical spine dated 09/20/2019. FINDINGS: CERVICAL: Multilevel degenerati ve changes are present within the cervical spine including osteophyto sis, degenerati ve disc disease and facet arthrosis. There is slight reversal of the cervical lordosis. Disc space narrowing is most prominent at C4-C5 and C5-C6. There is no acute fracture or traumatic listhesis. The visualized paraspinal soft tissues appear unremarkab le. THORACIC: Multilevel degenerati ve changes are present within the thoracic spine including degenerati ve disc disease and osteophyto sis. There is straighten ing of the thoracic kyphosis. No acute fracture or traumatic listhesis. Prominent Schmorl nodes are present at the superior endplate of T9, L2 and L3. Vacuum disc phenomenon is present at T10-11 and T11-T12. Visualized paraspinal soft tissues are unremarkab le. IMPRESSION : 1. No acute fracture or traumatic listhesis. 2. Multilevel degenerati ve changes as described above. CT HEAD WITHOUT CONTRAST STAT 03/30/2021 [id number] 5:14 AM EST Procedure Note - Jordan Patterson MD / Chapin Patricia, - 03/30/2021 5:14 AM ESTThis note is in progress. F ormatting of this note might be different from the original. INDICATION : Trauma. TECHNIQUE : Multidetec tor axial CT images were obtained from the skull base to the vertex without administra tion of intravenou s contrast. Coronal and sagittal reformats were also obtained. Automated dose lowering techniques and/or adjustment according to patient size were utilized for this exam. COMPARISO N: CT head dated 04/03/2020 . FINDINGS: No acute intracrani al hemorrhage or acute territoria l infarction is evident. There is cerebral volume loss with commensura te dilation of the ventricles . No mass effect or midline shift is appreciate d. The basal cisterns are patent. No extra-axia l fluid collection s are identified . The calvarium is intact. The visualized paranasal sinuses and mastoid air cells are clear. IMPRESSIO N: No acute intracrani al hemorrhage . POCT ISTAT CHEM8 Routine 03/30/2021 4:43 AM EST documented in this encounter Results * CT Thorax with Contrast (03/30/2021 5:18 AM EST) Modality Anatomical Region Laterality Computed Tomography Chest, Abdomen Specimen Narrative [facility] - 03/30/2021 6:17 AM EST PROCEDURE INFORMATION: Exam: CT Chest With Contrast; Diagnostic Exam date and time: 03/30/2021 4:58 AM Age: 50 years old Clinical indication: Other: Trauma TECHNIQUE: Imaging protocol: Diagnostic computed tomography of the chest with contrast. Radiation optimization: All CT scans at this facility use at least one of these dose optimization techniques: automated exposure control; mA and/or kV adjustment per patient size (includes targeted exams where dose is matched to clinical indication); or iterative reconstruction. Contrast material: OMNI 300; Contrast volume: 50 ml; Contrast route: INTRAVENOUS (IV); COMPARISON: No relevant prior studies available. FINDINGS: Lungs: Unremarkable. No consolidation. No masses. Pleural spaces: Unremarkable. No pneumothorax. No pleural effusion. Heart: Unremarkable. No cardiomegaly. No pericardial effusion. Aorta: Unremarkable. No aortic aneurysm. Lymph nodes: Unremarkable. No enlarged lymph nodes. Bones/joints: Unremarkable. No acute fracture. Soft tissues: Unremarkable. IMPRESSION: No acute findings. THIS DOCUMENT HAS BEEN ELECTRONICALLY SIGNED BY KEYA KOTHARI MD Procedure Note Keya Kothari MD - 03/30/2021 PROCEDURE INFORMATION: Exam: CT Chest With Contrast; Diagnostic Exam date and time: 03/30/2021 4:58 AM Age: 50 years old Clinical indication: Other: Trauma TECHNIQUE: Imaging protocol: Diagnostic computed tomography of the chest with contrast. Radiation optimization: All CT scans at this facility use at least one of these dose optimization techniques: automated exposure control; mA and/or kV adjustment per patient size (includes targeted exams where dose is matched to clinical indication); or iterative reconstruction. Contrast material: OMNI 300; Contrast volume: 50 ml; Contrast route: INTRAVENOUS (IV); COMPARISON: No relevant prior studies available. FINDINGS: Lungs: Unremarkable. No consolidation. No masses. Pleural spaces: Unremarkable. No pneumothorax. No pleural effusion. Heart: Unremarkable. No cardiomegaly. No pericardial effusion. Aorta: Unremarkable. No aortic aneurysm. Lymph nodes: Unremarkable. No enlarged lymph nodes. Bones/joints: Unremarkable. No acute fracture. Soft tissues: Unremarkable. IMPRESSION: No acute findings. THIS DOCUMENT HAS BEEN ELECTRONICALLY SIGNED BY KEYA KOTHARI MD Performing Organization Address City/[facility] P melba Number [facility] [address] [place] [address] * POCT i-STAT Chem 8 (03/30/2021 4:43 AM EST) i-STAT Sodium 140 136 - 145 mmol/L [facility] POC i-STAT 3.8 3.4 - 5.1 mmol/L [facility] Potassium [facility] POC i-STAT Chloride 100 98 - 107 mmol/L [facility] POC i-STAT TCO2 27 22 - 29 mmol/L [facility] POC i-STAT Ionized 1.23 1.13 - 1.32 mmol/L [facility] v Calcium [facility] POC i-STAT Glucose 95 70 - 140 mg/dL [facility] POC i-STAT BUN 14 6 - 20 mg/dL [facility] POC i-STAT 1.1 0.70 - 1.20 mg/dL [facility] Creatinine Hospital POC i-STAT 48 41 - 53 % [facility] Hematocrit [facility] POC i-STAT 16.3 13.5 - 18.0 g/dL [facility] Hemoglobin [facility] POC Specimen Whole Blood Performing Organization Address [facility]/ZIP Code P melba Number POINT OF CARE TEST [address] POC [address] [place] [address] documented in this encounter Visit Diagnoses Diagnosis Fall, initial encounter - Primary documented in this encounter Administered Medications Action Date Dose Rate Site Medication Order MAR Action 03/30/2021 4:20 AM EST 975 mg acetaminophen (TYLENOL) tablet 975 mg Given 975 mg, Oral, Once, On Sun03/30/21 at 0345, For 1 dose, Maximum daily dose of acetaminophen is 3,000 mg from all sources in 24 hours. 03/30/2021 4:21 AM EST 10 mg cyclobenzaprine (FLEXERIL) tablet 10 mg Given 10 mg, Oral, Once, On Sun03/30/21 at 0345, For 1 dose 03/30/2021 5:18 AM EST 50 mLs iohexol (OMNIPAQUE) 300 MG/ML contrast Given injection 50 mL 50 mL, Given by IV, 1 TIME IMAGING, On Sun03/30/21 at 0500, For 1 dose 03/30/2021 4:21 AM EST 15 mg ketorolac (TORADOL) 30 MG/ML injection New Bag 15 mg 15 mg, Intravenous, Once, On Sun03/30/21 at 0345, For 1 dose documented in this encounter Active and Recently Administered Medications Times are shown in EST. 03/29/2021 03/30/2021 Medication Order 03/28/2021 0420 (Given - Provider: Melisa Barbour RN) acetaminophen (TYLENOL) tablet 975 mg (COMPLETED) 975 mg, Oral, Once, On Sun03/30/21 at 0345, For 1 dose, Maximum daily dose of acetaminophen is 3,000 mg from all sources in 24 hours. 0421 (Given - Provider: Melisa Barbour RN) cyclobenzaprine (FLEXERIL) tablet 10 mg (COMPLETED) 10 mg, Oral, Once, On Sun03/30/21 at 0345, For 1 dose 0518 (Given - Provider: Yohannes perez RT) iohexol (OMNIPAQUE) 300 MG/ML contrast injection 50 mL (COMPLETED) 50 mL, Given by IV, 1 TIME IMAGING, On Sun03/30/21 at 0500, For 1 dose 0421 (New Bag - Provider: Melisa arana RN)0500 (Stopped - All Meds - Provider: Melisa Barbour RN) ketorolac (TORADOL) 30 MG/ML injection 15 mg (COMPLETED) 15 mg, Intravenous, Once, On Sun03/30/21 at 0345, For 1 dose documented in this encounter Care Teams Start Date End Date Security And Privacy Consultant Relationship Specialty 09/20/19 Radha Leger PCP - General [facility], Medicine [address] [address] [place] [address] documented as of this encounter
--- OUTSIDE RECORDS SUMMARY | 2021-04-08 13:56 | CCD ---
Author Author [facility] Organization [facility] Address Unknown Phone Unavailable Care Team Providers Care Operating Room Technician Name Role Phone Radha Leger Unavailable PROBLEMS Type Condition ICD9-CM Code [id number] Code Onset Dates Condition S tatus W/U Status Risk SNOMED Code Notes Problem Anxiety F41.9 Active confirmed 63667130 Problem Hyperlipidemia, unspecified hyperlipidemia type E7 8.5 Active confirmed 47700697 Problem Vitamin D deficiency E55.9 Active confirmed 00918957 Problem Paresthesias in left hand R20.2 Active confirmed 158030781 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 A ctive confirmed 0433798341 Problem Essential hypertension I10 Active confirmed 23501744 Problem Acute left-sided low back pain with left-sided sciatica M54.42 Active confirmed 607665314 Problem Obesity (BMI 30-39.9) E66.9 Active confirmed 180986498 Problem Gastroesophageal reflux dise ase, unspecified whether esophagitis present K21.9 Active confirmed 972910027 Problem Erectile dysfunction, unspecified erectile dysfunction typ e N52.9 Active confirmed 049947925 Problem STEVE (obstructive sleep apnea) G47.33 Active confirm ed 60952571 Problem Abnormal CXR R93.89 Active confirmed 1007468 02 ALLERGIES No Known Allergies ENCOUNTERS from 1968 to 2021-03-30 Encounter Location Date Provider Diagnosis [facility] [address] [place] [address] Mar, Radha Leger IMMUNIZATIONS Vaccine Route Administration Date [...] Education Language: Question Answer Notes Languages spoken: Greenlandic Sabianist: Question Answer Notes Sabianist 21 Religious Sexual Hx: Question Answer Notes [...] Notes Start Da te End Date Status Lisinopril 30 MG 1 tablet Orally Once a day for 30 day(s) Nov, Active Citalopram Hydrobromide 40 MG 1 tablet Oral Once a day for 90 days Active Atorvastatin Calcium 10 MG 1 tab Oral Daily for 90 Active Lisinopril 20 MG 1 tab Oral Daily for 90 Active Vitamin D (Ergocalciferol) 44542 UNIT 1 cap Orally weekly for 28 Active CPAP mask as directed _mask,tubing,supplies Daily for 90 day(s) Jul, Active Lansoprazole 30 MG 1 cap Oral Daily for 90 days Active Multivitamin Adult - Orally Acti ve Viagra 50 MG 1 tablet as needed Orally Once a day for 30 day(s) Feb, Active Testosterone Cypionate 200 MG/ML (Schedule III Drug) (Prior Auth: Rx Ref#:[id number]) Intramuscular for 30 Not-Taking Aspir-81 81 MG 1 tablet Orally Once a day Active Fish Oil 1000 MG 1 capsule Orally Once a day Active CPAP Machine as directed portable machine Daily for 30 Days Jul, Active Gabapentin 300 MG (Prior Auth#:[id number]) Oral for 30 Active Fiber 625 MG 2 tabs as needed Orally Daily Active PROCEDURES No Information RESULTS No Results REASON FOR VISIT [place]ell MEDICAL (GENERAL) HISTORY Type Description Date Medical [...] Surgical History R wrist fusion Hospitalization History [facility] chest discomfort 07/22 Goals Section No Information Health Concerns No Information MEDICAL EQUIPMENT No Information MENTAL STATUS No Information FUNCTIONAL STATUS No Information ASSESSMENTS No Information PLAN OF TREATMENT No Information Insurance Providers Payer Name Payer Address Payer Phone Insured Name Patient Relati onship to Insured Coverage Start Date Coverage End Date BCBS [place] PPO [phone] [facility] [place]vents[place] [facility] [id number] [place] self
--- OUTSIDE RECORDS SUMMARY | 2021-04-08 13:57 | CCD ---
Author Author [facility] Organization [facility] Address Unknown Phone Unavailable Support Name Relationship Address Phone ARNOLD MOORE Next Of Kin [phone] [facility] [address] [place] [address] SNOW LEZAMA Next Of Kin [phone] [place] [address] [address] [place] [address] GHANSHYAM LEZAMA Next Of Kin [phone] [place] [address] [address] [place] [address] VERITO ESTES Next Of Kin [phone] [place] [address] [address] [place] [address] [facility] [facility] Next Of Kin [address] [place] [address] [employer] Next Of Kin [address] [place] [address] [employer] Next Of [facility] [address] [place] [address] VERITO MORRISSEY Next Of Kin [phone] [place] [address] [address] [place] [address] [employer] Next Of Kin [address] [place] [address] [facility] [place] [address] Unavailable [place] [address] Unavailable DPAO Next Of Kin [address] [place] [address] ARNOLD ESTES Next Of [address] [place] [address] ARNOLD MOORE ECON [address] [facility] [address] [place] [address] Unavailable snow lezama ECON [address] [facility] [address] [place] [address] Unavailable Verito Morrissey ECON Unknown Unavailable Care Team Providers [employer] Technician Name Role Phone Rhett HYLTON MD Unavailable [...] Unavailable Unavailable CONCETTARhett RODGERS MD Unavailable Unavailable CONCETTARhett RODGERS MD Unavailable Unavailable SpektorSuleman MD Unavailable Unavailable SpektorSuleman MD Unavailable Unavailable SpektorSuleman MD Unavailable Unavailable SpektorSuleman MD Unavailable Unavailable Venkata May MD Unavailable [...] Unavailable Crissy Leary MD Unavailable Unavailable Crissy Leray MD Unavailable Unavailable Crissy Leary MD Unavailable [...] Unavailable Unavailable Derrick STEVENS MD Unavailable Unavailable Paul QUEEN Unavailable Unavailable Luis Middleton Unavailable Luis Middleton Unavailable Luis Middleton Unavailable Josué-Tartemaria e M Radha DO Unavailable Unavailabl e Josué-Tartell, M Radha DO Unavailable Unavailabl e Josué-Tartell, M Radha DO Unavailable Unavailabl e Josué-Tartell, M Radha DO Unavailable Unavailabl e Josué-Tartell, M Radha DO Unavailable Unavailabl e Josué-Tartell, M Radha DO Unavailable Unavailabl e Josué-Tartell, M Radha DO Unavailable Unavailabl e Josué-Tartell, M Radha DO Unavailable Unavailabl e Josué-Tartell, M Radha DO Unavailable Unavailabl e Josué-Tartell, M Radha DO Unavailable Unavailabl e Josué-Tartell, M Radha DO Unavailable Unavailabl e Josué-Tartell, M Radha DO Unavailable Unavailabl e Josué-Tartell, M Radha DO Unavailable Unavailabl e Josué-Tartell, M Radha DO Unavailable Unavailabl e Josué-Tartell, M Radha DO Unavailable Unavailabl e Josué-Tartell, M Radha DO Unavailable Unavailabl e Josué-Tartell, M Radha DO Unavailable Unavailabl e Josué-Tartell, M Radha DO Unavailable Unavailabl e Josué-Tartell, M Radha DO Unavailable Unavailabl e Josué-Tartell, M Radha DO Unavailable Unavailabl e Josué-Tartell, M Radha DO Unavailable Unavailabl e Josué-Tartell, M Radha DO Unavailable Unavailabl e Josué-Tartell, M Radha DO Unavailable Unavailabl e Josué-Tartell, M Radha DO Unavailable Unavailabl e Josué-Tartell, M Radha DO Unavailable Unavailabl e Josué-Tartell, M Radha DO Unavailable Unavailabl e Josué-Tartell, M Radha DO Unavailable Unavailabl e Josué-Tartell, M Radha DO Unavailable Unavailabl e Josué-Tartell, M Radha DO Unavailable Unavailabl e Josué-Tartell, M Radha DO Unavailable Unavailabl e Josué-Tartell, M Radha DO Unavailable Unavailabl e Josué-Tartell, M Radha DO Unavailable Unavailabl e Josué-Tartell, M Radha DO Unavailable Unavailabl e Josué-Tartell, M Radha DO Unavailable Unavailabl e Josué-Tartell, M Radha DO Unavailable Unavailabl e Josué-Tartell, M Radha DO Unavailable Unavailabl e Josué-Tartell, M Radha DO Unavailable Unavailabl e Josué-Tartell, M Radha DO Unavailable Unavailabl e Josué-Tartell, M Radha DO Unavailable Unavailabl e Josué-Tartell, M Radha DO Unavailable Unavailabl e Josué-Tartell, M Radha DO Unavailable Unavailabl e Josué-Tartell, M Radha DO Unavailable Unavailabl e Josué-Tartell, M Radha DO Unavailable Unavailabl e Josué-Tartell, M Radha DO Unavailable Unavailabl e Josué-Tartell, M Radha DO Unavailable Unavailabl e Josué-Tartell, M Radha DO Unavailable Unavailabl e Josué-Tartell, M Radha DO Unavailable Unavailabl e Josué-Tartell, M Radha DO Unavailable Unavailabl e Josué-Tartell, M Radha DO Unavailable Unavailabl e Josué-Tartell, M Radha DO Unavailable Unavailabl e Josué-Tartell, M Radha DO Unavailable Unavailabl e Josué-Tartell, M Radha DO Unavailable Unavailabl e Josué-Tartell, M Radha DO Unavailable Unavailabl e Josué-Tartell, M Radha DO Unavailable Unavailabl e Josué-Tartell, M Radha DO Unavailable UnavailLuis Kang MD Unavailable Unavailable Luis MELÉNDEZ MD Unavailable [...] Unavailable Unavailable Rhett QUIÑONEZ MD Unavailable Unavailable MCELHERSADIE, VENKATA PA Unavailable Unavailable [...] Unavailable Unavailable MCELHERSADIE, VENKATA PA Unavailable Unavailable MCELHERSADIE, VENKATA PA Unavailable Unavailable MCELHERSADIE, VENKATA PA Unavailable Unavailable MCELHERSADIE, VENKATA PA Unavailable Unavailable MCELHERAN, VENKATA PA Unavailable Unavailable MCELHERSADIE, VENKATA PA Unavailable Unavailable MCELHERSADIE, VENKATA PA Unavailable Unavailable MCELHERSADIE, VENKATA PA Unavailable Unavailable MCELHERSADIE, VENKATA PA Unavailable Unavailable MCELHERAN, VENKATA PA Unavailable Unavailable MCELHERSADIE, VENKATA PA Unavailable Unavailable Feola, T Marjorie [...] Unavailable Feola, T Marjorie PA Unavailable Unavailable FlorianHayley colbert PA Unavailable Unavailable FlorianHayley colbert PA Unavailable Unavailable Florian, Hayley Ivett PA Unavailable Unavailable Florian, Hayley Ivett PA Unavailable Unavailable Florian, Hayley Ivett PA Unavailable Unavailable Florian, Hayley Ivett PA Unavailable Unavailable Florian, Hayley Ivett PA Unavailable Unavailable Florian, Hayley Ivett PA Unavailable Unavailable Florian, Hayley Ivett PA Unavailable Unavailable Florian, Hayley Ivett PA Unavailable Unavailable PHYSICIAN, PHYSICIAN ER Unavailable Unavailable KAIDEN, CHER KALEB JEWELRY MOLD MAKER-C Unavailable Unavailable KAIDEN, CHER KALEB JEWELRY MOLD MAKER-C Unavailable Unavailable KAIDEN, CHER KALEB JEWELRY MOLD MAKER-C Unavailable Unavailable KAIDEN, CHER KALEB JEWELRY MOLD MAKER-C Unavailable Unavailable KAIDEN, CHER KALEB JEWELRY MOLD MAKER-C Unavailable Unavailable KAIDEN, CHER KALEB JEWELRY MOLD MAKER-C Unavailable Unavailable KAIDEN, CHER KALEB JEWELRY MOLD MAKER-C Unavailable Unavailable KAIDEN, CHER KALEB JEWELRY MOLD MAKER-C Unavailable Unavailable KAIDEN, CHER KALEB JEWELRY MOLD MAKER-C Unavailable Unavailable KAIDEN, CHER KALEB JEWELRY MOLD MAKER-C Unavailable Unavailable KAIDEN, CHER KALEB JEWELRY MOLD MAKER-C Unavailable Unavailable KAIDEN, CHER KALEB JEWELRY MOLD MAKER-C Unavailable Unavailable KAIDEN, CHER KALEB JEWELRY MOLD MAKER-C Unavailable Unavailable KAIDEN, CHER KALEB JEWELRY MOLD MAKER-C Unavailable Unavailable KAIDEN, CHER KALEB JEWELRY MOLD MAKER-C Unavailable Unavailable KAIDEN, CHER KALEB JEWELRY MOLD MAKER-C Unavailable Unavailable KAIDEN, CHER KALEB JEWELRY MOLD MAKER-C Unavailable Unavailable Gerhard Maya Unavailable [phone] Gerhard Maya Unavailable [phone] Gerhard Maya Unavailable [phone] Francesco Gerhard Unavailable [phone] Gerhard Maya Unavailable [phone] Gerhard Maya Unavailable [phone] Rhett Beaver MD Unavailable Unavailable Rhett Beaver MD Unavailable Unavailable Rhett Beaver MD Unavailable Unavailable Rhett Beaver MD Unavailable Unavailable Rhett Beaver MD Unavailable Unavailable Rhett Beaver MD Unavailable Unavailable Rhett Beaver MD Unavailable Unavailable Beaver, C Sari Unavailable Unavailable Beaver, C Sari MD Unavailable Unavailable Beaver, C Sari MD Unavailable Unavailable Beaver, C Sari MD Unavailable Unavailable Beaver, C Sari MD Unavailable Unavailable Beaver, C Sari MD Unavailable Unavailable Beaver, C Sari MD Unavailable Unavailable Beaver, C Sari MD Unavailable Unavailable Beaver, C Sari MD Unavailable Unavailable Beaver, C Sari MD Unavailable Unavailable Beaver, C Sari MD Unavailable Unavailable Beaver, C Sari MD Unavailable Unavailable Beaver, C Sari MD Unavailable Unavailable Beaver, C Sari MD Unavailable Unavailable Beaver, C Sari MD Unavailable Unavailable Beaver, C Sari MD Unavailable Unavailable Beaver, C Sari MD Unavailable Unavailable Beaver, C Sari MD Unavailable Unavailable Luis CHEUNG . Unavailable Unavailable PHYSICIAN, ER Unavailable Unavailable Re-disclosure Warning The records that [...] is protected by Article 27-F of the [facility] Public Health law. If you continue you may have access to information: Regarding HIV / AIDS; Provided by facilities licensed or operated by the [facility] Office of Mental Health; or Provided by the [facility] Office for People With Developmental Disabilities. If such information is present, then the following [facility] mandated warning applies: This information has [...] law may result in a fine or alf sentence or both. A general authorization for the release of medical or other information is NOT sufficient authorization for further disc losure. Allergies and Adverse Reactions Type Description Substance Reaction Status Data Source(s ) Propensity to adverse reactions NO KNOWN ALLERGIES NO KNOWN ALLERGIES [facility] Drug allergy No Known Drug Allergies No Known Drug Allergies [facility] Family History Family Member Name Family Member Gender Family Member Status Date o f Status Description Data Source(s) Unknown Male Problem MEDENT ([facility] ) Encounters Encounter Providers Location Date Indications Data Source(s ) Outpatient 03/31/2021 11:03:55 AM EST - 021 11:35:08 AM EST [facility] ([facility]) Emergency Attender: Kodak MiddletonAttender: KODAK WOLFE AY . 07A-ERMADULT 03/30/2021 12:00:00 AM EST - 03/30/2021 07:19:00 AM EST Back Pain [facility] Back Pain Patient discharged. [place] [address] [facility] [address] 03/30/2021 12:00:00 AM EST eCW1 ([facility]) Recurring Patient Referrer: Radha Leger DO 03/22/2021 11:16:10 AM EST [facility] Out[facility] [address] [facility] [address] 02/11/2021 12:00:00 AM EDT eCW1 ([facility]) Outpatient Attender: Terrence HYLTON MD [id number] 01/17/2021 12:00:00 A M T [facility] Outpatient Attender: Gerhard Maya 12/28 07:38:34 PM EDT - 12/28/2020 07:56:29 PM EDT [facility] ([facility] ) Outpatient Attender: Sarah LANCE Main Office 12/03/2020 10:15:00 AM EDT [facility] ([facility]) [place] [address] [facility] [address] 11/11/2020 12:00:00 AM EDT eCW1 ([facility]) [place] [address] [facility] [address] 11/11/2020 12:00:00 AM EDT [facility]CW1 ([facility]) [place] [address] [facility] [address] 11/10/2020 12:00:00 AM EDT [facility]CW1 [facility]) Outpatient Attender: YESICA Puentes/Russell/Filemon king/Reindl 11/05/2020 08:30:00 AM EDT [facility] ) Outpatient Attender: KALEB Puentes/Russell/Jose Juan/R eindl 10/15/2020 02:15:00 PM EDT [facility] ([facility] ) [place] [address] [facility] [address] 10/14/2020 12:00:00 AM EDT eCW1 [facility] Out[place] [address] [facility] [address] 10/14/2020 12:00:00 AM EDT eCW1 ([facility]) Outpatient Attender: Marjorie LANCE 021 03:05:45 PM EDT - 10/07/2020 03:14:50 PM EDT [facility] ([facility] ) [place] [address] [facility] [address] 09/24/2020 12:00:00 AM EDT eCW1 ([facility]) Outpatient [address] [facility] [address] 09/20/2020 12:00:00 AM EDT eCW1 ([facility]) Unknown [address] [facility] [address] 09/15/2020 12:00:00 AM EDT eCW1 ([facility]) Outpatient [address] [facility] [address] 09/13/2020 12:00:00 AM EDT eCW1 ([facility]) Emergency Attender: Venkata May MDAdmitter: Physician Gamal villarnowlorenza 08/31/2020 09:27:00 PM EDT - 09/01/2020 01:56:00 AM EDT NECK AND BACK PAIN [facility] NECK AND BACK PAIN Patient discharged. Outpatient Attender: Terrence HYLTON MD 08/30/2020 12:00:00 AM EDT [facility] OFFICE OUTPATIENT VISIT 15 MINUTES Attender: VENKATA LANCE Physical Therapy 08/16/2020 09:15:00 AM EDT [facility] ([facility]) Outpatient Attender: ANA QUIÑONEZ MD 08/13 05:59:56 PM EDT - 08/13/2020 07:16:07 PM EDT [facility] ([facility] ) [place] [address] [facility] [address] 08/13/2020 12:00:00 AM EDT eCW1 ([facility]) Unknown [address] [facility] [address] 08/09/2020 12:00:00 AM EDT eCW1 ([facility]) Unknown [address] [facility] [address] 08/09/2020 12:00:00 AM EDT eCW1 ([facility]) Outpatient Attender: Crissy Leary MD [facility] at [facility] 07/21/2020 02:00:00 PM EDT [facility]) Emergency Attender: ER PHYSICIAN 07/09/2020 07:04:42 PM [facility] Emergency Attender: ROBERTO LAGUNASAttender: ER PHYSICIAN 07/09/2020 05:27:00 PM EST - 07/09/2020 08:12:00 PM EST RIGHT SIDED ABDOMINAL PAIN SEVERE [facility] RIGHT SIDED ABDOMINAL PAIN SEVERE Patient discharged. Emergency Attender: ER PHYSICIAN 07/09/2020 05:27:[address] [facility] Outpatient Attender: VENKATA LANCE Physical Therapy 07/05/2020 09:15:00 AM EST [facility] ([facility]) [place] [address] [facility] [address] 07/05/2020 12:00:00 AM EST eCW1 ([facility]) Outpatient [address] [facility] [address] 06/28/2020 12:00:00 AM EST eCW1 ([facility]) Unknown [address] [facility] [address] 06/18/2020 12:00:00 AM EST eCW1 ([facility]) Outpatient Attender: KALEB LYNN-Rhett Puentes/Russell/Jose Juan/Paul cheatham 06/17/2020 07:15:00 AM EST [facility] ([facility]) Outpatient [address] [facility] [address] 06/17/2020 12:00:00 AM EST eCW1 ([facility]) Outpatient Attender: Sarah LANCE Main Office 06/16/2020 06:45:00 AM EST [facility] ([facility]) Unknown [address] [facility] [address] 06/16/2020 12:00:00 AM EST eCW1 ([facility]) Outpatient Attender: Sari Beaver MD 0 05/30/2020 12:50:31 PM EST - 05/30/2020 01:47:37 PM EST [facility] ([facility]) Unknown [address] [facility] [address] 05/18/2020 12:00:00 AM EST eCW1 ([facility]) Outpatient Attender: CARLINE STEVENS MDReferrer: CARLINE Daigle MD 04/03/2020 12:00:00 AM EST [facility] Emergency Attender: LEXX BENAVIDEZ MDA ttender: CARLINE STEVENS MDReferrer: SARTHAK QUEEN 07A-ERMADULT 04/02/2020 12:00:00 AM EST - 04/03/2020 02:24:00 AM EST Other chest pain [facility] Other chest pain Patient discharged. Outpatient Attender: VENKATA LANCE Physical Therapy 03/29/2020 02:45:00 PM EST MED[facility] ([facility]) Outpatient Attender: Ivett harley 03/20/2020 04:00:00 PM EST MEDENT ([facility]) Outpatient Attender: Ino LockettReferrer: Terrence HYLTON MD 02/23/2020 12:00:00 AM EDT [facility] Outpatient Attender: Solange TRAVISeferrer: Terrence HYLTON MD 02/09/2020 12:00:00 AM EDT [facility] Outpatient [address] [facility] [address] 02/09/2020 12:00:00 AM EDT eCW ([facility]) Outpatient Attender: Terrence HYLTON MD [id number] 01/05/20 12:00:00 AM EDT - 01/05/2020 02:49:16 PM T [facility] Medications Medication Brand Name Start Date Product Form Dose Route Admi nistrative Instructions Pharmacy Instructions Status Indications Reaction Description Data Source(s) iohexol (OMNIPAQUE) 300 MG/ML contrast injection 50 mL [id number] 2 03/30/2021 05:00:00 AM EST 50 mL Given by IV completed 50 mL, Given by IV, 1 TIME IMAGING, On Sun03/30/21 at 0500, For 1 dose [facility] Medication administered onsite Acetaminophen 325 MG Oral Tablet acetaminophen (TYLENO L) tablet 975 mg acetaminophen (TYLENOL) tablet 975 mg 03/30/2021 03:45:00 AM EST 97 5 mg Oral completed 975 mg, Oral, O nce, On Sun03/30/21 at 0345, For 1 dose
Maximum daily dose of acetaminophen is 3,000 mg from all sources in 24 hours.
[facility] Medication administered onsite 1 ML Ketorolac Tromethamine 30 MG/ML Car tridge ketorolac (TORADOL) 30 MG/ML injection 15 mg ketorolac (TORADOL) 30 MG/ML injection 15 mg 03:45:00 AM EST 15 mg Intravenous completed 15 mg, Intravenous, Once, On Sun03/30/21 at 0345, For 1 dose [facility] Medication administered onsite Cyclobenzaprine hydrochloride 10 MG Oral Tablet cyclobenzaprine (FLEXERIL) tablet 10 mg cyclobenzaprine (FLEXERIL) tablet 10 mg 03/30/2021 03:45:00 AM EST 10 mg Oral completed 10 mg, Oral, O nce, On Sun03/30/21 at 0345, For 1 dose [facility] Medication administered onsite Cyclobenzaprine hydrochloride 10 MG Oral Tablet Cyclobenzaprine HCl 10 MG Oral Tablet (FLEXERIL) Cyclobenzaprine HCl 10 MG Oral Tablet (FLEXERIL) 03/30 12:00:00 AM EST 10 mg Oral active Take 1 tablet by mouth Three times daily as needed for Muscle spasms for up to 10 days [facility] 300 mg 03/15/2021 12:00:00 AM EST capsule 90 TAKE ONE CAPSULE BY MOUTH THREE TIMES A DAY TAKE ONE CAPSULE BY MOUTH THREE TIMES A DAY SOLD: 03/20/2021 [facility] Citalopram 40 MG Oral Tablet CITALOPRAM HYDROBROMIDE 03/02/2021 12:00:00 AM EDT tablet 90 TAKE ONE TABLET BY MOUTH EVERY D AY TAKE ONE TABLET BY MOUTH EVERY DAY SOLD: 03/04/2021 [facility] 200 mg/mL 02/24/2021 12:00:00 AM EDT oil 3 INJECT 1ML INTRAMUSCULARLY EVERY 10 DAYS * MAX DOSE 1ML EVERY 10 DAYS INJECT 1ML INTRAMUSCULARLY EVERY 10 DAYS * MAX DOSE 1ML EVERY 10 DAYS SOLD: 03/01/2021 [facility] testosterone cypionate 200 MG/ML Injecta ble Solution Testosterone Cypionate 200 MG/ML Injection Solution (DEPOTESTOTERONE CYPIONATE) Testosterone Cypionate 200 MG/ML Injection Solution (DEPOTESTOTERONE CYPIONATE) 02/24/2021 12:00:00 AM EDT 200 mg Intramuscular active Inject 1 m L into the muscle every 10 (ten) days , Max Daily Dose: 200 mg [facility] 200 mg/mL 01/18/2021 12:00:00 AM EDT oil 3 INJECT 1ML INTRAMUSCULARLY EVERY 10 DAYS, MAX OF 1ML PER 10 DAYS INJECT 1ML INTRAMUSCULARLY EVERY 10 DAYS , MAX OF 1ML PER 10 DAYS SOLD: 01/24/2021 [facility] 10 mg 12/22/2020 12:00:00 AM EDT tablet 20 TAKE ONE TABLET BY MOUTH EVERY 6 HOURS NEEDED FOR PAIN TAKE ONE TABLET BY MOUTH EVERY 6 HOURS A S NEEDED FOR PAIN SOLD: 12/22/2020 [facility] 50 mg 12/22/2020 12:00:00 AM EDT tablet 10 TAKE ONE TABLET BY MOUTH TWICE A DAY NEEDED FOR PAIN * MAXIMUM DAILY DOSE = 4 TAKE ONE TABLET BY MOUTH TWICE A DAY NEEDED FOR PAIN * MAXIMUM DAILY DOSE = 4 SOLD: 12/22/2020 [facility] Sutab Sutab 11/22/2020 12:00:00 AM EDT active MEDENT ([facility], ) POLYETHYLENE GLYCOL 3350 105 MG/ML / Pot assium Chloride 0.69168 MEQ/ML / Sodium Bicarbonate 0.017 MEQ/ML / Sodium Chloride 0.0479 MEQ/ML Oral Solution [GaviLyte-N] Gavilyte-N With Flavor Pack 11/22/2020 12:00:00 AM EDT active MEDENT ([facility], ) Bisacodyl 5 MG Delayed Release Oral Tablet [Dulcolax] Dulcol ax 11/22/2020 12:00:00 AM EDT active M EDENT ([facility], ) Clenpiq Clenpiq 11/18/2020 12:00:00 AM EDT active MEDENT ([facility]) 300 mg 11/17/2020 12:00:00 AM EDT capsule [...] ONE TABLET BY MOUTH EVERY DAY SOLD: 03/04/2021 [facility] 30 mg 11/12/2020 12:00:00 AM [...] {tablet} active Lisinopril 30 MG eCW1 ( [facility]) Lisinopril 30 MG Oral Tablet Lisinopril 30 MG 11/11/2020 12:00:00 A M EDT 1.0 {tablet} active Lisinopril 30 MG eCW1 ( [facility]) Lisinopril 30 MG Oral Tablet Lisinopril 30 MG 11/11/2020 12:00:00 A M EDT 1.0 {tablet} active Lisinopril 30 MG eCW1 ( [facility]) Lisinopril 30 MG Oral Tablet Lisinopril 30 MG 11/11/2020 12:00:00 A M EDT 1.0 {tablet} active Lisinopril 30 MG eCW1 ( [facility]) Lisinopril 30 MG Oral Tablet Lisinopril 30 MG 11/11/2020 12:00:00 A M EDT 1.0 {tablet} active Lisinopril 30 MG eCW1 ( [facility]) 200 mg/mL 11/02/2020 12:00:00 AM EDT [...] MOUTH THREE TIMES A DAY SOLD: 10/03/2020 [facility] 200 mg/mL 09/12/2020 12:00:00 AM EDT oil 3 INJECT 1 ML INTRAMUSCULARLY EVERY 10 DAYS, MAX OF 1ML PER 10 DAYS INJECT 1 ML INTRAMUSCULARLY EVERY 10 DAY S, MAX OF 1ML PER 10 DAYS SOLD: 09/16/2020 [facility] 3 mL 22 gauge x 1" [...] 09:44:46 PM EDT 81 MG ORAL active [facility] Lisinopril 40 MG Oral Tablet Lisinopril 08/31/2020 09:44:46 PM EDT 40 MG ORAL active [facility] Lisinopril 40 MG Oral Tablet Lisinopril 08/31/2020 09:44:46 PM EDT 40 MG ORAL active [facility] Aspirin 81 MG Delayed Release Oral Table t Aspirin* (Aspirin (81 Mg) Enteric Coated Tablet*) 81 MG Enteric Coated Tablet Aspirin* (Aspirin (81 Mg) Enteric Coated Tablet*) 81 MG Enteric Coated Tablet 08/31/2020 09:44:46 PM EDT 81 MG ORAL active [facility] Sertraline 25 MG Oral Tablet [Zoloft] Sertraline Hcl ( Zoloft*) 25 MG Tablet Sertraline Hcl (Zoloft*) 25 MG Tablet 08/31/2020 09:44:46 PM EDT 25 M G ORAL active [facility] Aspirin 81 MG Delayed Release Oral Table t Aspirin* (Aspirin (81 Mg) Enteric Coated Tablet*) 81 MG Enteric Coated Tablet Aspirin* (Aspirin (81 Mg) Enteric Coated Tablet*) 81 MG Enteric Coated Tablet 08/31/2020 09:44:46 PM EDT 81 MG ORAL active [facility] Aspirin 81 MG Delayed Release Oral Table t Aspirin* (Aspirin (81 Mg) Enteric Coated Tablet*) 81 MG Enteric Coated Tablet Aspirin* (Aspirin (81 Mg) Enteric Coated Tablet*) 81 MG Enteric Coated Tablet 08/31/2020 09:44:46 PM EDT 81 MG ORAL active [facility] Sertraline 25 MG Oral Tablet [Zoloft] Sertraline Hcl ( Zoloft*) 25 MG Tablet Sertraline Hcl (Zoloft*) 25 MG Tablet 08/31/2020 09:44:46 PM EDT 25 M G ORAL active [facility] Lisinopril 40 MG Oral Tablet Lisinopril 08/31/2020 09:44:46 PM EDT 40 MG ORAL active [facility] Sertraline 25 MG Oral Tablet [Zoloft] Sertraline Hcl ( Zoloft*) 25 MG Tablet Sertraline Hcl (Zoloft*) 25 MG Tablet 08/31/2020 09:44:46 PM EDT 25 M G ORAL active [facility] lansoprazole 30 MG Delayed Release Oral Capsule [Prevacid] Lansoprazole (Prevacid) 30 MG Capsule. Lansoprazole (Prevacid) 30 MG Capsule. 08/31/2020 09:44:46 PM EDT 30 MG ORAL active [facility] Lisinopril 40 MG Oral Tablet Lisinopril 08/31/2020 09:44:46 PM EDT 40 MG ORAL active [facility] lansoprazole 30 MG Delayed Release Oral Capsule [Prevacid] Lansoprazole (Prevacid) 30 MG Capsule. Lansoprazole (Prevacid) 30 MG Capsule. 08/31/2020 09:44:46 PM EDT 30 MG ORAL active [facility] lansoprazole 30 MG Delayed Release Oral Capsule [Prevacid] Lansoprazole (Prevacid) 30 MG Capsule. Lansoprazole (Prevacid) 30 MG Capsule. 08/31/2020 09:44:46 PM EDT 30 MG ORAL active [facility] [facility] Sertraline 25 MG Oral Tablet [Zoloft] Sertraline Hcl ( Zoloft*) 25 MG Tablet Sertraline Hcl (Zoloft*) 25 MG Tablet 08/31/2020 09:44:46 PM EDT 25 M G ORAL active [facility] lansoprazole 30 MG Delayed Release Oral Capsule [Prevacid] Lansoprazole (Prevacid) 30 MG Capsule. Lansoprazole (Prevacid) 30 MG Capsule. 08/31/2020 09:44:46 PM EDT 30 MG ORAL active [facility] Sertraline 25 MG Oral Tablet [Zoloft] Sertraline Hcl ( Zoloft*) 25 MG Tablet Sertraline Hcl (Zoloft*) 25 MG Tablet 08/31/2020 09:44:46 PM EDT 25 M G ORAL active [facility] Lisinopril 40 MG Oral Tablet Lisinopril 08/31/2020 09:44:46 PM EDT 40 MG ORAL active [facility] Aspirin 81 MG Delayed Release Oral Table t Aspirin* (Aspirin (81 Mg) Enteric Coated Tablet*) 81 MG Enteric Coated Tablet Aspirin* (Aspirin (81 Mg) Enteric Coated Tablet*) 81 MG Enteric Coated Tablet 08/31/2020 09:44:46 PM EDT 81 MG ORAL active [place] [facility] lansoprazole 30 MG Delayed Release Oral Capsule [Prevacid] Lansoprazole (Prevacid) 30 MG Capsule. Lansoprazole (Prevacid) 30 MG Capsule. 08/31/2020 09:44:46 PM EDT 30 MG ORAL active [facility] Needle (Disp) 18G X 1-1/2" [id number] 08/26/2020 12:00:00 AM EDT active Low testosterone Use as directed. To use weekly with inje [facility] Low testosterone Syringe Luer Lock 23G X 1" 3 ML [id number] 08/26/2020 12:00:00 AM EDT 1 {each} Does not apply active Low testosterone 1 ea ch by Does not apply route once a week for 20 dosesTo use weekly with [facility] Low testosterone 17.5-3.13-1.6 gram 08/11/2020 12:00:00 AM EDT recon soln 354 TAKE PER DOCTORS BOWEL PREP INSTRUCTIONS TAKE PER DOCTORS BOWEL PREP INSTRUCTIONS SOLD: 08/14/2020 [facility] Suprep Bowel Prep Kit Suprep Bowel Prep Kit 08/11/2020 12:00:00 AM EDT completed MEDYOLANDA ([facility]) Citalopram 40 MG Oral Tablet CITALOPRAM HYDROBROMIDE [...] CPAP 07/19/2020 12:00:00 AM EDT active MEDENT ([facility] ) 4 mg 07/10/2020 12:00:00 [...] ONE CAPSULE BY MOUTH EVERY DAY SOLD: 03/20/2021 [facility] 30 mg 04/04/2020 12:00:00 AM [...] Hyclate 03/20/2020 12:00:00 AM EST active MEDENT ([facility]) sildenafil 50 MG Oral Tablet [Viagra] Viagra 50 MG Viagra 50 MG 02/09/2020 12:00:00 AM EDT 1.0 {tablet_as_needed} active Viagra 50 MG eCW1 ([facility]) sildenafil 50 MG Oral Tablet [Viagra] Viagra 50 MG Viagra 50 MG 02/09/2020 12:00:00 AM EDT 1.0 {tablet_as_needed} active Viagra 50 MG eCW1 ([facility]) sildenafil 50 MG Oral Tablet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 [Enzymatic activity/volume] in Se rum or Plasma 107 [facility] ([facility]) Urea nitrogen [Mass/volume] in Serum or Plasma 24 [facility] ([facility]) Glucose 106 70-100 [facility] ([facility] Creatinine For GFR 1.20 [facility] ([facility]) ID Date Data Source [id number] 09/01/2020 06:47:00 AM EDT [facility] NAME: ALKA PARSON 1970 50 MRUN: [id number] LOC: ED ACCT: [id number] SRV: O.V.#: RPT#: [id number] XR SHOULDER 2+V LEFT [id number] Date/Time:08/31/202213 Dx: pain after fall out of [...] JOSE LUIS 1 0820 PACS IMAGE LINK ([facility] USE ONLY) [email or web address] Name Value Range Interpretation Code Description Data Jenise rce(s) Supporting Document(s) ID Date Data Source [id number] 09/01/2020 12:29:00 AM EDT [facility] NAME: ALKA PARSON 1970 50 MRUN: [id number] LOC: ED ACCT: [id number] SRV: O.V.#: RPT#: [id number] CT T SPINE [id number] Date/Time:08/31/202213 Dx: pain after fall out of [...] Transcribed By: ZQNHMiguel 0029 PACS IMAGE LINK ([facility] USE ONLY) [email or web address] Name Value Range Interpretation Code Description Data Jenise rce(s) Supporting Document(s) ID Date Data Source [id number] 09/01/2020 12:09:00 AM EDT [facility] NAME: ALKA PARSON 1970 50 MRUN: [id number] LOC: ED ACCT: [id number] SRV: O.V.#: RPT#: [id number] CT L SPINE [id number] Date/Time:08/31/202213 Dx: pain after fall out of [...] MD 09/01/208 Electronically Co-Signed By: Transcribed By: Z8 PACS IMAGE LINK ([facility] USE ONLY) [email or web address] Name Value Range Interpretation Code Description Data Jenise rce(s) Supporting Document(s) ID Date Data Source [id number] 08/31/2020 11:53:00 PM EDT [facility] NAME: ALKA PARSON 1970 50 MRUN: [id number] LOC: ED ACCT: [id number] SRV: O.V.#: RPT#: [id number] CT C SPINE [id number] Date/Time:08/31/202213 Dx: pain after fall out of [...] MD 08/31/202352 Electronically Co-Signed By: Transcribed By: SAMANTA. 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 It has not been cleared or [...] Multiplex RT-PCR Assay ID Date Data Source [id number] 08/13/2020 06:15:00 PM EDT [facility] Name Value Range Interpretation Code Description Data Jenise rce(s) Supporting Document(s) SARS-CoV-2 (COVID-19) N gene [Presence] in Respiratory specimen by MICHELLE with probe detection POSITIVE [facility] This lab was ordered by Noel Adam and reported by [employer]. ID Date Data Source [id number] 08/13/2020 12:00:00 AM EDT [facility] Name Value Range Interpretation Code Description Data Jenise rce(s) Supporting Document(s) Carestart Rapid COVID Antigen Test Positive [facility] This lab was reported by Noel webb. ID Date Data Source [id number] 07/21/2020 02:50:00 PM EDT [facility] Name Value Range Interpretation Code Description Data Jenise rce(s) Supporting Document(s) Lipase [Enzymatic activity/volume] in Serum or Plasma 64.0 U/L 5.6-51.3 Above high normal [facility] ([facility]) ALT, AST, & Lipase all trending down [facility] labs. Venipuncture Laboratory test result MEDE NT ([facility]) ALT, AST, & Lipase all trending down [facility] labs. ID Date Data Source [id number] 07/21/2020 02:50:00 PM EDT [facility] ([facility]) Name Value Range Interpretation Code Description Data Jenise rce(s) Supporting Document(s) Glucose [Mass/volume] in Serum or Plasma 106 mg/dL 74-106 [facility] ([facility]) ALT, AST, & Lipase all trending down [facility]. Urea nitrogen [Moles/volume] in Serum or Plasma 17 mg/dL 6-20 [facility] ([facility]) ALT, AST, & Lipase all trending down [facility] labs. Creatinine [Mass/volume] in Serum or Plasma 1.2 mg/dL 0.5-1.3 [facility] ([facility]) ALT, AST, & Lipase all trending down [facility] labs. Sodium [Moles/volume] in Serum or Plasma 140 mmol/L 136-145 [facility] ([facility]) ALT, AST, & Lipase all [...] Serum or Plasma 63 U/L 46-116 [facility] ([facility]) ALT, AST, & Lipase all trending down [facility] labs. eGFR-Aa male 77 mL/m/1.73m [facility] ([facility]) ALT, AST, & Lipase all trending down [facility] labs. Alanine aminotransferase [Enzymatic activity/volume] in Seru m or Plasma 144 U/L 4-36 Above high normal [facility] ([facility]) ALT, AST, & Lipase all trending down [facility] labs. Bilirubin.total [Mass/volume] in Serum or Plasma 0.7 mg/dL 0.3-1.2 [facility] ([facility]) ALT, AST, & Lipase all trending down [facility]. Aspartate aminotransferase [Enzymatic activity/volume] in Serum or Plasma 79 U/L 8-33 Above high normal [facility] ([facility]) ALT, AST, & Lipase all trending down [facility]. Protein [Mass/volume] in Serum or Plasma 6.7 g/dL 6.4-8.3 [facility] ([facility]) ALT, AST, & Lipase all trending down [facility] labs. Albumin/Globulin [Mass Ratio] in Serum or Plasma 1.9 Ratio 1.0-2.0 [facility] ALT, AST, & Lipase all trending down [facility] labs. Albumin [Mass/volume] in Serum or Plasma 4.4 g/dL 3.6-5.1 [facility] ALT, AST, & Lipase all trending down [facility] labs. Globulin [Mass/volume] in Serum by calculation 2.3 g/dL 1.9-3.7 [facility] ALT, AST, & Lipase all trending down [facility] labs. Calcium [Mass/volume] in Serum or Plasma 10.0 mg/dL 8.9-10.5 [facility] ALT, AST, & Lipase all trending down [facility] labs. ID Date Data Source [id number] 07/09/2020 07:14:00 PM [facility] DATE OF EXAM: 07/09/2020US Abdomen Ltd G [...] No biliary dilatation. Professional interpretation performed at [facility] .End of diagnostic report for accession: [id number] Interpreted: Wilder Velasco MDTranscribed: 07/09/2020 07:13 PMSigned: 07/09/2020 07:14 PM Wilder Velasco MD [facility] # [id number] [facility] # [id number] Name Value Range Interpretation Code Description Data [facility](s) Supporting Document(s) ID Date Data Source [id number] 07/09/2020 07:32:12 PM EST [facility] Name Value Range Interpretation Code Description Data [facility](s) Supporting Document(s) SODIUM 140 mmol/L (136-145) [facility] POTASSIUM 4.4 mmol/L (3.6-5.2) [facility] CHLORIDE 108 mmol/L (100-108) [facility] CO2 26 mmol/L (22-31) [facility] ANION GAP 6 mmol/L (7-16) L [facility] UREA NITROGEN 20 mg/dL (7-24) [facility] CREATININE 1.12 mg/dL (0.80-1.30) [facility] BUN/CREAT RATIO 17.9 RATIO (10.0-20.0) [facility] GLUCOSE 92 mg/dL (70-99) [facility] CALCIUM 9.6 mg/dL (8.4-10.2) [facility] GFR >60 ml/min/1.73m2 (>59) [facility] GFR ( AMER) >60 ml/min/1.73m2 (>59) [facility] GFR INTERPRETATION [facility] --NORMAL KIDNEY FUNCTION OR MILD DISEASE - GFR >OR= 60CHRONIC KIDNEY DISEASE - GFR 15 - 59RENAL FAILURE - GFR <15 Est. GFR calculation based on the MDRDstudy equation, which assumes a steadystate for creatinine. Est. GFR should notbe used for medication dosing. ID Date Data Source [id number] 07/09/2020 07:32:12 PM EST [facility] Name Value Range Interpretation Code Description Data Jenise rce(s) Supporting Document(s) TOTAL PROTEIN 7.6 g/dL (6.4-8.2) [facility] ALBUMIN 3.8 g/dL (3.5-4.6) [facility] GLOBULIN 3.8 g/dL (2.7-4.3) [facility] ALB/GLOB RATIO 1.0 RATIO [facility] BILIRUBIN,TOTAL 0.6 mg/dL (0.0-1.0) [facility] PLEASE NOTE:Total bilirubin results may be falselyelevated in patients taking Eltrombopag. BILIRUBIN,CONJUGATED 0.1 mg/dL (0.0-0.3) [facility] BILIRUBIN,UNCONJ. 0.5 mg/dL (0.0-0.7) [facility] ALKALINE PHOSPHATASE 65 U/L (45-117) [facility] AST (SGOT) 102 U/L (11-39) H [facility] ALT (SGPT) 189 U/L (12-78) H [facility] ID Date Data Source [id number] 07/09/2020 07:32:12 PM EST [facility] Name Value Range Interpretation Code Description Data Jenise rce(s) Supporting Document(s) LIPASE 273 U/L (65-230) H [facility] ID Date Data Source [id number] 07/09/2020 07:04:42 PM EST [facility] Name Value Range Interpretation Code Description Data Jenise rce(s) Supporting Document(s) WBC 8.5 10*3/uL (4.1-11.0) [facility] RBC 5.57 10*6/uL (4.60-6.10) [facility] HGB 15.7 g/dL (13.5-18.0) [facility] HCT 48.5 % (41.0-53.0) [facility] MCV 87.0 fL (80.0-95.0) [facility] MCH 28.2 pg (27.0-32.0) [facility] MCHC 32.4 g/dL (32.0-36.0) [facility] RDW 14.8 % (10.5-14.5) H [facility] PLT 229 10*3/uL (150-450) [facility] MPV 8.7 fL (7.1-10.7) [facility] NEUT % 48.0 % (35.0-75.0) [facility] LYMPH % 39.0 % (16.0-52.0) [facility] MONO % 11.0 % (0.0-8.0) H [facility] EOS % 1.6 % (0.0-5.0) [facility] BASO % 0.4 % (0.0-4.0) [facility] NEUT # 4.1 10*3/uL (1.8-7.7) [facility] LYMPH # 3.3 10*3/uL (1.2-4.8) [facility] MONO # 0.9 10*3/uL (0.0-0.8) H [facility] Eosinophils [#/volume] in Blood by Automated count 0.1 10*3/uL (0.0-0 .5) [facility] BASO # 0.0 10*3/uL (0.0-0.2) [facility] ID Date Data Source Comprehensive Metabolic Profile (CMP) 06/28/2020 12:00:00 AM EST eCW1 ([facility]) Name Value Range Interpretation Code Description Data Jenise rce(s) Supporting Document(s) 16 7-18 BLOOD UREA NITROGEN eCW1 ([facility]) 116 70-100 GLUCOSE, FASTING eCW1 ([facility]) 1.18 0.70-1.30 CREATININE FOR GFR eCW1 ([facility]) > 60.0 >56 GLOMERULAR FILTRATION RATE eCW 1 ([facility]) 4.7 3.5-5.1 POTASSIUM SERUM eCW1 ([facility]) 137 136-145 SODIUM LEVEL eCW1 ([facility]) 102 98-107 CHLORIDE LEVEL eCW1 ([facility]) 29 21-32 CARBON DIOXIDE LEVEL eCW1 ([facility]) 9.7 8.5-10.1 CALCIUM LEVEL eCW1 ([facility]) 66 7-37 AST/SGOT eCW1 ([facility]) 134 12-78 ALT/SGPT eCW1 ([facility]) 62 45-117 ALKALINE PHOSPHATASE eCW1 ([facility]) 0.5 0.2-1.0 BILIRUBIN,TOTAL eCW1 ([facility]) 7.2 6.4-8.2 TOTAL PROTEIN eCW1 ([facility]) 3.7 3.2-5.2 ALBUMIN eCW1 ([facility]) 1.1 ALBUMIN/GLOBULIN RATIO eCW1 ([facility]) ID Date Data Source [id number] 06/17/2020 10:40:00 AM EST [facility] ([facility]) Name Value Range Interpretation Code Description Data Jenise rce(s) Supporting Document(s) Creatine kinase [Enzymatic activity/volume] in Serum or Plasma 166 U/L 39-308 [facility] ([facility]) ID Date Data Source [id number] 06/17/2020 10:40:00 AM EST [facility] ([facility]) Name Value Range Interpretation Code Description Data Jenise rce(s) Supporting Document(s) Triglycerides Level 114 mg/dL [facility] ([facility]) Cholesterol Level 165 mg/dL [facility] ([facility]) LDL Cholesterol 105 mg/dL [facility] ([facility]) HDL Cholesterol 37 mg/dL [facility] ([facility]) Non-HDL-C 128 mg/dL [facility] Cholesterol Risk Ratio 4.459 [facility] ([facility]) ID Date Data Source [id number] 06/17/2020 10:40:00 AM EST [facility] ([facility]) Name Value Range Interpretation Code Description Data Jenise rce(s) Supporting Document(s) Glucose, Fasting 113 mg/dL 70-100 [facility] ([facility]) Blood Urea Nitrogen 13 mg/dL 7-18 [facility] ([facility]) Creatinine For GFR 1.13 mg/dL 0.70-1.30 [facility] ([facility]) Glomerular Filtration Rate Laboratory test result [facility] ([facility]) <content>Units are mL/min/1.73 m2</content>
<content></content>
<content>Chronic Kidney Disease Staging per NKF:</content>
<content></content>
<content>Stage I & II GFR >=60 Normal to Mildly Decreased</content>
<content>Stage III GFR 30-59 Moderately Decreased</content>
<content>Stage IV GFR 15-29 Severely Decreased</content>
<content>Stage V GFR <15 Very Little GFR Left</content>
<content>ESRD GFR <15 on CUSTOMER COUNTER ASSOCIATE</content>
<content></content> Sodium Level 141 meq/L 136-145 [facility] ([facility]) Potassium Serum 4.8 meq/L 3.5-5.1 [facility] ([facility]) Chloride Level 106 meq/L 98-107 [facility] ([facility]) Carbon Dioxide Level 29 meq/L 21-32 [facility] ([facility]) Anion Gap 6 meq/L 8-16 [facility] ([facility]) Calcium Level 9.4 mg/dL 8.5-10.1 [facility] ([facility]) Ast/Sgot 117 U/L 7-37 [facility] ([facility]) Alt/SGPT 201 U/L 12-78 [facility] ([facility]) Alkaline Phosphatase 58 U/L 45-117 [facility] ([facility]) Bilirubin,Total 0.6 mg/dL 0.2-1.0 [facility] ([facility]) Albumin/Globulin Ratio 1.2 [facility] ([facility]) Albumin 3.9 GM/DL 3.2-5.2 [facility] ([facility] Total Protein 7.1 GM/DL 6.4-8.2 [facility] ID Date Data Source [id number] 06/17/2020 10:40:00 AM EST [facility] ([facility]) Name Value Range Interpretation Code Description Data Jenise rce(s) Supporting Document(s) Red Blood Count 5.58 10 4.30-6.10 [facility] Hemoglobin 16.2 g/dL 13.5-17.5 [facility] ([facility]) White Blood Count 8.4 10 4.0-10.0 [facility] ([facility]) Mean Corpuscular Volume 89.8 fl 80.0-96.0 M [facility]ENT ([facility]) Hematocrit 50.1 % 42.0-52.0 [facility] ([facility]) Mean Corpuscular HGB Conc 32.3 g/dL 32.0-36.5 [facility] ([facility]) Mean Corpuscular Hemoglobin 29.0 pg 27.0-33.0 [facility] ([facility]) Red Cell Distribution Width 14.1 % 11.5-14.5 [facility] ([facility]) Platelet Count, Automated 228 10 150-450 [facility]) Neutrophils % 45.8 % 36.0-66.0 [facility] ([facility] Lymph % 36.9 % 24.0-44.0 [facility] [place] [place] % 11.4 % 0.0-5.0 [facility] ([facility]iology A [...] 1.5-8.5 [facility] ([facility] [place] # 1.0 10 0.0-0.8 [facility] Lymph # 3.1 10 1.5-5.0 [facility] Eos # 0.3 10 0.0-0.5 [facility] Baso # 0.1 10 0.0-0.2 [facility] ID Date Data Source LIPID PANEL (CARDIAC RISK) 06/17/2020 12:00:00 AM EST eCW1 ( [facility]) Name Value Range Interpretation Code Description Data Jenise rce(s) Supporting Document(s) Cholesterol [Moles/volume] in Serum or Plasma 165 <200 CHOLESTEROL LEVEL eCW1 ([facility]) Triglyceride [Mass/volume] in Serum or Plasma by calculation 114 <150 TRIGLYCERIDES LEVEL eCW1 ([facility]) Cholesterol in HDL [Moles/volume] in Serum or Plasma 37 >40 HDL CHOLESTEROL eCW1 ([facility]) 128 NON-HDL-C eCW1 ([facility]) 4.459 <5 CHOLESTEROL RISK RATIO eCW1 ([facility]) Cholesterol in LDL [Mass/volume] in Serum or Plasma by calculation 105 <100 LDL CHOLESTEROL eCW1 ([facility]) ID Date Data Source CPK CREATINE PHOSPHOKINASE 06/17/2020 12:00:00 AM EST eCW1 ( [facility]) Name Value Range Interpretation Code Description Data Jenise rce(s) Supporting Document(s) [phone] CPK CREATINE PHOSPHOKINASE eCW 1 ([facility]) ID Date Data Source CBC with Differential 06/17/2020 12:00:00 AM EST eCW1 ([facility]) Name Value Range Interpretation Code Description Data Jenise rce(s) Supporting Document(s) 8.4 4.0-10.0 WHITE BLOOD COUNT eCW1 ([facility]) 5.58 4.30-6.10 RED BLOOD COUNT eCW1 ([facility]) 50.1 42.0-52.0 HEMATOCRIT eCW1 ([facility]) 89.8 80.0-96.0 MEAN CORPUSCULAR VOLUME e CW1 ([facility]) 16.2 13.5-17.5 HEMOGLOBIN eCW1 [facility] [facility]) [phone] PLATELET COUNT, AUTOMATED eCW1 ([facility]) 32.3 32.0-36.5 MEAN CORPUSCULAR HGB CONC eCW1 ([facility]) 29.0 27.0-33.0 MEAN CORPUSCULAR HEMOGLOB IN eCW1 ([facility]) 14.1 11.5-14.5 RED CELL DISTRIBUTION WID TH eCW1 ([facility]) 36.9 24.0-44.0 LYMPH % eCW1 ([facility]) 3.0 0.0-3.0 EOS % eCW1 ([facility]) 11.4 0.0-5.0 MONO % eCW1 ([facility]) 45.8 36.0-66.0 NEUTROPHILS % eCW1 ([facility]) 1.2 0.0-1.0 BASO % eCW1 ([facility]) 3.1 1.5-5.0 LYMPH # eCW1 ([facility]) 1.0 0.0-0.8 MONO # eCW1 ([facility]) 3.8 1.5-8.5 NEUTROPHILS # eCW1 ([facility]) 0.1 0.0-0.2 BASO # eCW1 ([facility]) 0.3 0.0-0.5 EOS # eCW1 ([facility]) ID Date Data Source [id number] 05/30/2020 12:00:00 AM EST [facility] Name Value Range Interpretation Code Description Data Jenise rce(s) Supporting Document(s) SARS coronavirus 2 RNA [Presence] in Res piratory specimen by MICHELLE with probe detection NEGATIVE [facility] This lab was ordered by [facility] and reported by [facility]. ID Date Data Source [id number] 05/30/2020 12:00:00 AM EST [facility] Name Value Range Interpretation Code Description Data Jenise rce(s) Supporting Document(s) Carestart Rapid COVID Antigen Test Negative [facility] This lab was reported by [facility]. ID Date Data Source [id number] 04/08/2020 06:51:12 PM EST [facility] Name Value Range Interpretation Code Description Data Jenise rce(s) Supporting Document(s) ED Provider Note [facility] PCUSYb0tOwJAQtHr68/EEWwgDADbe0KfKLipAXq2GSicIPOsA1WbTNJ3jC5gECS3OAoRFrXcRpVgJdUf lbm [file] mtAXITIjK0UhfcSChaWKXLPw5Z ID Date Data Source [id number] 04/08/2020 08:27:43 AM EST [facility] Name Value Range Interpretation Code Description Data Jenise rce(s) Supporting Document(s) Progress Note [facility] UECZBu6yZyKORtQs44/QGOlkRZJlp2AjVYgaLRx1KAugXCRvM7ScRWS1vR3iTDP6TJcJGeRwReQtWcKv lbm FlRsvZBwZbXVDuBdvRLqJeUZxcUzgnkHPoNR1YdPK7SNDeH13cJEFfRBTtB3GxDQM0PRM+Cq4QCDSmlS WpSX7HLugW7M36x9fNFu+/QL/TZeQl6NEeftbxc+eB7QAG8wSeu4BMDiQQI5HYgqAAOS2iwaHV6UqcwS fkmdA/f4ei2yXHMf6VnuyQv5Q0WzEEW1+yjWydWG7q /65+jRKjzq/Vn/+r1xq3CmJd+hs2F5jKvEWRHC5we/r68wd+8Xdz647NlWtrNHngOdDeRI4RG3Q8vrTH 71TvndK+s90BfrmDRPnV9ONjHuzD2nthSFuIIJOj0nJeQfwxeXfeqFFGI1KOynErCodElNdNVQgYgtLd 5DCyJpAPPK7kT/DFYpKCBpLTVR5ErJkCIEJlyovqEz 0fbguzZx973HyZ4S/7t1xaNWsf1I3P9k8Tb6kytntd1ENwLPdKcKjI1kf4mBPin2QczhLCND7yQB0lbs 5N1YVb+YpkFuJmeerPA45uBxHfj/eS2GM/Wlxj4lL6Ri+a82s1do6WSsn2h4qr+cydZEwSBWtcjkS+s2 NjkV7Hb0rHBgiqNRCPDOwog500XGEvb/G/TY/bmWz8 RTUXMtua4Cp3HxbWibA49L8twrlwxmtzjevDuivhU6zKGYSXWmW1Zh/qxDl4G+vfK3wW7+NASRK1vRN/ CCfzG5aktFVl8xhEGCtbc0/IPJ3XsAIdZwa8p+9btoagP8y4vuW09Z/A1eQWPyL6nVmpXriEG1xeoR92 gbU6eVVuS43hZV4ugJonx23+ksdaWqWDTyaZewrS1A d+mfcsguShWqgrDeTntmTA5R2/DD7b1ws8ASpnIdVa4qH7ngme/osGiCFxuTPqq+pBHcOz0Dx/TEbjAo kzjsKYMJikR3m6HLAgGyMVAvQPKnPjU4JOYfWZl5/xbysZg+9lTWvhfF8R2r9Nf+g+YfCDKEcR7/p613 xJJ3we3ZEfF47e8YEPWC1B0k5V9nP24K9q86P2Fw9k XhEVC4LX4jNqwEW9picmcJBmQ95wBkoqs3yILKxWfqpXnSnl6xF9ZC3kH49KjeQ1faWGcHy9IbwXs9gl KDZ1x1Byu6smleZLL7TPFRsvNCACYo8ykad+RICeokK/i3yvzOpzK2adBhBWSxLacpMaDT7C+mD1U0cZ 6WVANv1c7f9qMySAMvkM5OCQ0C0fYnz0NJTQthaTif A8vmRBrcdo30pPrtfaJrA+Tf19qt24eG2ZcA4V394DFgoPSkvhiVLq+x57Mw1y4TVpsuB3Ui5AOLp7JG xcHLOiTEuf3qupB190Pd81T9N37P7/YqNDrhuq9+llmvmtmkYFByog7ejN3FmIt0RX7hC1x/ZyHW6zGx 4Ys4xohGADXgxzv0e83y6Nxf9Pj67Q9IktK+PzyWI8 E3hptV43aNKm23KFK2VKnqt0SmcEyOkVVcPRhIgXMPvIZf3+PMKPP9itqCwqMBfJYrxprb5xyLg7/JfU fbVNYiqXuajNWiosM+gzR8S/2sGkPVAk4hDmzlkfypJ6VZuZdjj2EuCt++5SFTlsdEgwuDFatfE3V5AK ZF2xf4BSFCfKRh1Wi59vRkfIKnXhi+sCLiDJGq8Ba6 ee9O3Yiu6tZzgTaj+MCPp3qRX8S/YqGeRlkMIEjrXOargHZck2Adxt2czpTlyXTTSgF6YmPLrPR7AbjW bdJA5NZKALQjHOfXW1mCRX6YLbQNxADdoNCOKuDiVLUHZOosVo2b10XzChMmKl0QAJ3PhiIvZsAdZ3JZ VkgKaEYl1lrKjbknlHu1dCrbRnuSgLfpfk6OQVYSwF CKsaMC7BTMdAStkVaAOrfbF6mEjKzcs0vuHARTiZPPYccxvjTWPBpWmLOvAU3PhpKYfSFd7HMc3wTe+g rLXGfWYkOekcI8N/dF8RKbWAFXFxgfV8MozmFt2ro4+QsRbKFxvoIL4svBtRMyv/MEQF7sHHXQwWzGi1 P91rljwnvvE5XjnnwnDAWuLPziyKAxkvvc7gJ4fRjS [file] MDAwMDAyMTczOSAwMDAwMCBuDQowMDAwMDIzMTgzID OgWBHoYB4IQqMeRQTjMcByANFxMGYxIXIvxe3PCAGnNBOyUsLzERGcHKRhRFYkXYf4ktYtsLNvCIb6TR 3ZD5AwiuPpQjLDCm9Ef089TOOoZFYyFd0SO6jkYs2xHRTnCBBSPz0DMTl4PHI9DdXtWbVyN3F8LsTySD F1BuHaAiRjUIC4QDW7MEL+GDycQJUmUMD5GJZ2RKVv KGVqLQN8SGT1P8F1OgwpFjn3WK5kLGZTZa5+MKktmIQnwJglSLOJDwSwFwI6IMxkZVJJDh5P ID Date Data Source [id number] 04/06/2020 03:28:14 PM EST [facility] Name Value Range Interpretation Code Description Data Jenise rce(s) Supporting Document(s) ED Provider Note [facility] OPFOTx4bOpAIDhGr94/DNXilUKOan2ExHQyiMGc0ILqpZXEeE5HpCLL2tA1qLIL3KUmDKdUaUfUqFjZq lbm YnXlqKSpKgZHVdNeySEuFbGUtfIpnqgUUyYI3NuMT9EJWdN61gCYOtXLQnE8QpERE6THi+Wv1QBOVtdI OoFL5HIlfX8S3ee2v7Sj+/mfsOfLmZdiaxCYB/AL+9rwcw8C2z43t9nbGhPQydkWHnY3KM72i3k9kBAS bkPi4ZDNE78bE7ZILOfhn8KszQSTY86/zpV12IUNwO /z3+MR2UkfqXB/8SrIcp+Ths/ZMNIg/IUIepfSD/qcSXD/xwGez/RAE7oOKrM836KcolHm3iUUubZ47a fB9c/hpVMzU6ffZOOwGFHfvHY4ini4m28fV8lfznFGo1huUHoMLqv7UbNoLWA6mUsCFdIOiLzvDBFwOR O3/0klZ5stKcAV1DqSOrV8TnTzerdQsuEEMbn72X0v rHjPojKwulb8UGcsQ4FcffQ1oRGAzsNEBQLMY+TPdlKMNeGEWFcU+APshwh7bWVJSDtlBo7HZgUv97mq qrPl6SesbcE14cC+YKCThhpmtKVuHsTZQ7s69cEhzpDnaTLT1ai83wJFwlVtUf0dNCZGprTiLbXnjQEu kCLOWNAX1RuVzS9PBOSBbAQgOFVEMKNcVwWUsh/ITI [file] 9vJMtuFH5Uo4WBP7Uq18bVvifl6FvJbfhwPrwZyE1pH0xGtoWkCphg8/398Nc7+SvqEXdudVok3cT+[facility] [file] ICAgICAgICAgICAgICAgICAgICAgICAgICAgICAgIC AgICAgICAgICAgICAgICAgDQogICAgICAgICAgICAgICAgICAgICAgICAgICAgICAgICAgICAgICAgIC AgICAgICAgICAgICAgICAgICAgICAgICAgICAgICAgICAgICAgICAgICAgICAgICAgICAgICAgICAgDQ ogICAgICAgICAgICAgICAgICAgICAgICAgICAgICAg ICAgICAgICAgICAgICAgICAgICAgICAgICAgICAgICAgICAgICAgICAgICAgICAgICAgICAgICAgICAg ICAgICAgICAgDQogICAgICAgICAgICAgICAgICAgICAgICAgICAgICAgICAgICAgICAgICAgICAgICAg ICAgICAgICAgICAgICAgICAgICAgICAgICAgICAgIC AgICAgICAgICAgICAgICAgICAgDQogICAgICAgICAgICAgICAgICAgICAgICAgICAgICAgICAgICAgIC AgICAgICAgICAgICAgICAgICAgICAgICAgICAgICAgICAgICAgICAgICAgICAgICAgICAgICAgICAgIC AgDQogICAgICAgICAgICAgICAgICAgICAgICAgICAg ICAgICAgICAgICAgICAgICAgICAgICAgICAgICAgICAgICAgICAgICAgICAgICAgICAgICAgICAgICAg ICAgICAgICAgICAgDQogICAgICAgICAgICAgICAgICAgICAgICAgICAgICAgICAgICAgICAgICAgICAg ICAgICAgICAgICAgICAgICAgICAgICAgICAgICAgIC AgICAgICAgICAgICAgICAgICAgICAgDQogICAgICAgICAgICAgICAgICAgICAgICAgICAgICAgICAgIC AgICAgICAgICAgICAgICAgICAgICAgICAgICAgICAgICAgICAgICAgICAgICAgICAgICAgICAgICAgIC AgICAgDQogICAgICAgICAgICAgICAgICAgICAgICAg ICAgICAgICAgICAgICAgICAgICAgICAgICAgICAgICAgICAgICAgICAgICAgICAgICAgICAgICAgICAg ICAgICAgICAgICAgICAgDQogICAgICAgICAgICAgICAgICAgICAgICAgICAgICAgICAgICAgICAgICAg ICAgICAgICAgICAgICAgICAgICAgICAgICAgICAgIC KlNETaHVLfNHSpEPJpLOToSSWrXTOrPMCbKNt0N1knFYRjHGNaJG9oZDh6Jh5+XLkQDsAlVSC2teAnrC 4DHG9bc9TjCWboRYOhc2CxQXj0QN5HMVNiHJrwGC7UGZomdw3PKVLyFBOraIZDe7rwScGyQUL4OGNhJk emCO0KZSGvV0psrxUyFUSkIFKLPYbaKDUWEZmdMSCF WIMqTPXnAlGoUsZlYPIpJYEcPSDLGUG5PNSfFdRtZUguKA9Gf5FghOK1AIg+Ds4WZU9bz8LzISrxUuMh JL6nfn1GQLjVWyUwQ7LwljU5DJO2VKZmHn0CJBLlTXOkzWW1PiAgPTWKBiGnL2CqnN65JLYWKg9+DQpl qcKmKcbRKeT9KBVkv2GmXLt3VT7VGPTlHIg5qQTwGR ZkQMMhjizyMZSaIx48JHXnJtlcXSO7hjzpcmSZGDHxG63xwwgoJOHvACJbQPBiBienNjXwHVLyFesoQJ CBEAzSBvOcU7Qdn0KdQuZ1ZGJrFiJtSMfwYVFuXgYmPG01aKvsBH1ROQSuWUPuYH22YEC4PAJjRi4RHD DrVmqwn0JkXrzrTUGONTqyWL0JTSG5LSJ7EOJhZv9Z QOGaF799drGfZFHOPzWrU53wcQYrDLJyZHNNYCx+Gl0ETG6ve3AtTRqrVEEfCA3din9SIPgGPfPuB9Id yGkeHNOmweBmi36mJVmAAiUcQ7Ogs6KqEsL3PKSlIfEgCCuxQIEkSiF4GP50hDheET3MFXZxFXFpSB69 ULC9JNCzOg2JGe1JVpJgTD7xup0PTJWjPYZePfbAKe c8SYftZM3ToPFmDGhAEMDArm77nINckgGMp5ZmrzGnqFIPBTPejCWvPCWsFIGbt2QeJMBPLRXwoZCbFE 5lJN6eGAAhKZSwBnX1XOKPCM4KOIHyGCNuwTYdHErsLEZXNB9QWAoxVVC8BKBpgcKlsOYaSQqqXE4IVU BweuNpJvkbFZRXHVwhDW9XxwI3TLV2CBCeVw8FQDBn NaJ7oYI9RTTdXDPKKi2+SJpdubIfRfgIBuMjETQnk2JeMWe6MA1EEAGmSJu7lTOgGWJeKr01NZUcAzzx HP6oXIPKXHSmRKBrkEXiNMBXQfXpiZHmWO7sQT8tJORhRAAwUoVdYXKRPY5NXVSqTKKzmITmLXLdDCEm PgVbLYoiZDHcIbg0SL31hPepZQ1IBUJvSFAlVJ15GX W2LUGiCl3JCLPjFMNorcC9HEJzFQRUNwTxY29uhYCcVMKpHMROSVj+Xm0VBL5am3HgWZn6SdWyRQ9exr 7RQMfPZcYsF3ZhoMqjDTETBFRrg3BpYAViLQ8qmGZdUVP8GOIdMQZmZqENyIPboX9eORNnBEXQXOUccT XkBT9pTe9yLJQsDFSfDgK1GZEZJB4EUHMfNKQjgQTz TRHpYGXvHjOiDAjyGKYjEDp4RD98rWqcQG1NOIVdYKNdGO34FYH8RWCkMn4HOKUsKOOvgeI7DIUeINLI MpRoB25ygMYmOIRyEZGMJWr+Vy0EWN6ql8UhTBw1KbAmPI7kzz0ZIIqAGqEtP5GhvWznRJSUKKYkfFBn MPNRk5UudsRepRHNHNbwqpBfIaRauPNyQIblUk0eBH RoOETqJsdpLpKoWKSsJFm7RjRNWCkXHaXuX9Crv3DzXcXpWsPwLLIoX3mYXiYxKXI9QKZqlTtuFA0SSw UzT2ZgelKsoUVyRzJkWDBWTrBbJ8YbBJXoCDOuWMMFRGq+Gu2QTI7vw4EsVGh2KSBfGR0kpa6NKSzBQh WvT7Y8rSGrO2M8JXfeKm3ZDOIbBKTkZxBuJTRYMBdr MI6FKV0xnrD9GN2AwMRkXJYtYHJagAMbHKk9H33kdFMaYQleYE2DYCP+Mukul+Fp5JTLEyFAIbUMIgYmUk LPBVAgCuQ6NqU0VQc5JjA1PtVT73lMtmqmCfDOygAP8TKE4xODLhGZBKVV4MoXHxxW5mnzGlLiPeSSJU VkVzD35alFIhNDGmIXN6YORvXy1KAJHoO2PeusVxnL wuqmBmMGXhWWITPP3TAZikzjWieREggAeqYV00uWmhEK1CWm0MFcZxWD0ofg7DjOPoYk4HBHW9FF0LUS DqMPJiGOVxPDE5UXEyOaVsBJmhTJIwSFXvIVX6KZXqLZXnUW0BNwRcOWJcHqr9SlzuZYIvRNDxyr6WVB EiACN2XMIjBLCmODFcQUWdXPwqIRWbIYSfMND1ZNQc AOImQT5ILfYcLLGrPYI2UDnpEAWdPTEyza1QAMHlJLDhXqs3NMWwCEMdDVUqUWazSFQfZOH0MqRzDBMf EWXaEB1TKsVgRCIzEAd7DeWgVFBjIOJgxw8WSUCuHUCfAMS6VIRuXUTxREEnQCjoOUXmCBQtQVL2GODs WRCzKB4XEkHjLKMrIXK2WNyrZPPmEVZtut9ARYMqWC YqWfsvIAYlEPPlSSCoYZlnORSiFOW7CjZ5UZDfNAGgEB5GQxUpGVZqQYC0OvFlNANtVWDdbv3CYCYjXH ZmBWY3WMLhEUPqXBYvQHcwQQKlICD4XwE6QSOhGGTjRQ2AHiIyTIIsKcB9MKJiAQTuKYDait1TTNRrFW AyMjAyMCAwMDAwMCBuDQowMDAwMDIyOTgwIDAwMDAw ZJ6OPaBiXOBpLtCzOlxxCSTcDUHyzu0GMHNkFTBeXuN7LLFxEQBaVMPgRJmmSKOmCEV9LoJ2VATnVTZh MV9PKzYyHENbLsH1NeHdWOVuRXNajv8UWUBeJJAdDIjtCDPmALEkTYSuXAbwXKMuQLC2ByY5SPKsGSIj DD0WYsNbWPIpGuM7MiQpMORuNMWfxk9KFPNlZIAxDh X9OZIrEIAsCBLsZKjfYDEeMVB7YQH6PLYzPJViNL8MUkOfPHOdKdk4LVPyBGKuOHTpct2COXLzZEMmQw v5NXOuXQMnBOZfFFsxGWGgQCX1NxFxMBJyTIEhQB1YEnDzIJHdDbhcVOFuJSGgEDMeuf3CTMFrGXBjLB G2WCUbZOTrRSWxECmuFXVmOBA8AOc0LYSpEQCgQW4B ZfPiTYWdPon6LERmGMCtAFJkgp0RUHIeHGR7NIR5DSUsFNYvMSLeTSwwAFWdTDRcZEU7OQVvOFEiOA0K IiRiAPMyKIJ4CggiUPIsFULbic0BTEJlDNI8PMr8IFWrYAOcHVMlUMmdFUZrMVSzZEP6LFRnGHEmBV1A TmMfUODdNXLnJIIkEHGzAEIpyr4JUDHdHSZ4YhNmVG CjCHDmGIIaPGaqPXIePJPgFII9LXFvSJGxOV2SReAdDRGkCMB2PcjwZZMcDBRbey0KpRKhiOaslx7EBR fAYh8DpAznGFN4WIotVu8jxVA7IBWsNPZHVa0ScjRsFLCeGQWVLBqjJINnOZLjZbGsZGGqFZRwYxGvSV GhObR7MQOzVAtrXHPxGPDmKzN4VhYmDDT2ElR5CeFo AdNaBSMsREl8XmCcLhZeJdMxZ3Q+WI1hAJp+Sk2Mh7NmoeU0sfYyXKo4RxvfLV5ZRXFIS7EHHp== ID Date Data Source [id number] 04/03/2020 11:24:23 AM [facility] Name Value Range Interpretation Code Description Data Jenise rce(s) Supporting Document(s) [facility] ospital NUCYBh7oHrWTMmUdh3YbFeHiJPGxOC8bywv4K6E2gBVsJ8QkyVEwb7hfY0OnZ7QvOCYpTMEZTN0OnNLu jb2 [file] ul97TkLqXS488Nx18e/n7PB7/UX93WP9m067iLS6OP kgKZC833t3+eAD/6jnNCLPjVTZ/8OHN+7D6e8BzqY/r2yJ/Mv5c9btaDHV5ukCX1a04Ujm/l7zwB/tF3 jzwn/ibQ58sTL+2o//NmJwg0Vv/K8+uHXy3/ngr/M1k93GT/j0C8p218m+fHqSfa+gl0PKKp7rqXk1IF h1+tOBJ5+NVt6+k9fq9H7hwyrhQ29D1+HNsMfnXTJ/ 88c/uTcDIqDDdK7zlN+Et/5/zzWykm7yz2ki/n+Rc9frtX6LmeggelZ73GrXfD9vX+Xb2sx68M73oLvt BfkK/Xt43kee/qaFs7LZJ/kG+mf1AD9AiOLr8+lfY//OqbtvfMwvML+Rv5+9Vz+FX+4zyqdM7uuuQOL2 /xvD7/Ofwq/fLnw4ldsP/IN+Bl3a32D7wf1B4KIbv7 +FWmN/L3yw9+ddNvvAe/umnkK/IV+Ppho2w7Z9/Ic8HDD3/KtCHfkO/IP/rGKVfH+A1+IpNQ7UcQP3Kv QRepVlMgVEhex5tH5rJ7ke4nrhc57pvWhrDwjr+R39/8dvhVzkWHX+McEcsy0Y8VsUci4dnZs5lN27ey 5fx5+NH8ayuAvaBJ2chQ/qY38s/4sKhJZtL13y/8WL 4Tc8rxKa8+nyOD3bNNTN7iVMs90hpQ/kD+AX8b21P/9N1R/9N24gJBFag/kL+Qv5F/9I0+B41HVm6+lT Y5/ThfgMsH9jcxs41g+c5ux0od7kS942tlZ/dsPi0Kh+TDwfP54Oi2/OTwq/Sfw6/SJw+/Sl89/Cp9+P Lz0Y2Lb4Y/s2ybCMal5JTElEHyCficDApo0/Scu35p 5Hc8/9joZCF2jDUbqxP+4XlH/W++Rqyhpw94i83/7BrfaxOK1/RG/xdxjlkgv1d+IF+Di8cM7Iajc+SP 1//Nz9Ruy28362z96LljQ+rLl72MhAG5GjIG0QqEG5CuLb/F6jq7FzqW/legal paraprofessional+M3GD0Q3NL/7XfOH1SlE A2Zo6EfzTa3Z/kL+/qR7NmthkTa95X8sF68xEuu1/L 4dv2/H79vx+wa/umnkG/IN+Y58+HOfyJ/Ix+/g9qqOq2z+79f/5Ve3sFd7elR+TV7d6YMlrlY/vtGDX+ Wn2VfX4tX4M/Ki0OjF5fB1X8Fl6QwfKk61jaLmHw6OmbFPnzj8WXp5uxpy8/U4Eu8Pchy54XPqIc+KeT L06Cw8f3eZb/e+2REe8GVnX5/mya4eVw1+lfUffSPt mJ+TN8KmkM/IV+Trl//82Og0zFvGt7aqvw4FC3F97HW8ZIM5zUh7IK4Pr2fsf2ls+U306hhFR23ypZ/C HyJ+Ff55+NVNw5+a3laWuLsiAC+x8NoBs25c9+nsd7Nek488P0p/8WC4grqS/Pe+uP38oaVkZkmFzMY+ Ih/ea4F6msDXIz8nS/oujN+C2cekmxkmj3N4zoN+Wh i/C+N34/urMX5d13mh/U0G755zguZ+L07ohr850/fd+M715W6Th6ZmYk2fAE4l4Gij03e+++z19hI6fU W0Vs5oA7BhzA/+DFc3zLiceC/If++DI/dIjAdTlsQB5i6CfKepwhLb+fsmQ19Ue+eJNU5l7pd5GU+LETICIA 37vh+N4Fd5/qqAB6gue7fujfUFM48k7tDhW+JXeS46 4bVX4EP/PO/FVhQqRKk49znlODxy1gSxlcZ/s5M1Yq2kB3284LJecE0+HsGvdqTly+eJgJ2EAYd91hoy GHK+j7vMbMzIds8ow5ZreGStYk8WfgK7lD+OiF/p9/amfsZy95w6PqWJ+ga/ioNg+ubnoW9+Hrqh1/6u FyP5VY/3opu06Xu+zBdbv6s+78Zg3ghwa9y2pcf7Vu 9ufTy9+enVaqUM41Cg/ig76uMknqNDF4Maug+iLrv67N/Pwa8G+NUAvxpDkC/If/x5BL+K+lxOR41Jpo /X3aU4NunP/OqmX/+JS472rbCV5Z/Gu8BWmnsG/n75ht/J1Anhxy/tO0Im8SqxNr9I/uMbI/hV9D/4Vf xGwa/itwt+FX5i+T7VB8R0Wr8zarI/RI5mw25i9X+e m15WN924/CrHkb/48zk3/NLPbw+/+qaRD3/2S174V1ry+N59rxhFK+H6ch7IEy2u4IbG+ViceJKMYa51 i4lXLSq34j4/vnjOmC+eM+hF27cBV1S4M/WpJjkP8x58A292bBgrd5wkU63293q68UyeWrP11n/63rS9 Iko5TnF/4/njv4K71Wg/QhhaIqqG9auxeJIdvQurne OKfEV+R34/+TKQhFfczbE54EneU0dA/kT+RP/N9blmR5Ssc79BY781Yx0CxhKlNzJtPrblF7+J+FX4Vc SvwvcifhX+PfMx4ZgJe66vg7hY+BNXo488oz/vKWNjPdoYv/j1O84X0CraQRc+GQTRqrgSOrjo06aD5G fu86yq5b3D0k20nJ9MS6v063YlF/mGfEO+I9+RP5E/ kb+Qv5C/kf/aU4I7I2hja7hXHicYLXS13dgP1/36lznvVdiJV2yJ2IcqGipQkLe+RP5E/kL+Qv5G/uOT qcfIAA9dqK4G0rxoDd7peeg+21onv3NBbe7OH3Q+Cn0V+rx2PjsO23Qp2Cuqf2Cp/viGdfy+Kp5f1wjT +FMhfrR8cB7Tk3+PrL/gR5WN0m08wwxX/vteZsGvNP Bf3gSdF/kLz7/3X+jzy5pT8i7Hup5xWf6/Eb+sLO3V6S8JS/AnUgY9K/mGfEM+fl/TmozzLye5vVP/kwong QV2h9HhlLjyfsvH35UxhU9/gvSB0Vaci4bfjBWuqIWzhyvF9QPdwT59LMYszRdms56wththlA/In+hno J2Z639k/QB1jfYIH/IF+QL8jE/O+Jk54ydxD/IH8h/ 9Jiu323N8J2B3V7HOe6T+MTYT774d5/AHQB39xuab7m517P/Q56k71ZodDE1nffM/O7zfd+3+bgv9Kmd u22+7/tG0gpyHi2m06I/Uc9E/QvtLuS//XU23/46W29/bXV1UiQs8dZ/jvjVTSO/Z99adjR/IN+Qb8h3 2UxhQA9svEzC48OhsD69Colz0ig1jxD7Rzwtvp/vu1 +5bhlLy2aEqJWcP74OvyH/jqVEvbu6hvkQf5yccdZ/IR/n43a8vD849rcew2u45VzbMnqMnX6cf5Dr5E TyB/IH8t/v6+35swe/vzNcos0q3dfyvfyZWm7Sq0/9Kt7e/mfH/iuXt7/KJ20ydtz061ll/1XP9Cc/Ts fE/qsWx1A/+w9clO9470+K/hocr2nSz/L9PQSb+6xc 5y5rL3044JAVrv5qP5xg+W0zm0z4TXN2l+d77L+K+quality review trainer/VViXxc9Wtl855CZ+tSP/vC+8Y6/f8EligsWj ltUZxps0DQzobV+7Mv54gk8ACP/49UbnvU1bz82bs56fbgN0EdljV44xsanpw4Faq/L+om1Zm9m8/Lm/ 4px2l35J+h/f6Z8Fm6lk2W0gPTk+zUFX0Q17F+H5je cfn/Tx+LOPhnxBviD/fU9xfB/0/D4Y+f21G/mgtlBZtfHdzFxna4I60K+J/MX2yQt86aSil/h97a2/rocky [file] yntzyntzyntzyntzynkd+HfbkzW6ywjd16YVk+2aJf ebuAmqb5smej5aiQlaByhy996cNtOGEpCPu5zA5zv80mYO/bwdgvA/qte2ss3tncWC4GrNBUfy3FrcVL 26DGK9O7vEIT5t3veOGclj0+9oHC9uuzL1mNcX1D2aEMY2vH6UE40bxUR1SIK2OJRP1aWPhK3lBJ96X+ IXbcNh5bLk+nx+J60DqJ6RA5iP5kXtyStZFUWdtpn7 9VDN/SFecwANuO52N5igFf2ozJqFZ7qW3qVBuYycAwpIAHDVdrcaZY+MS0Txlzt/Bu0lzt6E7pHbrVOq FSl95apJqnpkgbFFsUD6+MNikvhw3KvHufADYeaGXlH19HO12aQYkPCqatzTKO+iwspm97qNVyljF+kN /F2ER+F+MW+n4yFPEkfkDT+m1zOFyuJR1atBWi29ex Hji/Z5RPNnd1DsHN4ZvK8ze8JQ5oGJwB/Z6IPYhQ4c6R0u0I4j9N7s2R8+L3C+kvyO+iLyG/+6xi+Gb5 mRWwDY24YT8XgqnbDtL64HvJR+78hln2mT0aM3pq5tz7XnOw9GlDRc21mqKKDsTFDYlaxecaJEddP691 DtP9tN3oETc/1Jx5IL/jmqtaIli99mkap1VodjpzfE vvYSmVMucJonBtnt3S19I900UEuMLw6XG3jTvtAn2+y/g6kd+9ozzbc2+2+UFDM0c1SLvhgllim2/2Fr aJzdaaWHQPs/DlwimNxso3iZvShx+j7UtubpbaKEBUdmhqbZZl/vA42PyQbpGOjeod4Q2j/LP0rge+ef xS/0vkZ/1Y/Y+CLERK FUNERAL DETAIL+v4pVbf/zzi8c8hZY7dcr3I07DM [file] ag243Br//pf2i763uzfOh3/9/V78wFZgFUIda793i3 2F47v66Sm51yz0wk//xZef//xlnS8/vH36y4+//MW7t99+/PXbz7/65svP/ps9b4/n8yKAS1//73/4y5 +++/3bv/3X22/+8Mc/ddeFg6h56W//4e2zb7//w3d/fPvXvyvrX//+7c/fv/b8ma2f+W4p3EPgO40c5K Mv/zzPIgKUq6O/059+9leeeL+nmweY10U/9Bvwev+L z1c7ezi/Cr9R8BR1F46/nKCeJCcPbV//hm303DyiNe6hBy4M7aegZt0rNmaJn3I4D2v/3b9/9zLPbauP 3t4+effxN2+ffPP+d7854u7+e/f+Z6WiQ2ifiyeBiQBTVf5CIN83djpLK72PI/vCKQkn6+EYD3GqmGv2 f/zj21++/Y/yfgX00zrgNlwg2Pz5nIhKpkkY5EtBQ/ DX79/+8P1/fPeX//03F6/DH4P+6PE25rjikl7u/bB/fv/12+//83Xtf/jz9z8+lL2a28GD2rYT++cPP/ wkS71Pc57sHFyA+8mp8etZ9ni0nX/fYHh85wG/pHY0fe2E7LjeAU9296++/+mHt2//z3d//tac3kfeAj 7683ef/XUiatn25JFs6s2/+de//2XF7k244w5oq8X/ 9w/op9/+5+++/esfvv3+R/sfS8/5h+9/drug regulatory affairs specialist/zsOzrj//2t/s+Jnz/5z//2rOh6PJQO/90pv37dpw5oGtN Z1d9z8f/+5/f/+N7d9m48D2iw/9oO0/hoe3++h+rovw9g20+6pO/FMt8BN3Hm3225c8QB68l2Cwvbk// ZskIbn5D1YE//e3/+T3kuZ7763/5JO42gtKYhJ66r0 9z6+3dZx8+Ueu4yulmZ+3dUpHN1F8Onycg7+2aAp17jfHieT/H/nXVlg/t/aHZXLAvShOyNAZ6jhIcyA qlxwEmXtkVAHncKTCcFfg8US7BvXAwYUDiG1I4AAAmyx5tQJOsLWBwkBVzYnHyBBDVRH0YgXTnYJ4XPY t2EWXyJLYnPlUjWXXlzcN4RVLfDXDcWDKyF9SnyyPf dCAyIDAgUj4+KT2id3AcOdFkBEOsIfc1PU6ZqMEiJT3TiEBhoN5zcjWuA228xiIgNXFhWkuec0WqDMoc GYLDMH0UYNZ4BXI4POReOh5+YJ9gu8ImZvHpUPGzFok1MG6SmQHge2YqGH6XF8MwWRMhVPQTUAA5j2Ow HMDpjwiefwkaK7IcALV6eP2vZLO3XKUjWDxqANRtKZ SvAHSuIoGvMYnmTFZvZWRpGBFlGDMdIPl7xDTfDA4DI7OyYCOiGIKLDYJjflRxLh4kOASZLKURFEYOM6 NIWyDsTXU2QDd8KWnuW5C5NynqI9ObEX7YU7BbFGDiNZMKMVXahdGbXI8BdwFptE0kTCsEHCUWZCgGQD tfHkW4x69oagAXZZRfABArSGfpQAQyGZFzILWvIIPb TDOdDRRnDTSlZM2ZB3VrXGHbLYGBSZB1d4DzYSTqlxkkvuetNt6rnrDtHbg+KtvwIBIqu5IiPTosJ7Y1 zNNlH8InQ0KtWQ8ZjDLuSBfnUGKzCDTcUHHzW738otBkSD6+SQ1el9CgEslkNXSNEKAuWDXzXTYcDAZ2 XxJkLXOfCYMzBAOvYmO1IyYmQnMTPWTvXCI0RPd1AW EbCWBuAGFtQGuzRCJbKTY4XAC9QOFcUYVjIH5xPwHlVJXfEzU6QbLzUJSyLDExkzRFUCCgDCShTXFjIQ F4TYAwOOJiJMtuUPXjYTWiOYK8OLIgILHyYE9fNeIhDPUiGUDmTjuiUNChCCDuuyXFEJJiCFHbRJL5Ob ZrKECyBUSxIFpcXJEnZEOwQwa9OFLxIGAhGM5tCkKa TRMgZGR2LXisKARxCQGagwIPHEGlSFQkHTWlQcGrKWMeIHDxKNmuJOTyJVNiVoWwMFYuGRAyJM7jMqDb FGNxIMJ4ZOEmATByYWCbtuPENYIkNLSqPRo1NDLvVXKxUGNwQWbuSENrWKRjBWH6AYFcLKQbSQ6jRwOy XOLeJNOoHMVtRJAfQSOdjpOCCTFsWATcEAX2VOOrYW YxSHSgXLhiXWHkGGHpZzv6LQOtGHCjNL9rFkUvHFCsPAK4WHJwVLAqOZRmsgTFTGNoLMA6TUL2OJUfPB NbGKQdHEjePETbGTRcNlY6EYSgCRRdJM5vNqFcEEKvOAG4UrLyJKCzTPQegyCPYXRkPGPqGQD3QgPmQD VqVTWoFWykMMUwBCQwEMMuJRH3YTI0WRCeQcPaPZfa QYOEVKyPY0VuqkBxZiGQR4qpFh6sLiRoJCTLZ6Xmg5EdUIKzLGFYHv3+TnF8OJC8cJRmVjh3NNs3PXaz JUVPRg== ID Date Data Source [id number] 04/03/2020 09:06:[address] [facility] [address] HEAD WITHOUT CONTRAST [id number] RESU LTInterpreted by:Brady Joshi MBBSCLINICAL INDICATION: 49-year-old [...] rce(s) Supporting Document(s) ID Date Data Source [id number] 04/03/2020 04:57:27 PM [facility] Name Value Range Interpretation Code Description Data Jenise rce(s) Supporting Document(s) Specimen source [Identifier] of Unspecified specimen [facility] SARS-CoV-2 RNA 2019 nCoV Real-Time RT-PCR: NOT DETECTED [facility] Assay Performed [facility] Patients first test for [facility] Patient employed in healthcare setting [facility] Patient has symptoms related to [facility] When did you start to experience these symptoms [Date and time] [PhenX] [id number] [facility] Patient was hospitalized because of this condition [facility] patient was admitted to ICU for [facility] Patient resides in a congregate care setting [facility] status [facility] ID Date Data Source [id number] 04/03/2020 01:03:00 AM [facility] Name Value Range Interpretation Code Description Data Jenise rce(s) Supporting Document(s) SARS-CoV-2 RNA [facility] This lab was ordered by [facility] and reported by [facility]. ID Date Data Source [id number] 04/03/2020 03:46:44 AM [facility] Service Cmnt XXX-Imp : NoneRespiratory P CR Panel : PCR ResultsMicroorganism XXX Cult : This assay does not detect novel Coronaviruses.HAdV DNA QI MICHELLE+non-probe : Not DetectedHCoV [id number] Nph QI MICHELLE+non-probe : Not DetectedHCoV [id number] Nph QI MICHELLE+non-probe : Not [id number] RNA Nph QI MICHELLE+non-probe : Not [id number] RNA Upper resp QI MICHELLE+probe : Not [...] rce(s) Supporting Document(s) ID Date Data Source [id number] 04/03/2020 12:35:25 AM [facility] XR CHEST FRONTAL ONLY [id number] RESULTI nterpreted by:JUSTIN KabaROCEDURE INFORMATION: Exam: XR Chest, 1 View Exam date and time: 04/02/2020 11:55 PM Age: 49 years old Clinical indication: Other: Dyspnea TECHNIQUE: Imaging protocol: XR of the chest Views: 1 view. COMPARISON: CR XR CHEST FRONTAL AND LATERAL [id number] 09/20/2019 8:27 PM FINDINGS: Lungs: Unremarkable. No [...] rce(s) Supporting Document(s) ID Date Data Source [id number] 04/03/2020 12:28:26 AM EST [facility] Name Value Range Interpretation Code Description Data Jenise rce(s) Supporting Document(s) Albumin [Mass/volume] in Serum or Plasma by Bromocresol green (BCG) dye binding method 4.4 g/dL 3.5-5.2 [facility] Bilirubin.total [Mass/volume] in Serum or Plasma 0.6 mg/dL <1.2 [facility] Calcium [Mass/volume] in Serum or Plasma 9.5 mg/dL 8.6-10.0 [facility] Chloride [Moles/volume] in Serum or Plasma 104 mmol/L 98-107 [facility] Creatinine [Mass/volume] in Serum or Plasma 1.41 mg/dL 0.70-1.20 H [facility] Glucose [Mass/volume] in Serum or Plasma 79 mg/dL 70-140 [facility] Alkaline phosphatase [Enzymatic activity/volume] in Serum or Plasma 61 U/L 40-129 [facility] Hemolyzed Potassium [Moles/volume] in Serum or Plasma 4.5 mmol/L 3.4-5.1 [facility] Hemolyzed Protein [Mass/volume] in Serum or Plasma 7.5 g/dL 6.4-8.3 [facility] Sodium [Moles/volume] in Serum or Plasma 140 mmol/L 136-145 [facility] Aspartate aminotransferase [Enzymatic activity/volume] in Serum or Plasma 71 U/L <40 [facility] Urea nitrogen [Mass/volume] in Serum or Plasma 23 mg/dL 6-20 [facility] Osmolality of Serum or Plasma by calculation 292 mosm/kg 275-300 [facility] Creatinine/Urea nitrogen [Mass Ratio] in Serum or Plasma 16 [facility] Bicarbonate [Moles/volume] in Serum 25 mmol/L 22-29 [facility] Alanine aminotransferase [Enzymatic activity/volume] in Seru m or Plasma 97 U/L <41 [facility] Anion gap 3 in Serum or Plasma 11 mmol/L 8-15 [facility] Glomerular filtration rate/1.73 sq M pre dicted among non-blacks [Volume Rate/Area] in Serum or Plasma by Creatinine-based formula (MDRD) 56 mL/min/1.73m2 >60 L [facility] Glomerular filtration rate/1.73 sq M pre dicted among blacks [Volume Rate/Area] in Serum or Plasma by Creatinine-based formula (MDRD) 65 mL/min/1.73m2 >60 [facility] ID Date Data Source [id number] 04/03/2020 12:56:36 AM [facility] Name Value Range Interpretation Code Description Data Jenise rce(s) Supporting Document(s) Troponin T.cardiac [Mass/volume] in Serum or Plasma <0.01 [facility] ID Date Data Source [id number] 04/03/2020 02:45:58 AM [facility] Name Value Range Interpretation Code Description Data Jenise rce(s) Supporting Document(s) Leukocytes [#/volume] in Blood by Automated count 10.3 10*3/uL 4-10 [facility] Erythrocytes [#/volume] in Blood by Automated count 4.89 10*6/uL 4.6- 6.1 [facility] Hemoglobin [Mass/volume] in Blood 14.6 g/dL 13.5-18 [facility] Hematocrit [Volume Fraction] of Blood by Automated count 43.0 % 4 1-53 [facility] Erythrocyte mean corpuscular volume [Entitic volume] by Auto mated count 87.8 fL 80-96 [facility] Erythrocyte mean corpuscular hemoglobin [Entitic mass] by Automated count 29.8 pg 27-33 [facility] Erythrocyte mean corpuscular hemoglobin concentration [Mass/volume] by Automated count 34.0 g/dL 32.0-36.0 [facility] Erythrocyte distribution width [Ratio] by Automated count 16.3 % 11.5-14.5 [facility] Platelets [#/volume] in Blood by Automated count 239 10*3/uL 150-400 [facility] Differential cell count method - Blood [facility] Neutrophils/100 leukocytes in Blood by Automated count 45 % [facility] Lymphocytes/100 leukocytes in Blood by Automated count 45 % [facility] Monocytes/100 leukocytes in Blood by Automated count 5 % [facility] Eosinophils/100 leukocytes in Blood by Automated count 1 % [facility] Neutrophils [#/volume] in Blood by Automated count 4.66 10*3/uL 1.8-7 .0 [facility] Lymphocytes [#/volume] in Blood by Automated count 4.66 10*3/uL 1.2-4 .0 [facility] Monocytes [#/volume] in Blood by Automated count 0.49 10*3/uL 0-0.8 [facility] Eosinophils [#/volume] in Blood by Automated count 0.10 10*3/uL 0-0.5 [facility] Myelocytes/100 leukocytes in Blood by Manual count 2 % [facility] Metamyelocytes/100 leukocytes in Blood by Manual count 2 % [facility] Myelocytes [#/volume] in Blood by Manual count 0.20 10*3/uL 0-0 [facility] Metamyelocytes [#/volume] in Blood by Manual count 0.20 10*3/uL 0-0 [facility] Macrocytes [Presence] in Blood by Light microscopy [facility] Anisocytosis [Presence] in Blood by Light microscopy [facility] Poikilocytosis [Presence] in Blood by Light microscopy [facility] ID Date Data Source [id number] 04/02/2020 02:22:00 PM EST [facility] [place] Value Range Interpretation Code Description Data Jenise rce(s) Supporting Document(s) Troponin Laboratory test result MEDENT ([facility]) ID Date Data Source [id number] 04/02/2020 02:22:00 PM EST [facility] [place] Name Value Range Interpretation Code Description Data Jenise rce(s) Supporting Document(s) Alanine aminotransferase [Enzymatic activity/volume] in Serum or Pl asma 97 MEDENT ([facility]) Albumin [Mass/volume] in Serum or Plasma 4.4 MEDENT ([facility]) Carbon dioxide, total [Moles/volume] in Serum or Plasma 25 MEDENT ([facility]) Chloride [Moles/volume] in Serum or Plasma 104 MEDENT ([facility]) Calcium [Mass/volume] in Serum or Plasma 9.5 MEDENT ([facility]) Potassium [Moles/volume] in Serum or Plasma 4.5 MEDENT ([facility]) Protein [Mass/volume] in Serum or Plasma 7.5 MEDENT ([facility]) Alkaline phosphatase [Enzymatic activity/volume] in Serum or Plasma 6 1 MEDENT ([facility]) Glucose 79 70-140 MEDENT ([facility]) Aspartate aminotransferase [Enzymatic activity/volume] in Serum or Plasma 71 [facility] ([facility]) Urea nitrogen [Mass/volume] in Serum or Plasma 23 MED[facility] ([facility]) Sodium 140 [facility] Creatinine For GFR 16 [facility] ([facility]) ID Date Data Source [id number] 03/20/2020 12:00:00 AM EST [facility] Name Value Range Interpretation Code Description Data Jenise rce(s) Supporting Document(s) SARS-CoV2 Rapid Antigen [facility] This lab was reported by [facility]. ID Date Data Source [id number] 03/08/2020 02:14:00 PM EST MEDENT ([facility]) Name Value Range Interpretation Code Description Data Jenise rce(s) Supporting Document(s) White Blood Count 8.2 4.0-10.0 MEDENT ([facility]) Red Blood Count 5.45 4.30-6.10 MED[facility] ([facility]) Platelets 218 150-450 [facility] Hemoglobin 15.6 13.5-17.5 MEDENT ([facility]) Hematocrit 47.6 42.0-52.0 MEDENT ([facility]) ID Date Data Source [id number] 03/08/2020 01:15:00 PM EST MEDENT ([facility]) Name Value Range Interpretation Code Description Data Jenise rce(s) Supporting Document(s) Lyme Disease IgM Ab Quantitati Laboratory test result 0.00-0.79 MEDENT ([facility]) <content>Negative <0.80</content >
<content>Equivocal 0.80 - 1.19</content>
<content>Positive >1.19</content>
<content>.</content>
<content>IgM levels may peak at 3-6 weeks post infection, then</content>
<content>gradually decline.</content>
<content></content> Lyme Disease IgG/IgM Antibodie Laboratory test result 0.00-0.90 MEDENT ([facility]) <content>Negative <0.91</content >
<content>Equivocal 0.91 - 1.09</content>
<content>Positive >1.09</content>
<content></content> ID Date Data Source [id number] 03/08/2020 01:15:00 PM EST MEDENT ([facility]) Name Value Range Interpretation Code Description Data Jenise rce(s) Supporting Document(s) Erythrocyte sedimentation rate by Westergren method 4 mm/hr 0-20 MEDENT ([facility]) HLA-B27 related Ag [Presence] Laboratory test result MEDENT ([facility]) HLA-B*27 Negative B27 allele interpretation for all loci based on IMGT/HLA database version 3.38 This test was developed and its performance characteristics determined by [employer]. It has not been cleared or approved by the Food and Drug Administration. HLA Lab CLIA ID Number [id number] . This test was performed using PCR [...] High sensitivity method Laboratory test result 0.00-0.30 [facility] ID Date Data Source [id number] 03/08/2020 01:15:00 PM EST MEDENT ([facility]) Name Value Range Interpretation Code Description Data Jenise rce(s) Supporting Document(s) Antinuclear Antibodies Direct Laboratory test result [facility]) Performed at: - [address] [id number] Director Recreation Center: Consuelo Calvert MD, Phone: [phone] Performed at: [address] [place] [id number] Director Recreation Center: Luois Lyle PhD, Phone: [phone] ID Date Data Source [id number] 03/08/2020 01:15:00 PM EST MEDENT ([facility]) Name Value Range Interpretation Code Description Data Jenise rce(s) Supporting Document(s) Rheumatoid factor [Units/volume] in Serum or Plasma Laboratory test result MEDENT ([facility]) ID Date Data Source [id number] 03/08/2020 01:15:00 PM EST MEDENT ([facility]) Name Value Range Interpretation Code Description Data Jenise rce(s) Supporting Document(s) White Blood Count 8.2 10 4.0-10.0 MEDENT ([facility]) Red Blood Count 5.45 10 4.30-6.10 MED[facility] ([facility]) Hematocrit 47.6 % 42.0-52.0 [facility] ([facility]) Hemoglobin 15.6 g/dL 13.5-17.5 MED[facility] ([facility]) Mean Corpuscular Hemoglobin 28.6 pg 27.0-33.0 MEDENT ([facility]) Mean Corpuscular Volume 87.3 fl 80.0-96.0 M EDENT ([facility] Red Cell Distribution Width 16.1 % 11.5-14.5 MED[facility] ([facility]) Mean Corpuscular HGB Conc 32.8 g/dL 32.0-36.5 MED[facility] ([facility]) Neutrophils % 50.9 % 36.0-66.0 [facility] Platelet Count, Automated 218 10 150-450 MED[facility] ([facility]) Lymph % 37.4 % 24.0-44.0 [facility] ([facility]) [place] % 8.2 % 0.0-5.0 MED[facility] ([facility]) Baso % 0.6 % 0.0-1.0 [facility] ([facility]) Eos % 1.8 % 0.0-3.0 MED[facility] ([facility]) Immature Granulocyte % 1.1 % 0-3.0 MED[facility] ([facility]) Neutrophils # 4.2 10 1.5-8.5 [facility] ([facility]) Nucleated Red Blood Cell % 0.0 % 0-0 MED E[facility] ([facility]) Lymph # 3.1 10 1.5-5.0 MED[facility] ([facility]) [place] # 0.7 10 0.0-0.8 [facility] ([facility]) Eos # 0.2 10 0.0-0.5 [facility] Baso # 0.1 10 0.0-0.2 [facility] Procedure Social History Code Duration Value Status Description Data Source(s ) Alcohol intake 03/30/2021 12:00:00 AM EST Current non-d noreen of alcohol (finding) completed Current non-drinker of alcohol (finding) [facility] Smoking 03/25/2021 12:00:00 AM EST Never Smoker completed Never S moker eCW1 ([facility]) Smoking 02/11/2021 12:00:00 AM EDT Never Smoker completed Never S moker eCW1 ([facility]) Smoking 12/03/2020 12:00:00 AM EDT Patient has never smoked co mpleted Patient has never smoked [facility] ([facility]) Smoking 11/11/2020 12:00:00 AM EDT Never Smoker completed Never S moker eCW1 ([facility]) Smoking 11/11/2020 12:00:00 AM EDT Never Smoker completed Never S moker eCW1 ([facility]) Smoking 11/11/2020 12:00:00 AM EDT Never Smoker completed Never S moker eCW1 ([facility]) Smoking 10/15/2020 12:00:00 AM EDT Patient has never smoked co mpleted Patient has never smoked [facility] ([facility]) Smoking 10/14/2020 12:00:00 AM EDT Never Smoker completed Never S moker eCW1 ([facility]) Smoking 10/14/2020 12:00:00 AM EDT Never Smoker completed Never S moker eCW1 ([facility]) Smoking 09/20/2020 12:00:00 AM EDT Never Smoker completed Never S moker eCW1 ([facility]) Smoking 09/20/2020 12:00:00 AM EDT Never Smoker completed Never S moker eCW1 ([facility]) Smoking 09/20/2020 12:00:00 AM EDT Never Smoker completed Never S moker eCW1 ([facility]) Smoking 09/13/2020 12:00:00 AM EDT Never Smoker completed Never S moker eCW1 ([facility]) Smoking 08/31/2020 09:48:00 PM EDT Unknown if ever smoked comp leted Unknown if ever smoked [facility] Smoking 08/31/2020 09:48:00 PM EDT Unknown if ever smoked comp leted Unknown if ever smoked [facility] Smoking 08/31/2020 09:48:00 PM EDT Unknown if ever smoked comp leted Unknown if ever smoked [facility] Smoking 08/31/2020 09:48:00 PM EDT Unknown if ever smoked comp leted Unknown if ever smoked [facility] Smoking 08/31/2020 09:48:00 PM EDT Unknown if ever smoked comp leted Unknown if ever smoked [facility] Smoking 07/23/2020 12:00:00 AM EDT Never Smoker completed Never S moker eCW1 ([facility]) Smoking 07/23/2020 12:00:00 AM EDT Never Smoker completed Never S moker eCW1 ([facility]) Smoking 07/23/2020 12:00:00 AM EDT Never Smoker completed Never S moker eCW1 ([facility]) Smoking 07/23/2020 12:00:00 AM EDT Never Smoker completed Never S moker eCW1 ([facility]) Smoking 07/21/2020 12:00:00 AM EDT Patient has n ever smoked (pipe, cigarette, cigar) completed Patient has never smoked (pipe, cigarett e, cigar) [facility] ([facility]) Smoking 07/09/2020 04:50:00 PM EST Denies Ever Smoked complete d Denies Ever Smoked [facility] Smoking 06/28/2020 12:00:00 AM EST Never Smoker completed Never S moker eCW1 ([facility]) Smoking 06/28/2020 12:00:00 AM EST Never Smoker completed Never S moker eCW1 ([facility]) Smoking 06/17/2020 12:00:00 AM EST Never Smoker completed Never S moker eCW1 ([facility]) Smoking 06/17/2020 12:00:00 AM EST Never Smoker completed Never S moker eCW1 ([facility]) Alcohol intake 04/02/2020 12:00:00 AM EST Current non-d noreen of alcohol (finding) completed Current non-drinker of alcohol (finding) [facility] Smoking 03/29/2020 12:00:00 AM EST Never Smoker completed Never S moker eCW1 ([facility]) Smoking 03/20/2020 12:00:00 AM EST Never Smoked Cigarettes com pleted Never Smoked Cigarettes MED[facility] ([facility]) Smoking 02/09/2020 12:00:00 AM EDT Never Smoker completed Never S moker eCW1 ([facility]) Vital Signs ID Date Data Source UNK Name Value Range Interpretation Code Description Data Source(s) Body weight 299 [lb_av] 299 [lb_av] eCW1 ([facility]) Body weight 135.63 kg 135.63 kg eCW1 ([facility]) Body height [in_i] eCW1 ([facility]) Body mass index (BMI) [Ratio] 36.39 kg/m2 36.39 kg/m2 eCW1 ([facility]) Heart rate 85 /min 85 /min eCW1 ([facility]) Respiratory rate 18 /min 18 /min eCW1 ([facility] Body temperature 97.6 [degF] 97.6 [degF] eCW1 ( [facility]) Systolic blood pressure 142 mm[Hg] 142 mm[Hg] e CW1 ([facility]) Diastolic blood pressure 88 mm[Hg] 88 mm[Hg] eCW1 ([facility]) Diastolic blood pressure 84 mm[Hg] 84 mm[Hg] MEDENT ([facility]) sitting, large cuff Systolic blood pressure 132 mm[Hg] 132 mm[Hg] M EDENT ([facility]) sitting, large cuff Body height 76 [in_i] 76 [in_i] [facility] ([facility] 6'4" Body mass index (BMI) [Ratio] 35.8 kg/m2 35.8 k g/m2 MED[facility] ([facility]) Heart rate 68 /min 68 /min [facility] ([facility]) Regular Respiratory rate 16 /min 16 /min MEDENT ( [facility]) Systolic blood pressure 128 mm[Hg] 128 mm[Hg] M EDENT ([facility]) sitting Diastolic blood pressure 82 mm[Hg] 82 mm[Hg] MEDENT ([facility]) sitting Body weight 294.00 [lb_av] 294.00 [lb_av] MEDEN T ([facility]) Heart rate 94 /min 94 /min eCW1 ([facility]) Body mass index (BMI) [Ratio] 36.03 kg/m2 36.03 kg/m2 eCW1 ([facility]) Body height [in_i] eCW1 ([facility]) Body weight 296 [lb_av] 296 [lb_av] eCW1 ([facility]) Respiratory rate 18 /min 18 /min eCW1 ([facility]) Systolic blood pressure 142 mm[Hg] 142 mm[Hg] e CW1 ([facility]) Body temperature 97.5 [degF] 97.5 [degF] eCW1 ( [facility]) Diastolic blood pressure 78 mm[Hg] 78 mm[Hg] eCW1 ([facility]) Body height 78 [in_i] 78 [in_i] [facility] 6'6" Body weight 298.00 [lb_av] 298.00 [lb_av] MEDEN T ([facility], ) Body mass index (BMI) [Ratio] 34.4 kg/m2 34.4 k g/m2 [facility] [place] body weight 214 [lb_av] 214 [lb_av] MEDEN T ([facility], ) Body weight 135.173 kg 135.173 kg [facility] ([facility], ) Body surface area Derived from formula 2.67 m2 2.67 m2 [facility] ([facility], ) Diastolic blood pressure 78 mm[Hg] 78 mm[Hg] MEDENT ([facility], ) Systolic blood pressure 136 mm[Hg] 136 mm[Hg] [facility] Body height 78 [in_i] 78 [in_i] [facility] 6'6" Body weight 298.00 [lb_av] 298.00 [lb_av] MEDEN T ([facility]) Body mass index (BMI) [Ratio] 34.4 kg/m2 34.4 k g/m2 [facility] ([facility]) [place] body weight 214 [lb_av] 214 [lb_av] MEDEN T ([facility]) Body weight 135.173 kg 135.173 kg [facility] ([facility]) Body surface area Derived from formula 2.67 m2 2.67 m2 [facility] ([facility]) Systolic blood pressure 130 mm[Hg] 130 mm[Hg] M [facility] ([facility]) Oxygen saturation in Arterial blood by Pulse oximetry 95 % 95 % [facility] ([facility]) Body temperature 97.8 [degF] 97.8 [degF] [facility] ([facility]) Body height 78 [in_i] 78 [in_i] [facility] ([facility]) 6'6" Body weight 294.00 [lb_av] 294.00 [lb_av] MEDEN T ([facility]) Body mass index (BMI) [Ratio] 34.0 kg/m2 34.0 k g/m2 [facility] ([facility]) [place] body weight 214 [lb_av] 214 [lb_av] MEDEN T ([facility]) Body weight 133.358 kg 133.358 kg [facility] ([facility]) Body surface area Derived from formula 2.66 m2 2.66 m2 [facility] ([facility]) Diastolic blood pressure 70 mm[Hg] 70 mm[Hg] [facility] ([facility]) Heart rate 75 /min 75 /min [facility] ([facility]) Oxygen saturation in Arterial blood by Pulse oximetry 95 % 95 % [facility] ([facility]) Body temperature 97.8 [degF] 97.8 [degF] [facility] Body height 78 [in_i] 78 [in_i] [facility] ([facility]) 6'6" Body weight 294.00 [lb_av] 294.00 [lb_av] MEDEN T ([facility]) Body mass index (BMI) [Ratio] 34.0 kg/m2 34.0 k g/m2 [facility] ([facility]) [place] body weight 214 [lb_av] 214 [lb_av] MEDEN T ([facility]) Body weight 133.358 kg 133.358 kg [facility] ([facility]) Body surface area Derived from formula 2.66 m2 2.66 m2 [facility] ([facility]) Body weight 294.0 [lb_av] 294.0 [lb_av] eCW1 ([facility]) Body height [in_i] eCW1 ([facility]) Body mass index (BMI) [Ratio] 35.78 kg/m2 35.78 kg/m2 eCW1 ([facility]) Heart rate 83 /min 83 /min eCW1 ([facility]) Respiratory rate 18 /min 18 /min eCW1 ([facility]) Body temperature 98.0 [degF] 98.0 [degF] eCW1 ( [facility]) Diastolic blood pressure 78 mm[Hg] 78 mm[Hg] eCW1 ([facility]) Systolic blood pressure 122 mm[Hg] 122 mm[Hg] e CW1 ([facility]) Body weight 293.8 [lb_av] 293.8 [lb_av] eCW1 ([facility]) Diastolic blood pressure 86 mm[Hg] 86 mm[Hg] eCW1 ([facility]) Body height [in_i] eCW1 ([facility]) Body mass index (BMI) [Ratio] 35.76 kg/m2 35.76 kg/m2 eCW1 ([facility]) Heart rate 87 /min 87 /min eCW1 ([facility]) Respiratory rate 18 /min 18 /min eCW1 ([facility]) Body temperature 97.5 [degF] 97.5 [degF] eCW1 ( [facility]) Systolic blood pressure 142 mm[Hg] 142 mm[Hg] e CW1 ([facility]) Respiratory rate 18 /min 18 /min eCW1 ([facility]) Body mass index (BMI) [Ratio] 35.56 kg/m2 35.56 kg/m2 eCW1 ([facility]) Heart rate 95 /min 95 /min eCW1 ([facility]) Body weight 292.2 [lb_av] 292.2 [lb_av] eCW1 ([facility]) Body height [in_i] eCW1 ([facility]) Systolic blood pressure 148 mm[Hg] 148 mm[Hg] e CW1 ([facility]) Diastolic blood pressure 86 mm[Hg] 86 mm[Hg] eCW1 ([facility]) Body temperature 97.9 [degF] 97.9 [degF] eCW1 ( [facility]) Body height 77.00 [in_i] 77.00 [in_i] MED[facility] ([facility] 6'5" Body weight 295.12 [lb_av] 295.12 [lb_av] MEDEN T ([facility]) Body temperature 97.0 [degF] 97.0 [degF] MEDENT ([facility]) Oxygen saturation in Arterial blood by Pulse oximetry 98 % 98 % MEDENT ([facility]) Body temperature 36.1 Latasha 36.1 Latasha MEDENT ( [facility]) Body mass index (BMI) [Ratio] 35.0 kg/m2 35.0 k g/m2 MEDENT ([facility]) Systolic blood pressure 169 mm[Hg] 169 mm[Hg] M EDENT ([facility]) Diastolic blood pressure 85 mm[Hg] 85 mm[Hg] MEDENT ([facility]) Heart rate 88 /min 88 /min MEDENT ([facility]) Body mass index (BMI) [Ratio] 34.9 kg/m2 No rmal (applies to non-numeric results) 34.9 kg/m2 [facility] Heart rate 76 min Normal (applies to non-numeric resul ts) 76 min [facility] Body temperature 36.7 latasha Normal (applies to non-numeric results) 36.7 latasha [facility] Body weight Measured 295 [lb_av] Normal (applies to n on-numeric results) 295 [lb_av] [facility] Systolic blood pressure 138 mm[Hg] Normal (applies t o non-numeric results) 138 mm[Hg] [facility] Diastolic blood pressure 77 mm[Hg] Normal (applies to non-numeric results) 77 mm[Hg] [facility] Body height 195.072 cm Normal (applies to non-numeric resu lts) 195.072 cm [facility] Deprecated Oxygen saturation in Capillary blood by Oximetry 93 % Normal (applies to non-numeric results) 93 % [facility] Respiratory rate 18 min Normal (applies to non-numeric results) 18 min [facility] Body temperature 97.2 [degF] 97.2 [degF] eCW1 ( [facility]) Body weight 298.8 [lb_av] 298.8 [lb_av] eCW1 ([facility]) Body height [in_i] eCW1 ([facility]) Body mass index (BMI) [Ratio] 36.37 kg/m2 36.37 kg/m2 W1 ([facility]) Heart rate 94 /min 94 /min eCW1 ([facility]) Respiratory rate 18 /min 18 /min eCW1 ([facility]) Systolic blood pressure 142 mm[Hg] 142 mm[Hg] e CW1 ([facility]) Diastolic blood pressure 78 mm[Hg] 78 mm[Hg] eCW1 ([facility]) Body weight 296.6 [lb_av] 296.6 [lb_av] eCW1 ([facility]) Body height [in_i] eCW1 ([facility]) Body mass index (BMI) [Ratio] 36.10 kg/m2 36.10 kg/m2 eCW1 ([facility]) Heart rate 85 /min 85 /min eCW1 ([facility]) Respiratory rate 18 /min 18 /min eCW1 ([facility]) Body temperature 98 [degF] 98 [degF] eCW1 ([facility]) Systolic blood pressure 140 mm[Hg] 140 mm[Hg] e CW1 ([facility]) Diastolic blood pressure 90 mm[Hg] 90 mm[Hg] eCW1 ([facility]) Systolic blood pressure 130 mm[Hg] 130 mm[Hg] M EDENT ([facility]) Diastolic blood pressure 90 mm[Hg] 90 mm[Hg] MEDENT ([facility]) Heart rate 80 /min 80 /min [facility] ([facility]) Oxygen saturation in Arterial blood by Pulse oximetry 94 % 94 % [facility] ([facility]) Room Air Body temperature 96.7 [degF] 96.7 [degF] [facility] ([facility]) Body height 78 [in_i] 78 [in_i] [facility] ([facility]) 6'6" Body weight 291.00 [lb_av] 291.00 [lb_av] MEDEN T ([facility]) Body mass index (BMI) [Ratio] 33.6 kg/m2 33.6 k g/m2 [facility] ([facility]) [place] body weight 214 [lb_av] 214 [lb_av] [facility] Body weight 131.998 kg 131.998 kg [facility] ([facility]) Body surface area Derived from formula 2.65 m2 2.65 m2 [facility] ([facility]) Diastolic blood pressure 70 mm[Hg] 70 mm[Hg] [facility]) sitting, large cuff Body mass index (BMI) [Ratio] 35.4 kg/m2 35.4 k g/m2 [facility] ([facility]) Systolic blood pressure 136 mm[Hg] 136 mm[Hg] M EDENT ([facility]) sitting Diastolic blood pressure 76 mm[Hg] 76 mm[Hg] MEDENT ([facility]) sitting Heart rate 76 /min 76 /min [facility]) Regular Respiratory rate 16 /min 16 /min [facility] ( [facility]) Systolic blood pressure 136 mm[Hg] 136 mm[Hg] [facility] sitting, large cuff Body weight 291.00 [lb_av] 291.00 [lb_av] MEDEN T ([facility] [facility] Body height 76 [in_i] 76 [in_i] [facility]) 6'4" Systolic blood pressure 135 mm[Hg] 135 mm[Hg] M [facility] ([facility]) Diastolic blood pressure 68 mm[Hg] 68 mm[Hg] [facility] ([facility]) Body height 78 [in_i] 78 [in_i] [facility] ([facility]) 6'6" Body weight 295.25 [lb_av] 295.25 [lb_av] [facility] Body mass index (BMI) [Ratio] 34.1 kg/m2 34.1 k g/m2 [facility] ([facility]) [place] body weight 214 [lb_av] 214 [lb_av] [facility] ([facility]) Body weight 133.925 kg 133.925 kg [facility] ([facility]) Body surface area Derived from formula 2.66 m2 2.66 m2 [facility] ([facility]) Systolic blood pressure 133 mm[Hg] 133 mm[Hg] [facility]) Diastolic blood pressure 79 mm[Hg] 79 mm[Hg] [facility] ([facility], [facility]) Heart rate 78 /min 78 /min [facility]) Respiratory rate 14 /min 14 /min [facility] ( [facility], [facility]) Oxygen saturation in Arterial blood by Pulse oximetry 96 % 96 % [facility]) Body temperature 100.1 [degF] 100.1 [degF] MEDE NT ([facility], [facility]) Body weight 289.00 [lb_av] 289.00 [lb_av] MEDEN T ([facility], [facility]) Body height 77 [in_i] 77 [in_i] MEDYOLANDA ([facility]) 6'5" Body mass index (BMI) [Ratio] 34.3 kg/m2 34.3 k g/m2 [facility]YOLANDA ([facility]) Body weight 281.0 [lb_av] 281.0 [lb_av] eCW1 ([facility]) Body height [in_i] eCW1 ([facility]) Body mass index (BMI) [Ratio] 34.20 kg/m2 34.20 kg/m2 eCW1 ([facility]) Heart rate 110 /min 110 /min eCW1 ([facility]) Respiratory rate 18 /min 18 /min eCW1 ([facility] access hospital) Body temperature 97.2 [degF] 97.2 [degF] eCW1 ( [facility]) Systolic blood pressure 130 mm[Hg] 130 mm[Hg] e CW1 ([facility]) Diastolic blood pressure 80 mm[Hg] 80 mm[Hg] eCW1 ([facility]) ID Date Data Source [id number] 04/05/2021 03:41:44 PM [facility] Name Value Range Interpretation Code Description Data Source(s) WEIGHT RECORDED 295 lb 295 lb [facility] Body height Measured 77 in 77 in [facility] ID Date Data Source [id number] 09/15/2020 12:11:00 PM EDT [facility] Name Value Range Interpretation Code Description Data Source(s) HEIGHT 195.58 cm 195.58 cm [facility] WEIGHT RECORDED 133.755955 kg 133.949474 kg [facility] ID Date Data Source [id number] 04/08/2020 06:51:12 PM [facility] Name Value Range Interpretation Code Description Data Source(s) WEIGHT RECORDED 290 lb 290 lb [facility] Body height Measured 77 in 77 in [facility] WEIGHT RECORDED 290 lb 290 lb [facility] Body height Measured 77 in 77 in [facility] ID Date Data Source [id number] 04/08/2020 08:27:43 AM [facility] Name Value Range Interpretation Code Description Data Source(s) WEIGHT RECORDED 277 lb 277 lb [facility] Body height Measured 77.99 in 77.99 in [facility] Patient Treatment Plan of Care Planned Activity Planned Date Details Description Data Source (s) Cyclobenzaprine hydrochloride 10 MG Oral Tablet 03/30/2021 12:00:00 AM [facility] testosterone cypionate 200 MG/ML Injectable Solution 12:00:00 AM [facility] Lisinopril 30 MG Oral Tablet 11/11/2020 12:00:00 AM EDT eCW1 ([facility]) Lisinopril 30 MG Oral Tablet 11/11/2020 12:00:00 AM EDT eC ([facility]) Lisinopril 30 MG Oral Tablet 11/11/2020 12:00:00 AM EDT eC ([facility]) Needle (Disp) 18G X 1-1/2" 08/26/2020 12:00:00 AM [facility] Syringe Luer Lock 23G X 1" 3 ML 08/26/2020 12:00:00 AM [facility] sildenafil 50 MG Oral Tablet [Viagra] 02/09/2020 12:00:00 AM EDT eCW1 ([facility]) Syringe Luer Lock 23G X 1" 3 ML 10/17/2019 12:00:00 AM [facility] 24 HR Oxybutynin chloride 5 MG Extended Release Oral T ablet 03/13/2019 12:00:[address] [facility] Cyclobenzaprine hydrochloride 10 MG Oral Tablet 02/03/2018 12:00:00 AM [facility]
--- OUTSIDE RECORDS SUMMARY | 2021-04-08 19:39 | CCD ---
Author Author [facility] Organization [facility] Address Unknown Phone Unavailable Support Name Relationship Address Phone ARNOLD MOORE Next Of Kin [phone] [facility] [address] [place] [address] SNOW LEZAMA Next Of Kin [phone] [place] [address] [address] [place] [address] GHANSHYAM LEZAMA Next Of Kin [phone] [place] [address] [address] [place] [address] VERITO ESTES Next Of Kin [phone] [place] [address] [address] [place] [address] [facility] Next Of Kin [address] [place] [address] FEDEX[employer] Next Of Kin [address] [place] [address] [employer] Next Of [facility] [address] [place] [address] VERITO MORRISSEY Next Of Kin [phone] [place] [address] [address] [place] [address] [employer] Next Of Kin [address] [place] [address] [facility] [place] [address] Unavailable [place] [address] Unavailable DPAO Next Of Kin [address] [place] [address] ARNOLD ESTES Next Of Kin [address] [place] [address] ARNOLD MOORE ECON [address] [facility] [address] [place] [address] Unavailable snow lezama ECON [address] [facility] [address] [place] [address] Unavailable Verito Morrissey ECON Unknown Unavailable Care Team Providers Care Director Talent Management Name Role Phone Suleman Willis MD Unavailable Unavailable Suleman Willis MD Unavailable Unavailable Suleman Willis MD Unavailable Unavailable Spektor, Suleman Narvaez MD Unavailable Unavailable CONCETTA, Rhett Ocampo MD [...] CONCETTA, Rhett Ocampo MD Unavailable Unavailable CONCETTA, C J MD Unavailable Unavailable CONCETTA, C Terrence MD Unavailable Unavailable CONCETTA, C J MD Unavailable Unavailable CONCETTA, C J MD Unavailable Unavailable CONCETTA, C J MD Unavailable Unavailable CONCETTA, C J MD Unavailable Unavailable CONCETTA, C J MD Unavailable Unavailable CONCETTA, C J MD Unavailable Unavailable Venkata May MD Unavailable [...] Poiesz, J Ino Unavailable Unavailable Poiesz, J Nio Unavailable Unavailable Poiesz, J Ino Unavailable Unavailable [...] Josué-Tartell, M Radha DO Unavailable Unavailabl e Ojsué-Tartell, M Radha DO Unavailable Unavailabl e Josué-Tartell, [...] Radha DO Unavailable Unavailabl e Josué-Tartell, M Rahda DO Unavailable Unavailabl e Josué-Tartell, M Radha [...] Symenow, Rosie Sarah PA Unavailable Unavailable Symenow, Rosei Sarah PA Unavailable Unavailable Symenow, Rosie Sarah [...] T Marjorie PA Unavailable Unavailable Feola, T Majrorie PA Unavailable Unavailable Feola, T Marjorie PA [...] PHYSICIAN ER Unavailable Unavailable KAIDEN, CHER KALEB ASPHALT SMOOTHER-C Unavailable Unavailable KAIDEN, CHER KALEB ASPHALT SMOOTHER-C Unavailable Unavailable KAIDEN, CHER KALEB ASPHALT SMOOTHER-C Unavailable Unavailable KAIDEN, CHER KALEB ASPHALT SMOOTHER-C Unavailable Unavailable KAIDEN, CHER KALEB ASPHALT SMOOTHER-C Unavailable Unavailable KAIDEN, CHER KALEB ASPHALT SMOOTHER-C Unavailable Unavailable KAIDEN, CHER KALEB ASPHALT SMOOTHER-C Unavailable Unavailable KAIDEN, CHER KALEB ASPHALT SMOOTHER-C Unavailable Unavailable KAIDEN, CHER KALEB ASPHALT SMOOTHER-C Unavailable Unavailable KAIDEN, CHER KALEB ASPHALT SMOOTHER-C Unavailable Unavailable KAIDEN, CHER KALEB ASPHALT SMOOTHER-C Unavailable Unavailable KAIDEN, CHER KALEB ASPHALT SMOOTHER-C Unavailable Unavailable KAIDEN, CHER KALEB ASPHALT SMOOTHER-C Unavailable Unavailable KAIDEN, CHER KALEB ASPHALT SMOOTHER-C Unavailable Unavailable KAIDEN, CHER KALEB ASPHALT SMOOTHER-C Unavailable Unavailable KAIDEN, CHER KALEB ASPHALT SMOOTHER-C Unavailable Unavailable KAIDEN, CHER KALEB ASPHALT SMOOTHER-C Unavailable Unavailable Gerhard Maya Unavailable [phone] Gerhard Maya Unavailable [phone] Gerhard Maya Unavailable [phone] Francesco Gerhard Unavailable [phone] Gerhard Maya Unavailable [phone] Gerhard Maya Unavailable [phone] Rhett Beaver MD Unavailable Unavailable Rhett Beaver [...] is protected by Article 27-F of the [facility] Public Health law. If you continue you may have access to information: Regarding HIV / AIDS; Provided by facilities licensed or operated by the [facility] Office of Mental Health; or Provided by the [facility] Office for People With Developmental Disabilities. If such information is present, then the following [facility] mandated warning applies: This information has [...] law may result in a fine or long term sentence or both. A general authorization for the release of medical or other information is NOT sufficient authorization for further disc losure. Allergies and Adverse Reactions Type Description Substance Reaction Status Data Source(s ) Propensity to adverse reactions NO KNOWN ALLERGIES NO KNOWN ALLERGIES [facility] Drug allergy No Known Drug Allergies No Known Drug Allergies [facility] Family History Family Member Name Family Member Gender Family Member Status Date o f Status Description Data Source(s) Unknown Male Problem MEDENT ([facility] ) Encounters Encounter Providers Location Date Indications Data Source(s ) Outpatient 03/31/2021 11:03:55 AM EST - 021 11:35:08 AM EST [facility] ([facility]) Emergency Attender: Kodak MiddletonAttender: KODAK WOLFE AY . 07A-ERMADULT 03/30/2021 12:00:00 AM EST - 03/30/2021 07:19:[address] [facility] Back Pain Patient discharged. Unknown [address] [facility] [address] 03/30/2021 12:00:00 AM EST eCW1 ([facility]) Recurring Patient Referrer: Radha Leger DO 03/22/2021 11:16:10 AM EST [facility] [address] [facility] [address] 02/11/2021 12:00:00 AM EDT eCW1 ([facility]) Outpatient Attender: Terrence HYLTON MD [id number] 01/17/2021 12:00:[address] [facility] Outpatient Attender: Gerhard Maya 12/28 07:38:34 PM EDT - 12/28/2020 07:56:29 PM EDT [facility] ([facility] ) Outpatient Attender: Sarah LANCE Main Office 12/03/2020 10:15:00 AM EDT MEDENT ([facility]) Unknown [address] [facility] [address] 11/11/2020 12:00:00 AM EDT eCW1 ([facility]) Outpatient [address] [facility] [address] 11/11/2020 12:00:00 AM EDT [facility]1 ([facility]) [place] [address] [facility] [address] 11/10/2020 12:00:00 AM EDT [facility]) Outpatient Attender: YESICA Puentes/Russell/Filemon king/Reindl 11/05/2020 08:30:00 AM EDT [facility] Outpatient Attender: KALEB Puentes/Russell/Jose Juan/R eindl 10/15/2020 02:15:00 PM EDT [facility] [place] [address] [facility] [address] 10/14/2020 12:00:00 AM EDT [facility]CW1 [facility]) Outpatient [address] [facility] [address] 10/14/2020 12:00:00 AM EDT [facility]CW1 [facility]) Outpatient Attender: Marjorie LANCE 021 03:05:45 PM EDT - 10/07/2020 03:14:50 PM EDT [facility] ([facility] ) [place] [address] [facility] [address] 09/24/2020 12:00:00 AM EDT [facility]CW1 ([facility]) Outpatient [address] [facility] [address] 09/20/2020 12:00:00 AM EDT [facility]CW1 [facility]) Unknown [address] [facility] [address] 09/15/2020 12:00:00 AM EDT [facility]CW1 [facility]) Outpatient [address] [facility] [address] 09/13/2020 12:00:00 AM EDT eCW1 [facility]) Emergency Attender: Venkata May MDAdmitter: Physician Gamal villarnowlorenza 08/31/2020 09:27:00 PM EDT - 09/01/2020 01:56:00 AM EDT NECK AND BACK PAIN [facility] NECK AND BACK PAIN Patient discharged. Outpatient Attender: Terrence HYLTON MD 08/30/2020 12:00:[address] [facility] OFFICE OUTPATIENT VISIT 15 MINUTES Attender: VENKATA LANCE Physical Therapy 08/16/2020 09:15:00 AM EDT MEDENT ([facility]) Outpatient Attender: ANA QUIÑONEZ MD 08/13 05:59:56 PM EDT - 08/13/2020 07:16:07 PM EDT [facility] ([facility] ) [place] [address] [facility] [address] 08/13/2020 12:00:00 AM EDT eCW1 ([facility]) Unknown [address] [facility] [address] 08/09/2020 12:00:00 AM EDT eCW1 ([facility]) Unknown [address] [facility] [address] 08/09/2020 12:00:00 AM EDT eCW1 ([facility]) Outpatient Attender: Crissy Leary MD [facility] Internal Med at [facility] 07/21/2020 02:00:00 PM EDT MEDENT ([facility]) Emergency Attender: ER PHYSICIAN 07/09/2020 07:04:42 PM [facility] Emergency Attender: ROBERTO LAGUNASAttender: ER PHYSICIAN 07/09/2020 05:27:00 PM EST - 07/09/2020 08:12:00 PM EST RIGHT SIDED ABDOMINAL PAIN SEVERE [facility] RIGHT SIDED ABDOMINAL PAIN SEVERE Patient discharged. Emergency Attender: ER PHYSICIAN 07/09/2020 05:27:00 PM [facility] Outpatient Attender: VENKATA LANCE Physical Therapy 07/05/2020 09:15:00 AM EST MEDENT ([facility]) Unknown [address] [facility] [address] 07/05/2020 12:00:00 AM EST eCW1 ([facility]) Outpatient [address] [facility] [address] 06/28/2020 12:00:00 AM EST eCW1 ([facility]) Unknown [address] [facility] [address] 06/18/2020 12:00:00 AM EST eCW1 ([facility]) Outpatient Attender: KALEB LYNN-Rhett Puentes/Russell/Jose Juan/Paul cheatham 06/17/2020 07:15:00 AM EST MED[facility] ([facility]) Outpatient [address] [facility] [address] 06/17/2020 12:00:00 AM EST eCW1 ([facility]) Outpatient Attender: Sarha LANCE Main Office 06/16/2020 06:45:00 AM EST [facility] ([facility]) Unknown [address] [facility] [address] 06/16/2020 12:00:00 AM EST eCW1 ([facility]) Outpatient Attender: Sari Beaver MD 0 05/30/2020 12:50:31 PM EST - 05/30/2020 01:47:37 PM EST [facility] ([facility]) Unknown [address] [facility] [address] 05/18/2020 12:00:00 AM EST eCW1 ([facility]) Outpatient Attender: CARLINE STEVENS MDReferrer: CARLINE Daigle MD 04/03/2020 12:00:[address] [facility] Emergency Attender: LEXX BENAVIDEZ MDA ttender: CARLINE STEVENS MDReferrer: SARTHAK QUEEN 07A-ERMADULT 04/02/2020 12:00:00 AM EST - 04/03/2020 02:24:00 AM EST Other chest pain [facility] Other chest pain Patient discharged. Outpatient Attender: VENKATA LANCE Physical Therapy 03/29/2020 02:45:00 PM EST MEDENT ([facility]) Outpatient Attender: Ivett harley 03/20/2020 04:00:00 PM EST MEDENT ([facility] Outpatient Attender: Ino LockettReferrer: Terrence HYLTON MD 02/23/2020 12:00:[address] [facility] Outpatient Attender: Solange TRAVISeferrer: Terrence HYLTON MD 02/09/2020 12:00:[address] [facility] Outpatient [address] [facility] [address] 02/09/2020 12:00:00 AM EDT eCW ([facility]) Outpatient Attender: Terrence HYLTON MD [id number] 01/05/20 12:00:00 AM EDT - 01/05/2020 02:49:[address] [facility] Medications Medication Brand Name Start Date Product Form Dose Route Admi nistrative Instructions Pharmacy Instructions Status Indications Reaction Description Data Source(s) iohexol (OMNIPAQUE) 300 MG/ML contrast injection 50 mL 83213 2 03/30/2021 05:00:00 AM EST 50 mL Given by IV completed 50 mL, Given by IV, 1 TIME IMAGING, On Sun03/30/21 at 0500, For [address] [facility] Medication administered onsite Acetaminophen 325 MG Oral Tablet acetaminophen (TYLENO L) tablet 975 mg acetaminophen (TYLENOL) tablet 975 mg 03/30/2021 03:45:00 AM EST 97 5 mg Oral completed 975 mg, Oral, O nce, On Sun03/30/21 at 0345, For 1 dose
Maximum daily dose of acetaminophen is 3,000 mg from all sources in [address]
[facility] Medication administered onsite 1 ML Ketorolac Tromethamine 30 MG/ML Car tridge ketorolac (TORADOL) 30 MG/ML injection 15 mg ketorolac (TORADOL) 30 MG/ML injection 15 mg 03:45:00 AM EST 15 mg Intravenous completed 15 mg, Intravenous, Once, On Sun03/30/21 at 0345, For [address] [facility] Medication administered onsite Cyclobenzaprine hydrochloride 10 MG Oral Tablet cyclobenzaprine (FLEXERIL) tablet 10 mg cyclobenzaprine (FLEXERIL) tablet 10 mg 03/30/2021 03:45:00 AM EST 10 mg Oral completed 10 mg, Oral, O nce, On Sun03/30/21 at 0345, For [address] [facility] Medication administered onsite Cyclobenzaprine hydrochloride 10 MG Oral Tablet Cyclobenzaprine HCl 10 MG Oral Tablet (FLEXERIL) Cyclobenzaprine HCl 10 MG Oral Tablet (FLEXERIL) 03/30 12:00:00 AM EST 10 mg Oral active Take 1 tablet by mouth Three times daily as needed for Muscle spasms for up to [address] [facility] 300 mg 03/15/2021 12:00:00 AM EST capsule [...] days , Max Daily Dose: [address] [facility] 200 mg/mL 01/18/2021 12:00:00 AM EDT oil [...] Sutab 11/22/2020 12:00:00 AM EDT active MEDENT ([facility], ) POLYETHYLENE GLYCOL 3350 105 MG/ML / Pot assium Chloride 0.26939 MEQ/ML / Sodium Bicarbonate 0.017 MEQ/ML / Sodium Chloride 0.0479 MEQ/ML Oral Solution [GaviLyte-N] Gavilyte-N With Flavor Pack 11/22/2020 12:00:00 AM EDT active MEDENT ([facility], ) Bisacodyl 5 MG Delayed Release Oral Tablet [Dulcolax] Dulcol ax 11/22/2020 12:00:00 AM EDT active M EDENT ([facility], ) Clenpiq Clenpiq 11/18/2020 12:00:00 AM EDT active MEDENT ([facility]) 300 mg 11/17/2020 12:00:00 AM EDT capsule [...] {tablet} active Lisinopril 30 MG eCW1 ( [facility]) Lisinopril 30 MG Oral Tablet Lisinopril 30 MG 11/11/2020 12:00:00 A M EDT 1.0 {tablet} active Lisinopril 30 MG eCW1 ( [facility]) Lisinopril 30 MG Oral Tablet Lisinopril 30 MG 11/11/2020 12:00:00 A M EDT 1.0 {tablet} active Lisinopril 30 MG eCW1 ( [facility]) Lisinopril 30 MG Oral Tablet Lisinopril 30 MG 11/11/2020 12:00:00 A M EDT 1.0 {tablet} active Lisinopril 30 MG eCW1 ( [facility]) Lisinopril 30 MG Oral Tablet Lisinopril 30 MG 11/11/2020 12:00:00 A M EDT 1.0 {tablet} active Lisinopril 30 MG eCW1 ( [facility]) 200 mg/mL 11/02/2020 12:00:00 AM EDT oil [...] PM EDT 81 MG ORAL active [facility] Lisinopril 40 MG Oral Tablet Lisinopril 08/31/2020 09:44:46 PM EDT 40 MG ORAL active [facility] Lisinopril 40 MG Oral Tablet Lisinopril 08/31/2020 09:44:46 PM EDT 40 MG ORAL active [facility] Aspirin 81 MG Delayed Release Oral Table t Aspirin* (Aspirin (81 Mg) Enteric Coated Tablet*) 81 MG Enteric Coated Tablet Aspirin* (Aspirin (81 Mg) Enteric Coated Tablet*) 81 MG Enteric Coated Tablet 08/31/2020 09:44:46 PM EDT 81 MG ORAL active [facility] Sertraline 25 MG Oral Tablet [Zoloft] Sertraline Hcl ( Zoloft*) 25 MG Tablet Sertraline Hcl (Zoloft*) 25 MG Tablet 08/31/2020 09:44:46 PM EDT 25 M G ORAL active [facility] Aspirin 81 MG Delayed Release Oral Table t Aspirin* (Aspirin (81 Mg) Enteric Coated Tablet*) 81 MG Enteric Coated Tablet Aspirin* (Aspirin (81 Mg) Enteric Coated Tablet*) 81 MG Enteric Coated Tablet 08/31/2020 09:44:46 PM EDT 81 MG ORAL active [facility] Aspirin 81 MG Delayed Release Oral Table t Aspirin* (Aspirin (81 Mg) Enteric Coated Tablet*) 81 MG Enteric Coated Tablet Aspirin* (Aspirin (81 Mg) Enteric Coated Tablet*) 81 MG Enteric Coated Tablet 08/31/2020 09:44:46 PM EDT 81 MG ORAL active [facility] Sertraline 25 MG Oral Tablet [Zoloft] Sertraline Hcl ( Zoloft*) 25 MG Tablet Sertraline Hcl (Zoloft*) 25 MG Tablet 08/31/2020 09:44:46 PM EDT 25 M G ORAL active [facility] Lisinopril 40 MG Oral Tablet Lisinopril 08/31/2020 09:44:46 PM EDT 40 MG ORAL active [facility] Sertraline 25 MG Oral Tablet [Zoloft] Sertraline Hcl ( Zoloft*) 25 MG Tablet Sertraline Hcl (Zoloft*) 25 MG Tablet 08/31/2020 09:44:46 PM EDT 25 M G ORAL active [facility] lansoprazole 30 MG Delayed Release Oral Capsule [Prevacid] Lansoprazole (Prevacid) 30 MG Capsule. Lansoprazole (Prevacid) 30 MG Capsule. 08/31/2020 09:44:46 PM EDT 30 MG ORAL active [facility] Lisinopril 40 MG Oral Tablet Lisinopril 08/31/2020 09:44:46 PM EDT 40 MG ORAL active [facility] lansoprazole 30 MG Delayed Release Oral Capsule [Prevacid] Lansoprazole (Prevacid) 30 MG Capsule. Lansoprazole (Prevacid) 30 MG Capsule. 08/31/2020 09:44:46 PM EDT 30 MG ORAL active [facility] lansoprazole 30 MG Delayed Release Oral Capsule [Prevacid] Lansoprazole (Prevacid) 30 MG Capsule. Lansoprazole (Prevacid) 30 MG Capsule. 08/31/2020 09:44:46 PM EDT 30 MG ORAL active [facility] Sertraline 25 MG Oral Tablet [Zoloft] Sertraline Hcl ( Zoloft*) 25 MG Tablet Sertraline Hcl (Zoloft*) 25 MG Tablet 08/31/2020 09:44:46 PM EDT 25 M G ORAL active [facility] lansoprazole 30 MG Delayed Release Oral Capsule [Prevacid] Lansoprazole (Prevacid) 30 MG Capsule. Lansoprazole (Prevacid) 30 MG Capsule. 08/31/2020 09:44:46 PM EDT 30 MG ORAL active [facility] Sertraline 25 MG Oral Tablet [Zoloft] Sertraline Hcl ( Zoloft*) 25 MG Tablet Sertraline Hcl (Zoloft*) 25 MG Tablet 08/31/2020 09:44:46 PM EDT 25 M G ORAL active [facility] Lisinopril 40 MG Oral Tablet Lisinopril 08/31/2020 09:44:46 PM EDT 40 MG ORAL active [facility] Aspirin 81 MG Delayed Release Oral Table t Aspirin* (Aspirin (81 Mg) Enteric Coated Tablet*) 81 MG Enteric Coated Tablet Aspirin* (Aspirin (81 Mg) Enteric Coated Tablet*) 81 MG Enteric Coated Tablet 08/31/2020 09:44:46 PM EDT 81 MG ORAL active [facility] lansoprazole 30 MG Delayed Release Oral Capsule [Prevacid] Lansoprazole (Prevacid) 30 MG Capsule. Lansoprazole (Prevacid) 30 MG Capsule. 08/31/2020 09:44:46 PM EDT 30 MG ORAL active [facility] Needle (Disp) 18G X 1-1/2" [id number] 08/26/2020 12:00:00 AM EDT active Low testosterone Use as directed. To use weekly with inje [facility] Low testosterone Syringe Luer Lock 23G X 1" 3 ML [id number] 08/26/2020 12:00:00 AM EDT 1 {each} Does not apply active Low testosterone 1 ea ch by Does not apply route once a week for 20 dosesTo use weekly with [facility] Low testosterone 17.5-3.13-1.6 gram 08/11/2020 12:00:00 [...] TABLET BY MOUTH ONCE DAILY SOLD: 10/25/2020 [facility] CPAP 07/19/2020 12:00:00 AM EDT active MEDENT ([facility], ) 4 mg 07/10/2020 12:00:00 AM [...] Hyclate 03/20/2020 12:00:00 AM EST active MEDENT ([facility]) sildenafil 50 MG Oral Tablet [Viagra] Viagra 50 MG Viagra 50 MG 02/09/2020 12:00:00 AM EDT 1.0 {tablet_as_needed} active Viagra 50 MG eCW1 ([facility]) sildenafil 50 MG Oral Tablet [Viagra] Viagra 50 MG Viagra 50 MG 02/09/2020 12:00:00 AM EDT 1.0 {tablet_as_needed} active Viagra 50 MG eCW1 ([facility]) sildenafil 50 MG Oral Tablet [Viagra] Viagra 50 MG Viagra 50 MG 02/09/2020 12:00:00 AM EDT 1.0 {tablet_as_needed} active Viagra 50 MG eCW1 ([facility]) sildenafil 50 MG Oral Tablet [Viagra] Viagra 50 MG Viagra 50 MG 02/09/2020 12:00:00 AM EDT 1.0 {tablet_as_needed} active Viagra 50 MG eCW1 ([facility]) sildenafil 50 MG Oral Tablet [Viagra] Viagra 50 MG Viagra 50 MG 02/09/2020 12:00:00 AM EDT 1.0 {tablet_as_needed} active Viagra 50 MG eCW1 ([facility]) sildenafil 50 MG Oral Tablet [Viagra] Viagra 50 MG Viagra 50 MG 02/09/2020 12:00:00 AM EDT 1.0 {tablet_as_needed} active Viagra 50 MG eCW1 ([facility]) sildenafil 50 MG Oral Tablet [Viagra] Viagra 50 MG Viagra 50 MG 02/09/2020 12:00:00 AM EDT 1.0 {tablet_as_needed} active Viagra 50 MG eCW1 ([facility]) sildenafil 50 MG Oral Tablet [Viagra] Viagra 50 MG Viagra 50 MG 02/09/2020 12:00:00 AM EDT 1.0 {tablet_as_needed} active Viagra 50 MG eCW1 ([facility]) sildenafil 50 MG Oral Tablet [Viagra] Viagra 50 MG Viagra 50 MG 02/09/2020 12:00:00 AM EDT 1.0 {tablet_as_needed} active Viagra 50 MG eCW1 ([facility]) sildenafil 50 MG Oral Tablet [Viagra] Viagra 50 MG Viagra 50 MG 02/09/2020 12:00:00 AM EDT 1.0 {tablet_as_needed} active Viagra 50 MG eCW1 ([facility]) sildenafil 50 MG Oral Tablet [Viagra] Viagra 50 MG Viagra 50 MG 02/09/2020 12:00:00 AM EDT 1.0 {tablet_as_needed} active Viagra 50 MG eCW1 ([facility]) sildenafil 50 MG Oral Tablet [Viagra] Viagra 50 MG Viagra 50 MG 02/09/2020 12:00:00 AM EDT 1.0 {tablet_as_needed} active Viagra 50 MG eCW1 ([facility]) sildenafil 50 MG Oral Tablet [Viagra] Viagra 50 MG Viagra 50 MG 02/09/2020 12:00:00 AM EDT 1.0 {tablet_as_needed} active Viagra 50 MG eCW1 ([facility]) sildenafil 50 MG Oral Tablet [Viagra] Viagra 50 MG Viagra 50 MG 02/09/2020 12:00:00 AM EDT 1.0 {tablet_as_needed} active Viagra 50 MG eCW1 ([facility]) sildenafil 50 MG Oral Tablet [Viagra] Viagra 50 MG Viagra 50 MG 02/09/2020 12:00:00 AM EDT 1.0 {tablet_as_needed} active Viagra 50 MG eCW1 ([facility]) sildenafil 50 MG Oral Tablet [Viagra] Viagra 50 MG Viagra 50 MG 02/09/2020 12:00:00 AM EDT 1.0 {tablet_as_needed} active Viagra 50 MG eCW1 ([facility]) sildenafil 50 MG Oral Tablet [Viagra] Viagra 50 MG Viagra 50 MG 02/09/2020 12:00:00 AM EDT 1.0 {tablet_as_needed} active Viagra 50 MG eCW1 ([facility]) sildenafil 50 MG Oral Tablet [Viagra] Viagra 50 MG Viagra 50 MG 02/09/2020 12:00:00 AM EDT 1.0 {tablet_as_needed} active Viagra 50 MG eCW1 ([facility]) sildenafil 50 MG Oral Tablet [Viagra] Viagra 50 MG Viagra 50 MG 02/09/2020 12:00:00 AM EDT 1.0 {tablet_as_needed} active Viagra 50 MG eCW1 ([facility]) sildenafil 50 MG Oral Tablet [Viagra] Viagra 50 MG Viagra 50 MG 02/09/2020 12:00:00 AM EDT 1.0 {tablet_as_needed} active Viagra 50 MG eCW1 ([facility]) sildenafil 50 MG Oral Tablet [Viagra] Viagra 50 MG Viagra 50 MG 02/09/2020 12:00:00 AM EDT 1.0 {tablet_as_needed} active Viagra 50 MG eCW1 ([facility]) Citalopram 40 MG Oral Tablet CITALOPRAM HYDROBROMIDE [...] Luer Lock 23G X 1" 3 [place] [id number] 10/17/2019 12:00:00 AM EDT 1 {each} Does not apply active Low testosterone 1 each by Does not apply route once a week for 20 dosesTo use weekly with [facility] Low testosterone 20 mg 10/06/2019 12:00:00 [...] active Take 1 tablet by mouth daily [facility] Cyclobenzaprine hydrochloride 10 MG Oral Tablet cyclobenzaprine (FLEXERIL) 10 MG tablet cyclobenzaprine (FLEXERIL) 10 MG tablet 02/03/2018 12:00:00 AM EDT aborted TAKE 1 TABLET BY NEELIMA TH AT BEDTIME NEEDED FOR MUSCLE SPASMS [facility] Insurance Providers Payer name Policy type / Coverage type Policy ID Covered democrat ID Covered democrat's relationship to lau Policy Lau Plan Information BS [place] Medigap Part B [id number] Self [id number] BS [place] Medigap Part B [id number] Self Z [id number] BS [place] Medigap Part B [id number] Self [id number] BCBS Excellus Ppo U/W Commercial [id number] Self EXCELLUS H [id number] Self [id number] EXCELLUS H [id number] Self [id number] HONY TRUST SAFE WC W [id number] Self [id number] [place] () Workers Compensation [id number] Self [id number] WORKERS COMPENSATION GENERIC W [id number] Empl [id number] Blue Cross Blue Shield P [id number] SELF [id number] SELF PAY [facility] emp [id number] Employee [id number] FEDEX GROUND TERM 130 / 3131 emp [id number] Employee [id number] Excell[employer] Blue Cross and Blue Shield - [place] Blue Cross/B lue Shield [id number] Self [id number] [employer] INSURANCE [id number] P 1 [id number] [employer] INSURANCE [id number] P 1 [id number] [employer]ATIONAL [employer]OUNT emp [id number] Employee [id number] MEDICAID M [id number] Self [id number] ANSI-Commercial [id number] BCBS/Excellus Commercial [id number] Self [id number] BCBS/Excellus Commercial [id number] Self [id number] ANSI-Commercial [id number] MAIL STOP WCS VANLINER [id number] SP [id number] MAIL STOP S VANLINER [id number] SP [id number] [facility] SP ANSI-Commercial [id number] ANSI-Commercial [id number] ANSI-Commercial [id number] ANSI-Commercial [id number] [facility] [id number] SP [id number] ANSI-Commercial [id number] ANSI-Commercial [id number] [employer] O [id number] O [id number] OTHER WORKERS COMPENSATI O [id number] O [id number] ANSIXMOS [id number] ANSIXMOS [id number] ANSIXMOS [id number] BCBS [place] PPO 302/307 [id number] SP [id number] EXCELLUS BCBS B [id number] S [id number] BCBS/Excellus Commercial [id number] Self [id number] BCBS/Excellus Commercial [id number] Self [id number] BCBS [place] 306/806 [id number] SP [id number] SELF PAY UNAVAILABLE SP UNAVAILA BLE PAVAN [id number] SP [id number] BCBS [place] PPO 302/307 [id number] SP [id number] BCBS [place] PPO 302/307 [id number] SP [id number] FFS Self Pay [id number] Self [id number] ASPIRE [id number] SP [id number] [facility] [id number] SP [id number] SELF PAY ONLY WORKERS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 [facility] CHLORIDE 108 mmol/L (100-108) [facility] CO2 26 mmol/L (22-31) [facility] ANION GAP 6 mmol/L (7-16) L [facility] UREA NITROGEN 20 mg/dL (7-24) [facility] CREATININE 1.12 mg/dL (0.80-1.30) [facility] BUN/CREAT RATIO 17.9 RATIO (10.0-20.0) [facility] GLUCOSE 92 mg/dL (70-99) [facility] CALCIUM 9.6 mg/dL (8.4-10.2) [facility] GFR >60 ml/min/1.73m2 (>59) [facility] GFR ( AMER) >60 ml/min/1.73m2 (>59) [facility] GFR INTERPRETATION [facility] --NORMAL KIDNEY FUNCTION OR MILD DISEASE - GFR >OR= 60CHRONIC KIDNEY DISEASE - GFR 15 - 59RENAL FAILURE - GFR <15 Est. GFR calculation based on the MDRDstudy equation, which assumes a steadystate for creatinine. Est. GFR should notbe used for medication dosing. ID Date Data Source [id number] 07/09/2020 07:32:12 PM EST [facility] Name Value Range Interpretation Code Description Data Jenise rce(s) Supporting Document(s) TOTAL PROTEIN 7.6 g/dL (6.4-8.2) [facility] ALBUMIN 3.8 g/dL (3.5-4.6) [facility] GLOBULIN 3.8 g/dL (2.7-4.3) [facility] ALB/GLOB RATIO 1.0 RATIO [facility] BILIRUBIN,TOTAL 0.6 mg/dL (0.0-1.0) [facility] PLEASE NOTE:Total bilirubin results may be falselyelevated in patients taking Eltrombopag. BILIRUBIN,CONJUGATED 0.1 mg/dL (0.0-0.3) [facility] BILIRUBIN,UNCONJ. 0.5 mg/dL (0.0-0.7) [facility] ALKALINE PHOSPHATASE 65 U/L (45-117) [facility] AST (SGOT) 102 U/L (11-39) H [facility] ALT (SGPT) 189 U/L (12-78) H [facility] ID Date Data Source [id number] 07/09/2020 07:32:12 PM EST [facility] Name Value Range Interpretation Code Description Data Jenise rce(s) Supporting Document(s) LIPASE 273 U/L (65-230) H [facility] ID Date Data Source [id number] 07/09/2020 07:04:42 PM EST [facility] Name Value Range Interpretation Code Description Data Jenise rce(s) Supporting Document(s) WBC 8.5 10*3/uL (4.1-11.0) [facility] RBC 5.57 10*6/uL (4.60-6.10) [facility] HGB 15.7 g/dL (13.5-18.0) [facility] HCT 48.5 % (41.0-53.0) [facility] MCV 87.0 fL (80.0-95.0) [facility] MCH 28.2 pg (27.0-32.0) [facility] MCHC 32.4 g/dL (32.0-36.0) [facility] RDW 14.8 % (10.5-14.5) H [facility] PLT 229 10*3/uL (150-450) [facility] MPV 8.7 fL (7.1-10.7) [facility] NEUT % 48.0 % (35.0-75.0) [facility] LYMPH % 39.0 % (16.0-52.0) [facility] MONO % 11.0 % (0.0-8.0) H [facility] EOS % 1.6 % (0.0-5.0) [facility] BASO % 0.4 % (0.0-4.0) [facility] NEUT # 4.1 10*3/uL (1.8-7.7) [facility] LYMPH # 3.3 10*3/uL (1.2-4.8) [facility] MONO # 0.9 10*3/uL (0.0-0.8) H [facility] Eosinophils [#/volume] in Blood by Automated count 0.1 10*3/uL (0.0-0 .5) [facility] BASO # 0.0 10*3/uL (0.0-0.2) [facility] ID Date Data Source Comprehensive Metabolic Profile (CMP) 06/28/2020 12:00:00 AM EST eCW1 ([facility]) Name Value Range Interpretation Code Description Data Jenise rce(s) Supporting Document(s) 16 7-18 BLOOD UREA NITROGEN eCW1 ([facility]) 116 70-100 GLUCOSE, FASTING eCW1 ([facility]) 1.18 0.70-1.30 CREATININE FOR GFR eCW1 ([facility]) > 60.0 >56 GLOMERULAR FILTRATION RATE eCW 1 ([facility]) 4.7 3.5-5.1 POTASSIUM SERUM eCW1 ([facility]) 137 136-145 SODIUM LEVEL eCW1 ([facility]) 102 98-107 CHLORIDE LEVEL eCW1 ([facility]) 29 21-32 CARBON DIOXIDE LEVEL eCW1 ([facility]) 9.7 8.5-10.1 CALCIUM LEVEL eCW1 ([facility]) 66 7-37 AST/SGOT eCW1 ([facility]) 134 12-78 ALT/SGPT eCW1 ([facility]) 62 45-117 ALKALINE PHOSPHATASE eCW1 ([facility]) 0.5 0.2-1.0 BILIRUBIN,TOTAL eCW1 ([facility]) 7.2 6.4-8.2 TOTAL PROTEIN eCW1 ([facility]) 3.7 3.2-5.2 ALBUMIN eCW1 ([facility]) 1.1 ALBUMIN/GLOBULIN RATIO eCW1 ([facility]) ID Date Data Source [id number] 06/17/2020 10:40:00 AM EST [facility] ([facility] Name Value Range Interpretation Code Description Data Jenise rce(s) Supporting Document(s) Creatine kinase [Enzymatic activity/volume] in Serum or Plasma 166 U/L 39-308 [facility] ([facility]) ID Date Data Source [id number] 06/17/2020 10:40:00 AM EST [facility] ([facility]) Name Value Range Interpretation Code Description Data Jenise rce(s) Supporting Document(s) Triglycerides Level 114 mg/dL [facility] ([facility]) Cholesterol Level 165 mg/dL [facility] ([facility]) LDL Cholesterol 105 mg/dL [facility] ([facility]) HDL Cholesterol 37 mg/dL [facility] ([facility]) Non-HDL-C 128 mg/dL [facility] Cholesterol Risk Ratio 4.459 [facility] ([facility]) ID Date Data Source [id number] 06/17/2020 10:40:00 AM EST [facility] ([facility]) Name Value Range Interpretation Code Description Data Jenise rce(s) Supporting Document(s) Glucose, Fasting 113 mg/dL 70-100 [facility] ([facility]) Blood Urea Nitrogen 13 mg/dL 7-18 [facility] ([facility]) Creatinine For GFR 1.13 mg/dL 0.70-1.30 [facility] ([facility]) Glomerular Filtration Rate Laboratory test result [facility] ([facility]) <content>Units are mL/min/1.73 m2</content>
<content></content>
<content>Chronic Kidney Disease Staging per NKF:</content>
<content></content>
<content>Stage I & II GFR >=60 Normal to Mildly Decreased</content>
<content>Stage III GFR 30-59 Moderately Decreased</content>
<content>Stage IV GFR 15-29 Severely Decreased</content>
<content>Stage V GFR <15 Very Little GFR Left</content>
<content>ESRD GFR <15 on BORING MACHINE OPERATOR</content>
<content></content> Sodium Level 141 meq/L 136-145 [facility] ([facility]) Potassium Serum 4.8 meq/L 3.5-5.1 [facility] ([facility]) Chloride Level 106 meq/L 98-107 [facility] ([facility]) Carbon Dioxide Level 29 meq/L 21-32 [facility] ([facility]) Anion Gap 6 meq/L 8-16 [facility] Calcium Level 9.4 mg/dL 8.5-10.1 [facility] ([facility]) Ast/Sgot 117 U/L 7-37 [facility] Alt/SGPT 201 U/L 12-78 [facility] Alkaline Phosphatase 58 U/L 45-117 [facility] ([facility]) Bilirubin,Total 0.6 mg/dL 0.2-1.0 [facility] ([facility]) Albumin/Globulin Ratio 1.2 [facility] ([facility]) Albumin 3.9 GM/DL 3.2-5.2 [facility] ([facility] Total Protein 7.1 GM/DL 6.4-8.2 [facility] ([facility]) ID Date Data Source [id number] 06/17/2020 10:40:00 AM EST [facility] ([facility]) Name Value Range Interpretation Code Description Data Jenise rce(s) Supporting Document(s) Red Blood Count 5.58 10 4.30-6.10 [facility] ([facility]) Hemoglobin 16.2 g/dL 13.5-17.5 [facility] ([facility]) White Blood Count 8.4 10 4.0-10.0 [facility] ([facility]) Mean Corpuscular Volume 89.8 fl 80.0-96.0 M EDENT ([facility]) Hematocrit 50.1 % 42.0-52.0 [facility] ([facility]) Mean Corpuscular HGB Conc 32.3 g/dL 32.0-36.5 [facility] ([facility]) Mean Corpuscular Hemoglobin 29.0 pg 27.0-33.0 [facility] ([facility]) Red Cell Distribution Width 14.1 % 11.5-14.5 [facility] ([facility]) Platelet Count, Automated 228 10 150-450 [facility] ([facility]) Neutrophils % 45.8 % 36.0-66.0 [facility] ([facility] Lymph % 36.9 % 24.0-44.0 [facility] Rock % 11.4 % 0.0-5.0 [facility] Eos % 3.0 % 0.0-3.0 [facility] Baso % 1.2 % 0.0-1.0 [facility]) Immature Granulocyte % 1.7 % 0-3.0 [facility]) Nucleated Red Blood Cell % 0.0 % 0-0 MED ENT ([facility]) Neutrophils # 3.8 10 1.5-8.5 [facility] ([facility]) Rock # 1.0 10 0.0-0.8 [facility] ([facility] Lymph # 3.1 10 1.5-5.0 [facility] Eos # 0.3 10 0.0-0.5 [facility] ([facility] Baso # 0.1 10 0.0-0.2 [facility] ([facility]) ID Date Data Source LIPID PANEL (CARDIAC RISK) 06/17/2020 12:00:00 AM EST eCW1 ( [facility]) Name Value Range Interpretation Code Description Data Jenise rce(s) Supporting Document(s) Cholesterol [Moles/volume] in Serum or Plasma 165 <200 CHOLESTEROL LEVEL eCW1 ([facility]) Triglyceride [Mass/volume] in Serum or Plasma by calculation 114 <150 TRIGLYCERIDES LEVEL eCW1 ([facility]) Cholesterol in HDL [Moles/volume] in Serum or Plasma 37 >40 HDL CHOLESTEROL eCW1 ([facility]) 128 NON-HDL-C eCW1 ([facility]) 4.459 <5 CHOLESTEROL RISK RATIO eCW1 ([facility]) Cholesterol in LDL [Mass/volume] in Serum or Plasma by calculation 105 <100 LDL CHOLESTEROL eCW1 ([facility]) ID Date Data Source CPK CREATINE PHOSPHOKINASE 06/17/2020 12:00:00 AM EST eCW1 ( [facility]) Name Value Range Interpretation Code Description Data Jenise rce(s) Supporting Document(s) 166 39-308 CPK CREATINE PHOSPHOKINASE eCW 1 ([facility]) ID Date Data Source CBC with Differential 06/17/2020 12:00:00 AM EST eCW1 ([facility]) Name Value Range Interpretation Code Description Data Jenise rce(s) Supporting Document(s) 8.4 4.0-10.0 WHITE BLOOD COUNT eCW1 ([facility]) 5.58 4.30-6.10 RED BLOOD COUNT eCW1 ([facility]) 50.1 42.0-52.0 HEMATOCRIT eCW1 ([facility]) 89.8 80.0-96.0 MEAN CORPUSCULAR VOLUME e CW1 ([facility]) 16.2 13.5-17.5 HEMOGLOBIN eCW1 ([facility]) 228 150-450 PLATELET COUNT, AUTOMATED eCW1 ([facility]) 32.3 32.0-36.5 MEAN CORPUSCULAR HGB CONC eCW1 ([facility]) 29.0 27.0-33.0 MEAN CORPUSCULAR HEMOGLOB IN eCW1 ([facility]) 14.1 11.5-14.5 RED CELL DISTRIBUTION WID TH eCW1 ([facility]) 36.9 24.0-44.0 LYMPH % eCW1 ([facility]) 3.0 0.0-3.0 EOS % eCW1 ([facility]) 11.4 0.0-5.0 MONO % eCW1 ([facility]) 45.8 36.0-66.0 NEUTROPHILS % eCW1 ([facility]) 1.2 0.0-1.0 BASO % eCW1 ([facility]) 3.1 1.5-5.0 LYMPH # eCW1 ([facility]) 1.0 0.0-0.8 MONO # eCW1 ([facility]) 3.8 1.5-8.5 NEUTROPHILS # eCW1 ([facility]) 0.1 0.0-0.2 BASO # eCW1 ([facility]) 0.3 0.0-0.5 EOS # eCW1 ([facility]) ID Date Data Source [id number] 05/30/2020 12:00:00 AM EST [facility] Name Value Range Interpretation Code Description Data Jenise rce(s) Supporting Document(s) SARS coronavirus 2 RNA [Presence] in Res piratory specimen by MICHELLE with probe detection NEGATIVE [facility] This lab was ordered by Noel Delaney [facility] and reported by [employer]. ID Date Data Source [id number] 05/30/2020 12:00:00 AM EST [facility] Name Value Range Interpretation Code Description Data Jenise rce(s) Supporting Document(s) Carestart Rapid COVID Antigen Test Negative [facility] This lab was reported by Noel webb. ID Date Data Source [id number] 04/08/2020 06:51:12 PM EST [facility] Name Value Range Interpretation Code Description Data Jenise rce(s) Supporting Document(s) ED Provider Note [facility] XRBIZl9pDePRXkBi53/RYLulUIFzr3TsFTswSRu7WGhnFVUrD9AdNCA8vS5jMZN7NDiJPzBsQmCbQuIc lbm [file] [id number] ID Date Data Source [id number] 04/08/2020 08:27:43 AM EST [facility] Name Value Range Interpretation Code Description Data Jenise rce(s) Supporting Document(s) Progress Note [facility] SLNGTo6eKvUFJvDa11/JUOgxUACoi4OnMAftEIu4CWskFXWpW4YuMXK5yP8jAPP2MLfHDiYcPjVxIgGk lbm AeRbqGTpSlKWBuXgaRBqExTLnzWohnwMCyOH3JaXZ3EMNkO70fSFAfRZZbS5LeDAF7RDG+Vo8OUYEbxC PuDU8PGhdJ4K25m9cYCp+/QL/IQkQi3HEmbnzvw+oS8PZH1aHaa7ZUUeGGF4ZAahDXAF6npdYL2WblsB fkmdA/h1xt0dKXAv0GfvdPl8X6SeELI1+miJfiGZ9y /65+jRKjzq/Vn/+b1xs4IqVc+it0E6hSfTMGXQ5pt/r68wd+4Dql154VvUfhLTrlGuSkJQ4XZ2V7xqHZ 71TvndK+h22QjdvOJJcQ7WVmLisH8xzwNAaFBRSs6vUoJjwjqHyiqDXWB4EKzyXsBtjRrTnYWUyTgsJj 9XBgDtKIWC9fU/NUUhOQUcUGWB2OrQhGWBMptxprDr 4tftsjLu883RbC0A/1b0rcLVqu4U5F0j8Hb1egfgny6VXhXWvKqYiF7ix0kQDun9FfgiVDYF1nVG0qfl 5N1YVb+AxdLsJoxniXW11xBjNog/eS2GM/Kgmk4bN6Uc+y42x6tg3AUvh4z3qc+cydZEwSBWtcjkS+s2 GeiO6Bs3fUTnypJHUHFAdcx887JKYgy/G/TY/bmWz8 NBRHSqbu3Ti3NwsQkvZ47I9swcukzeluxkqAbgvlN9rLMDCORfO8Jj/qxDl4G+gzB9zW3+BBICM5pOC/ UXogM9vjsLUu9smCBTbbt1/SZB8IkUUoOqo0v+9irmfxL7g7swX58F/U3hQMBuW9pCvxRdxOS1wbwL86 qeZ2pXLzE87xPH7ydGlwb51+qzioDgFNCumAmoxE8B d+trvnwxEhClwjWsKjqaEX4V4/CM8o0io3HCdeKeTp3aL5ddqz/osGiCFxuTPqq+iBOiNu7Oi/TEbjAo ikaaUQDLhbR9f4WYLqYlCDKvXPFcBgS8FXPpSZb5/xbysZg+9lVDkpfE2F5x6Dx+g+YfCDKEcR7/p613 tSZ3ny9CDiA12f1ZDRCC0T2q5R4wQ51B4i81M1Gw3b AjPGR5HQ6xXyxZQ6hatcgTVbC36lZyxnx5qDJXkPqdcHoRkn2rR0VK9nL64WfdC2peJIaCc5CeoPh4zh JCH3q6Xds2fopiEJF1QZBVzmXMDADk3rukg+RICeokK/i1xkxUqfB5bjIcYXTmQybpHiJN4L+mZ9D8hZ 1SXPOd7u6w7fPaDNBwaX1PLB7G3fWsi3AKPEhbeVri L9irTQoicl03eOyoadSgD+Kt35zo63kF2DqA6Q842DLybKTkvpeHAw+s53Pg1y1PBkmlU7Ek9DRSg6SS dhRMZrNTvd5xeyO589Ra88M2Q71S5/YqNDrhuq9+phltvnomZCLtlg4feE5IrAe6FJ9vC0c/RvFX6dPm 5Dm1cjqKGMAmdoz0e33u5Oao7Rp41X8DyaE+PzyWI8 T7rciS32qEVx68DXM4TThhg2UbpLmHmGTaDKkWsGJNdPRr3+WLKDO3jdqXwbNGbSXqidsj5ciWw2/JfU fbVNYiqXuajNWiosM+gzR8S/2pEgOIMa7lVvyhbjsfX5DZnBkpb0QhIi++0WMOyifMdslQTexzI3U3UW VL1wc7EQPAaHUo2Zb93dVhjQMjIfh+yMEnTGRf0Ld2 ho2U5Oiu4xSatXjj+ROAb9mSD3V/QpUzFgyAMGrgOPvtgKKsb2Aabs9ersLswOEQXkY3IuQPyNQ0WlyS zjXH1RXKGGGpLErIV4eSWY7UEzZDfFWndUGQXwAhOVLSRKpcVh9v71XmNyNbAj9PRC6DyxNbCnJxJ9BR OldQsOVv4jvVjnbdtVf9zBjvHwsSxChxgl9GLCYYxY ONngDI1NJJeCAoqEcWOefkM8lXjDedk1vkQWBNzISHUfddgrAPUJdPlQFvHG6KpmXYoGUp5RIi0oXa+g rGELeRPbOxnqQ2K/kQ0IIvNSMAEcskQ6WmryYy2nf4+EiHdMAqtyJS5ifDwPYju/ECDS9pQHNUjBbFt8 T89fuaejadD2IdbwrtICUmMQfokOHnaqpd3qZ2eTtU [file] MDAwMDAyMTczOSAwMDAwMCBuDQowMDAwMDIzMTgzID CcDCGbGY8GIxHeTGNbYbUoNXDqBDUyHWGhxx6NFUMkOITaPaMhKKNvFDFeUCYiDEx2dkPalHDiSFp0ZJ 0NY1XglaRoFvIVRl1Zb652MNJvACCbCt4IX1leYi3jWBKrDMXEGn6AKXi2MWH0AvHuWsCpP4X7FmUrLQ G7UmKvKmPgMOY6CED7HKF+CEvoCVZgTDG0AWK8VXQo MKHlYNP5RKI8Y2A8GaliMyt3UD4pOVVZLc7+PMfjiKXrwFusJPQBPeAmFhS3CCykQZFVUz6C ID Date Data Source [id number] 04/06/2020 03:28:14 PM EST [facility] Name Value Range Interpretation Code Description Data Jenise rce(s) Supporting Document(s) ED Provider Note [facility] NJRGGz4uXpFPSzRu64/RGZgwZKDeh5PyWWcmLUq3QIiuNETvP6RcKZD8uG6oFTN6OPqIBwTyPhLhFzSe lbm FsRjgJReVnFBGvQmoIJxLeTGefHvtjqVSxEF8ShOM5CVKaX87sGHRmVWFmF3LyDXJ4EKw+Le9JUNJwuC EsHC5FQkhP5F7xj7g5Jx+/mfsOfLmZdiaxCYB/AL+2dfco4Q9v14i4eqVhOIslvEImF6DX43c4r5iFWM nhPj4EXZA37rQ6LEYEpsm2XtgFQPC37/loA15ZXAdG /z3+HC8BmnePE/8SrIcp+Ths/ZMNIg/IUIepfSD/qcSXD/xwGez/MIW9hHGvF117JkagCi7aKRefX59w fB9c/luIUvM4ksXZXwPPBdxEC5pxx0q03vC1nmixVGm9xlGZkGFtn6NqYiAYV1uArCClXRuTqyFLGzJM O3/8lmG1neThNT6LoXQzJ9JnGjcdsAccSHXbb14U1u fAcXxfTtmad9TPvrD8LktqZ3dYTRgyJANRJWU+TPdlKMNeGEWFcU+CLcjru1cGAVRDxpLn6YNhEa22wx ehUx5JcqgqG77qJ+ADZSiclmhVGyQeNCB9j54oRxvoYrxOIT4hz36zHNbxPrPe8kHIHSvrDaLkIgpRQk lBBDTMGE4KxAzR4UOGMHiVZcNNTFZRArGqQHhz/ITI [file] 7vLTkaQQ4Ez3OJI6Pk33nLrxmh0ZaHcyolPdpStZ9yQ0jGknVgOuen5/398Nc7+NgeMWrzqRna1nM+Private Investigator [file] ICAgICAgICAgICAgICAgICAgICAgICAgICAgICAgIC AgICAgICAgICAgICAgICAgDQogICAgICAgICAgICAgICAgICAgICAgICAgICAgICAgICAgICAgICAgIC AgICAgICAgICAgICAgICAgICAgICAgICAgICAgICAgICAgICAgICAgICAgICAgICAgICAgICAgICAgDQ ogICAgICAgICAgICAgICAgICAgICAgICAgICAgICAg ICAgICAgICAgICAgICAgICAgICAgICAgICAgICAgICAgICAgICAgICAgICAgICAgICAgICAgICAgICAg ICAgICAgICAgDQogICAgICAgICAgICAgICAgICAgICAgICAgICAgICAgICAgICAgICAgICAgICAgICAg ICAgICAgICAgICAgICAgICAgICAgICAgICAgICAgIC AgICAgICAgICAgICAgICAgICAgDQogICAgICAgICAgICAgICAgICAgICAgICAgICAgICAgICAgICAgIC AgICAgICAgICAgICAgICAgICAgICAgICAgICAgICAgICAgICAgICAgICAgICAgICAgICAgICAgICAgIC AgDQogICAgICAgICAgICAgICAgICAgICAgICAgICAg ICAgICAgICAgICAgICAgICAgICAgICAgICAgICAgICAgICAgICAgICAgICAgICAgICAgICAgICAgICAg ICAgICAgICAgICAgDQogICAgICAgICAgICAgICAgICAgICAgICAgICAgICAgICAgICAgICAgICAgICAg ICAgICAgICAgICAgICAgICAgICAgICAgICAgICAgIC AgICAgICAgICAgICAgICAgICAgICAgDQogICAgICAgICAgICAgICAgICAgICAgICAgICAgICAgICAgIC AgICAgICAgICAgICAgICAgICAgICAgICAgICAgICAgICAgICAgICAgICAgICAgICAgICAgICAgICAgIC AgICAgDQogICAgICAgICAgICAgICAgICAgICAgICAg ICAgICAgICAgICAgICAgICAgICAgICAgICAgICAgICAgICAgICAgICAgICAgICAgICAgICAgICAgICAg ICAgICAgICAgICAgICAgDQogICAgICAgICAgICAgICAgICAgICAgICAgICAgICAgICAgICAgICAgICAg ICAgICAgICAgICAgICAgICAgICAgICAgICAgICAgIC XjVJVkPBEtHCOaHXDbAPGyHBDdCTYpAKZbUUb7E4izXIEqIYTaBO3mOYd1Xi7+YUcFZnNqGPA2vjUghE 0CPK9oa1InATlwCXWka7TfFMm3HR1XHVVxLSfrWY8WZDfqcb9LTTNzDDRppWAJv3boDwJyWNR4NWVjXm mlGY6VUDQyJ6ljkiNlHVBmRUGJGLaoQHRCXTprPFNN VTKkQLEkCwLfCkIsTAUzUGDtOQDBCXE6YKWzUdViLJhiXS7Lw9AgxXU7KZk+Jm5VQB6dc5TsCEajGsDn GP9cbx1TLCmMYjGzL4WbrkP5ZHO5HBDxWh9IHOYpQIGssDG8FdNaOFFCDoYyV7DhyO06WFPDIb4+DQpl jsKiDagVIsK1RROit1OoJVn7PW0IJUJzSSo6zUGeFY VtSOLvsnjoVUJqOl21RLZfNcknJBH6gonvtaXUVOBoM88qwmufJJAiURCsLBFgCrydScDgNBOcDvwwRZ BHOQrVEyTkU2Bjb4GnWaD2TJKxBaViTMzpDSAwMvTcNW86tZvwRO1BIXDiFPGiCL85UEQ3QZJdUi1ARU PbJjpjg4PvNhtiRIEHVXhkMD5CWEV5ASO1ZDViTu7V VNUyG724veOkNYXNVgVvS25byUXgUMOzEAHWVEb+Il6WLD7tc3IeFAdeYJImZT6gys8IFFbIGjCtJ3Ht dFhbRSDdiyZnh84wINgNMfAkQ2Hdg8JwHyP2WPHzCfGiGCzkSRFtNrE9QY52lFjnDX5ESFZoCALzEQ27 AZU3DUGyCl3HTs4DHdRqGY9lxf8VIVMjPKSaFfxZCs p8DQnsGB6ZwNEmCKhRILFYwl89eKCelpEWj0KtqpLwcQLWJWBsgBMwWVRoFJGhm4HvIOHOFBIprQVoMW 5cUU6rMMIyKDGbYnG0XQOIXF9EWJClALIlvUPxTNhpUFQSIO4WEEsiXLW5FEKdhpEqqNPoINnqWU1WMF XnuqTxQbidEIOIQYkrPY4AvtM9OJR7CNYtUs3TUBFf TiT5fBE9VHZrFGGYBq8+ULcdhtWlAwtILgXaIDJyb8CdMLw8VO5SYLYxHJm5kVJtVSNzMq34NLHrRucw SG9qYXWYNOGfHEAuaIRzKGGIQsVadZNzYC2fUP7pZHUrEPEhXqEfPJGAQV1TTGIhTXFiyOTyHNZaEQVv PdPtHQhbGNOlOex2RG49tLxvZL4SAABeAZRgCQ91BC P6GLPoAj2FRLWmWLImcuZ8NUMmVMIWGtOmZ66nuSHsEBEpHHWAOHo+Wj0WVK2tz5YvDIm4UzFbYV7aca 1LOJbANlBrF8NxxLdfITVZVLAin7AcIFFyJJ1otCDwBEF1RDGgJSAbEnONvIKhlA0dWMNaPQDUTOVbwB RoKP3jKv1rJBZyTZRfSzQ5ZWTTJO9WZLPbOGUooCIs EMKvJJPoJsWxEEnlARPvUFe9RC83nSurZB3GGZMzAMOeFB62TOO0HETmEm3ZVMKvHNLkfgA4PIXcLLRW IwGzY93luMKmBRPfPXMUWZi+Sk9UTY8fx8PsVQa0EjTzUD7aso5MPZbEOcDkW3ZauDpqIEUUAGGbgJYn RXMHn8CklsHqiOBTCGzmwxCrVrPwaGPtQAdzOf6bGO SsNJAzYsslFlSyOHGmYOr4EmGSNBpXPgVzJ9Xhj9JsYjYhPuUaRWYdF1nEQyXbUUO0WCBchWquHT6JSv TlI0LinqOeiQXsLkZsICSUTkAvE5AxPIKpNBHyFQAMFDn+Af6BJY0cm5DmFJt6CUCqGF6sfj5JUArOZg CmK8J2tOKcG2O8RXgaAk5OUYOoXNFiUbWfPNEIFCxu PE2WYF3wmaU7CY8WmRAuTUUbDTTabGHlNLj4Z82asNXxOEghHI8OZTF+Mukul+Eo1SRYRnRTGqIIBvInAm JPOCPdSzG8YjT9XWq9CgN0KoVS95eMyhlsKdGTjqJS6RFI1hBHZnKITYGO6IfPNkrN2swvYiUfWfMOGN QkVoH64mbWAcTEPiODP3ATVsPn4GLFQsL3ObbzLncX ckuwAkHWYcUDJGDV6BGGiernDuyLIjsExsUL61xVndIO9PAm3WPnZbEQ6qpr8ToYNbBa7UQFY4IE1NUN SiYTAgTIBvZIC7PAGwWgIfPWfoRYYdDQImIQN6NKWnSQXzUY1RPvIbLNPtSak9DnoiXVLqGMUxlr6UKS VbNNY1NTLaBXYqMGKmZPGtVHkaIRXwPAJaJZB4ZWZp OWKpJB2AIyEpQQOwURD3GJsaBOJaNBBjru1BHGPnMUHsNdl4XPAyYFPxZPNnDVswVVLkDYG0WnOtTYOu RDCpWS1OVeLuTHInBTs1OsAeUTMfMNOkim9OLSSyUFVjWKO0UKGiLJPhRDLtUKkuSJBmZSErPEW6YUEa ZEYmMC2INsLqDDSvSWH4IMyySXYiWHDmam1NLWAmJY YkSuvyQGZzAZToNATlYGotSPUhXDQ8WcH0QAZlQZZeMT6WNgGkMTOyNLQ1QcKkGVQeWYIhwa7FWHUkJR NfVZH7MZQuBQTsZHOtRQyuNGQeVGC9BjN9RUSkRPLeVC0BRsPwCWGrHcY6SNKfQOKsAFPzyc4GPBYnJA AyMjAyMCAwMDAwMCBuDQowMDAwMDIyOTgwIDAwMDAw ZQ5PFjEcQFDwLyVuEksaNZVqPAOphs0ULVVzPDDcLbF9JWJqRKHaKEYuRFtnQRImAWT2WnZ3CHVnSVZn EE8YJdBdRGJrXcX1PuTaHVOfVPLynz5ZLIOhCXSyHCdnKEIjZOYcUOZxCJhqCSKkNSD2LtD3KZZdEJXf EL8BFwZeITWaXxL6ToSvYATvMCQvpr4NLAWvCFBtVk D6IGKfKFUuBBCgIYhnSIMuHKQ5XSV6IJWvXHYfAM3TUnBxDMAzXsz8SWZoDTYaWUAwyl2OZFWkCRSjIw c3XSQjZUAjRZFqYQrfCXYmSPN9ObLjDLUrFCTxIG7RGrIsCACoLriiJCOjARGyOXMxqs1USHUtJKVgOQ Q1DQGfTKYsXHMaHDwaOQMjMZM0FFu0CRUxXALbKF9N ZqJiHIDwVlu7ECJqOWAlLGHihb3IKYPyNET3AIM2BPJtRZLgMFYfDPyuGMKnVPEaGZJ2ULUxPIWqCQ8U VzMaUAVbRQR7NylhAHGkSZBlvg5GKLYcGXE5VIe7MCHjWMDeJZKzURoxONGbOAOoPWH7DONcDBOtLA5K YzAaAXGcTSNxLHWjHAVmQFJtmh9QUKHqOJK6RkRlLZ JhSQMtDDTkCKuqFIDaHNBwMAB1YKCrPJLyHC6DOpNnHNKiALC2CmwpGDCaEVHrft2YlQEpjOsejs1FSJ zOKi8HiZabLZZ5FMqcGd4lfSB7SPLiKVYJJl0KosCfELFdJHQRWSpkAPSqEMOgVxUpKRFjLEHzKiEuCW HbRrI2RTCmHOreELCmDAOoDrB4QlDdCAL5YoR8QxUl RuQlCUJcVHl2EaAxFpLvGxNxC2O+NT0oOHv+Zj2Yr2WrlvQ1zvLcAXd0EqskOC6ESTJUB0VJTv== ID Date Data Source [id number] 04/03/2020 11:24:23 AM [facility] Name Value Range Interpretation Code Description Data Jenise rce(s) Supporting Document(s) [facility] JQYEDt1lSwNAIvSlg2UvZjEwTJKfTZ2lczi9N8Z9wBLzB8YibBUpq8vaZ1SzK6PwCABzURDCVP7VzACv jb2 [file] am36AxIlGA860Wc80j/n7PB7/OZ56EL1o885rTW8RX uxZMZ515t4+eAD/6jnNCLPjVTZ/8OHN+3G8c4VcrI/r2yJ/Lp2b4wqoLJN3olSI4l01Pjy/l7zwB/tF3 jzwn/hnK75pRK+2o//GqKdh4Fd/K8+uHXy3/ngr/O0a40XC/z4Z0z430y+fHqSfa+br9IUMt7dzJq0LO h1+tOBJ5+NVt6+e0pn3Z6hwsamP52F7+HNsMfnXTJ/ 88c/wKrUJuEVaN8juK+Et/5/elLgxh0rx1ic/n+Cq8envZ9LcucjnmL84IjSbF8iN+Uk6if20C34eNmo BfkK/Tn56isb/hkGs7OEC/kG+ef8QX4OuVMb2+lfY//OqbtvfMwvML+Rv5+9Vz+FX+8gpwsV8kgqUXX1 /xvD7/Ofwq/tCxv7etpT/IN+Dl2u79O4ud8E9DPpf3 +FWmN/L3yw9+ddNvvAe/umnkK/IV+Uwcn1g7J8/Ti4EOF4/KtCHfkO/IP/rGKVfH+A1+LzRU2UwCL4Xr BPfwSqUsOKjxp1jY5vQ2sf0dapv80mjAfmZull+R39/8dvhVzkWHX+LuDuhq0J4CaDqa2caZc3tG96jk 5fx5+TR7tbhWwcRZ5axR/qY38s/5aLsYKnA72z/8WL 4Sy7ylZc9+ayFV2sXOPJ1cVVi98biO/kD+UW2d85D/9N1R/4G33sHSWhn/kL+Qv5F/9I0+R63UJv9+lT Y5/HvziCjD7yldk08j+v2zi9ua4rH417bwP/jaBa1Xj+CYbgN69Ks8/OTwq/Sfw6/SJw+/Sl89/Cp9+P Qc6S3Uh3G/t7ojPWwm7SUDsMPqIxkmQEje3/Scu35p 5Hc8/2dbNTI2eKEwkzG+4XlH/W++Mrmsbx64c44/7BrdnuLV9/RG/ooarfwhq3x+IF+Uw3qY5Nelg+SP 1//Wu6Jnp14211w52RhlM+hIh97EtQV8EiJA9EyHB3LfRz/K1za4JpnB/keeper helper+R6FD9J0NP/2DjIW6JfT N0Sg3PmdFd7J/kL+/kY8KcivkSw44U6oQ42vJej2/L 4dv2/H79vx+wa/umnkG/IN+Y58+HOfyJ/Ix+/e0dsZk3a+79f/4Ph7sPj9wlL+HW6z4GYpwgT/vtGDX+ Dw5IzQ4sX1N/Pt2QzF9nV3I0Sq0XtbFa28oiGpPj4MrhHRnyi8CIn9wloa2/T6Kv5Osru39DFrNi+KeT A12Jv0a5eQx/e+4GLr3TJfK1/iab7bAl7+lfUffSPt mJ+BW5LjnQ/IV+Trl//70Ka7gUbGh8ahso8PP2V60PI6JHE2rMg7KO2Ua3yag6gf+G270dzMZ36caP/C HyJ+Ff55+NVNw5+f2spGfUafSL+e7FlLz44d6+fls6Bpf061A1w/2PA4rgiQ/Pe+tS14gfGzDhhSgNA+ Ih/qu2O2ihDCBl7bZ/oujN+R8qcsnenxp9L9cwQ+Wh i/C+N34/voCF5y83yh/D2T353cneE+T11wsr980/fd+A222K2Ak0ApOb5wKK6z9Jhp99l+++t98lA9rT N9Lx0dU5EilA/+TFj4oBxylC/If++DI/tYtZeCzrCX8p8BqWxwpgBh+vvqW20Dn+wWKT4k8ik3LJ+LETICIA 37vh+N4Fd5/nsDZ6uik5evkgZMA46c9oVrZ+JXeS46 6yQN0GU/PO/NReJrFGq64pvvBQci0mXyptC/o3K1Ju6jO7375IKqzV1+HsGvdqTly+wTnI2VEYl59wgb GHK+b2sGgXrDft4yz6UilHTjJp5ShoD2tE+OiF/p9/wbzcDp40u0OeFF+ga/ioNg+ubnoW9+Hrqh1/6u FyP5VY/7dyb03Bl+kTvuq9d+70Oe7wkvl2i0qng4Xz 9ufTy9+quRmkDM81Lv/ur11zNdjqUFT7Wqjl+oIsq49W/Pwa8G+NUAvxpDkC/If/x5BL+K+msLA43Vkz /F3cB4ZdeW/OqmX/+YH964qzNC5I/Yq2FOunmH/n75ht/L6Iekbp/hX9Xg2OpoMi9M/uMbI/hV9D/4Vf xGwa/itwt+FX5i+J4FK2P5Bq5grwY/UE7ln28t6H+e c15TY054/CrHkb/48zk3/NLPbw+/+qaRD3/5V236J4wy+C09skvHA+E9pw6RWs4d5NlQ+MndyKJMJy80 b0qSTFh71z2/vnjOmC+eM+eW54sZD7W1P/TdIxxN2v08R439oIotv4ugY69516c71XejYdV90x/63rS9 Rji5EsF/4/qod8K69Zl/CtssTxhT9zldqVYayUubys OKfEV+R34/+ZINhVwzjfX16JsgK4fH/kT+RP/S4ekvC4Cff60IP143Dl4CwlQkTmZsLivhR9+J+FX4Vc SvwvcifhX+QwMe3IlOr01jt0wI+KQDs488qb/vKWNjPdoYv/d2R18J1ZbqUFl+EJNXvtmKOztb75mK6S vg39sr0b2J7l83fG6GP7f336AtE/mGfEO+I9+RP5E/ kb+Qv5C/kf/kT9R7A6xdi9tBBcbXOPF64fmQ0/53eyteXiwNI5jS9DrzPxoSaLt+RP5E/kL+Qv5G/uOT kyjSUM5fiM3B3fnlUe7tjog+07bls5YXho2TJ1M+Cn0V+jm1BzrE00Ap4Qble3Rs/viGdfy+Gt9k7zwF +TWqczY3wE3Rv5+PrL/uL2IJ6l08yjhK/vteZsGvNP Cr0rSqU/kLz7/3X+iap0vJ1g0Lvo0aMc0/Eb+tLO8T6K6EY/DmJvZ3C/mGfEM+fl/OieqzTxv6hLK/kwong GF4e5YmmKvzgdtU26WxbQ9/cqTD6Lizi9blpCGclXMljshH0FByaX31WZRvaYiww48ytnfutN/In+hno R8E948y/YG9mjXSA/IF+QL8jE/O+Fe88eicN/IH8h/ 1Rbo554E7Z0Y5A1WVd3S+RJRN963l4/DUYQ46qnmi5v095Q/K23h62PbsQW5ofoY/O7zfd+3+mpn1Yie u22+7/dD4opbTs4x64K/Uc9E/QvtLuS//XU23/46W29/vHD6UmLb9aF/jvjVTSO/X14vdeL/IN+Qb8h3 9RmaBG9ieUaJ99HhdM77Imcu7tt4wtA6Sopuxm/vu1 +4chlQd2nUgHVuC81KcjW/ajCWobr1easXf0fgwdF/IR/d03j0nI252mvss2m96QbhIyvUhY9qy1Hm4D TyB/IH8t/v6+35swe/wwQqjp0n6nrbkfcACd4Bc4/9Kt7e/mfH/iuXt7/SZ30klve295vv/1XP9Cc/Ts fE/qsWx1A/+c1xsE8218+K/vkks1dNe/L9PQSb+6xc 9z7jH0609EOTnj5iL2zr+E3gb3o3QJC8o+d77L+K+broadcast operations manager/GDaKzy6Vcv874QX+tSP/vC+8Y6/b3VsfwtRp gfOIxyz3ZIescD+2Fa04za3EWT/25BhreY1kl29fm77eidK5WbefN16gskfll5Pbe/L+ts9Zv0m0/Lm/ 5di7q92V+h/a9V8Kw0ht6R2xDZo+sLGU7V17H+H5je cfn/Tx+LOPhnxBviD/fU9xfB/0/D4Y+f21G/idqqOAsdYmbZzps1V28H+J/UB3sLk30sSxk/h97a2/rocky [file] yntzyntzyntzyntzynkd+CtkwbZ5bjbs55WNq+2aJf wkuJdfo9vsim8qsPcuHeuw945zKyGUYaXRn1yB4vb81vYZ/bwdgvA/xya2ve9qrnXS0NpCBJgz5WbnBI 60HHZ5C9nEFS7e6jhKTpgi5+7iVO1dhjJ7sPfY1V3hXNR9hT3FM00dkAN8MHF0YGZU6jJEeZ4zHD87P+ WAkmAh1cNn+nx+T34XlT4ZQ7aM7zHwlTnPJJJkfup6 9VDN/ZAdniUTyD72I3dxAb8mtVsPT9nD1rHJsRhvKktLOGVImrzfPH+OB5Gnqms/Au2ihh4Y2hLebWAo EVf21lrRfjmmwgJSdJZ5+CCzabrr8BbJnjCKGhiSBlM87KM85oFKxCImorcXOR+zutss56hHCkyaQ+kN /F2ER+F+MW+i9aPKXnjhJX+c7oZLrmQC8auOAj37pw Hji/M2HFYyf1XgPF8YoK5pw0HX7fIYlZ/P0RKCeO7g6A1t7G8d1B6f9P6+L3C+kvyO+iLyG/+6xi+Gb5 eYPfSS44ZR4JbeluRnC44GfXV+77kqn3qA5dB1bp6sq3YtJs1HvPHz80fbMHYaPOURguuokaQCopI035 OlK4gC1oSLe/1Jx5IL/iklvbFxr90aoud9QqanpnsF cbCFzTCtdUfxUnxf2Y38Z342BDgFTy9OQ3bEoyTl7+y/g6kd+5bedhq8+2+MCCZ9h2JOapylhjk6/2Fr aJzdaaWHQPs/OegpcVurs9sUoCte+q6GbugisoDBTButnusLOs/tY52OqWdoBNlkrw4Y0l/LP0rge+ef xS/0vkZ/1Y/Y+GRAIN SHIPPER+v4pVbf/lif2p0tPS2vnk2Q58ID [file] ul631Bd//tx6u764mbnUe5/9/Q25bRWyOAUxg882t8 7E22m71Xe65xc9tl//xZef//xlnS8/vH36y4+//MW7t99+/PXbz7/65svP/ps9b4/x2gRQW8//73/4y5 +++/3bv/3X22/+8Mc/fblGe8a26Y//4e2zb7//w3d/fPvXvyvrX//+7c/fv/b8ma2f+G5s6UPiS19s4W Mv/dxDCzFBt6Q/059+9leeeL+janxW71M/9Bvwev+L d6n8ajb/Xr6O9JT8K16/nKCeJCcPbV//kn894ZheHl1eCy3H2zqiEm1pRuxBf7N7E9r/3b9/9zLPbauP 3t4+effxN2+ffPP+a0946e8+e/f+M3SxI1ijwwmGhXEZJs0LSU33kueJG06MZ/vCKQkn6+JIM0DrbAz3 f/zj21++/Y/knbW07wnmXsvi7Qk2bHmOqgqN4FqVL/ DX79/+8P1/fPeX//03F6/DH4P+3NN76epjkn8d/bB/fv/12+//83Xtf/jz9z8+oL4w47AC2dWI++cPP/ xqP78Ll40nQFhB+6et1ieQ0mu3kH/wAYb97yC/lAO3ch4L0BbjEE0013++/+mHt2//z3d//hpv4wuxOj 7683ef/HWnpam98BOb7j8/+de//9TF2m951e7iz4E/ 9w/op9/+5+++/esfvv3+R/sfS8/5h+9/oil developer/zsOzrj//2t/s+Jnz/5z//9nCa5IALH/29jf62vku0mDlQ O5c4g1w/+5/f/+X8z0t69Y1ta/9oO0/hoe3++h+lwmo4x44+6pO/UTd7CK0Cu2564c8IK07u7Cqobk// YqtGin7R3WR//e3/+H4ofV9301/5JA68vlJVwQ62i1 9z6+3dZx8+Rsp5pwmoS+1fNfXW0F8Oxxrx2+5pRj27xhDewI/H/nXVlg/t/hMJWJNvEnScJZV3jdChoA iycmKdZnrCDXqdVHHnRio0LX3PdKLdQQRmF0W7SNJwwu2fTVLwMLHaeMLqGeLpRHETTD5UjETlOV1CRV l0NIZdEJDoUsHvQTClwcD1TYGrKGWpKNUzP8BaahOi dCAyIDAgUj4+CS1jw8ZcPsWxTLZrSai9BB5TzXBqGO3WgNTbnX7ufiZvR590uwMwMWDcZpxkg8MlEDnv HZIACU1QMWA4LBO8MTJtLq5+PD9ae4AoZoJdTIYyYyj4WA2XvLVeg0EvQG2FS4NhYXKbXBOCFDB4b6Mo MTVeijegcgxiF0CeIEM7aP8mVUG6HXAiZOszEBNqSH EfLNGwNdPoROdvVKRzGLNeEXEbWEBxXCn8sDPmHP8QQ2YzIIKbIDODQHGwomNpQs2nHIUHXDKBPRDPA9 KDOaSnBFR6BEl3CVkpO3E4RqtqL5TiFP9FE3ZxLPAkPYSMCJVncaAlZX4SjiQkbC8gCBqURPUMUHeUAU dgJiX7u69ztdQKIEYpOPHtCOxaASPuNIXgJZAcTNPv HMVfZBDaPABcDQ4FV4QlOPNpOURVKIC6g7EjTHPaandqcwlwLs2vlwThJxp+GpltGYWcq8WyTNypX9L8 rVZqM4OiK4VkHP3FsLMtLCoyUDQyBYHzXFRxD948uwSoAA2+LN6hv9DiUxvpXSYKIRJqLCXoDHCpCEZ6 BsTuCXZsWHWgPLLiWvW7OwAqGlURESLwDOY6PVg7UT ShSPXiCMZsKMhzEQTyCWF7FEY4EFExQNZmAB6mIqAtXQGkDcJ5KsNvMIOuGTUhyqFOJBRyIEKhUIPdCE I9HYIcCCEcDYgqVRTwALRwGVC8AVViVUKwKR7gZiKgATKpXTDfKoyiVNYwUWMwrgSVLKNlRICkDHP4Is WlCOKtCVWoVRcyOMHbCUObSct1LOUbRPAzSO1rCkFm NULpZBH3GNzuUEPoRLJfeuWWGANxANVxHVFrYzEwWVOiLGZxASmmOPVmLMOgBxHhBDSrTLZwEZ1mRsQz PDAvQTT7WAGzVJJcZVIliuJKZOFqUBTkGAn2JZQsIWHnYBBfDFrhXAIdXUElIAR9FDCcKZLlIM0dEnPx WTMsIOJkQGLpSQIjTFAupdBZBOYkBALbESG8NTGiWK IbGXFxSXufVWPsBFPnMnl9SONsEZNrEA0aQrPfQMRgRFO9IHFvOYSmKOXlquBVTBNrVQA4OTJ9EVUoZP XvTJOdHNbdQMLfDMBjSnL0BXNfTRSuOR8vWcAjOZRzNTN0PzVbAPUtSTScswXOMCXfWJIbFXQ9KiXbBX XeOXHgXVehVEXjUPXfXZSfFYY0TFK9LSIfRiRcSXgf INLXPGqRF3YiwqUxRoFKI6pmMj2rDuHzHZAGY4Ngt1WmTBEaZKSUWd7+MwF2TNI3oXEmLbf6IJu9TPju JUVPRg== ID Date Data Source [id number] 04/03/2020 09:06:19 AM [facility] CT HEAD WITHOUT CONTRAST [id number] RESU LTInterpreted by:Brady Joshi MBBSCLINICAL INDICATION: 49-year-old [...] rce(s) Supporting Document(s) ID Date Data Source [id number] 04/03/2020 04:57:27 PM [facility] Name Value Range Interpretation Code Description Data Jenise rce(s) Supporting Document(s) Specimen source [Identifier] of Unspecified specimen [facility] SARS-CoV-2 RNA 2018 nCoV Real-Time RT-PCR: NOT DETECTED 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 Patient has symptoms related to [facility] When did you start to experience these symptoms [Date and time] [PhenX] [id number] [facility] Patient was hospitalized because of this condition [facility] patient was admitted to ICU for [facility] Patient resides in a congregate care setting [facility] status [facility] ID Date Data Source [id number] 04/03/2020 01:03:00 AM [facility] Name Value Range Interpretation Code Description Data Jenise rce(s) Supporting Document(s) SARS-CoV-2 RNA [facility] This lab was ordered by [facility] and reported by [facility]. ID Date Data Source [id number] 04/03/2020 03:46:44 AM [facility] Service Cmnt XXX-Imp : NoneRespiratory P CR Panel : PCR ResultsMicroorganism XXX Cult : This assay does not detect novel Coronaviruses.HAdV DNA QI MICHELLE+non-probe : Not DetectedHCoV 229ERNA Nph QI MICHELLE+non-probe : Not DetectedHCoV CDR4AHW Nph QI MICHELLE+non-probe : Not [id number] RNA Nph QI MICHELLE+non-probe : Not [id number] RNA Upper resp QI MICHELLE+probe : Not [...] rce(s) Supporting Document(s) ID Date Data Source [id number] 04/03/2020 12:35:25 AM [facility] XR CHEST FRONTAL ONLY [id number] RESULTI nterpreted by:JUSTIN KabaROCEDURE INFORMATION: Exam: XR Chest, 1 View Exam date and time: 04/02/2020 11:55 PM Age: 49 years old Clinical indication: Other: Dyspnea TECHNIQUE: Imaging protocol: XR of the chest Views: 1 view. COMPARISON: CR XR CHEST FRONTAL AND LATERAL [id number] 09/20/2019 8:27 PM FINDINGS: Lungs: Unremarkable. No [...] rce(s) Supporting Document(s) ID Date Data Source [id number] 04/03/2020 12:28:26 AM EST [facility] Name Value Range Interpretation Code Description Data Jenise rce(s) Supporting Document(s) Albumin [Mass/volume] in Serum or Plasma by Bromocresol green (BCG) dye binding method 4.4 g/dL 3.5-5.2 [facility] Bilirubin.total [Mass/volume] in Serum or Plasma 0.6 mg/dL <1.2 [facility] Calcium [Mass/volume] in Serum or Plasma 9.5 mg/dL 8.6-10.0 [facility] Chloride [Moles/volume] in Serum or Plasma 104 mmol/L 98-107 [facility] Creatinine [Mass/volume] in Serum or Plasma 1.41 mg/dL 0.70-1.[address] [facility] Glucose [Mass/volume] in Serum or Plasma 79 mg/dL 70-140 [facility] Alkaline phosphatase [Enzymatic activity/volume] in Serum or Plasma 61 U/L 40-129 [facility] Hemolyzed Potassium [Moles/volume] in Serum or Plasma 4.5 mmol/L 3.4-5.1 [facility] Hemolyzed Protein [Mass/volume] in Serum or Plasma 7.5 g/dL 6.4-8.3 [facility] Sodium [Moles/volume] in Serum or Plasma 140 mmol/L 136-145 [facility] Aspartate aminotransferase [Enzymatic activity/volume] in Serum or Plasma 71 U/L <[address] [facility] Hemolyzed Urea nitrogen [Mass/volume] in Serum or Plasma 23 mg/dL 6-[address] [facility] Osmolality of Serum or Plasma by calculation 292 mosm/kg 275-300 [facility] Creatinine/Urea nitrogen [Mass Ratio] in Serum or Plasma 16 [facility] Bicarbonate [Moles/volume] in Serum 25 mmol/L 22-29 [facility] Alanine aminotransferase [Enzymatic activity/volume] in Seru m or Plasma 97 U/L <[address] [facility] Hemolyzed Anion gap 3 in Serum or Plasma 11 mmol/L 8-15 [facility] Glomerular filtration rate/1.73 sq M pre dicted among non-blacks [Volume Rate/Area] in Serum or Plasma by Creatinine-based formula (MDRD) 56 mL/min/1.73m2 >[address] [facility] Glomerular filtration rate/1.73 sq M pre dicted among blacks [Volume Rate/Area] in Serum or Plasma by Creatinine-based formula (MDRD) 65 mL/min/1.73m2 >60 [facility] ID Date Data Source [id number] 04/03/2020 12:56:36 AM [facility] Name Value Range Interpretation Code Description Data Jenise rce(s) Supporting Document(s) Troponin T.cardiac [Mass/volume] in Serum or Plasma <0.01 [facility] ID Date Data Source [id number] 04/03/2020 02:45:58 AM [facility] Name Value Range Interpretation Code Description Data Jenise rce(s) Supporting Document(s) Leukocytes [#/volume] in Blood by Automated count 10.3 10*3/uL 4-[address] [facility] Erythrocytes [#/volume] in Blood by Automated count 4.89 10*6/uL 4.6- 6.1 [facility] Hemoglobin [Mass/volume] in Blood 14.6 g/dL 13.5-18 [facility] Hematocrit [Volume Fraction] of Blood by Automated count 43.0 % 4 1-53 [facility] Erythrocyte mean corpuscular volume [Entitic volume] by Auto mated count 87.8 fL 80-96 [facility] Erythrocyte mean corpuscular hemoglobin [Entitic mass] by Automated count 29.8 pg 27-33 [facility] Erythrocyte mean corpuscular hemoglobin concentration [Mass/volume] by Automated count 34.0 g/dL 32.0-36.0 [facility] Erythrocyte distribution width [Ratio] by Automated count 16.3 % 11.5-14.[address] [facility] Platelets [#/volume] in Blood by Automated count 239 10*3/uL 150-400 [facility] Differential cell count method - Blood [facility] Neutrophils/100 leukocytes in Blood by Automated count 45 % [facility] Lymphocytes/100 leukocytes in Blood by Automated count 45 % [facility] Monocytes/100 leukocytes in Blood by Automated count 5 % [facility] Eosinophils/100 leukocytes in Blood by Automated count 1 % [facility] Neutrophils [#/volume] in Blood by Automated count 4.66 10*3/uL 1.8-[address] [facility] Lymphocytes [#/volume] in Blood by Automated count 4.66 10*3/uL 1.2-[address] [facility] Monocytes [#/volume] in Blood by Automated count 0.49 10*3/uL 0-0.8 [facility] Eosinophils [#/volume] in Blood by Automated count 0.10 10*3/uL 0-0.5 [facility] Myelocytes/100 leukocytes in Blood by Manual count 2 % [facility] Metamyelocytes/100 leukocytes in Blood by Manual count 2 % [facility] Myelocytes [#/volume] in Blood by Manual count 0.20 10*3/uL 0-[address] [facility] Metamyelocytes [#/volume] in Blood by Manual count 0.20 10*3/uL 0-[address] [facility] Macrocytes [Presence] in Blood by Light microscopy [facility] Anisocytosis [Presence] in Blood by Light microscopy [facility] Poikilocytosis [Presence] in Blood by Light [facility] ID Date Data Source [id number] 04/02/2020 02:22:00 PM EST [facility] [place] Name Value Range Interpretation Code Description Data Jenise rce(s) Supporting Document(s) Troponin Laboratory test result [facility] ([facility]) ID Date Data Source [id number] 04/02/2020 02:22:00 PM EST [facility] [place] Name Value Range Interpretation Code Description Data Jenise rce(s) Supporting Document(s) Alanine aminotransferase [Enzymatic activity/volume] in Serum or Pl asma 97 [facility] ([facility]) Albumin [Mass/volume] in Serum or Plasma 4.4 [facility] ([facility]) Carbon dioxide, total [Moles/volume] in Serum or Plasma 25 [facility] ([facility]) Chloride [Moles/volume] in Serum or Plasma 104 [facility] ([facility]) Calcium [Mass/volume] in Serum or Plasma 9.5 [facility] ([facility]) Potassium [Moles/volume] in Serum or Plasma 4.5 [facility] ([facility]) Protein [Mass/volume] in Serum or Plasma 7.5 [facility] ([facility]) Alkaline phosphatase [Enzymatic activity/volume] in Serum or Plasma 6 1 [facility] ([facility]) Glucose 79 70-140 [facility] ([facility]) Aspartate aminotransferase [Enzymatic activity/volume] in Serum or Plasma 71 [facility] ([facility] Urea nitrogen [Mass/volume] in Serum or Plasma 23 [facility] ([facility] Sodium 140 [facility] Creatinine For GFR 16 [facility] ([facility] ID Date Data Source [id number] 03/20/2020 12:00:00 AM EST [facility] Name Value Range Interpretation Code Description Data Jenise rce(s) Supporting Document(s) SARS-CoV2 Rapid Antigen [facility] This lab was reported by Elma Urgen Tan[facility]. ID Date Data Source [id number] 03/08/2020 02:14:00 PM EST [facility] ([facility]) Name Value Range Interpretation Code Description Data Jenise rce(s) Supporting Document(s) White Blood Count 8.2 4.0-10.0 [facility] ([facility] Red Blood Count 5.45 4.30-6.10 [facility] ([facility] Platelets 218 150-450 [facility] Hemoglobin 15.6 13.5-17.5 [facility] ([facility]) Hematocrit 47.6 42.0-52.0 [facility] ([facility]) ID Date Data Source [id number] 03/08/2020 01:15:00 PM EST [facility] ([facility] [...]
<content>Positive >1.09</content>
<content></content> ID Date Data Source [id number] 03/08/2020 01:15:00 PM EST [facility] ([facility]) Name Value Range Interpretation Code Description Data Jenise rce(s) Supporting Document(s) Erythrocyte sedimentation rate by Westergren method 4 mm/hr 0-20 MEDENT ([facility]) HLA-B27 related Ag [Presence] Laboratory test result MEDENT ([facility]) HLA-B*27 Negative B27 allele interpretation for all loci based on IMGT/HLA database version 3.38 This test was developed and its performance characteristics determined by [employer]. It has not been cleared or approved by the Food and Drug Administration. HLA Lab CLIA ID Number [id number] . This test was performed using PCR [...] High sensitivity method Laboratory test result 0.00-0.30 [facility] ([facility]) ID Date Data Source [id number] 03/08/2020 01:15:00 PM EST MEDENT ([facility]) Name Value Range Interpretation Code Description Data Jenise rce(s) Supporting Document(s) Antinuclear Antibodies Direct Laboratory test result [facility] ([facility]) Performed at: - [address] [id number] [employer] Supervisor: Consuelo Calvert MD, Phone: [phone] Performed at: [facility] [address] [id number] [employer] Supervisor: Louis Lyle PhD, Phone: [phone] ID Date Data Source [id number] 03/08/2020 01:15:00 PM EST MEDENT ([facility]) Name Value Range Interpretation Code Description Data Jenise rce(s) Supporting Document(s) Rheumatoid factor [Units/volume] in Serum or Plasma Laboratory test result MEDENT ([facility]) ID Date Data Source [id number] 03/08/2020 01:15:00 PM EST MEDENT ([facility]) Name Value Range Interpretation Code Description Data Jenise rce(s) Supporting Document(s) White Blood Count 8.2 10 4.0-10.0 MEDENT ([facility]) Red Blood Count 5.45 10 4.30-6.10 MEDENT ([facility]) Hematocrit 47.6 % 42.0-52.0 MED[facility] ([facility]) Hemoglobin 15.6 g/dL 13.5-17.5 MED[facility] ([facility]) Mean Corpuscular Hemoglobin 28.6 pg 27.0-33.0 MEDENT ([facility] Mean Corpuscular Volume 87.3 fl 80.0-96.0 M EDENT ([facility] Red Cell Distribution Width 16.1 % 11.5-14.5 MEDENT ([facility] Mean Corpuscular HGB Conc 32.8 g/dL 32.0-36.5 MED[facility] ([facility] Neutrophils % 50.9 % 36.0-66.0 [facility] ([facility]) Platelet Count, Automated 218 10 150-450 MED[facility] ([facility] Lymph % 37.4 % 24.0-44.0 [facility] ([facility]) Rock % 8.2 % 0.0-5.0 [facility] ([facility]) Baso % 0.6 % 0.0-1.0 MED[facility] ([facility]) Eos % 1.8 % 0.0-3.0 [facility] ([facility]) Immature Granulocyte % 1.1 % 0-3.0 MEDENT ([facility]) Neutrophils # 4.2 10 1.5-8.5 [facility] ([facility]) Nucleated Red Blood Cell % 0.0 % 0-0 MED ENT ([facility]) Lymph # 3.1 10 1.5-5.0 MED[facility] ([facility]) Rock # 0.7 10 0.0-0.8 [facility] ([facility]) Eos # 0.2 10 0.0-0.5 [facility] ([facility]) Baso # 0.1 10 0.0-0.2 [facility] ([facility]) Procedure Social History Code Duration Value Status Description Data Source(s ) Alcohol intake 03/30/2021 12:00:00 AM EST Current non-d noreen of alcohol (finding) completed Current non-drinker of alcohol (finding) [facility] Smoking 03/25/2021 12:00:00 AM EST Never Smoker completed Never S moker eCW1 ([facility]) Smoking 02/11/2021 12:00:00 AM EDT Never Smoker completed Never S moker eCW1 ([facility]) Smoking 12/03/2020 12:00:00 AM EDT Patient has never smoked co mpleted Patient has never smoked MEDENT ([facility]) Smoking 11/11/2020 12:00:00 AM EDT Never Smoker completed Never S moker eCW1 ([facility]) Smoking 11/11/2020 12:00:00 AM EDT Never Smoker completed Never S moker eCW1 ([facility]) Smoking 11/11/2020 12:00:00 AM EDT Never Smoker completed Never S moker eCW1 ([facility]) Smoking 10/15/2020 12:00:00 AM EDT Patient has never smoked co mpleted Patient has never smoked MEDENT ([facility]) Smoking 10/14/2020 12:00:00 AM EDT Never Smoker completed Never S moker eCW1 ([facility]) Smoking 10/14/2020 12:00:00 AM EDT Never Smoker completed Never S moker eCW1 ([facility]) Smoking 09/20/2020 12:00:00 AM EDT Never Smoker completed Never S moker eCW1 ([facility]) Smoking 09/20/2020 12:00:00 AM EDT Never Smoker completed Never S moker eCW1 ([facility]) Smoking 09/20/2020 12:00:00 AM EDT Never Smoker completed Never S moker eCW1 ([facility]) Smoking 09/13/2020 12:00:00 AM EDT Never Smoker completed Never S moker eCW1 ([facility]) Smoking 08/31/2020 09:48:00 PM EDT Unknown if ever smoked comp leted Unknown if ever smoked [facility] Smoking 08/31/2020 09:48:00 PM EDT Unknown if ever smoked comp leted Unknown if ever smoked [facility] Smoking 08/31/2020 09:48:00 PM EDT Unknown if ever smoked comp leted Unknown if ever smoked [facility] Smoking 08/31/2020 09:48:00 PM EDT Unknown if ever smoked comp leted Unknown if ever smoked [facility] Smoking 08/31/2020 09:48:00 PM EDT Unknown if ever smoked comp leted Unknown if ever smoked [facility] Smoking 07/23/2020 12:00:00 AM EDT Never Smoker completed Never S moker eCW1 ([facility]) Smoking 07/23/2020 12:00:00 AM EDT Never Smoker completed Never S moker eCW1 ([facility]) Smoking 07/23/2020 12:00:00 AM EDT Never Smoker completed Never S moker eCW1 ([facility]) Smoking 07/23/2020 12:00:00 AM EDT Never Smoker completed Never S moker eCW1 ([facility]) Smoking 07/21/2020 12:00:00 AM EDT Patient has n ever smoked (pipe, cigarette, cigar) completed Patient has never smoked (pipe, cigarett e, cigar) [facility]ENT ([facility]) Smoking 07/09/2020 04:50:00 PM EST Denies Ever Smoked complete d Denies Ever Smoked [facility] Smoking 06/28/2020 12:00:00 AM EST Never Smoker completed Never S moker eCW1 ([facility]) Smoking 06/28/2020 12:00:00 AM EST Never Smoker completed Never S moker eCW1 ([facility]) Smoking 06/17/2020 12:00:00 AM EST Never Smoker completed Never S moker eCW1 ([facility]) Smoking 06/17/2020 12:00:00 AM EST Never Smoker completed Never S moker eCW1 ([facility]) Alcohol intake 04/02/2020 12:00:00 AM EST Current non-d noreen of alcohol (finding) completed Current non-drinker of alcohol (finding) [facility] Smoking 03/29/2020 12:00:00 AM EST Never Smoker completed Never S moker eCW1 ([facility]) Smoking 03/20/2020 12:00:00 AM EST Never Smoked Cigarettes com pleted Never Smoked Cigarettes MEDENT ([facility]) Smoking 02/09/2020 12:00:00 AM EDT Never Smoker completed Never S moker eCW1 ([facility]) Vital Signs ID Date Data Source UNK Name Value Range Interpretation Code Description Data Source(s) Body weight 299 [lb_av] 299 [lb_av] eCW1 ([facility]) Body weight 135.63 kg 135.63 kg eCW1 ([facility]) Body height [in_i] eCW1 ([facility]) Body mass index (BMI) [Ratio] 36.39 kg/m2 36.39 kg/m2 eCW1 ([facility]) Heart rate 85 /min 85 /min eCW1 ([facility]) Respiratory rate 18 /min 18 /min eCW1 ([facility]) Body temperature 97.6 [degF] 97.6 [degF] eCW1 ( [facility]) Systolic blood pressure 142 mm[Hg] 142 mm[Hg] e CW1 ([facility]) Diastolic blood pressure 88 mm[Hg] 88 mm[Hg] eCW1 ([facility]) Diastolic blood pressure 84 mm[Hg] 84 mm[Hg] MEDYOLANDA ([facility]) sitting, large cuff Systolic blood pressure 132 mm[Hg] 132 mm[Hg] M EDYOLANDA ([facility]) sitting, large cuff Body height 76 [in_i] 76 [in_i] MEDYOLANDA ([facility] 6'4" Systolic blood pressure 128 mm[Hg] 128 mm[Hg] M EDYOLANDA ([facility]) sitting Body mass index (BMI) [Ratio] 35.8 kg/m2 35.8 k g/m2 [facility] ([facility]) Heart rate 68 /min 68 /min [facility] ([facility] Regular Body weight 294.00 [lb_av] 294.00 [lb_av] MEDEN T ([facility]) Respiratory rate 16 /min 16 /min MEDENT ( [facility]) Diastolic blood pressure 82 mm[Hg] 82 mm[Hg] [facility] ([facility]) sitting Heart rate 94 /min 94 /min eCW1 ([facility]) Body mass index (BMI) [Ratio] 36.03 kg/m2 36.03 kg/m2 eCW1 ([facility]) Body weight 296 [lb_av] 296 [lb_av] eCW1 ([facility]) Respiratory rate 18 /min 18 /min eCW1 ([facility]) Systolic blood pressure 142 mm[Hg] 142 mm[Hg] e CW1 ([facility]) Body temperature 97.5 [degF] 97.5 [degF] eCW1 ( [facility]) Body height [in_i] eCW1 ([facility]) Diastolic blood pressure 78 mm[Hg] 78 mm[Hg] eCW1 ([facility]) Body height 78 [in_i] 78 [in_i] MEDENT ([facility], ) 6'6" Body weight 298.00 [lb_av] 298.00 [lb_av] MEDEN T ([facility], ) Body mass index (BMI) [Ratio] 34.4 kg/m2 34.4 k g/m2 MEDENT ([facility], ) [place] body weight 214 [lb_av] 214 [lb_av] MEDEN T ([facility], ) Body weight 135.173 kg 135.[address] [facility] ([facility], ) Body surface area Derived from formula 2.67 m2 2.67 m2 [facility] ([facility], ) Diastolic blood pressure 78 mm[Hg] 78 mm[Hg] MEDENT ([facility]) Systolic blood pressure 136 mm[Hg] 136 mm[Hg] M EDENT ([facility]) Body height 78 [in_i] 78 [in_i] [facility] ([facility]) 6'6" Body weight 298.00 [lb_av] 298.00 [lb_av] MEDEN T ([facility]) Body mass index (BMI) [Ratio] 34.4 kg/m2 34.4 k g/m2 [facility] ([facility]) [place] body weight 214 [lb_av] 214 [lb_av] MEDEN T ([facility]) Body weight 135.173 kg 135.173 kg [facility] ([facility]) Body surface area Derived from formula 2.67 m2 2.67 m2 [facility] ([facility]) Oxygen saturation in Arterial blood by Pulse oximetry 95 % 95 % [facility] ([facility]) Body temperature 97.8 [degF] 97.8 [degF] [facility] ([facility]) Body height 78 [in_i] 78 [in_i] [facility] ([facility]) 6'6" Body weight 294.00 [lb_av] 294.00 [lb_av] MEDEN T ([facility]) Body mass index (BMI) [Ratio] 34.0 kg/m2 34.0 k g/m2 [facility] ([facility]) [place] body weight 214 [lb_av] 214 [lb_av] MEDEN T ([facility]) Body weight 133.358 kg 133.358 kg [facility] ([facility]) Body surface area Derived from formula 2.66 m2 2.66 m2 [facility] ([facility]) Diastolic blood pressure 70 mm[Hg] 70 mm[Hg] [facility] ([facility]) Heart rate 75 /min 75 /min [facility] ([facility]) Systolic blood pressure 130 mm[Hg] 130 mm[Hg] [facility] Oxygen saturation in Arterial blood by Pulse oximetry 95 % 95 % [facility] ([facility]) Body temperature 97.8 [degF] 97.8 [degF] [facility] ([facility]) Body height 78 [in_i] 78 [in_i] [facility] ([facility]) 6'6" Body weight 294.00 [lb_av] 294.00 [lb_av] MEDEN T ([facility]) Body mass index (BMI) [Ratio] 34.0 kg/m2 34.0 k g/m2 [facility] ([facility]) [place] body weight 214 [lb_av] 214 [facility]_av] [facility] Body weight 133.358 kg 133.358 kg [facility] ([facility]) Body surface area Derived from formula 2.66 m2 2.66 m2 [facility] ([facility]) Body weight 294.0 [lb_av] 294.0 [lb_av] eCW1 ([facility]) Body mass index (BMI) [Ratio] 35.78 kg/m2 35.78 kg/m2 eCW1 ([facility]) Heart rate 83 /min 83 /min eCW1 ([facility]) Respiratory rate 18 /min 18 /min W1 ([facility]) Body temperature 98.0 [degF] 98.0 [degF] eCW1 ( [facility]) Systolic blood pressure 122 mm[Hg] 122 mm[Hg] e CW1 ([facility]) Diastolic blood pressure 78 mm[Hg] 78 mm[Hg] eCW1 ([facility]) Body height [in_i] eCW1 ([facility]) Body weight 293.8 [lb_av] 293.8 [lb_av] eCW1 ([facility]) Diastolic blood pressure 86 mm[Hg] 86 mm[Hg] eCW1 ([facility]) Body height [in_i] eCW1 ([facility]) Body mass index (BMI) [Ratio] 35.76 kg/m2 35.76 kg/m2 eCW1 ([facility]) Heart rate 87 /min 87 /min eCW1 ([facility]) Respiratory rate 18 /min 18 /min eCW1 ([facility]) Body temperature 97.5 [degF] 97.5 [degF] eCW1 ( [facility]) Systolic blood pressure 142 mm[Hg] 142 mm[Hg] e CW1 ([facility]) Body weight 292.2 [lb_av] 292.2 [lb_av] eCW1 ([facility]) Body mass index (BMI) [Ratio] 35.56 kg/m2 35.56 kg/m2 eCW1 ([facility]) Respiratory rate 18 /min 18 /min eCW1 ([facility]) Body temperature 97.9 [degF] 97.9 [degF] eCW1 ( [facility]) Heart rate 95 /min 95 /min eCW1 ([facility]) Systolic blood pressure 148 mm[Hg] 148 mm[Hg] e CW1 ([facility]) Diastolic blood pressure 86 mm[Hg] 86 mm[Hg] eCW1 ([facility]) Body height [in_i] eCW1 ([facility]) Body temperature 97.0 [degF] 97.0 [degF] MEDENT ([facility]) Oxygen saturation in Arterial blood by Pulse oximetry 98 % 98 % [facility] ([facility]) Body temperature 36.1 Latasha 36.1 Latasha MEDENT ( [facility]) Body height 77.00 [in_i] 77.00 [in_i] [facility] ([facility] 6'5" Body weight 295.12 [lb_av] 295.12 [lb_av] MEDEN T ([facility]) Body mass index (BMI) [Ratio] 35.0 kg/m2 35.0 k g/m2 [facility] ([facility]) Systolic blood pressure 169 mm[Hg] 169 mm[Hg] M EDENT ([facility]) Diastolic blood pressure 85 mm[Hg] 85 mm[Hg] MEDENT ([facility]) Heart rate 88 /min 88 /min MED[facility] ([facility]) Body mass index (BMI) [Ratio] 34.9 kg/m2 No rmal (applies to non-numeric results) 34.9 kg/m2 [facility] Systolic blood pressure 138 mm[Hg] Normal (applies t o non-numeric results) 138 mm[Hg] [facility] Diastolic blood pressure 77 mm[Hg] Normal (applies to non-numeric results) 77 mm[Hg] [facility] Body temperature 36.7 latasha Normal (applies to non-numeric results) 36.7 latasha [facility] Body weight Measured 295 [lb_av] Normal (applies to n on-numeric results) 295 [lb_av] [facility] Heart rate 76 min Normal (applies to non-numeric resul ts) 76 min [facility] Body height 195.072 cm Normal (applies to non-numeric resu lts) 195.072 cm [facility] Deprecated Oxygen saturation in Capillary blood by Oximetry 93 % Normal (applies to non-numeric results) 93 % [facility] Respiratory rate 18 min Normal (applies to non-numeric results) 18 min [facility] Body temperature 97.2 [degF] 97.2 [degF] eCW1 ( [facility]) Body weight 298.8 [lb_av] 298.8 [lb_av] eCW1 ([facility]) Body height [in_i] eCW1 ([facility]) Body mass index (BMI) [Ratio] 36.37 kg/m2 36.37 kg/m2 W1 ([facility]) Heart rate 94 /min 94 /min eCW1 ([facility]) Respiratory rate 18 /min 18 /min eCW1 ([facility]) Systolic blood pressure 142 mm[Hg] 142 mm[Hg] e CW1 ([facility]) Diastolic blood pressure 78 mm[Hg] 78 mm[Hg] eCW1 ([facility]) Body weight 296.6 [lb_av] 296.6 [lb_av] eCW1 ([facility]) Body height [in_i] eCW1 ([facility]) Body mass index (BMI) [Ratio] 36.10 kg/m2 36.10 kg/m2 W1 ([facility]) Heart rate 85 /min 85 /min eCW1 ([facility]) Respiratory rate 18 /min 18 /min eCW1 ([facility]) Body temperature 98 [degF] 98 [degF] eCW1 ([facility]) Systolic blood pressure 140 mm[Hg] 140 mm[Hg] e CW1 ([facility]) Diastolic blood pressure 90 mm[Hg] 90 mm[Hg] eCW1 ([facility]) Systolic blood pressure 130 mm[Hg] 130 mm[Hg] M EDENT ([facility]) Diastolic blood pressure 90 mm[Hg] 90 mm[Hg] [facility] ([facility]) Heart rate 80 /min 80 /min [facility] ([facility]) Oxygen saturation in Arterial blood by Pulse oximetry 94 % 94 % [facility] ([facility]) Room Air Body temperature 96.7 [degF] 96.7 [degF] [facility] ([facility]) Body height 78 [in_i] 78 [in_i] [facility] ([facility]) 6'6" Body weight 291.00 [lb_av] 291.00 [lb_av] [facility] Body mass index (BMI) [Ratio] 33.6 kg/m2 33.6 k g/m2 [facility] ([facility]) [place] body weight 214 [lb_av] 214 [lb_av] MEDEN T ([facility]) Body weight 131.998 kg 131.998 kg [facility] ([facility]) Body surface area Derived from formula 2.65 m2 2.65 m2 [facility] ([facility]) Diastolic blood pressure 70 mm[Hg] 70 mm[Hg] MEDYOLANDA ([facility]) sitting, large cuff Systolic blood pressure 136 mm[Hg] 136 mm[Hg] M EDYOLANDA ([facility]) sitting Body mass index (BMI) [Ratio] 35.4 kg/m2 35.4 k g/m2 [facility] ([facility]) Diastolic blood pressure 76 mm[Hg] 76 mm[Hg] [facility] ([facility]) sitting Heart rate 76 /min 76 /min MED[facility] ([facility] Regular Respiratory rate 16 /min 16 /min MEDENT ( [facility]) Systolic blood pressure 136 mm[Hg] 136 mm[Hg] [facility]) sitting, large cuff Body weight 291.00 [lb_av] 291.00 [lb_av] MEDEN T ([facility]) Body height 76 [in_i] 76 [in_i] [facility] ([facility] 6'4" Systolic blood pressure 135 mm[Hg] 135 mm[Hg] [facility]) Diastolic blood pressure 68 mm[Hg] 68 mm[Hg] [facility] ([facility]) Body height 78 [in_i] 78 [in_i] [facility] ([facility]) 6'6" Body weight 295.25 [lb_av] 295.25 [lb_av] [facility] Body mass index (BMI) [Ratio] 34.1 kg/m2 34.1 k g/m2 [facility] ([facility]) [place] body weight 214 [lb_av] 214 [lb_av] [facility] ([facility]) Body weight 133.925 kg 133.925 kg [facility] ([facility]) Body surface area Derived from formula 2.66 m2 2.66 m2 [facility] ([facility]) Systolic blood pressure 133 mm[Hg] 133 mm[Hg] M EDENT ([facility]) Diastolic blood pressure 79 mm[Hg] 79 mm[Hg] MEDENT ([facility], [facility]) Heart rate 78 /min 78 /min [facility] ([facility], [facility]) Respiratory rate 14 /min 14 /min [facility] ( [facility], [facility]) Oxygen saturation in Arterial blood by Pulse oximetry 96 % 96 % MEDENT ([facility], [facility]) Body temperature 100.1 [degF] 100.1 [degF] MEDE NT ([facility], [facility]) Body weight 289.00 [lb_av] 289.00 [lb_av] MEDRAO T ([facility]) Body height 77 [in_i] 77 [in_i] RADHA ([facility]) 6'5" Body mass index (BMI) [Ratio] 34.3 kg/m2 34.3 k g/m2 MEDYOLANDA ([facility]) Body weight 281.0 [lb_av] 281.0 [lb_av] eCW1 ([facility]) Body height [in_i] eCW1 ([facility]) Body mass index (BMI) [Ratio] 34.20 kg/m2 34.20 kg/m2 eCW1 ([facility]) Heart rate 110 /min 110 /min eCW1 ([facility]) Respiratory rate 18 /min 18 /min eCW1 ([facility]) Body temperature 97.2 [degF] 97.2 [degF] eCW1 ( [facility]) Systolic blood pressure 130 mm[Hg] 130 mm[Hg] e CW1 ([facility]) Diastolic blood pressure 80 mm[Hg] 80 mm[Hg] eCW1 ([facility]) ID Date Data Source [id number] 04/05/2021 03:41:44 PM [facility] Name Value Range Interpretation Code Description Data Source(s) WEIGHT RECORDED 295 lb 295 lb [facility] Body height Measured 77 in 77 in [facility] ID Date Data Source [id number] 09/15/2020 12:11:00 PM EDT [facility] Name Value Range Interpretation Code Description Data Source(s) HEIGHT 195.58 cm 195.58 cm [facility] WEIGHT RECORDED 133.318416 kg 133.023211 kg [facility] ID Date Data Source [id number] 04/08/2020 06:51:12 PM [facility] Name Value Range Interpretation Code Description Data Source(s) WEIGHT RECORDED 290 lb 290 lb [facility] Body height Measured 77 in 77 in [facility] WEIGHT RECORDED 290 lb 290 lb [facility] Body height Measured 77 in 77 in [facility] ID Date Data Source [id number] 04/08/2020 08:27:43 AM [facility] Name Value Range Interpretation Code Description Data Source(s) WEIGHT RECORDED 277 lb 277 lb [facility] Body height Measured 77.99 in 77.99 in [facility] Patient Treatment Plan of Care Planned Activity Planned Date Details Description Data Source (s) Cyclobenzaprine hydrochloride 10 MG Oral Tablet 03/30/2021 12:00:00 AM [facility] testosterone cypionate 200 MG/ML Injectable Solution 021 12:00:00 AM [facility] Lisinopril 30 MG Oral Tablet 11/11/2020 12:00:00 AM EDT eCW1 ([facility]) Lisinopril 30 MG Oral Tablet 11/11/2020 12:00:00 AM EDT eCW1 ([facility]) Lisinopril 30 MG Oral Tablet 11/11/2020 12:00:00 AM EDT eC1 ([facility]) Needle (Disp) 18G X 1-1/2" 08/26/2020 12:00:00 AM [facility] Syringe Luer Lock 23G X 1" 3 ML 08/26/2020 12:00:00 AM [facility] sildenafil 50 MG Oral Tablet [Viagra] 02/09/2020 12:00:00 AM EDT eCW1 ([facility]) Syringe Luer Lock 23G X 1" 3 ML 10/17/2019 12:00:00 AM [facility] 24 HR Oxybutynin chloride 5 MG Extended Release Oral T ablet 03/13/2019 12:00:00 AM [facility] Cyclobenzaprine hydrochloride 10 MG Oral Tablet 02/03/2018 12:00:00 AM [facility]
[2021-04-08] MEDS ORDERED: diazePAM 10MG/2ML SYRINGE (J3360 PER 5MG) IM ONE (19:40)
--- NOTE | 2021-04-08 20:35 | REPVR ---
PROCEDURE INFORMATION: Exam: CT Head Without Contrast Exam date and time: 04/08/2021 7:51 PM Age: 50 years old Clinical indication: Pain; Headache; Additional info: Remote fall with BASSETT and ? csf leak TECHNIQUE: Imaging protocol: Computed tomography of the head without contrast. Axial and coronal reformatted images were created and reviewed. Radiation optimization: All CT scans at this facility use at least one of these dose optimization techniques: automated exposure control; mA and/or kV adjustment per patient size (includes targeted exams where dose is matched to clinical indication); or iterative reconstruction. COMPARISON: CT Head without contrast 10/12/2019 2:36 PM FINDINGS: Brain: No CT evidence of acute intracranial hemorrhage or acute territorial infarction. No significant mass effect or midline shift. Basal cisterns patent. Cerebral ventricles: Normal in size and configuration. Paranasal sinuses: Minimal ethmoid mucosal thickening. Mastoid air cells: Grossly unremarkable. Bones/joints: No acute osseous abnormality. Soft tissues: Grossly unremarkable. IMPRESSION: 1. No CT evidence of acute intracranial pathology. 2. Additional findings, as above. Electronically signed by: Grant Bolton On 04/08/2021 20:34:38 PM
--- NOTE | 2021-04-08 20:40 | REPVR ---
PROCEDURE INFORMATION: Exam: CT Maxillofacial Without Contrast Exam date and time: 04/08/2021 7:51 PM Age: 50 years old Clinical indication: Pain and injury or trauma; Fall; Headache; Blunt trauma (contusions or hematomas); Head/scalp; Loss of consciousness not known; Additional info: Remote fall with BASSETT and ? csf leak TECHNIQUE: Imaging protocol: Computed tomography images of the face without contrast. Axial, coronal and sagittal reformatted images were created and reviewed. Radiation optimization: All CT scans at this facility use at least one of these dose optimization techniques: automated exposure control; mA and/or kV adjustment per patient size (includes targeted exams where dose is matched to clinical indication); or iterative reconstruction. COMPARISON: CT Head without contrast 10/12/2019 2:36 PM FINDINGS: Orbital cavity: Orbits are normal. Globes are unremarkable. Bones/joints: No acute fracture. Paranasal sinuses: Minimal ethmoid mucosal thickening. Soft tissues: Unremarkable. IMPRESSION: 1. No acute facial bone fracture. 2. Additional findings, as above. Electronically signed by: Grant Bolton On 04/08/2021 20:40:06 PM
--- NOTE | 2021-04-08 20:42 | REPVR ---
PROCEDURE INFORMATION: Exam: CT Cervical Spine Without Contrast Exam date and time: 04/08/2021 7:51 PM Age: 50 years old Clinical indication: Other: Upper and lower ext parasthesias TECHNIQUE: Imaging protocol: Computed tomography images of the cervical spine without contrast. Axial, coronal and sagittal reformatted images were created and reviewed. Radiation optimization: All CT scans at this facility use at least one of these dose optimization techniques: automated exposure control; mA and/or kV adjustment per patient size (includes targeted exams where dose is matched to clinical indication); or iterative reconstruction. COMPARISON: MRI-Spine,Cervical without con 01/19/2020 9:42 AM FINDINGS: Bones/joints: Osteopenia. Straightening of the normal cervical lordosis. No CT evidence of acute fracture, dislocation or subluxation. Alignment anatomic. Vertebral body heights maintained. Discs/Spinal canal/Neural foramina: Mild multilevel degenerative changes, characterized by disc space narrowing, osteophytosis and uncovertebral and facet joint hypertrophy. Mild multilevel spinal canal and neural foraminal narrowing. Lungs: Grossly unremarkable. Soft tissues: Grossly unremarkable. IMPRESSION: 1. No CT evidence of acute cervical spine traumatic injury. 2. Additional findings, as above. Electronically signed by: Grant Bolton On 04/08/2021 20:41:59 PM
--- NOTE | 2021-04-08 20:52 | REPVR ---
PROCEDURE INFORMATION: Exam: CT Thoracic Spine Without Contrast Exam date and time: 04/08/2021 7:51 PM Age: 50 years old Clinical indication: Other: Upper and lower ext parasthesias TECHNIQUE: Imaging protocol: Computed tomography images of the thoracic spine without contrast. Radiation optimization: All CT scans at this facility use at least one of these dose optimization techniques: automated exposure control; mA and/or kV adjustment per patient size (includes targeted exams where dose is matched to clinical indication); or iterative reconstruction. COMPARISON: 1. CT Spine,thoracic w/o contrast 2019-10-12 14:[address] Spine,cervical w/o contrast 2021-04-08 19:50 FINDINGS: Limitations: Limited by patient's body habitus. Vertebrae: Mild to moderate thoracic spondylosis with exaggeration of the thoracic kyphosis and associated degenerative endplate spurring and disc space loss. Discs/Spinal canal/Neural foramina: No significant disc protrusion. No severe spinal canal stenosis. No significant neural foraminal narrowing. Soft tissues: Unremarkable. Lungs: Dependent subsegmental pulmonary atelectasis. IMPRESSION: Unremarkable CT Spine. Electronically signed by: Wilder Mohamud On 04/08/2021 20:52:11 PM
--- NOTE | 2021-04-08 20:54 | REPVR ---
PROCEDURE INFORMATION: Exam: CT Lumbar Spine Without Contrast Exam date and time: 04/08/2021 7:51 PM Age: 50 years old Clinical indication: Other: Upper and lower ext parasthesias TECHNIQUE: Imaging protocol: Computed tomography images of the lumbar spine without contrast. Radiation optimization: All CT scans at this facility use at least one of these dose optimization techniques: automated exposure control; mA and/or kV adjustment per patient size (includes targeted exams where dose is matched to clinical indication); or iterative reconstruction. COMPARISON: 1. MRI-Spine, L.S. without con 2020-03-08 11:[address] Spine, lumbar w/o contrast 2019-10-12 14:44 FINDINGS: Vertebrae: Moderate levoconvex lumbar scoliosis. Maintained vertebral body heights. Small endplate Schmorl's node cavities. Endplate paravertebral bridging osteophytes. Discs/Spinal canal/Neural foramina: Diffuse degenerative disc space loss, facet arthropathy and ligamentum flavum thickening, and scattered disc bulge/protrusions cause up to moderate foraminal and spinal stenosis most severe from L3 through S1. Soft tissues: Unremarkable. IMPRESSION: No acute findings. Electronically signed by: Wilder Mohamud On 04/08/2021 20:54:27 PM
[2021-04-08 21:00] VITALS: BP 136/76
[2021-04-08] MEDS ORDERED: PROHANCE 279.3MG/ML 15ML VIAL As Ordered ONE (22:23)
[2021-04-08] MEDS ORDERED: PROHANCE 279.3MG/ML 5ML VIAL As Ordered ONE (22:23)
--- NOTE | 2021-04-08 23:35 | REPVR ---
PROCEDURE INFORMATION: Exam: MR Lumbar Spine Without Contrast Exam date and time: 04/08/2021 11:01 PM Age: 50 years old Clinical indication: Pain and injury or trauma; Sprain or strain, lumbar ligaments; Low back pain; Injury date: 03/30/21; Injury details: PT states had fallen and now has left side weakness and pain along with headache; Additional info: Lower extremity weakness on the left TECHNIQUE: Imaging protocol: Multiplanar magnetic resonance images of the lumbar spine without intravenous contrast. COMPARISON: 1. CT Spine, lumbar w/o contrast 2021-04-08 19:54 2. MRI-Spine, L.S. without con 2020-03-08 11:25 FINDINGS: Vertebrae: Moderate levoconvex lumbar scoliosis. Scattered chronic small endplate Schmorl's node cavities. Spinal cord: Normal signal. No cord compression. Multilevel findings: Diffuse degenerative disc desiccation, disc height loss, and associated degenerative endplate marrow signal changes most severe at L2-S1. L1-L2: No significant disc disease. No significant spinal canal stenosis. No neural foraminal stenosis. L2-L3: Disc bulge and tiny central disc extrusion causes mild spinal and foraminal S. L3-L4: Minimal disc bulging without significant stenosis. L4-L5: Scoliosis, and asymmetric right disc bulge and osteophyte causes moderate to severe right subarticular and foraminal stenosis and mild moderate spinal and left foraminal stenosis. L5-S1: Scoliosis and asymmetric left disc bulge and facet arthropathy causes mild spinal, and moderate left foraminal stenosis. Sacrum/coccyx: Partially lumbarized S1 segment with pseudoarthrosis along the right S1-S2 and lumbarization of the left tani S1. S1-S2: Unremarkable. Soft tissues: Unremarkable. IMPRESSION: Moderate severe spondylosis and scoliosis. No acute abnormality. Electronically signed by: Wilder Mohamud On 04/08/2021 23:34:54 PM
--- NOTE | 2021-04-08 23:47 | REPVR ---
PROCEDURE INFORMATION: Exam: MR Cervical Spine Without Contrast Exam date and time: 04/08/2021 11:01 PM Age: 50 years old Clinical indication: Pain and injury or trauma; Sprain or strain, cervical ligaments; Neck pain and radicular pain (radiculopathy); Cervical region; Injury date: 03/30/21; Injury details: PT states recently had fallen and now has left side weakness and pain along with headache; Additional info: Worsenign left upper extremiy parasthesias x 4 days after fa TECHNIQUE: Imaging protocol: Multiplanar magnetic resonance images of the cervical spine without contrast. COMPARISON: 1. CT Spine,cervical w/o contrast 2021-04-08 19:50 2. MRI-Spine,Cervical without con 2020-01-19 09:42 FINDINGS: Limitations: Limited by patient's body habitus. Vertebrae: Straightened cervical curvature. No acute vertebral fracture/subluxation. Spinal cord: Normal signal. No cord compression. Multilevel findings: Diffuse degenerative disc desiccation, disc height loss, and degenerative endplate marrow signal changes most severe at C3-T1. C2-C3: Mild right greater than left facet arthropathy. Minimal right foraminal narrowing. C3-C4: Disc osteophyte complex causes moderate spinal, moderate to severe left, and moderate right foraminal stenosis. C4-C5: Small disc osteophyte complex causes mild spinal and foraminal stenosis. C5-C6: Disc osteophyte complex and central disc protrusion causes moderate spinal and left foraminal and mild moderate right foraminal stenosis. C6-C7: Disc osteophyte complex with left paracentral disc protrusion causes moderate spinal, and moderate to severe left and moderate right foraminal stenosis. C7-T1: Moderate right paracentral to foraminal disc protrusion causes moderate spinal, severe right lateral spinal, and moderate severe right foraminal stenosis. T1-T2: Small central disc protrusion. Soft tissues: Unremarkable. Vertebral arteries: Expected flow voids in the vertebral arteries. IMPRESSION: 1. Moderate severe cervical spondylosis. 2. No acute abnormality. Electronically signed by: Wilder Mohamud On 04/08/2021 23:46:26 PM
--- NOTE | 2021-04-09 01:13 | REPVR ---
PROCEDURE INFORMATION: Exam: MR Chest Without and With Contrast; Brachial Plexus Exam date and time: 04/08/2021 11:01 PM Age: 50 years old Clinical indication: Pain and injury or trauma; Sprain or strain; Left-sided; Injury date: 03/30/21; Injury details: PT states had recent fall and has had increase left side weakness and pain along with headache; Additional info: Please eval left brachioplexus TECHNIQUE: Imaging protocol: MR chest without and with intravenous contrast. Exam focused on the brachial plexus. Contrast material: PROHANCE; Contrast volume: 20 ml; Contrast route: INTRAVENOUS (IV); COMPARISON: 1. MRI-Spine,Cervical without con 2021-04-08 22:[address] Spine,cervical w/o contrast 2021-04-08 19:50 FINDINGS: Nerves: Unremarkable visualized nerves and brachial plexus. Soft tissues: Unremarkable Bones/joints: Unremarkable. IMPRESSION: Unremarkable brachial plexus. Electronically signed by: Wilder Mohamud On 04/09/2021 01:12:48 AM
[2021-04-09] MEDS ORDERED: NORT50CA PO (01:30)
== END 2021-04-09 02:51 | disposition home or self-care (01) ==
LOC: M ED 13:48
DX: M43.14 Spondylolisthesis, thoracic region (principal); M54.30 Sciatica, unspecified side; R20.2 Paresthesia of skin; R51.9 Headache, unspecified; H93.13 Tinnitus, bilateral; W00.0XXA Fall on same level due to ice and snow, initial encounter; Y92.481 Parking lot as the place of occurrence of the external cause; Y93.9 Activity, unspecified; Y99.0 Civilian activity done for income or pay; M25.78 Osteophyte, vertebrae; M85.9 Disorder of bone density and structure, unspecified; M48.02 Spinal stenosis, cervical region; M41.86 Other forms of scoliosis, lumbar region; M48.061 Spinal stenosis, lumbar region without neurogenic claudication; M51.26 Other intervertebral disc displacement, lumbar region; I10 Essential (primary) hypertension; K21.9 Gastro-esophageal reflux disease without esophagitis; Z79.899 Other long term (current) drug therapy
CPT/HCPCS: 70450; 70486; 71552; 72125; 72128; 72131; 72141; 72148; 99283; A9576

== ENCOUNTER → 2021-04-14 | Outpatient (CLI) | payer BC ==
[~2021-04-14] MED LIST changes: +NORT50CA PO
[2021-04-14 13:26] LABS: ALBUMIN 3.7 GM/DL (3.2-5.2); ALT/SGPT 84 U/L (12-78); BILIRUBIN,DIRECT 0.1 MG/DL (0.0-0.2); BILIRUBIN,TOTAL 0.6 MG/DL (0.2-1.0); CHOLESTEROL LEVEL 208 MG/DL (<200); FERRITIN 18 NG/ML (26-388); HDL CHOLESTEROL 32 MG/DL (>40); IRON (FE) 49 UG/DL (65-175); LDL CHOLESTEROL 135 MG/DL (<100); NON-HDL-C 176 MG/DL; PERCENT SATURATION 10.4 % (19.7-50.0); TOTAL IRON BINDING CAPACITY 469 UG/DL (250-450); TRIGLYCERIDES LEVEL 206 MG/DL (<150)
[2021-04-14 13:37] LABS: HEPATITIS B SURFACE ANTIGEN NEGATIVE (NEGATIVE)
[2021-04-14 14:06] LABS: HEPATITIS C VIRUS ABY INDEX 0.1 INDEX (<0.8)
[2021-04-16 01:06] LABS: ANTI-MITOCHONDRIAL ANTIBODY <20.0 Units (0.0-20.0); ANTI-SMOOTH MUSCLE ANTIBODY 7 Units (0-19); ANTINUCLEAR ANTIBODIES DIRECT Negative (Negative); HEPATITIS A IgG TOTAL Negative (Negative); HEPATITIS B CORE ANTIBODY IGG Negative (Negative); LIVER-KIDNEY MICROSOMAL ABY <20.1 Units (0.0-20.0)
== END ==
LOC: M ADAMS 10:27
PROVIDERS: ATTEND Internal Medicine Gastroenterology
DX: R94.5 Abnormal results of liver function studies (principal); K75.81 Nonalcoholic steatohepatitis (NASH)

== ENCOUNTER → 2021-04-14 | Outpatient (CLI) | payer BC | LOC: M LABSMTC 09:49 | PROVIDERS: ATTEND Anesthesiology | DX: Z01.812 Encounter for preprocedural laboratory examination (principal); Z20.822 Contact with and (suspected) exposure to COVID-19 ==

== ENCOUNTER 2021-06-28 11:35 | Emergency (ER) | payer BC, OTHER ==
[~2021-06-28] VITALS: Ht 198.1 cm; Wt 130.1 kg
[~2021-06-28 11:35] MED LIST changes: -CITA40TA4 PO; +CITA40TA7 PO; -OMEP-221 PO; +OMEP40CA5 PO
[2021-06-28 16:46] VITALS: BP 135/84
[2021-06-28] MEDS ORDERED: GABA-282 PO (16:57)
== END 2021-06-28 17:00 | disposition home or self-care (01) ==
LOC: M ED 11:35
DX: S09.90XA Unspecified injury of head, initial encounter (principal); S80.02XA Contusion of left knee, initial encounter; S43.402A Unspecified sprain of left shoulder joint, initial encounter; W00.9XXA Unspecified fall due to ice and snow, initial encounter; G47.30 Sleep apnea, unspecified; K21.9 Gastro-esophageal reflux disease without esophagitis; F41.8 Other specified anxiety disorders; F32.A Depression, unspecified; Y92.9 Unspecified place or not applicable; Y93.9 Activity, unspecified; Y99.9 Unspecified external cause status; Z79.899 Other long term (current) drug therapy

== ENCOUNTER → 2021-07-15 | Outpatient (REF) | payer OTHER ==
[2021-07-15 14:02] LABS: PROSTATIC SPECIFIC AG MONITOR 1.01 NG/ML (< 4.00)
== END ==
LOC: M LABDRWAD 12:29
PROVIDERS: ATTEND Urology
DX: R79.89 Other specified abnormal findings of blood chemistry (principal)

== ENCOUNTER → 2021-08-18 | Outpatient (REF) | payer OTHER ==
[2021-08-18 16:24] LABS: BASO # 0.1 10^3/uL (0.0-0.2); BASO % 0.7 % (0.0-1.0); EOS # 0.2 10^3/uL (0.0-0.5); EOS % 2.7 % (0.0-3.0); HEMATOCRIT 47.8 % (42.0-52.0); HEMOGLOBIN 15.6 g/dl (13.5-17.5); LYMPH % 48.1 % (24.0-44.0); MEAN CORPUSCULAR HEMOGLOBIN 27.4 pg (27.0-33.0); MEAN CORPUSCULAR HGB CONC 32.6 g/dl (32.0-36.5); MONO # 0.9 10^3/uL (0.0-0.8); MONO % 11.4 % (2.0-8.0); NEUTROPHILS % 36.3 % (36.0-66.0); PLATELET COUNT, AUTOMATED 187 10^3/uL (150-450); RED BLOOD COUNT 5.69 10^6/uL (4.30-6.10); WHITE BLOOD COUNT 8.3 10^3/uL (4.0-10.0)
[2021-08-18 16:51] LABS: ALT/SGPT 110 U/L (12-78); BLOOD UREA NITROGEN 17 MG/DL (7-18); CALCIUM LEVEL 9.7 MG/DL (8.5-10.1); CARBON DIOXIDE LEVEL 27 MEQ/L (21-32); CHLORIDE LEVEL 102 MEQ/L (98-107); CREATININE FOR GFR 1.17 MG/DL (0.70-1.30); FREE T4 1.04 NG/DL (0.76-1.46); GLOMERULAR FILTRATION RATE > 60.0 (>56); GLUCOSE, FASTING 106 MG/DL (70-100); POTASSIUM SERUM 4.7 MEQ/L (3.5-5.1); SODIUM LEVEL 136 MEQ/L (136-145); TOTAL PROTEIN 7.4 GM/DL (6.4-8.2)
== END ==
LOC: M SFHCADAM 11:53
PROVIDERS: ATTEND Family Medicine
DX: K59.00 Constipation, unspecified (principal)

== ENCOUNTER → 2021-09-17 | Outpatient (CLI) | payer OTHER | LOC: M LABSMTC 10:40 | PROVIDERS: ATTEND Anesthesiology | DX: Z01.812 Encounter for preprocedural laboratory examination (principal); Z20.822 Contact with and (suspected) exposure to COVID-19 ==

== ENCOUNTER 2021-09-22 08:27 | Day surgery (SDC) | payer OTHER ==
[~2021-09-22] VITALS: Ht 195.6 cm; Wt 121.9 kg
[~2021-09-22 08:27] MED LIST changes: +NS 1,000 ML IV ONE; +ROSU10TA6 PO
[2021-09-22] MEDS ORDERED: propofoL 200 MG/20 ML VIAL As Ordered ONE (10:53)
[2021-09-22] MEDS ORDERED: LIDOCAINE 2% 100MG/5ML SDV (FOR ANES.) As Ordered ONE (10:53)
[2021-09-22 11:20] VITALS: BP 132/68
== END 2021-09-22 11:29 | disposition home or self-care (01) ==
LOC: M OPP 08:27
PROVIDERS: ATTEND Internal Medicine Gastroenterology
DX: Z12.11 Encounter for screening for malignant neoplasm of colon (principal); D12.6 Benign neoplasm of colon, unspecified; K64.8 Other hemorrhoids; I10 Essential (primary) hypertension; E78.5 Hyperlipidemia, unspecified; K76.9 Liver disease, unspecified; K21.9 Gastro-esophageal reflux disease without esophagitis; F41.9 Anxiety disorder, unspecified; F32.A Depression, unspecified; G47.30 Sleep apnea, unspecified; Z79.82 Long term (current) use of aspirin; Z79.899 Other long term (current) drug therapy; Z80.0 Family history of malignant neoplasm of digestive organs

== ENCOUNTER → 2021-09-26 | Outpatient (CLI) | payer OTHER ==
[~2021-09-26] MED LIST changes: -NS 1,000 ML IV ONE
[2021-09-26 13:27] LABS: ALBUMIN 3.8 GM/DL (3.2-5.2); ALT/SGPT 82 U/L (12-78); BILIRUBIN,TOTAL 0.7 MG/DL (0.2-1.0); BLOOD UREA NITROGEN 15 MG/DL (7-18); CARBON DIOXIDE LEVEL 29 MEQ/L (21-32); CHLORIDE LEVEL 105 MEQ/L (98-107); CHOLESTEROL LEVEL 135 MG/DL (<200); CHOLESTEROL RISK RATIO 3.648 (<5); CREATININE FOR GFR 1.16 MG/DL (0.70-1.30); GLOMERULAR FILTRATION RATE > 60.0 (>56); GLUCOSE, FASTING 139 MG/DL (70-100); HDL CHOLESTEROL 37 MG/DL (>40); LDL CHOLESTEROL 67 MG/DL (<100); NON-HDL-C 98 MG/DL; POTASSIUM SERUM 4.2 MEQ/L (3.5-5.1); SODIUM LEVEL 141 MEQ/L (136-145); TOTAL PROTEIN 7.1 GM/DL (6.4-8.2); TRIGLYCERIDES LEVEL 153 MG/DL (<150)
== END ==
LOC: M ADAMS 10:42
PROVIDERS: ATTEND Physician Assistant
DX: I50.32 Chronic diastolic (congestive) heart failure (principal); E78.2 Mixed hyperlipidemia

== ENCOUNTER → 2022-01-16 | Outpatient (REF) | payer OTHER | LOC: M SFHCADAM 17:23 | PROVIDERS: ATTEND Family Medicine | DX: R30.0 Dysuria (principal) ==

== ENCOUNTER → 2022-01-20 | Outpatient (REF) | payer OTHER ==
[2022-01-20 17:47] LABS: BLOOD UREA NITROGEN 10 MG/DL (7-18); CALCIUM LEVEL 9.3 MG/DL (8.5-10.1); CARBON DIOXIDE LEVEL 30 MEQ/L (21-32); CHLORIDE LEVEL 104 MEQ/L (98-107); CREATININE FOR GFR 1.19 MG/DL (0.70-1.30); GLOMERULAR FILTRATION RATE > 60.0 (>56); GLUCOSE, FASTING 97 MG/DL (70-100); POTASSIUM SERUM 4.4 MEQ/L (3.5-5.1); SODIUM LEVEL 138 MEQ/L (136-145)
[2022-01-20 19:46] LABS: APPEARANCE, URINE MANUAL CLEAR (CLEAR); COLOR, URINE MANUAL YELLOW (YELLOW)
[2022-01-20 19:48] LABS: BILIRUBIN, URINE MANUAL NEGATIVE (NEGATIVE); BLOOD URINE MANUAL NEGATIVE (NEGATIVE); GLUCOSE, URINE (UA) MANUAL NEGATIVE (NEGATIVE); KETONE, URINE MANUAL NEGATIVE (NEGATIVE); NITRITE, URINE MANUAL NEGATIVE (NEGATIVE); PROTEIN, URINE MANUAL NEGATIVE (NEGATIVE); SPECIFIC GRAVITY,URINE MANUAL 1.015 (1.002-1.035); UROBILINOGEN, URINE MANUAL NORMAL (NORMAL)
[2022-01-20 19:49] LABS: LEUKOCYTE ESTERASE, URINE MAN NEGATIVE (NEGATIVE)
== END ==
LOC: M SFHCADAM 12:44
PROVIDERS: ATTEND Family Medicine
DX: R30.0 Dysuria (principal); R80.9 Proteinuria, unspecified

== ENCOUNTER → 2022-03-23 | Outpatient (CLI) | payer OTHER | LOC: M LABDRWAD 09:58 | PROVIDERS: ATTEND Urology | DX: R30.0 Dysuria (principal); R79.89 Other specified abnormal findings of blood chemistry; Z53.9 Procedure and treatment not carried out, unspecified reason ==

== ENCOUNTER → 2022-03-28 | Outpatient (REF) | payer OTHER | LOC: M LAB REF 13:16 | PROVIDERS: ATTEND Urology | DX: R30.0 Dysuria (principal) ==

== ENCOUNTER → 2022-04-03 | Outpatient (CLI) | payer OTHER | LOC: M LABDRWAD 09:14 | PROVIDERS: ATTEND Urology | DX: Z53.20 Procedure and treatment not carried out because of patient's decision for unspecified reasons (principal) ==

== ENCOUNTER → 2022-04-04 | Outpatient (CLI) | payer OTHER ==
[2022-04-04 15:51] LABS: APPEARANCE, URINE MANUAL CLEAR (CLEAR); COLOR, URINE MANUAL YELLOW (YELLOW)
[2022-04-04 15:53] LABS: BILIRUBIN, URINE MANUAL NEGATIVE (NEGATIVE); BLOOD URINE MANUAL NEGATIVE (NEGATIVE); GLUCOSE, URINE (UA) MANUAL NEGATIVE (NEGATIVE); KETONE, URINE MANUAL NEGATIVE (NEGATIVE); LEUKOCYTE ESTERASE, URINE MAN TRACE (NEGATIVE); NITRITE, URINE MANUAL NEGATIVE (NEGATIVE); PROTEIN, URINE MANUAL NEGATIVE (NEGATIVE); UROBILINOGEN, URINE MANUAL NORMAL (NORMAL)
[2022-04-04 16:33] LABS: BACTERIA, URINE SMALL AMOUNT; RBC, URINE 0-1 /hpf (0-3); SQUAMOUS EPITHELIAL CELL URINE SMALL AMOUNT /hpf (SMALL AMT)
== END ==
LOC: M LAB 15:10
PROVIDERS: ATTEND Urology
DX: R30.0 Dysuria (principal); R79.89 Other specified abnormal findings of blood chemistry

== ENCOUNTER 2022-04-25 22:48 | Emergency (ER) | payer OTHER ==
[~2022-04-25] VITALS: Ht 193 cm; Wt 132.0 kg
[2022-04-25 22:50] VITALS: BP 131/75
[2022-04-26] MEDS ORDERED: TEST200I14 (10:25)
[2022-04-26] MEDS ORDERED: GABA-282 (10:25)
[2022-04-26] MEDS ORDERED: SPIR-10 (10:25)
[2022-04-26] MEDS ORDERED: CHLO125TA (10:25)
[2022-04-26] MEDS ORDERED: PROA1AER2 INH (16:57)
[2022-04-26] MEDS ORDERED: BENZ200C70 PO (17:00)
[2022-04-26] MEDS ORDERED: MEDR4PAK PO (17:05)
== END 2022-04-25 23:35 | disposition left against medical advice (07) ==
LOC: M ED 22:48
DX: Z53.21 Procedure and treatment not carried out due to patient leaving prior to being seen by health care provider (principal)

== ENCOUNTER 2022-04-26 10:07 | Emergency (ER) | payer OTHER ==
[~2022-04-26] VITALS: Ht 195.6 cm; Wt 128.1 kg
[2022-04-26] MEDS ORDERED: SPIR-10 (10:25)
[2022-04-26] MEDS ORDERED: TEST200I14 (10:25)
[2022-04-26] MEDS ORDERED: GABA-282 (10:25)
[2022-04-26] MEDS ORDERED: CHLO125TA (10:25)
[2022-04-26] MEDS ORDERED: IPRATROPIUM 0.5MG/ALBUTEROL 2.5MG INH SOL UD 3ML (DUONEB) NEB ONE (15:10)
[2022-04-26 15:47] LABS: BASO % 0.6 % (0.0-1.0); EOS # 0.2 10^3/uL (0.0-0.5); EOS % 3.6 % (0.0-3.0); HEMATOCRIT 47.8 % (42.0-52.0); HEMOGLOBIN 15.3 g/dl (13.5-17.5); LYMPH # 2.8 10^3/uL (1.5-5.0); LYMPH % 52.2 % (24.0-44.0); MEAN CORPUSCULAR HEMOGLOBIN 27.1 pg (27.0-33.0); MEAN CORPUSCULAR VOLUME 84.6 fl (80.0-96.0); MONO # 0.5 10^3/uL (0.0-0.8); MONO % 9.5 % (2.0-8.0); NEUTROPHILS # 1.8 10^3/uL (1.5-8.5); NEUTROPHILS % 33.5 % (36.0-66.0); PLATELET COUNT, AUTOMATED 161 10^3/uL (150-450); RED BLOOD COUNT 5.65 10^6/uL (4.30-6.10); WHITE BLOOD COUNT 5.3 10^3/uL (4.0-10.0)
[2022-04-26 16:00] LABS: ALBUMIN 3.5 G/DL (3.2-5.2); ALKALINE PHOSPHATASE 54 U/L (46-116); ALT/SGPT 108 U/L (7.0-40); AST/SGOT 64 U/L (<34); BILIRUBIN,TOTAL 0.9 MG/DL (0.3-1.2); BLOOD UREA NITROGEN 12 MG/DL (9-23); CALCIUM LEVEL 8.7 MG/DL (8.5-10.1); CARBON DIOXIDE LEVEL 30 MMOL/L (20-31); CHLORIDE LEVEL 101 MMOL/L (98-107); GLOMERULAR FILTRATION RATE > 60.0 (>56); GLUCOSE, FASTING 86 MG/DL (60-100); POTASSIUM SERUM 3.8 MMOL/L (3.5-5.1); SODIUM LEVEL 138 MMOL/L (136-145); TOTAL PROTEIN 6.7 G/DL (5.7-8.2)
[2022-04-26] MEDS ORDERED: PROA1AER2 INH (16:57)
[2022-04-26] MEDS ORDERED: BENZ200C70 PO (17:00)
[2022-04-26] MEDS ORDERED: MEDR4PAK PO (17:05)
[2022-04-26 17:13] VITALS: BP 146/83
== END 2022-04-26 17:19 | disposition home or self-care (01) ==
LOC: M ED 10:07
DX: J20.9 Acute bronchitis, unspecified (principal); M25.511 Pain in right shoulder; I44.0 Atrioventricular block, first degree; K21.9 Gastro-esophageal reflux disease without esophagitis; I10 Essential (primary) hypertension; E78.5 Hyperlipidemia, unspecified; G47.33 Obstructive sleep apnea (adult) (pediatric); N40.1 Benign prostatic hyperplasia with lower urinary tract symptoms; Z79.51 Long term (current) use of inhaled steroids; Z79.811 Long term (current) use of aromatase inhibitors; Z79.899 Other long term (current) drug therapy

== ENCOUNTER → 2022-04-28 | Outpatient (CLI) | payer OTHER ==
[~2022-04-28] MED LIST changes: +BENZ200C70 PO; +CHLO125TA; +MEDR4PAK PO; +PROA1AER2 INH; +SPIR-10; +TEST200I14
== END ==
LOC: M SOG 07:55
PROVIDERS: ATTEND Orthopaedic Surgery
DX: Z53.9 Procedure and treatment not carried out, unspecified reason (principal)

== ENCOUNTER → 2022-05-15 | Outpatient (CLI) | payer OTHER | LOC: M SOG 07:51 | PROVIDERS: ATTEND Orthopaedic Surgery | DX: Z53.9 Procedure and treatment not carried out, unspecified reason (principal) ==

== ENCOUNTER 2022-07-03 10:03 | Emergency (ER) | payer OTHER ==
[~2022-07-03] VITALS: Ht 195.6 cm; Wt 127.3 kg
[2022-07-03 10:16] VITALS: BP 147/70
[2022-07-03] MEDS ORDERED: NORCO, ANEXSIA 5/325MG TABLET (HYDROcodone/ACETAMINOPHEN) PO ONE (12:25)
== END 2022-07-03 13:00 | disposition home or self-care (01) ==
LOC: EDBD 10:03 → M ED 10:03
DX: S00.03XA Contusion of scalp, initial encounter (principal); S50.01XA Contusion of right elbow, initial encounter; S70.01XA Contusion of right hip, initial encounter; W00.0XXA Fall on same level due to ice and snow, initial encounter; I10 Essential (primary) hypertension; E78.5 Hyperlipidemia, unspecified; Z79.52 Long term (current) use of systemic steroids; Z79.82 Long term (current) use of aspirin; Z79.811 Long term (current) use of aromatase inhibitors; Z79.810 Long term (current) use of selective estrogen receptor modulators (SERMs); Z79.899 Other long term (current) drug therapy

== ENCOUNTER → 2022-07-10 | Outpatient (REF) | payer OTHER ==
[2022-07-10 16:38] LABS: CREATININE, URINE 135.9 MG/DL
[2022-07-10 16:39] LABS: ALBUMIN 4.1 G/DL (3.2-5.2); ALKALINE PHOSPHATASE 56 U/L (46-116); ALT/SGPT 78 U/L (7.0-40); AST/SGOT 56 U/L (<34); BILIRUBIN,TOTAL 0.9 MG/DL (0.3-1.2); BLOOD UREA NITROGEN 16 MG/DL (9-23); CALCIUM LEVEL 9.7 MG/DL (8.5-10.1); CARBON DIOXIDE LEVEL 30 MMOL/L (20-31); CHLORIDE LEVEL 101 MMOL/L (98-107); CREATININE FOR GFR 1.06 MG/DL (0.70-1.30); GLOMERULAR FILTRATION RATE > 60.0 (>56); GLUCOSE, FASTING 89 MG/DL (60-100); POTASSIUM SERUM 4.9 MMOL/L (3.5-5.1); SODIUM LEVEL 138 MMOL/L (136-145); TOTAL PROTEIN 7.5 G/DL (5.7-8.2)
[2022-07-10 16:40] LABS: MAU/CREAT RATIO 14.7 MCG/MG (0.0-30.0)
== END ==
LOC: M SFHCADAM 12:14
PROVIDERS: ATTEND Family Medicine
DX: R30.0 Dysuria (principal); R80.9 Proteinuria, unspecified; W00.9XXD Unspecified fall due to ice and snow, subsequent encounter; S06.0X0D Concussion without loss of consciousness, subsequent encounter

== ENCOUNTER → 2022-11-08 | Outpatient (REF) | payer OTHER | LOC: M LABDRWAD 12:38 | PROVIDERS: ATTEND Urology | DX: R79.89 Other specified abnormal findings of blood chemistry (principal) ==

== ENCOUNTER → 2022-11-08 | Outpatient (REF) | payer OTHER ==
[2022-11-08 14:18] LABS: ALBUMIN 4.2 G/DL (3.2-5.2); ALKALINE PHOSPHATASE 49 U/L (46-116); ALT/SGPT 48 U/L (7.0-40); AST/SGOT 16 U/L (<34); BILIRUBIN,TOTAL 1.8 MG/DL (0.3-1.2); BLOOD UREA NITROGEN 17 MG/DL (9-23); CALCIUM LEVEL 9.6 MG/DL (8.5-10.1); CARBON DIOXIDE LEVEL 29 MMOL/L (20-31); CHLORIDE LEVEL 101 MMOL/L (98-107); CHOLESTEROL LEVEL 129 MG/DL (<200); CHOLESTEROL RISK RATIO 4.01 (<5); CREATININE FOR GFR 1.26 MG/DL (0.70-1.30); GLOMERULAR FILTRATION RATE > 60.0 (>56); GLUCOSE, FASTING 86 MG/DL (60-100); HDL CHOLESTEROL 32.1 MG/DL (>40); LDL CHOLESTEROL 68.5 MG/DL (<100); NON-HDL-C 96.9 MG/DL; POTASSIUM SERUM 4.4 MMOL/L (3.5-5.1); SODIUM LEVEL 138 MMOL/L (136-145); TOTAL PROTEIN 7.1 G/DL (5.7-8.2); TRIGLYCERIDES LEVEL 142 MG/DL (<150)
== END ==
LOC: M LABDRWAD 12:36
PROVIDERS: ATTEND Physician Assistant
DX: I50.32 Chronic diastolic (congestive) heart failure (principal); E78.2 Mixed hyperlipidemia

== ENCOUNTER → 2022-11-20 | Outpatient (REF) | payer OTHER ==
[2022-11-20 18:33] LABS: ALBUMIN 3.8 G/DL (3.2-5.2); ALKALINE PHOSPHATASE 50 U/L (46-116); ALT/SGPT 66 U/L (7.0-40); AST/SGOT 38 U/L (<34); BILIRUBIN,TOTAL 1.3 MG/DL (0.3-1.2); BLOOD UREA NITROGEN 15 MG/DL (9-23); CALCIUM LEVEL 9.9 MG/DL (8.5-10.1); CARBON DIOXIDE LEVEL 31 MMOL/L (20-31); CHLORIDE LEVEL 103 MMOL/L (98-107); CREATININE FOR GFR 1.19 MG/DL (0.70-1.30); GLOMERULAR FILTRATION RATE > 60.0 (>56); GLUCOSE, FASTING 98 MG/DL (60-100); POTASSIUM SERUM 4.2 MMOL/L (3.5-5.1); SODIUM LEVEL 138 MMOL/L (136-145)
== END ==
LOC: M SFHCADAM 13:50
PROVIDERS: ATTEND Family Medicine
DX: R17 Unspecified jaundice (principal)

== ENCOUNTER → 2022-12-04 | Outpatient (CLI) | payer OTHER | LOC: M WHC 08:10 | PROVIDERS: ATTEND Family Medicine | DX: K76.0 Fatty (change of) liver, not elsewhere classified (principal); R16.0 Hepatomegaly, not elsewhere classified ==

== ENCOUNTER → 2022-12-18 | Outpatient (REF) | payer OTHER ==
[2022-12-18 13:10] LABS: HEMATOCRIT 47.8 % (42.0-52.0); HEMOGLOBIN 15.8 g/dl (13.5-17.5); MEAN CORPUSCULAR HEMOGLOBIN 28.9 pg (27.0-33.0); MEAN CORPUSCULAR HGB CONC 33.1 g/dl (32.0-36.5); MEAN CORPUSCULAR VOLUME 87.4 fl (80.0-96.0); PLATELET COUNT, AUTOMATED 173 10^3/uL (150-450); RED BLOOD COUNT 5.47 10^6/uL (4.30-6.10); WHITE BLOOD COUNT 7.5 10^3/uL (4.0-10.0)
== END ==
LOC: M LABDRWAD 12:32
PROVIDERS: ATTEND Urology
DX: R79.89 Other specified abnormal findings of blood chemistry (principal)

== ENCOUNTER 2023-07-03 08:06 | Emergency (ER) | payer OTHER ==
[~2023-07-03] VITALS: Ht 195.6 cm; Wt 123.0 kg
[2023-07-03 08:06] VITALS: BP 124/59; TEMP 96.5; O2SAT 92
== END 2023-07-03 08:22 | disposition left against medical advice (07) ==
LOC: M ED 08:06
DX: Z53.21 Procedure and treatment not carried out due to patient leaving prior to being seen by health care provider (principal)

== ENCOUNTER → 2023-07-03 | Outpatient (REF) | payer OTHER ==
[2023-07-03 14:37] LABS: PROSTATIC SPECIFIC AG MONITOR 1.08 NG/ML (< 4.00)
== END ==
LOC: M LABDRWAD 12:44
PROVIDERS: ATTEND Urology
DX: R79.89 Other specified abnormal findings of blood chemistry (principal)

== ENCOUNTER → 2023-07-06 | Outpatient (REF) | payer OTHER | LOC: M LABDRWAD 13:19 | PROVIDERS: ATTEND Urology | DX: R79.89 Other specified abnormal findings of blood chemistry (principal) ==

== ENCOUNTER → 2023-08-20 | Outpatient (CLI) | payer OTHER | LOC: M PLAIMG 07:46 | PROVIDERS: ATTEND Physician Assistant | DX: I35.1 Nonrheumatic aortic (valve) insufficiency (principal); I50.32 Chronic diastolic (congestive) heart failure ==

== ENCOUNTER → 2023-10-22 | Outpatient (REF) | payer OTHER ==
[~2023-10-22] MED LIST changes: -ROSU10TA6 PO; +ROSU10TA61 PO
[2023-10-22 13:19] LABS: BASO # 0.1 10^3/uL (0.0-0.2); BASO % 0.9 % (0.0-1.0); EOS # 0.2 10^3/uL (0.0-0.5); EOS % 2.8 % (0.0-3.0); HEMATOCRIT 51.1 % (42.0-52.0); HEMOGLOBIN 16.8 g/dl (13.5-17.5); LYMPH # 3.7 10^3/uL (1.5-5.0); LYMPH % 43.1 % (24.0-44.0); MEAN CORPUSCULAR HEMOGLOBIN 29.4 pg (27.0-33.0); MEAN CORPUSCULAR HGB CONC 32.9 g/dl (32.0-36.5); MEAN CORPUSCULAR VOLUME 89.3 fl (80.0-96.0); MONO # 0.8 10^3/uL (0.0-0.8); MONO % 9.8 % (2.0-8.0); NEUTROPHILS # 3.5 10^3/uL (1.5-8.5); NEUTROPHILS % 41.8 % (36.0-66.0); PLATELET COUNT, AUTOMATED 195 10^3/uL (150-450); RED BLOOD COUNT 5.72 10^6/uL (4.30-6.10); WHITE BLOOD COUNT 8.5 10^3/uL (4.0-10.0)
[2023-10-22 13:53] LABS: ALBUMIN 3.9 G/DL (3.2-5.2); ALKALINE PHOSPHATASE 52 U/L (46-116); ALT/SGPT 70 U/L (7.0-40); AST/SGOT 31 U/L (<34); BILIRUBIN,TOTAL 0.9 MG/DL (0.3-1.2); BLOOD UREA NITROGEN 15 MG/DL (9-23); CALCIUM LEVEL 9.4 MG/DL (8.5-10.1); CARBON DIOXIDE LEVEL 29 MMOL/L (20-31); CHLORIDE LEVEL 102 MMOL/L (98-107); CHOLESTEROL LEVEL 137 MG/DL (<200); CHOLESTEROL RISK RATIO 4.16 (<5); CREATININE FOR GFR 1.18 MG/DL (0.70-1.30); GLOMERULAR FILTRATION RATE > 60.0 (>56); GLUCOSE, FASTING 140 MG/DL (60-100); HDL CHOLESTEROL 32.9 MG/DL (>40); LDL CHOLESTEROL 79.5 MG/DL (<100); NON-HDL-C 104.1 MG/DL; POTASSIUM SERUM 4.7 MMOL/L (3.5-5.1); SODIUM LEVEL 136 MMOL/L (136-145); TRIGLYCERIDES LEVEL 123 MG/DL (<150)
[2023-10-22 13:54] LABS: THYROID STIMULATING HORMONE 0.858 uIU/ML (0.55-4.78)
== END ==
LOC: M SFHCADAM 10:07
PROVIDERS: ATTEND Family Medicine
DX: Z00.00 Encounter for general adult medical examination without abnormal findings (principal)

== ENCOUNTER 2023-11-14 12:12 | Emergency (ER) | payer OTHER ==
[~2023-11-14] VITALS: Ht 195.6 cm; Wt 121.3 kg
[2023-11-14 12:13] VITALS: BP 112/60; TEMP 97.7; O2SAT 98
[2023-11-14] MEDS ORDERED: MORPHINE 4 MG/ML 1ML VIAL IV ONE (14:30)
[2023-11-14] MEDS ORDERED: ONDANSETRON 4MG 2ML VIAL IV ONE (14:30)
[2023-11-14] MEDS ORDERED: NS 1,000 ML IV ONE (14:30)
== END 2023-11-14 14:54 | disposition left against medical advice (07) ==
LOC: M ED 12:12
DX: M54.6 Pain in thoracic spine (principal); R10.9 Unspecified abdominal pain; V89.2XXA Person injured in unspecified motor-vehicle accident, traffic, initial encounter; Y92.410 Unspecified street and highway as the place of occurrence of the external cause; Z53.20 Procedure and treatment not carried out because of patient's decision for unspecified reasons

== ENCOUNTER → 2024-02-29 | Outpatient (REF) | payer OTHER ==
[~2024-02-29] MED LIST changes: +GABA-1172; +GABA-1172 PO; -GABA-282; -GABA-282 PO
[2024-02-29 14:03] LABS: APPEARANCE, URINE CLEAR (CLEAR); BACTERIA, URINE AUTO NEGATIVE (NEGATIVE); BILIRUBIN, URINE AUTO NEGATIVE (NEGATIVE); BLOOD, URINE BLOOD NEGATIVE (NEGATIVE); COLOR, URINE YELLOW (YELLOW); GLUCOSE, URINE (UA) AUTO NEGATIVE (NEGATIVE); KETONE, URINE AUTO NEGATIVE (NEGATIVE); LEUKOCYTE ESTERASE, URINE AUTO TRACE (NEGATIVE); MUCUS, URINE SMALL (NEGATIVE); NITRITE, URINE AUTO NEGATIVE (NEGATIVE); PROTEIN, URINE AUTO NEGATIVE (NEGATIVE); RBC, URINE AUTO 1 /HPF (0-3); SPECIFIC GRAVITY URINE AUTO 1.018 (1.002-1.035); SQUAMOUS EPITHELIAL CELL UR AU 0 /HPF (0-6); UROBILINOGEN, URINE AUTO 0.2 mg/dL (0.0-2.0); WBC, URINE AUTO 8 /HPF (0-3)
== END ==
LOC: M PLALAB 12:53
PROVIDERS: ATTEND Urology
DX: R30.0 Dysuria (principal)

== ENCOUNTER → 2024-02-29 | Outpatient (REF) | payer OTHER ==
[2024-02-29 13:01] LABS: PLATELET COUNT, AUTOMATED 202 10^3/uL (150-450)
[2024-02-29 13:14] LABS: INR 0.97; PARTIAL THROMBOPLASTIN TIME 27.2 SECONDS (24.8-34.2); PROTHROMBIN TIME 13.2 SECONDS (12.5-14.5)
== END ==
LOC: M PLALAB 12:49
PROVIDERS: ATTEND Physician Assistant Surgical
DX: Z01.818 Encounter for other preprocedural examination (principal)

== ENCOUNTER → 2024-03-13 | Outpatient (REF) | payer OTHER ==
[2024-03-13 18:03] LABS: APPEARANCE, URINE CLEAR (CLEAR); BACTERIA, URINE AUTO NEGATIVE (NEGATIVE); BILIRUBIN, URINE AUTO NEGATIVE (NEGATIVE); BLOOD, URINE BLOOD NEGATIVE (NEGATIVE); COLOR, URINE STRAW (YELLOW); GLUCOSE, URINE (UA) AUTO NEGATIVE (NEGATIVE); KETONE, URINE AUTO NEGATIVE (NEGATIVE); LEUKOCYTE ESTERASE, URINE AUTO NEGATIVE (NEGATIVE); MUCUS, URINE SMALL (NEGATIVE); NITRITE, URINE AUTO NEGATIVE (NEGATIVE); PROTEIN, URINE AUTO NEGATIVE (NEGATIVE); RBC, URINE AUTO 0 /HPF (0-3); SPECIFIC GRAVITY URINE AUTO 1.006 (1.002-1.035); SQUAMOUS EPITHELIAL CELL UR AU 0 /HPF (0-6); UROBILINOGEN, URINE AUTO 0.2 mg/dL (0.0-2.0); WBC, URINE AUTO 1 /HPF (0-3)
== END ==
LOC: M LABDRWAD 17:25
PROVIDERS: ATTEND Urology
DX: R30.0 Dysuria (principal)

== ENCOUNTER → 2024-05-05 | Outpatient (CLI) | payer OTHER | LOC: M ADAMS 11:11 | PROVIDERS: ATTEND Urology | DX: R79.89 Other specified abnormal findings of blood chemistry (principal) ==

== ENCOUNTER → 2024-05-05 | Outpatient (REF) | LOC: M CAHLAB 21:44 → M LAB REF 21:44 | DX: Z00.00 Encounter for general adult medical examination without abnormal findings (principal) ==

== ENCOUNTER → 2024-05-10 | Outpatient (CLI) | payer OTHER, SELFPAY | LOC: M LAB 09:27 | PROVIDERS: ATTEND Urology | DX: R79.89 Other specified abnormal findings of blood chemistry (principal) ==

== ENCOUNTER → 2024-05-14 | Outpatient (REF) | payer SELFPAY | LOC: M LABDRWAD 17:26 | PROVIDERS: ATTEND Urology | DX: R79.89 Other specified abnormal findings of blood chemistry (principal) | CPT/HCPCS: 36415; G0103 ==

== ENCOUNTER → 2024-06-24 | Outpatient (REF) | payer OTHER ==
[2024-06-24 14:19] LABS: BASO # 0.1 10^3/uL (0.0-0.2); BASO % 0.9 % (0.0-1.0); EOS # 0.1 10^3/uL (0.0-0.5); EOS % 1.6 % (0.0-3.0); HEMATOCRIT 47.1 % (42.0-52.0); HEMOGLOBIN 15.3 g/dl (13.5-17.5); LYMPH # 2.9 10^3/uL (1.5-5.0); LYMPH % 35.2 % (24.0-44.0); MEAN CORPUSCULAR HEMOGLOBIN 28.8 pg (27.0-33.0); MEAN CORPUSCULAR HGB CONC 32.5 g/dl (32.0-36.5); MEAN CORPUSCULAR VOLUME 88.5 fl (80.0-96.0); MONO # 0.9 10^3/uL (0.0-0.8); MONO % 10.6 % (2.0-8.0); NEUTROPHILS # 4.2 10^3/uL (1.5-8.5); PLATELET COUNT, AUTOMATED 213 10^3/uL (150-450); RED BLOOD COUNT 5.32 10^6/uL (4.30-6.10); WHITE BLOOD COUNT 8.2 10^3/uL (4.0-10.0)
[2024-06-24 14:24] LABS: ALKALINE PHOSPHATASE 54 U/L (40-129); ALT/SGPT 59 U/L (7.0-40); AST/SGOT 36 U/L (<34); BILIRUBIN,TOTAL 0.9 MG/DL (0.3-1.2); BLOOD UREA NITROGEN 14 MG/DL (9-23); CALCIUM LEVEL 9.9 MG/DL (8.5-10.1); CARBON DIOXIDE LEVEL 28 MMOL/L (20-31); CHLORIDE LEVEL 102 MMOL/L (98-107); CHOLESTEROL LEVEL 130 MG/DL (<200); CHOLESTEROL RISK RATIO 3.45 (<5); CREATININE FOR GFR 1.11 MG/DL (0.70-1.30); GLOMERULAR FILTRATION RATE > 60.0 (>56); GLUCOSE, FASTING 102 MG/DL (60-100); HDL CHOLESTEROL 37.6 MG/DL (>40); LDL CHOLESTEROL 58.8 MG/DL (<100); NON-HDL-C 92.4 MG/DL; POTASSIUM SERUM 4.6 MMOL/L (3.5-5.1); SODIUM LEVEL 137 MMOL/L (136-145); THYROID STIMULATING HORMONE 1.208 uIU/ML (0.55-4.78); TOTAL PROTEIN 7.4 G/DL (5.7-8.2); TRIGLYCERIDES LEVEL 168 MG/DL (<150)
== END ==
LOC: M SFHCADAM 10:20
PROVIDERS: ATTEND Family Medicine
DX: Z00.00 Encounter for general adult medical examination without abnormal findings (principal)

== ENCOUNTER → 2024-07-17 | Outpatient (REF) | payer OTHER | LOC: M SFHCADAM 10:48 | PROVIDERS: ATTEND Physician Assistant | DX: R19.7 Diarrhea, unspecified (principal); Z53.9 Procedure and treatment not carried out, unspecified reason ==

== ENCOUNTER → 2024-11-18 | Outpatient (REF) | payer OTHER ==
[2024-11-18 15:15] LABS: PSA SCREENING 1.56 NG/ML (< 4.00)
[2024-11-18 15:22] LABS: TESTOSTERONE 406.0 NG/DL (241-827)
== END ==
LOC: M LABDRWAD 13:19
PROVIDERS: ATTEND Urology
DX: R79.89 Other specified abnormal findings of blood chemistry (principal)
CPT/HCPCS: 36415; 84403; 85014; G0103

== ENCOUNTER → 2025-02-09 | Outpatient (REF) | payer OTHER ==
[~2025-02-09] MED LIST changes: -IBUP-1022 PO; +IBUP600T42 PO
[2025-02-09 13:51] LABS: APPEARANCE, URINE CLEAR (CLEAR); BACTERIA, URINE AUTO NEGATIVE (NEGATIVE); BILIRUBIN, URINE AUTO NEGATIVE (NEGATIVE); BLOOD, URINE BLOOD NEGATIVE (NEGATIVE); GLUCOSE, URINE (UA) AUTO NEGATIVE (NEGATIVE); KETONE, URINE AUTO NEGATIVE (NEGATIVE); LEUKOCYTE ESTERASE, URINE AUTO NEGATIVE (NEGATIVE); NITRITE, URINE AUTO NEGATIVE (NEGATIVE); PROTEIN, URINE AUTO NEGATIVE (NEGATIVE); RBC, URINE AUTO 0 /HPF (0-3); SPECIFIC GRAVITY URINE AUTO 1.010 (1.002-1.035); SQUAMOUS EPITHELIAL CELL UR AU 0 /HPF (0-6); UROBILINOGEN, URINE AUTO 0.2 mg/dL (0.0-2.0); WBC, URINE AUTO 1 /HPF (0-3)
== END ==
LOC: M LAB REF 12:45
PROVIDERS: ATTEND Urology
DX: R35.0 Frequency of micturition (principal)